=== PATIENT | female | born 1970 | race African-American/Black ===

== ENCOUNTER 2017-10-31 09:58 | Inpatient (IN) ==
--- OUTSIDE RECORDS SUMMARY | 2017-10-31 12:25 | External Medical Summary | Encounter Summary ---
:1970 Author Organization [facility] Address [address] [place] [address] Phone Care Team Providers Name Role Phone Lewis Francis DO Unavailable Brian Fish MD Primary Care Provider Carmen Jean RN Registered Nurse Unavailable Encounter Details Date Type Department Care Team Description 10/12/2017 Documentation [facility] Bartolome Thomas MD Physicians-Neurology [address] [facility] [address] [place] [address] [place] [id number] Social History Tobacco Use Types Packs/Day Years Used Date Current Every Day Smoker Cigarettes 0.5 27 Smokeless Tobacco: Never Used Alcohol Use Drinks/Week oz/Week Comments Yes occasional drinker Sex Assigned at Date Recorded Not on file as of this encounter Functional Status Functional Status Response Date of Assessment Does the patient have a hearing impairment: No 01/23/2017 Does the patient have a visual impairment: Yes 01/03/2017 Does the patient have impaired ambulation: Yes 01/03/2017 Does the patient have an activity of daily living (ADL) No 01/03/2017 impairment: Does the patient have an instrumental activity of daily Yes 01/03/2017 living (IADL) impairment: Cognitive Status Response Date of Assessment Does the patient have a cognitive impairment: No 01/03/2017 as of this encounter Progress Notes Larisa Ross LPN - 10/12/2017 8:09 AM CST10 muscle biopsy slides returned to [facility] from 7..17. Reviewed by Dr. Thomas and returned 3.9.18in this encounter Plan of Treatment Not on fileas of this encounter Visit Diagnoses Not on filein this encounter
--- OUTSIDE RECORDS SUMMARY | 2017-10-31 12:25 | External Medical Summary | Continuity of Care Document ---
:1970 Author Organization [facility] Care Team Providers Name Role Phone [employer] Unavailable Unavailable Encounters Location Location Encounter Encounter Reason Attending ADM DC Status Source Details Type Number For Provider Date Date Visit OP SURGERY [id number] JONNY 01/04 01/04 Active [facility]2016 [facility] Xu MOREIRA Active [facility]
--- OUTSIDE RECORDS SUMMARY | 2017-10-31 12:25 | External Medical Summary | Clinical Summary ---
:1970 Author Organization [facility] Address [address] [place] [address] Phone Care Team Providers Name Role Phone Lewis Francis DO Unavailable Brian Fish MD Primary Care Provider Carmen Jean RN Registered Nurse Unavailable Source Comments Some departments are not documenting in the electronic medical record. If you do not see the information that you expected, contact Release of Information in the Health Information Management department at [phone] for further assistance in locating additional records.[facility] Allergies Active Allergy Reactions Severity Noted Date Comments Codeine VOMITING Low 12/13/2015 Penicillin G HIVES Medium 12/13/2015 Current Medications Prescription Sig. Disp. Refills Start Date End Date Status ERGOCALCIFEROL (VITAMIN Take 2,000 mcg by Active D2) (VITAMIN D PO) mouth daily. THIAMINE HCL (VITAMIN Take 100 mg by Active B-1 PO) mouth daily. melatonin 5 mg tab Take 5 mg by mouth Active at bedtime daily. ASCORBATE CALCIUM Take 500 mg by Active (VITAMIN C PO) mouth daily. levothyroxine Take 200 mcg by Active (SYNTHROID) 175 mcg mouth daily. tablet gabapentin (NEURONTIN) Take 3 Caps by 360 Cap 5 09/15/2016 Active 300 mg capsule mouth four times daily. potassium chloride SR Take 10 mEq by Active (K-DUR) 10 mEq tablet mouth daily. Take with a meal and a full glass of water. MULTIVITAMINS WITH Take by mouth Active FLUORIDE (MULTI-VITAMIN daily. PO) pyridoxine (VITAMIN B-6) Take 100 mg by Active 25 mg tab mouth three times daily. cyanocobalamin(+) Take 100 mcg by Active (VITAMIN B-12) 100 mcg mouth daily. tablet duloxetine DR (CYMBALTA) Take 2 Caps by 60 Cap 6 12/04/2016 Active 30 mg capsule mouth daily. metoprolol XL (TOPROL Take 100 mg by Active XL) 100 mg extended mouth daily. release tablet topiramate (TOPAMAX) 50 Take 1 Tab by 180 Tab 1 01/27/2017 Active mg tablet mouth twice daily. oxyCODONE SR (OXYCONTIN) Take 1 Tab by 30 Tab 0 01/27/2017 Active 10 mg ER tablet mouth every 8 hours Earliest Fill Date: 01/27/17 oxyCODONE/acetaminophen Take 1-2 Tabs by 30 Tab 0 01/27/2017 Active (PERCOCET; ENDOCET) mouth every 4 10/325 mg tablet hours as needed Earliest Fill Date: 01/27/17 Active Problems Problem Noted Date BMI 40.0-44.9, adult (HCC) 01/27/2017 Obesity due to excess calories 01/27/2017 Hyponatremia 01/23/2017 MGUS (monoclonal gammopathy of unknown significance) 10/31/2016 Last Assessment & Plan: A 46-year-old -[place] female patient with a known history of thyroid cancer, hypertension, and chronic polyneuropathy at least since 2014. Who presents to our clinic because of elevated free k appa light chain while performing a workup for her neuropathy. Patient states that her neuropathy has been worsening for the past year and she states that sometimes she is losing balance. She is here for further evaluation. Her recent myeloma markers showed the following free kappa light chain 3.0 mg/dL, free lambda light chain 1.9 mg/dL, ratio 1.5, serum M protein 0. After review of her initial labs and discussion with the patient and her about her symptoms and the possibility that it could be related to her elevated free kappa light chain I recommend to per form a further workup in order to identify if the patient has any underlying plasma cell disorder that could be the cause of her peripheral neuropathy and to see if that could be treatable as well. Recommendation: Request bone marrow biopsy with aspirate/cytogenetic/Congo red stain from her local piercing specialist Check skeletal survey Check fat pad biopsy to rule out AL amyloidosis Check free light chain, SPEP, 24 hour UPEP, serum and urine immunofixation, beta-2 M, LDH, total immunoglobulin level Check VEGF RTC to my clinic after all these results are back to discuss the final diagnosis Polyneuropathy (HCC) 10/31/2016 Last Assessment & Plan: Patient is here for further evaluation regarding her underlying cause of elevated protein. She has been evaluated by the neurology and had a full workup regarding her polyneuropathy, still ongoing workup without any underlying cause to be found for this patient. Essential hypertension 10/31/2016 Last Assessment & Plan: Swelling her primary care physician regarding her hypertension Thyroid cancer (HCC) 10/31/2016 Last Assessment & Plan: History of thyroid cancer and had surgery in addition to iodine treatment. Encounters Date Type Specialty Care Team Description 10/12/2017 Documentation Neurology Bartolome Thomas MD from Last 3 Months Immunizations Name Dates Previously Given Next Due Pneumococcal Vaccine (23-Tara Adult) 01/27/2017 (Deferred: - Message sent at 10:33) Family History Medical History Relation Name Comments None Reported Brother Cancer Father Hypertension Father Asthma Mother Diabetes Sister Kidney Failure Sister Relation Name Status Comments Brother Alive Father Alive Mother Sister Alive Social History Tobacco Use Types Packs/Day Years Used Date Current Every Day Smoker Cigarettes 0.5 27 Smokeless Tobacco: Never Used Alcohol Use Drinks/Week oz/Week Comments Yes occasional drinker Sex Assigned at Date Recorded Not on file Last Filed Vital Signs Vital Sign Reading Time Taken Blood Pressure 129/82 01/27/2017 12:21 PM CDT Pulse 86 01/27/2017 12:21 PM CDT Temperature 36.4 C (97.5 F) 01/27/2017 12:21 PM CDT Respiratory Rate 14 10/30/2016 3:23 PM CDT Oxygen Saturation 100% 01/27/2017 12:21 PM CDT Inhaled Oxygen Concentration - - Weight 115.7 kg (255 lb 1.2 oz) 01/24/2017 8:00 AM CDT Height 165.1 cm (5' 5") 01/24/2017 8:09 AM CDT Body Mass Index 42.45 01/24/2017 8:00 AM CDT Plan of Treatment Health Maintenance Due Date Last Done Comments PHYSICAL (COMPREHENSIVE) EXAM 1977 PERTUSSIS VACCINE 1981 HIV SCREENING 1985 TETANUS VACCINE 10/10/1987 CERVICAL CANCER SCREENING 2000 BREAST CANCER SCREENING 2010 INFLUENZA VACCINE 05/06/2018 Implants Implanted Type Area Office Manager Device Identifier Expiration Date Model / Serial / Lot Lap Band
--- OUTSIDE RECORDS SUMMARY | 2017-10-31 12:25 | External Medical Summary | Continuity Of Care Document ---
:1970 Author Organization [facility] Address [address] [place] [address] Phone Care Team Providers Name Role Phone RODY HARGROVE MD Unavailable UNASSIGNED, ED PHYSICIAN Unavailable Unavailable DALI STILL, CHARBEL Covarrubias Attending Provider TOREY VALERO MD Primary Care Provider [phone] Results Lab Results Visit/Account #[id number] (March 11, 2015 12:10am - March 11, 2015 5:40am) Test Result Date/Time 07115-1: COMPLETE BLOOD COUNT WITH DIFF WHITE BLOOD COUNT(4.0-11.0 10E3/UL) 12.6 10E3/UL March 11, 2015 12:24am RED BLOOD COUNT(4.00-5.20 10E6/UL) 4.88 10E6/UL March 11, 2015 12:24am HEMOGLOBIN(12.0-16.0 G/DL) 14.5 G/DL March 11, 2015 12:24am HEMATOCRIT(36.0-46.0 %) 42.6 % March 11, 2015 12:24am MEAN CORPUSCULAR VOLUME(82.0-100.0 FL) 87.3 FL March 11, 2015 12:24am 22551-0: MEAN CORPUSCULAR HEMOGLOBIN(26.0-34.0 PG) 29.7 PG March 11, 2015 12: 24am MEAN CORPUSCULAR HGB CONC(31.5-36.5 G/DL) 34.0 G/DL March 11, 2015 12:24am RED CELL DISTRIBUTION WIDTH(11.5-14.5 %) 13.8 % March 11, 2015 12:24am 777-3: PLATELET COUNT(150-450 10E3/UL) 366 10E3/UL March 11, 2015 12:24am MEAN PLATELET VOLUME(8.2-12.4 FL) 10.3 FL March 11, 2015 12:24am 770-8: NEUTROPHILS % (AUTO)(40-70 %) 65 % March 11, 2015 12:24am LYMPHOCYTES % (AUTO)(15-45 %) 26 % March 11, 2015 12:24am 5905-5: MONOCYTES % (AUTO)(2-10 %) 9 % March 11, 2015 12:24am 713-8: EOSINOPHILS % (AUTO)(0-6 %) 1 % March 11, 2015 12:24am 706-2: BASOPHILS % (AUTO)(0-1 %) 0 % March 11, 2015 12:24am 40568-0: IMMATURE GRANS % (AUTO)(0-0 %) 0 % March 11, 2015 12:24am NUCLEATED RBCS (AUTO)(0-0 %) 0 % March 11, 2015 12:24am 751-8: NEUTROPHILS # (AUTO)(2.5-7.5 10E3/UL) 8.2 10E3/UL March 11, 2015 12: 24am 64002-4: LYMPHOCYTES # (AUTO)(1.0-4.0 10E3/UL) 3.2 10E3/UL March 11, 2015 12: 24am 742-7: MONOCYTES # (AUTO)(0.2-0.8 10E3/UL) 1.1 10E3/UL March 11, 2015 12:24am 711-2: EOSINOPHILS # (AUTO)(0.0-0.4 10E3/UL) 0.1 10E3/UL March 11, 2015 12: 24am 704-7: BASOPHILS # (AUTO)(0.0-0.2 10E3/UL) 0.0 10E3/UL March 11, 2015 12:24am IMMATURE GRANS # (AUTO)(0.0-0.0 10E3/UL) 0.1 10E3/UL March 11, 2015 12:24am DIFF TYPE AUTOMATED March 11, 2015 12:24am 79653-4: COMPLETE METABOLIC PROFILE 09168-7: GLUCOSE(70-110 MG/DL) 118 MG/DL March 11, 2015 12:24am BLOOD UREA NITROGEN(6-20 MG/DL) 3 MG/DL March 11, 2015 12:24am 93656-5: CREATININE(0.50-1.20 MG/DL) 0.52 MG/DL March 11, 2015 12:24am 63509-9: EST GLOMERULAR FILTRATION RATE(Greater than or equal to 60) Greater than or equal to 60 March 11, 2015 12:24am Result Comments: If the patient is of -[place] descent/extraction multiply the eGFR value by 1.212 to obtain the actual eGFR. >=60 mg/dL Normal 30-59 mg/dL Moderate Kidney Disease 15-29 mg/dL Severe Kidney Disease <15 mg/dL Kidney Failure BUN CREATININE RATIO(10.0-20.0 RATIO) 6.0 RATIO March 11, 2015 12:24am 08457-9: SODIUM(135-145 MMOL/L) 142 MMOL/L March 11, 2015 12:24am 18739-8: POTASSIUM(3.6-5.0 MMOL/L) 1.9 MMOL/L March 11, 2015 12:24am 05474-5: CHLORIDE(101-111 MMOL/L) 95 MMOL/L March 11, 2015 12:24am 8-9: CO2(21-31 MMOL/L) 37.0 MMOL/L March 11, 2015 12:24am 41636-3: ANION GAP(8-18) 12 March 11, 2015 12:24am OSMO CALCULATED(270.0-290.0) 280.7 March 11, 2015 12:24am CALCIUM(8.5-10.5 MG/DL) 8.7 MG/DL March 11, 2015 12:24am BILIRUBIN,TOTAL(0.1-1.2 MG/DL) 0.6 MG/DL March 11, 2015 12:24am ALKALINE PHOSPHATASE(42-121 IU/L) 75 IU/L March 11, 2015 12:24am ASPARTATE AMINO TRANSFERASE(10-42 IU/L) 15 IU/L March 11, 2015 12:24am ALANINE AMINOTRANSFERASE(10-60 IU/L) 6 IU/L March 11, 2015 12:24am 86404-2: TOTAL PROTEIN(6.4-8.2 G/DL) 6.9 G/DL March 11, 2015 12:24am ALBUMIN(3.5-5.5 G/DL) 3.3 G/DL March 11, 2015 12:24am 2336-6: GLOBULIN(2.4-3.6) 3.6 March 11, 2015 12:24am ALBUMIN/GLOBULIN RATIO(0.9-1.8 RATIO) 0.9 RATIO March 11, 2015 12:24am 30408-5: MAGNESIUM 85323-4: MAGNESIUM(1.8-2.5 MG/DL) 2.2 MG/DL March 11, 2015 12:24am 3040-3: LIPASE 3040-3: LIPASE(22-51 U/L) 19 U/L March 11, 2015 12:24am THYROID STIMULATING HORMONE THYROID STIMULATING HORMONE(0.340-5.600 uIU/ML) 30.130 uIU/ML March 11, 2015 12:24am Result Comments: --- 03/11/15 0153 --- CORRECTED REPORT TSH previously reported as: 33.710 H uIU/ML SERUM HCG, QUALITATIVE 0-5: SERUM HCG, QUALITATIVE(NEGATIVE) NEGATIVE March 11, 2015 12:24am Allergies and Adverse Reactions Allergies and Adverse Reactions Patient Unit Number: [id number] Agent Type Reaction Severity Status PENICILLINS Drug Allergy Hives Moderate Active CODEINE Drug Allergy Nausea & TREVINO Mild Active Problem List Problem List Visit/Account #[id number] (March 11, 2015 12:10am - March 11, 2015 5:40am) Acute Problems: Code/Condition Comments Documented Start Documented Resolved Code(s) Date Date Oral thrush ICD10: B37.0 Candidiasis of mouth ICD9: 112.0 Candidiasis of mouth SNOMED: 76183364 Candidiasis of mouth Gingivitis ICD10: K05.10 Gingivitis ICD9: 523.10 Gingivitis SNOMED: 49525889 Gingivitis Hypothyroidism ICD10: E03.9 Hypothyroidism ICD9: 244.9 Hypothyroidism SNOMED: 26413469 Hypothyroidism Hypokalemia ICD10: E87.6 Hypokalemia ICD9: 276.8 Hypokalemia SNOMED: 48422355 Hypokalemia Oral thrush ICD10: B37.0 Candidiasis of mouth ICD9: 112.0 Candidiasis of mouth SNOMED: 70992673 Candidiasis of mouth Plan of Care Plan Of Care Visit/Account #[id number] (March 11, 2015 12:10am - March 11, 2015 5:40am) Patient Instructions Follow with primary care in 2 days to recheck potassium. Take potassium 15 mEq twice a day instead of once a day for 2 days. Increase levothyroxin to 175 mcg daily. Use nystatin swish and swallow for one week. Take antibiotics as prescribed. Return to the emergency room if symptoms worsens or has any concern. Take pepcid 40 mg po daily for 2 weeks. Vital Signs Vital Signs Visit/Account #[id number] (March 11, 2015 12:10am - March 11, 2015 5:40am) Sign First Result Last Result Code(s) Body Mass Index Body Mass Index (BMI): 29.0 kg/m2 On March 11, 2015 12:08am 30143-9 BMI (body mass index) Body Mass Index as a Calculated Value 29.8 kg/m2 On March 11, 2015 12:08am 22265-6 BMI (body mass index) Body Surface Area as a Calculated Value 1.93 m2 On March 11, 2015 12:08am 3140-1 BSA (body surface area) Height (Feet/Inches) 5 [ft_us] 6 [in_us] On March 11, 2015 12:08am Temperature in Fahrenheit Temperature (Fahrenheit): 98.5 [degF] On March 11, 2015 12:08am Temperature (Fahrenheit): 98.1 [degF] On March 11, 2015 5:30am 8310-5 Body Temperature Weight in Kilograms Weight (Kilograms): 83.64 kg On March 11, 2015 12:08am 3141-9 Weight Measured 65791-0 Body weight measured in kilograms Functional Status Functional and Cognitive Status No Functional Status Data Medications Inpatient/Ordered Medications - Medications administered during hospital visit Visit/Account #[id number] (March 11, 2015 12:10am - March 11, 2015 5:40am) Medication Route Sig/Schedule Precondition/Indication Comments/ Instructions Codes ATIVAN INJ(LORazepam) 2 MG/ML INJECTION INTRAVEN NOW Rx Order Comments: Lorazepam 2 MG/ML Injectable Solution [Ativan] (RxNorm): 663689 Dose: 0.5 ML Order placed as verified: Dose Warnings differ from telephone order dispatcher ATIVAN INJ (LORazepam) NDC: 28402950534 Label Comments: *DILUTE WITH EQUAL VOLUME OF NORMAL SALINE PRIOR TO IV ADMINISTRATION MAY INCREASE FALL RISK TORADOL INJ(KETOROLAC TROMETHAMINE) 30 MG/ML INJECTION INTRAVEN NOW Rx Order Comments: Ketorolac Tromethamine 30 MG/ML Injectable Solution (RxNorm): 155602 Dose: 1 ML Order placed as verified: Dose Warnings differ from telephone order dispatcher TORADOL INJ (KETOROLAC TROMETHAMINE) NDC: 87583539031 Label Comments: DO NOT EXCEED 5 DAYS OF THERAPY ZOFRAN INJ(ONDansetron HCL) 4 MG/2 ML INJECTION INTRAVEN NOW Rx Order Comments: Ondansetron 2 MG/ML Injectable Solution (RxNorm): 516739 Dose: 2 ML Order placed as verified: Dose Warnings differ from telephone order dispatcher ZOFRAN INJ (ONDansetron HCL) NDC : 31860070652 Label Comments: SLOW IV PUSH MAY INCREASE FALL RISK K-DUR(POTASSIUM CHLORIDE) 20 MEQ TAB ORAL NOW Rx Order Comments: Potassium Chloride 20 MEQ Extended Release Oral Tablet [Klor-Con] (RxNorm): 228959 Dose: 40 MEQ Order placed as verified: Dose Warnings differ from telephone order dispatcher K-DUR (POTASSIUM CHLORIDE) NDC: 49479612304 Label Comments: TAKE WITH FOOD TO AVOID GI UPSET IV Medication INTRAVEN NOW (Rate: 130 MLS/HR Duration: 4 HR) Rx Order Comments: Additives: Order placed as verified: Additives: Allergies/Duplicates/Interactions differ from telephone order dispatcher Potassium Chloride 2 MEQ/ML Injectable Solution (RxNorm): 798947 KCL INJ(POTASSIUM CHLORIDE) 40 MEQ/20 ML INJECTION KCL INJ (POTASSIUM CHLORIDE) NDC: 07207642629 Dose: 40 MEQ Carriers: Carriers: Sodium Chloride 0.154 MEQ/ML Injectable Solution (RxNorm): 765795 SODIUM CHLORIDE 500 ML INJECTION Dose: 500 ML (SODIUM CHLORIDE) NDC: 54287306574 Discharge Medications - Medications that patient should continue to take. Review with physician Visit/Account #[id number] (March 11, 2015 12:10am - March 11, 2015 5:40am) Medication Route Sig/Schedule Precondition/Indication Comments/ Instructions Codes KEFLEX(CEPHALEXIN MONOHYDRATE) 500 MG CAPSULE ORAL 3 TIMES A DAY Cephalexin 500 MG Oral Capsule [Keflex] (RxNorm): 002786 Dose: 500 MG KEFLEX (CEPHALEXIN MONOHYDRATE) NDC: 06451849507 NILSTAT(NYSTATIN) 60 ML SUSPENSION ORAL EVERY 6 HOURS Rx Instructions: Nystatin 439231 UNT/ML Oral Suspension (RxNorm): 360925 Dose: 5 ML SWISH AND SWALLOW NILSTAT (NYSTATIN) NDC: 31505863249 SYNTHROID(LEVOTHYROXINE SODIUM) 0.175 MG TABLET ORAL DAILY Levothyroxine Sodium 0.175 MG Oral Tablet [Synthroid] (RxNorm): 856927 Dose: 0.175 MG SYNTHROID (LEVOTHYROXINE SODIUM) NDC: 16076336713 History Of Encounters Encounters Visit/Account #[id number] (March 11, 2015 12:10am - March 11, 2015 5:40am) Account Physican Of Reason For Visit Diagnosis Start Date/Time Stop Date/ Time Status Record Visit ER CHARBEL MCNALLY MD ABD PAIN, NUMB FINGERS AND TOES, LIPS TINGLE. Not Available Mar 11, 2015 12:10am Mar 11, 2015 5:40am History of Procedures Procedure List No procedures recorded. Discharge Instructions Discharge Instructions Visit/Account #[id number] (March 11, 2015 12:10am - March 11, 2015 5:40am) DISCHARGE INSTRUCTIONS Physician Documentation Social History Social History No Social History Data. Immunizations Immunizations Patient Unit Number: [id number] Immunizations No immunizations recorded.
--- OUTSIDE RECORDS SUMMARY | 2017-10-31 12:25 | External Medical Summary | Continuity Of Care Document ---
:1970 Author Organization [facility] Address [address] [place] [address] Phone Care Team Providers Name Role Phone MALOU STILL MD Attending Provider TOREY VALERO MD Primary Care Provider [phone] Results Lab Results Visit/Account #[id number] (April 04, 2015 3:25am - April 04, 2015 5:30am) Test Result Date/Time 26146-0: COMPLETE BLOOD COUNT WITH DIFF WHITE BLOOD COUNT(4.0-11.0 10E3/UL) 12.0 10E3/UL April 04, 2015 3:44am RED BLOOD COUNT(4.00-5.20 10E6/UL) 4.48 10E6/UL April 04, 2015 3:44am HEMOGLOBIN(12.0-16.0 G/DL) 13.4 G/DL April 04, 2015 3:44am HEMATOCRIT(36.0-46.0 %) 39.9 % April 04, 2015 3:44am MEAN CORPUSCULAR VOLUME(82.0-100.0 FL) 89.1 FL April 04, 2015 3:44am 66023-5: MEAN CORPUSCULAR HEMOGLOBIN(26.0-34.0 PG) 29.9 PG April 04, 2015 3: 44am MEAN CORPUSCULAR HGB CONC(31.5-36.5 G/DL) 33.6 G/DL April 04, 2015 3:44am RED CELL DISTRIBUTION WIDTH(11.5-14.5 %) 16.7 % April 04, 2015 3:44am 777-3: PLATELET COUNT(150-450 10E3/UL) 238 10E3/UL April 04, 2015 3:44am MEAN PLATELET VOLUME(8.2-12.4 FL) 10.5 FL April 04, 2015 3:44am 770-8: NEUTROPHILS % (AUTO)(40-70 %) 69 % April 04, 2015 3:44am LYMPHOCYTES % (AUTO)(15-45 %) 18 % April 04, 2015 3:44am 5905-5: MONOCYTES % (AUTO)(2-10 %) 9 % April 04, 2015 3:44am 713-8: EOSINOPHILS % (AUTO)(0-6 %) 2 % April 04, 2015 3:44am 706-2: BASOPHILS % (AUTO)(0-1 %) 0 % April 04, 2015 3:44am 18110-6: IMMATURE GRANS % (AUTO)(0-0 %) 1 % April 04, 2015 3:44am NUCLEATED RBCS (AUTO)(0-0 %) 0 % April 04, 2015 3:44am 751-8: NEUTROPHILS # (AUTO)(2.5-7.5 10E3/UL) 8.3 10E3/UL April 04, 2015 3: 44am 45143-8: LYMPHOCYTES # (AUTO)(1.0-4.0 10E3/UL) 2.2 10E3/UL April 04, 2015 3: 44am 742-7: MONOCYTES # (AUTO)(0.2-0.8 10E3/UL) 1.1 10E3/UL April 04, 2015 3:44am 711-2: EOSINOPHILS # (AUTO)(0.0-0.4 10E3/UL) 0.3 10E3/UL April 04, 2015 3: 44am 704-7: BASOPHILS # (AUTO)(0.0-0.2 10E3/UL) 0.0 10E3/UL April 04, 2015 3:44am IMMATURE GRANS # (AUTO)(0.0-0.0 10E3/UL) 0.1 10E3/UL April 04, 2015 3:44am DIFF TYPE AUTOMATED April 04, 2015 3:44am UA WITH SCREEN FOR CULTURE 5778-6: COLOR,URINE YELLOW April 04, 2015 3:36am 01860-9: CLARITY,URINE CLEAR April 04, 2015 3:36am GLUCOSE, URINE(NEGATIVE MG/DL) NEGATIVE MG/DL April 04, 2015 3:36am URINE BILIRUBIN(NEGATIVE) NEGATIVE April 04, 2015 3:36am 83397-2: KETONES,URINE(NEGATIVE MG/DL) NEGATIVE MG/DL April 04, 2015 3:36am 2965-2: URINE SPECIFIC GRAVITY(1.001-1.035) 1.010 April 04, 2015 3:36am 25005-6: URINE BLOOD(NEGATIVE) TRACE-LYSE April 04, 2015 3:36am 2756-5: URINE PH(5.0-9.0) 7.0 April 04, 2015 3:36am URINE PROTEIN(Less than 20 MG/DL) NEGATIVE MG/DL April 04, 2015 3:36am URINE UROBILINOGEN(0.2-1.0 MG/DL) 1.0 MG/DL April 04, 2015 3:36am URINE NITRITE(NEGATIVE) NEGATIVE April 04, 2015 3:36am 5799-2: LEUKOCYTE ESTERASE ,URINE(NEGATIVE) NEGATIVE April 04, 2015 3:36am 630-4: URINE CULTURE NOT INDICATED April 04, 2015 3:36am URINE MICROSCOPIC REQUIRED YES April 04, 2015 3:36am URINE WBCS(/HPF) 0-3 /HPF April 04, 2015 3:36am 12059-8: URINE RBCS(/HPF) 0-3 /HPF April 04, 2015 3:36am 35881-9: URINE EPITHELIAL CELLS(/HPF) 0-3 /HPF April 04, 2015 3:36am BACTERIA,URINE(/HPF) TRACE /HPF April 04, 2015 3:36am URINE CRYSTALS(/HPF) NONE SEEN /HPF April 04, 2015 3:36am URINE CASTS(/LPF) NONE SEEN /LPF April 04, 2015 3:36am URINE COMMENTS 1+ MUCOUS April 04, 2015 3:36am 2828-2: URINE POTASSIUM, RANDOM 2828-2: URINE POTASSIUM, RANDOM(MMOL/L) 16.0 MMOL/L April 04, 2015 3:36am 34353-3: COMPLETE METABOLIC PROFILE 90854-2: GLUCOSE(70-110 MG/DL) 111 MG/DL April 04, 2015 3:44am BLOOD UREA NITROGEN(6-20 MG/DL) 4 MG/DL April 04, 2015 3:44am 98124-9: CREATININE(0.50-1.20 MG/DL) 0.47 MG/DL April 04, 2015 3:44am 12816-8: EST GLOMERULAR FILTRATION RATE(Greater than or equal to 60) Greater than or equal to 60 April 04, 2015 3:44am Result Comments: If the patient is of -[place]uxembour[place] descent/extraction multiply the eGFR value by 1.212 to obtain the actual eGFR. >=60 mg/dL Normal 30-59 mg/dL Moderate Kidney Disease 15-29 mg/dL Severe Kidney Disease <15 mg/dL Kidney Failure BUN CREATININE RATIO(10.0-20.0 RATIO) 9.0 RATIO April 04, 2015 3:44am 12337-5: SODIUM(135-145 MMOL/L) 139 MMOL/L April 04, 2015 3:44am 95375-4: POTASSIUM(3.6-5.0 MMOL/L) 3.5 MMOL/L April 04, 2015 3:44am 62710-7: CHLORIDE(101-111 MMOL/L) 106 MMOL/L April 04, 2015 3:44am 8-9: CO2(21-31 MMOL/L) 26.0 MMOL/L April 04, 2015 3:44am 40035-0: ANION GAP(8-18) 11 April 04, 2015 3:44am OSMO CALCULATED(270.0-290.0) 275.1 April 04, 2015 3:44am CALCIUM(8.5-10.5 MG/DL) 8.6 MG/DL April 04, 2015 3:44am BILIRUBIN,TOTAL(0.1-1.2 MG/DL) 0.4 MG/DL April 04, 2015 3:44am ALKALINE PHOSPHATASE(42-121 IU/L) 72 IU/L April 04, 2015 3:44am ASPARTATE AMINO TRANSFERASE(10-42 IU/L) 20 IU/L April 04, 2015 3:44am ALANINE AMINOTRANSFERASE(10-60 IU/L) 11 IU/L April 04, 2015 3:44am 13607-4: TOTAL PROTEIN(6.4-8.2 G/DL) 6.6 G/DL April 04, 2015 3:44am ALBUMIN(3.5-5.5 G/DL) 3.0 G/DL April 04, 2015 3:44am 2336-6: GLOBULIN(2.4-3.6) 3.6 April 04, 2015 3:44am ALBUMIN/GLOBULIN RATIO(0.9-1.8 RATIO) 0.8 RATIO April 04, 2015 3:44am 22168-5: MAGNESIUM 87104-5: MAGNESIUM(1.8-2.5 MG/DL) 1.6 MG/DL April 04, 2015 3:44am Allergies and Adverse Reactions Allergies and Adverse Reactions Patient Unit Number: [id number] Agent Type Reaction Severity Status PENICILLINS Drug Allergy Hives Moderate Active CODEINE Drug Allergy Nausea & TREVINO Mild Active Problem List Problem List Visit/Account #[id number] (April 04, 2015 3:25am - April 04, 2015 5:30am) Acute Problems: Code/Condition Comments Documented Start Documented Code(s) Date Resolved Date Paresthesia and pain of both upper extremities ICD10: R20.2 Paresthesia and pain of both upper extremities ICD9: 782.0 Paresthesia and pain of both upper extremities SNOMED: 139260781 Paresthesia and pain of both upper extremities Hemorrhoid ICD10: K64.9 Hemorrhoid ICD9: 455.6 Hemorrhoid SNOMED: 17661181 Hemorrhoid Paresthesia of both lower extremities ICD10: R20.2 Paresthesia of both lower extremities ICD9: 782.0 Paresthesia of both lower extremities SNOMED: 495460850 Paresthesia of both lower extremities Hypokalemia ICD10: E87.6 Hypokalemia ICD9: 276.8 Hypokalemia SNOMED: 48876980 Hypokalemia Paresthesia and pain of both upper extremities ICD10: R20.2 Paresthesia and pain of both upper extremities ICD9: 782.0 Paresthesia and pain of both upper extremities SNOMED: 221967930 Paresthesia and pain of both upper extremities Hypomagnesemia ICD10: E83.42 Hypomagnesemia ICD9: 275.2 Hypomagnesemia SNOMED: 389574121 Hypomagnesemia Paresthesia and pain of both upper extremities ICD10: R20.2 Paresthesia and pain of both upper extremities ICD9: 782.0 Paresthesia and pain of both upper extremities SNOMED: 031965460 Paresthesia and pain of both upper extremities Plan of Care Plan Of Care Visit/Account #[id number] (April 04, 2015 3:25am - April 04, 2015 5:30am) Patient Instructions Return if worse or any concerns. Follow-up with your PCP within 48 hrs for further evaluation and care. Exercise caution while taking Gabapentin as it can make you drowsy. Vital Signs Vital Signs Visit/Account #[id number] (April 04, 2015 3:25am - April 04, 2015 5:30am) Sign First Result Last Result Code(s) Body Mass Index Body Mass Index (BMI): 29.0 kg/m2 On April 04, 2015 3:09am 70868-5 BMI (body mass index) Body Mass Index as a Calculated Value 29.1 kg/m2 On April 04, 2015 3:09am 73936-0 BMI (body mass index) Body Surface Area as a Calculated Value 1.91 m2 On April 04, 2015 3:09am 3140-1 BSA (body surface area) Height (Feet/Inches) 5 [ft_us] 6 [in_us] On April 04, 2015 3:09am Temperature in Fahrenheit Temperature (Fahrenheit): 98.2 [degF] On March 3:09am 8310-5 Body Temperature Weight in Kilograms Weight (Kilograms): 81.82 kg On April 04, 2015 3:09am 3141-9 Weight Measured 68661-3 Body weight measured in kilograms Functional Status Functional and Cognitive Status No Functional Status Data Medications Inpatient/Ordered Medications - Medications administered during hospital visit Visit/Account #[id number] (April 04, 2015 3:25am - April 04, 2015 5:30am) Medication Route Sig/Schedule Precondition/Indication Comments/ Instructions Codes NEURONTIN(GABAPENTIN) 100 MG CAP ORAL NOW Rx Order Comments: gabapentin 100 MG Oral Capsule (RxNorm): 908641 Dose: 100 MG Order placed as verified: Dose Warnings differ from pit recorder NEURONTIN (GABAPENTIN) NDC: 87411361484 Label Comments: MAY INCREASE FALL RISK K-LYTE/CL EFF(POTASSIUM BICARB/POT CHLORIDE) 25 MEQ TAB ORAL NOW Rx Order Comments: Potassium Chloride 25 MEQ Effervescent Oral Tablet (RxNorm): 5540651 Dose: 50 MEQ Order filed UNV: Dose Warnings differ from pit recorder K-LYTE/CL EFF (POTASSIUM BICARB/ POT CHLORIDE) NDC: 09234674064 Label Comments: DISSOLVE IN 3 TO 4 OUNCES OF COLD WATER IV Medication INTRAVEN NOW (Rate: 156 MLS/HR Duration: 20 MIN) Rx Order Comments: Additives: Order placed as verified: Additives: Dose Warnings differ from pit recorder Magnesium Sulfate 4 MEQ/ML Injectable Solution (RxNorm): 044457 MAGNESIUM SULFATE 1000 MG/2 ML INJECTION Label Comments: (MAGNESIUM SULFATE) NDC: 82436177412 Dose: 1000 MG 1 GM=2 ML Carriers: Carriers: Glucose 50 MG/ML Injectable Solution (RxNorm): 925424 DEXTROSE 50 ML INJECTION Dose: 50 ML (DEXTROSE) NDC: 63000053869 SUBLIMAZE INJ(FentaNYL CITRATE) 100 MCG/2 ML INJECTION INTRAVEN NOW Rx Order Comments: Fentanyl 0.05 MG/ML Injectable Solution (RxNorm): 806057 Dose: 1 ML Order placed as verified: Dose Warnings differ from pit recorder SUBLIMAZE INJ (FentaNYL CITRATE ) NDC: 42114153526 Label Comments: GIVE BY SLOW PUSH OVER 2-5 MIN MAY INCREASE FALL RISK Discharge Medications - Medications that patient should continue to take. Review with physician Visit/Account #[id number] (April 04, 2015 3:25am - April 04, 2015 5:30am) Medication Route Sig/Schedule Precondition/Indication Comments/ Instructions Codes NEURONTIN(GABAPENTIN) 100 MG CAPSULE ORAL 3 TIMES A DAY gabapentin 100 MG Oral Capsule [Neurontin] (RxNorm): 486943 Dose: 100 MG NEURONTIN (GABAPENTIN) NDC: 43030630726 LIDOCAINE HCL 2% GEL(LIDOCAINE HCL) 30 ML JEL..ML. TOPICALLY Q4H PAIN Rx Instructions: Lidocaine Hydrochloride 0.02 MG/MG Topical Gel (RxNorm): 8856571 Dose: 1 APPL Apply to anal region LIDOCAINE HCL 2% GEL (LIDOCAINE HCL) NDC: 97258425007 History Of Encounters Encounters Visit/Account #[id number] (April 04, 2015 3:25am - April 04, 2015 5:30am) Account Status Physican Of Reason For Visit Diagnosis Start Date/Time Stop Date/Time Record Visit ER MALOU STILL MD FINGERS,LIPS,TOES NUMB AND ON FIRE Not Available Apr 04, 2015 3:25am Apr 04, 2015 5:30am History of Procedures Procedure List No procedures recorded. Discharge Instructions Discharge Instructions Visit/Account #[id number] (April 04, 2015 3:25am - April 04, 2015 5:30am) DISCHARGE INSTRUCTIONS Physician Documentation Social History Social History No Social History Data. Immunizations Immunizations Patient Unit Number: [id number] Immunizations No immunizations recorded.
--- OUTSIDE RECORDS SUMMARY | 2017-10-31 12:26 | External Medical Summary | Continuity Of Care Document ---
:1970 Author Organization [facility] Address [address] [place] [address] Phone Care Team Providers Name Role Phone JARROD LAM MD Consulting Provider TAL STILL, LUCRETIA Yun Attending Provider BRIAN VALERO MD Primary Care Provider [phone] Results Lab Results Visit/Account #[id number] (July 05, 2017 10:50am - July 24, 2017 2: 32pm) Test Result Date/Time POCGL POCGL(70-110 MG/DL) 136 MG/DL July 05, 2017 4:32pm 120 MG/DL July 05, 2017 9:38pm 76 MG/DL July 06, 2017 6:14am COMPLETE BLOOD COUNT WITH DIFF WHITE BLOOD COUNT(4.0-11.0 10E3/UL) 13.5 10E3/UL July 06, 2017 8:02am RED BLOOD COUNT(4.00-5.20 10E6/UL) 4.22 10E6/UL July 06, 2017 8:02am HEMOGLOBIN(12.0-16.0 G/DL) 12.1 G/DL July 06, 2017 8:02am HEMATOCRIT(36.0-46.0 %) 38.5 % July 06, 2017 8:02am MEAN CORPUSCULAR VOLUME(82.0-100.0 FL) 91.2 FL July 06, 2017 8:02am MEAN CORPUSCULAR HEMOGLOBIN(26.0-34.0 PG) 28.7 PG July 06, 2017 8:02am MEAN CORPUSCULAR HGB CONC(31.5-36.5 G/DL) 31.4 G/DL July 06, 2017 8:02am RED CELL DISTRIBUTION WIDTH(11.5-14.5 %) 18.0 % July 06, 2017 8:02am 777-3: PLATELET COUNT(150-450 10E3/UL) 439 10E3/UL July 06, 2017 8:02am MEAN PLATELET VOLUME(8.2-12.4 FL) 9.5 FL July 06, 2017 8:02am NEUTROPHILS % (AUTO)(40-70 %) 67 % July 06, 2017 8:02am LYMPHOCYTES % (AUTO)(15-45 %) 21 % July 06, 2017 8:02am MONOCYTES % (AUTO)(2-10 %) 9 % July 06, 2017 8:02am EOSINOPHILS % (AUTO)(0-6 %) 2 % July 06, 2017 8:02am BASOPHILS % (AUTO)(0-1 %) 0 % July 06, 2017 8:02am IMMATURE GRANS % (AUTO)(0-0 %) 1 % July 06, 2017 8:02am NUCLEATED RBCS (AUTO)(0-0 %) 0 % July 06, 2017 8:02am NEUTROPHILS # (AUTO)(2.5-7.5 10E3/UL) 9.0 10E3/UL July 06, 2017 8:02am LYMPHOCYTES # (AUTO)(1.0-4.0 10E3/UL) 2.8 10E3/UL July 06, 2017 8:02am MONOCYTES # (AUTO)(0.2-0.8 10E3/UL) 1.3 10E3/UL July 06, 2017 8:02am EOSINOPHILS # (AUTO)(0.0-0.4 10E3/UL) 0.2 10E3/UL July 06, 2017 8:02am BASOPHILS # (AUTO)(0.0-0.2 10E3/UL) 0.0 10E3/UL July 06, 2017 8:02am IMMATURE GRANS # (AUTO)(0.0-0.0 10E3/UL) 0.1 10E3/UL July 06, 2017 8:02am DIFF TYPE AUTOMATED July 06, 2017 8:02am COMPLETE BLOOD COUNT WHITE BLOOD COUNT(4.0-11.0 10E3/UL) 12.6 10E3/UL July 10, 2017 6:24am 9.2 10E3/UL July 13, 2017 10:40am 6.4 10E3/UL July 16, 2017 7:37am RED BLOOD COUNT(4.00-5.20 10E6/UL) 4.30 10E6/UL July 10, 2017 6:24am 4.14 10E6/UL July 13, 2017 10:40am 4.27 10E6/UL July 16, 2017 7:37am HEMOGLOBIN(12.0-16.0 G/DL) 12.5 G/DL July 10, 2017 6:24am 12.1 G/DL July 13, 2017 10:40am 12.5 G/DL July 16, 2017 7:37am HEMATOCRIT(36.0-46.0 %) 39.2 % July 10, 2017 6:24am 37.9 % July 13, 2017 10:40am 39.3 % July 16, 2017 7:37am MEAN CORPUSCULAR VOLUME(82.0-100.0 FL) 91.2 FL July 10, 2017 6:24am 91.5 FL July 13, 2017 10:40am 92.0 FL July 16, 2017 7:37am MEAN CORPUSCULAR HEMOGLOBIN(26.0-34.0 PG) 29.1 PG July 10, 2017 6:24am 29.2 PG July 13, 2017 10:40am 29.3 PG July 16, 2017 7:37am MEAN CORPUSCULAR HGB CONC(31.5-36.5 G/DL) 31.9 G/DL July 10, 2017 6:24am 31.9 G/DL July 13, 2017 10:40am 31.8 G/DL July 16, 2017 7:37am RED CELL DISTRIBUTION WIDTH(11.5-14.5 %) 18.0 % July 10, 2017 6:24am 17.9 % July 13, 2017 10:40am 17.2 % July 16, 2017 7:37am 777-3: PLATELET COUNT(150-450 10E3/UL) 329 10E3/UL July 10, 2017 6:24am 229 10E3/UL July 13, 2017 10:40am 250 10E3/UL July 16, 2017 7:37am MEAN PLATELET VOLUME(8.2-12.4 FL) 9.6 FL July 10, 2017 6:24am 9.8 FL July 13, 2017 10:40am 10.2 FL July 16, 2017 7:37am NUCLEATED RBCS (AUTO)(0-0 %) 0 % July 10, 2017 6:24am 0 % July 13, 2017 10:40am 1 % July 16, 2017 7:37am BASIC METABOLIC PANEL GLUCOSE(70-110 MG/DL) 90 MG/DL July 06, 2017 8:02am 97 MG/DL July 10, 2017 6:24am 134 MG/DL July 13, 2017 10:40am 91 MG/DL July 16, 2017 7:36am BLOOD UREA NITROGEN(6-20 MG/DL) 23 MG/DL July 06, 2017 8:02am 25 MG/DL July 10, 2017 6:24am 16 MG/DL July 13, 2017 10:40am 18 MG/DL July 16, 2017 7:36am CREATININE(0.50-1.20 MG/DL) 0.90 MG/DL July 06, 2017 8:02am 0.80 MG/DL July 10, 2017 6:24am 0.87 MG/DL July 13, 2017 10:40am 0.89 MG/DL July 16, 2017 7:36am EST GLOMERULAR FILTRATION RATE(Greater than or equal to 60) Greater than or equal to 60 July 06, 2017 8:02am Result Comments: If the patient is of -[place] descent/extraction multiply the eGFR value by 1.212 to obtain the actual eGFR. >=60 mg/dL Normal 30-59 mg/dL Moderate Kidney Disease 15-29 mg/dL Severe Kidney Disease <15 mg/dL Kidney Failure Greater than or equal to 60 July 10, 2017 6:24am Result Comments: If the patient is of -[place] descent/extraction multiply the eGFR value by 1.212 to obtain the actual eGFR. >=60 mg/dL Normal 30-59 mg/dL Moderate Kidney Disease 15-29 mg/dL Severe Kidney Disease <15 mg/dL Kidney Failure Greater than or equal to 60 July 13, 2017 10:40am Result Comments: If the patient is of -[place] descent/extraction multiply the eGFR value by 1.212 to obtain the actual eGFR. >=60 mg/dL Normal 30-59 mg/dL Moderate Kidney Disease 15-29 mg/dL Severe Kidney Disease <15 mg/dL Kidney Failure Greater than or equal to 60 July 16, 2017 7:36am Result Comments: If the patient is of -[place] descent/extraction multiply the eGFR value by 1.212 to obtain the actual eGFR. >=60 mg/dL Normal 30-59 mg/dL Moderate Kidney Disease 15-29 mg/dL Severe Kidney Disease <15 mg/dL Kidney Failure BUN CREATININE RATIO(10.0-20.0 RATIO) 26.0 RATIO July 06, 2017 8:02am 31.0 RATIO July 10, 2017 6:24am 18.0 RATIO July 13, 2017 10:40am 20.0 RATIO July 16, 2017 7:36am SODIUM(135-145 MMOL/L) 139 MMOL/L July 06, 2017 8:02am 140 MMOL/L July 10, 2017 6:24am 136 MMOL/L July 13, 2017 10:40am 141 MMOL/L July 16, 2017 7:36am POTASSIUM(3.6-5.0 MMOL/L) 3.4 MMOL/L July 06, 2017 8:02am 3.8 MMOL/L July 10, 2017 6:24am 3.3 MMOL/L July 13, 2017 10:40am 3.9 MMOL/L July 16, 2017 7:36am CHLORIDE(101-111 MMOL/L) 102 MMOL/L July 06, 2017 8:02am 101 MMOL/L July 10, 2017 6:24am 102 MMOL/L July 13, 2017 10:40am 100 MMOL/L July 16, 2017 7:36am CO2(21-31 MMOL/L) 26 MMOL/L July 06, 2017 8:02am 28 MMOL/L July 10, 2017 6:24am 25 MMOL/L July 13, 2017 10:40am 31 MMOL/L July 16, 2017 7:36am ANION GAP(8-18) 14 July 06, 2017 8:02am 15 July 10, 2017 6:24am 12 July 13, 2017 10:40am 14 July 16, 2017 7:36am OSMO CALCULATED(270.0-290.0) 280.8 July 06, 2017 8:02am 283.7 July 10, 2017 6:24am 275.1 July 13, 2017 10:40am 282.7 July 16, 2017 7:36am CALCIUM(8.5-10.5 MG/DL) 9.1 MG/DL July 06, 2017 8:02am 9.1 MG/DL July 10, 2017 6:24am 9.1 MG/DL July 13, 2017 10:40am 9.3 MG/DL July 16, 2017 7:36am GLYCOHEMOGLOBIN A1C %A1C(4.8-5.6 %) 5.7 % July 06, 2017 8:02am Result Comments: HIGH A1C VALUES: INCREASED RISK FOR DIABETES 5.7-6.4 % DIABETES >6.5 % Allergies and Adverse Reactions Allergies and Adverse Reactions Patient Unit Number: [id number] Agent Type Reaction Severity Status PENICILLINS Drug Allergy Hives Moderate Active CODEINE Drug Allergy Nausea & TREVINO Mild Active Problem List Problem List Visit/Account #[id number] (July 05, 2017 10:50am - July 24, 2017 2: 32pm) Active Problems: Code/Condition Comments Documented Start Date Documented Resolved Code(s) Date 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 INFLAMMATORY DEMYELINATING POLYNEURITIS July 24, 2017 K58.1 IRRITABLE BOWEL SYNDROME WITH CONSTIPATION July 24, 2017 F41.1 GENERALIZED ANXIETY DISORDER July 24, 2017 M21.371 FOOT DROP, RIGHT FOOT July 24, 2017 M21.372 FOOT DROP, LEFT FOOT July 24, 2017 Z68.39 BODY MASS INDEX (BMI) 39.0-39.9, ADULT July 24, 2017 Z85.850 PERSONAL HISTORY OF MALIGNANT NEOPLASM OF THYROID July 24, 2017 Z86.711 PERSONAL HISTORY OF PULMONARY EMBOLISM July 24, 2017 Z98.84 BARIATRIC SURGERY STATUS July 24, 2017 Z87.891 PERSONAL HISTORY OF NICOTINE DEPENDENCE July 24, 2017 Z86.718 PERSONAL HISTORY OF OTHER VENOUS THROMBOSIS AND EMBOLISM July E66.2 MORBID (SEVERE) OBESITY WITH ALVEOLAR HYPOVENTILATION July 24, 2017 Z79.01 ASSISTED (CURRENT) USE OF ANTICOAGULANTS July 24, 2017 F33.1 MAJOR DEPRESSIVE DISORDER, RECURRENT, MODERATE July 24, 2017 K86.89 OTHER SPECIFIED DISEASES OF PANCREAS July 24, 2017 E08.9 DIABETES DUE TO UNDERLYING CONDITION W/O COMPLICATIONS July 24, 2017 I10 ESSENTIAL (PRIMARY) HYPERTENSION July 24, 2017 E89.0 POSTPROCEDURAL HYPOTHYROIDISM July 24, 2017 E87.6 HYPOKALEMIA July 24, 2017 D72.829 ELEVATED WHITE BLOOD CELL COUNT, UNSPECIFIED July 24, 2017 Vital Signs Vital Signs No Vital Signs Data. Functional Status Functional and Cognitive Status No Functional Status Data Medications Home Medications - Medications that the patient was taking prior to arrival at the hospital Visit/Account #[id number] (July 05, 2017 10:50am - July 24, 2017 2: 32pm) Medication Route Sig/Schedule Precondition/Indication Comments/ Instructions Codes PROBIOTIC(LACTOBACILLUS ACIDOPHILUS) 1 EACH CAPSULE ORAL DAILYB PROBIOTIC (LACTOBACILLUS ACIDOPHILUS) NDC: 70589365238 Dose: 1 CAP LINZESS(LINACLOTIDE) 145 MCG CAPSULE ORAL DAILY LINZESS (LINACLOTIDE) NDC: 01008886318 Dose: 145 MCG PRILOSEC(OMEPRAZOLE) 20 MG CAP ORAL DAILY@0600 PRILOSEC (OMEPRAZOLE) NDC : 58211837246 Dose: 20 MG MIRALAX(POLYETHYLENE GLYCOL 3350) 17 GM POWD.PACK ORAL DAILY CONSTIPATION MIRALAX (POLYETHYLENE GLYCOL 3350) NDC: 22237340736 Dose: 17 GM PERCOCET 10-325(OxyCODONE HCL/ACETAMINOPHEN) 1 EACH TABLET ORAL Q4S PAIN Rx Note Text Comments: PERCOCET 10-325 (OxyCODONE HCL/ACETAMINOPHEN) NDC: 65120749245 Dose: 1-2 TAB LF 06/05/17 #30 NYSTOP(NYSTATIN) 15 GM POWDER TOPICALLY TID Rx Instructions: NYSTOP ( NYSTATIN) NDC: 10004203055 Dose: 1 APPL APPLY TO AFFECTED AREA GAVISCON LIQUID(MAG CARB/AL HYDROX/ALGINIC AC) 355 ML ORAL.SUSP ORAL 4XD INDIGESTION Rx Instructions: GAVISCON LIQUID (MAG CARB/AL HYDROX/ALGINIC AC) NDC: 33454168147 Dose: 15-30 ML DO NOT EXCEED 120 ML IN 24 HOURS ELIQUIS(APIXABAN) 5 MG TABLET ORAL BID ELIQUIS (APIXABAN) NDC: 53243863942 Dose: 5 MG CYMBALTA(DULoxetine HCL) 60 MG CAPSULE.DR ORAL DAILY CYMBALTA ( DULoxetine HCL) NDC: 06903915381 Dose: 60 MG NEURONTIN SOLN(GABAPENTIN) 50 MG/ML SOLUTION ORAL TID NEURONTIN SOLN ( GABAPENTIN) NDC: 82460199090 Dose: 1200 MG ATIVAN(LORazepam) 0.5 MG TABLET ORAL Q6S ANXIETY Rx Note Text Comments: ATIVAN (LORazepam) NDC: 49013009787 Dose: 0.5 MG LF 05/10/17 #30 MAGNESIUM OXIDE(MAGNESIUM OXIDE) 400 MG TABLET ORAL BIDWM MAGNESIUM OXIDE (MAGNESIUM OXIDE) NDC: 78520478972 Dose: 400 MG REMERON(MIRTAZAPINE) 15 MG TAB ORAL HS REMERON (MIRTAZAPINE) NDC: 15560348028 Dose: 22.5 MG ALDACTONE(SPIRONOLACTONE) 50 MG TABLET ORAL DAILY ALDACTONE ( SPIRONOLACTONE) NDC: 85171340180 Dose: 50 MG Amiloride Hcl(AMILoride HCL) 5 MG TABLET ORAL DAILY Amiloride Hcl ( AMILoride HCL) NDC: 58528035206 Dose: 5 MG TOPAMAX(TOPIRAMATE) 50 MG TABLET ORAL BID TOPAMAX (TOPIRAMATE) NDC: 31926471540 Dose: 50 MG POTASSIUM CHLORIDE(POTASSIUM CHLORIDE) 20 MEQ PACKET ORAL DAILY POTASSIUM CHLORIDE (POTASSIUM CHLORIDE) NDC: 89444045470 Dose: 20 MEQ Imuran(AzaTHIOprine) 50 MG TAB ORAL DAILY Imuran (AzaTHIOprine) NDC: 63936149248 Dose: 50 MG Fa-8(FOLIC ACID) 0.8 MG TAB ORAL DAILY Fa-8 (FOLIC ACID) NDC: 57970725245 Dose: 800 MCG LASIX(FUROSEMIDE) 20 MG TABLET ORAL DAILY LASIX (FUROSEMIDE) NDC: 26888558133 Dose: 20 MG UNITHROID(LEVOTHYROXINE SODIUM) 150 MCG TABLET ORAL DAILY@0600 UNITHROID (LEVOTHYROXINE SODIUM) NDC: 63538390428 Dose: 0.15 MG Melatonin(MELATONIN) 3 MG TABLET ORAL HS Melatonin (MELATONIN) NDC: 05306424826 Dose: 3 MG DELTASONE(PredniSONE) 20 MG TAB ORAL DAILYB Rx Instructions: DELTASONE ( PredniSONE) NDC: 93139581515 Dose: 20 MG slow wean DESYREL(TraZODone HCL) 50 MG TABLET ORAL HS DESYREL (TraZODone HCL) NDC : 05845276462 Dose: 50 MG Inpatient/Ordered Medications - Medications administered during hospital visit Visit/Account #[id number] (July 05, 2017 10:50am - July 24, 2017 2: 32pm) Medication Route Sig/Schedule Precondition/Indication Comments/ Instructions Codes MIDAMOR(AMILoride HCL) 5 MG TAB ORAL DAILY Label Comments: MIDAMOR ( AMILoride HCL) NDC: 69723846667 Dose: 5 MG GIVE WITH FOOD MAY INCREASE FALL RISK ELIQUIS(APIXABAN) 5 MG TAB ORAL BID Label Comments: ELIQUIS (APIXABAN) NDC: 62062072126 Dose: 5 MG For administration through an NG tube, crush and suspend in 60 mLs of D5W and give immediately. IMURAN(AzaTHIOprine) 50 MG TAB ORAL DAILY Rx Order Comments: IMURAN ( AzaTHIOprine) NDC: 22146054325 Dose: 50 MG Order filed UNV: Dose Warnings differ from order builder loader Label Comments: *CAUTION CHEMOTHERAPY. DISPOSE BIOHAZARD* MAY TAKE WITH FOOD CYMBALTA(DULoxetine HCL) 60 MG CAP ORAL DAILY Label Comments: CYMBALTA ( DULoxetine HCL) NDC: 25872081286 Dose: 60 MG MAY INCREASE FALL RISK FOLIC ACID 800 MCG TAB ORAL DAILY (FOLIC ACID) NDC: 91274979656 Dose: 800 MCG LASIX(FUROSEMIDE) 20 MG TAB ORAL DAILY Label Comments: LASIX (FUROSEMIDE ) NDC: 44341493395 Dose: 20 MG MAY INCREASE FALL RISK NEURONTIN SOLN(GABAPENTIN) 300 MG/6 ML SOLUTION ORAL TID Label Comments: NEURONTIN SOLN (GABAPENTIN) NDC: 88968441855 Dose: 24 ML MAY INCREASE FALL RISK. SYNTHROID(LEVOTHYROXINE SODIUM) 0.15 MG TAB ORAL DAILY@0600 Label Comments : SYNTHROID (LEVOTHYROXINE SODIUM) NDC: 32932323883 Dose: 0.15 MG 0.15 TB=430 MCG LINZESS(LINACLOTIDE) 145 MCG CAP ORAL DAILY Label Comments: LINZESS ( LINACLOTIDE) NDC: 34655979997 Dose: 145 MCG DO NOT OPEN OR CHEW CAPSULE. Give on an empty stomach. ATIVAN(LORazepam) 0.5 MG TAB ORAL Q6S PRN Reason: ANXIETY Label Comments: ATIVAN (LORazepam) NDC: 28460945287 Dose: 0.5 MG MAY INCREASE FALL RISK MAG-OX 400(MAGNESIUM OXIDE) 400 MG TAB ORAL BIDWM MAG-OX 400 (MAGNESIUM OXIDE) NDC: 24171011957 Dose: 400 MG REMERON(MIRTAZAPINE) 15 MG TAB ORAL HS Label Comments: REMERON ( MIRTAZAPINE) NDC: 35800012691 Dose: 22.5 MG MAY INCREASE FALL RISK MYCOSTATIN [id number] UNIT/GM PWD(NYSTATIN) 15 GM POWDER TOPICALLY TID Rx Order Comments: MYCOSTATIN [id number] UNIT/GM PWD (NYSTATIN) NDC: 50257929271 Dose: 15 GM Order filed UNV: Dose Warnings differ from order builder loader PERCOCET 10/325 MG(OxyCODONE/ACETAMINOPHEN) 1 TAB TAB ORAL Q4S PRN Reason: PAIN Label Comments: PERCOCET 10/325 MG (OxyCODONE/ACETAMINOPHEN) NDC: 78047263655 Dose: 0 TAB MAX REC DOSE ACETAMINOPHEN: 4000MG/24HRS MAY INCREASE FALL RISK Special Dose Instructions: 1-2 K-JOCELINE PWD PKT(POTASSIUM CHLORIDE) 20 MEQ PACKET ORAL DAILYB Label Comments : K-JOCELINE PWD PKT (POTASSIUM CHLORIDE) NDC: 14514442740 Dose: 20 MEQ DISSOLVE IN 4 OZ WATER OR JUICE. DRINK SLOWLY OVER 5-10 MIN DELTASONE(PredniSONE) 20 MG TAB ORAL DAILYB Label Comments: DELTASONE ( PredniSONE) NDC: 49614142086 Dose: 20 MG TAKE WITH FOOD OR MILK ALDACTONE(SPIRONOLACTONE) 50 MG TAB ORAL DAILY Label Comments: ALDACTONE (SPIRONOLACTONE) NDC: 57009476968 Dose: 50 MG MAY INCREASE FALL RISK. TERATOGENIC. WOMEN SHOULD NOT HANDLE OR CRUSH. TOPAMAX(TOPIRAMATE) 25 MG TAB ORAL BID Label Comments: TOPAMAX ( TOPIRAMATE) NDC: 84261081118 Dose: 50 MG MAY INCREASE FALL RISK. TERATOGENIC. WOMEN SHOULD NOT HANDLE OR CRUSH. DESYREL(TraZODone HCL) 50 MG TAB ORAL HS Label Comments: DESYREL ( TraZODone HCL) NDC: 03252552716 Dose: 50 MG MAY INCREASE FALL RISK CULTURELLE(LACTOBACILLUS RHAMNOSUS) 1 CAP CAP ORAL DAILYB CULTURELLE ( LACTOBACILLUS RHAMNOSUS) NDC: 44910195975 Dose: 1 CAP PROTONIX(PANTOPRAZOLE SOD) 40 MG TAB ORAL DAILY@06 Label Comments: PROTONIX (PANTOPRAZOLE SOD) NDC: 97137847538 Dose: 40 MG FORMULARY SUBSTITUTION OF OMEPRAZOLE MELATONIN 3 MG TAB ORAL HS (MELATONIN) NDC: 68530752240 Dose: 3 MG VITAMIN B1 INJ(THIAMINE HCL) 100 MG/ML INJECTION INTRAMUSC NOW VITAMIN B1 INJ (THIAMINE HCL) NDC: 27370465718 Dose: 1 ML VITAMIN B1 INJ(THIAMINE HCL) 100 MG/ML INJECTION INTRAMUSC DAILY VITAMIN B1 INJ (THIAMINE HCL) NDC: 67287078179 Dose: 1 ML NEURONTIN SOLN(GABAPENTIN) 50 MG/ML SOLUTION ORAL TID Label Comments: NEURONTIN SOLN (GABAPENTIN) NDC: 55044637849 Dose: 24 ML MAY INCREASE FALL RISK REFRIGERATE DULCOLAX(BISACODYL) 10 MG SUPPOSITORY RECTALLY PRN PRN Reason: CONSTIPATION DULCOLAX (BISACODYL) NDC: 97530400390 Dose: 10 MG NEURONTIN SOLN(GABAPENTIN) 300 MG/6 ML SOLUTION ORAL TID Label Comments: NEURONTIN SOLN (GABAPENTIN) NDC: 85223573985 Dose: 24 ML MAY INCREASE FALL RISK. DELTASONE(PredniSONE) 10 MG TAB ORAL DAILYB Label Comments: DELTASONE ( PredniSONE) NDC: 15709352895 Dose: 10 MG TAKE WITH FOOD OR MILK REGLAN(METOCLOPRAMIDE HCL) 10 MG TAB ORAL AC Label Comments: REGLAN ( METOCLOPRAMIDE HCL) NDC: 75296517554 Dose: 5 MG MAY INCREASE FALL RISK VOLTAREN 1% GEL(DICLOFENAC SODIUM) 100 GM GEL TOPICALLY TID PRN Reason: PAIN Special Dose Instructions: VOLTAREN 1% GEL (DICLOFENAC SODIUM) NDC: 99877308394 Dose: 0 GM 1 APPLICATION - rt hip area ATIVAN(LORazepam) 0.5 MG TAB ORAL Q6S PRN Reason: ANXIETY Label Comments: ATIVAN (LORazepam) NDC: 75962136311 Dose: 0.5 MG MAY INCREASE FALL RISK PERCOCET 10/325 MG(OxyCODONE/ACETAMINOPHEN) 1 TAB TAB ORAL Q4H PRN Reason: MODERATE TO SEVERE PAIN Label Comments: PERCOCET 10/325 MG (OxyCODONE/ ACETAMINOPHEN) NDC: 30676192702 Dose: 0 TAB MAX REC DOSE ACETAMINOPHEN: 4000MG/24HRS MAY INCREASE FALL RISK Special Dose Instructions: 1-2 TABS DESYREL(TraZODone HCL) 50 MG TAB ORAL HS Label Comments: DESYREL ( TraZODone HCL) NDC: 28775446013 Dose: 100 MG MAY INCREASE FALL RISK LINZESS(LINACLOTIDE) 145 MCG CAP ORAL 30ACB Label Comments: LINZESS ( LINACLOTIDE) NDC: 79961420110 Dose: 145 MCG DO NOT OPEN OR CHEW CAPSULE. Give on an empty stomach. LINZESS(LINACLOTIDE) 145 MCG CAP ORAL DAILY@0600 Label Comments: LINZESS (LINACLOTIDE) NDC: 78178352171 Dose: 145 MCG DO NOT OPEN OR CHEW CAPSULE. Give on an empty stomach. PERCOCET 10/325 MG(OxyCODONE/ACETAMINOPHEN) 1 TAB TAB ORAL Q4H PRN Reason: MODERATE TO SEVERE PAIN Label Comments: PERCOCET 10/325 MG (OxyCODONE/ ACETAMINOPHEN) NDC: 29443377993 Dose: 0 TAB MAX REC DOSE ACETAMINOPHEN: 4000MG/24HRS MAY INCREASE FALL RISK Special Dose Instructions: 1-2 TABS ATIVAN(LORazepam) 0.5 MG TAB ORAL Q6S PRN Reason: ANXIETY Label Comments: ATIVAN (LORazepam) NDC: 67523991688 Dose: 0.5 MG MAY INCREASE FALL RISK Discharge Medications - Medications that patient should continue to take. Review with physician Visit/Account #[id number] (July 05, 2017 10:50am - July 24, 2017 2: 32pm) Medication Route Sig/Schedule Precondition/Indication Comments/ Instructions Codes PROBIOTIC(LACTOBACILLUS ACIDOPHILUS) 1 EACH CAPSULE ORAL DAILYB PROBIOTIC (LACTOBACILLUS ACIDOPHILUS) NDC: 06217886829 Dose: 1 CAP LINZESS(LINACLOTIDE) 145 MCG CAPSULE ORAL DAILY LINZESS (LINACLOTIDE) NDC: 72288488748 Dose: 145 MCG PRILOSEC(OMEPRAZOLE) 20 MG CAP ORAL DAILY@0600 PRILOSEC (OMEPRAZOLE) NDC : 54239375575 Dose: 20 MG MIRALAX(POLYETHYLENE GLYCOL 3350) 17 GM POWD.PACK ORAL DAILY CONSTIPATION MIRALAX (POLYETHYLENE GLYCOL 3350) NDC: 77333136101 Dose: 17 GM PERCOCET 10-325(OxyCODONE HCL/ACETAMINOPHEN) 1 EACH TABLET ORAL Q4S PAIN Rx Note Text Comments: PERCOCET 10-325 (OxyCODONE HCL/ACETAMINOPHEN) NDC: 71742028111 Dose: 1-2 TAB LF 06/05/17 #30 NYSTOP(NYSTATIN) 15 GM POWDER TOPICALLY TID Rx Instructions: NYSTOP ( NYSTATIN) NDC: 35622542092 Dose: 1 APPL APPLY TO AFFECTED AREA GAVISCON LIQUID(MAG CARB/AL HYDROX/ALGINIC AC) 355 ML ORAL.SUSP ORAL 4XD INDIGESTION Rx Instructions: GAVISCON LIQUID (MAG CARB/AL HYDROX/ALGINIC AC) NDC: 23613931283 Dose: 15-30 ML DO NOT EXCEED 120 ML IN 24 HOURS ELIQUIS(APIXABAN) 5 MG TABLET ORAL BID ELIQUIS (APIXABAN) NDC: 99732463400 Dose: 5 MG CYMBALTA(DULoxetine HCL) 60 MG CAPSULE.DR ORAL DAILY CYMBALTA ( DULoxetine HCL) NDC: 33066816443 Dose: 60 MG NEURONTIN SOLN(GABAPENTIN) 50 MG/ML SOLUTION ORAL TID NEURONTIN SOLN ( GABAPENTIN) NDC: 74027238250 Dose: 1200 MG ATIVAN(LORazepam) 0.5 MG TABLET ORAL Q6S ANXIETY Rx Note Text Comments: ATIVAN (LORazepam) NDC: 37419736471 Dose: 0.5 MG LF 05/10/17 #30 MAGNESIUM OXIDE(MAGNESIUM OXIDE) 400 MG TABLET ORAL BIDWM MAGNESIUM OXIDE (MAGNESIUM OXIDE) NDC: 49908277813 Dose: 400 MG REMERON(MIRTAZAPINE) 15 MG TAB ORAL HS REMERON (MIRTAZAPINE) NDC: 71086894257 Dose: 22.5 MG ALDACTONE(SPIRONOLACTONE) 50 MG TABLET ORAL DAILY ALDACTONE ( SPIRONOLACTONE) NDC: 01784614078 Dose: 50 MG Amiloride Hcl(AMILoride HCL) 5 MG TABLET ORAL DAILY Amiloride Hcl ( AMILoride HCL) NDC: 13649491615 Dose: 5 MG TOPAMAX(TOPIRAMATE) 50 MG TABLET ORAL BID TOPAMAX (TOPIRAMATE) NDC: 91004305070 Dose: 50 MG POTASSIUM CHLORIDE(POTASSIUM CHLORIDE) 20 MEQ PACKET ORAL DAILY POTASSIUM CHLORIDE (POTASSIUM CHLORIDE) NDC: 10933120189 Dose: 20 MEQ Imuran(AzaTHIOprine) 50 MG TAB ORAL DAILY Imuran (AzaTHIOprine) NDC: 48724747487 Dose: 50 MG Fa-8(FOLIC ACID) 0.8 MG TAB ORAL DAILY Fa-8 (FOLIC ACID) NDC: 11245260986 Dose: 800 MCG LASIX(FUROSEMIDE) 20 MG TABLET ORAL DAILY LASIX (FUROSEMIDE) NDC: 53645384922 Dose: 20 MG UNITHROID(LEVOTHYROXINE SODIUM) 150 MCG TABLET ORAL DAILY@0600 UNITHROID (LEVOTHYROXINE SODIUM) NDC: 13495455016 Dose: 0.15 MG Melatonin(MELATONIN) 3 MG TABLET ORAL HS Melatonin (MELATONIN) NDC: 37628576133 Dose: 3 MG DESYREL(TraZODone HCL) 50 MG TABLET ORAL HS DESYREL (TraZODone HCL) NDC : 58369160657 Dose: 50 MG Metoclopramide(METOCLOPRAMIDE HCL) 10 MG TAB ORAL AC Metoclopramide ( METOCLOPRAMIDE HCL) NDC: 02142610893 Dose: 5 MG History Of Encounters Encounters Visit/Account #[id number] (July 05, 2017 10:50am - July 24, 2017 2: 32pm) Account Physican Of Reason For Visit Visit Diagnosis Start Stop Status Record Date/Time Date/Time IN LUCRETIA PARADA MD 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 Discharge Instructions Discharge Instructions Visit/Account #[id number] (July 05, 2017 10:50am - July 24, 2017 2: 32pm) DISCHARGE INSTRUCTIONS Physician Documentation PROVIDER INSTRUCTIONS Discharge Diet Regular Discharge Activity/Weight Bearing Status Weight-bearing as tolerated Equipment/Supplies Wheelchair REASON TO CALL PROVIDER Notify Physician if: Notify physician if worsening symptoms or new concerns. Including but not limited to fever, shortness of air, increased pain, overall not feeling well. FOLLOW UP APPOINTMENTS Follow Up Appointment Date/Time: PCP: Dr Brian Valero in one week following discharge ([phone]) Social History Social History No Social History Data. Immunizations Immunizations Visit/Account #[id number] (July 05, 2017 10:50am - July 24, 2017 2: 32pm) Immunization Date Comments/Instructions Codes AFLURIA (5+ YRS)(INFLUENZA VACC PF (5+ YRS) 0.5 ML INJECTION July 05, 2017 3:20pm AFLURIA (5+ YRS) (INFLUENZA VACC PF (5+ YRS) NDC: [id number]
--- OUTSIDE RECORDS SUMMARY | 2017-10-31 12:27 | External Medical Summary | Continuity Of Care Document ---
:1970 Author Organization [facility] Address [address] [place] [address] Phone Care Team Providers Name Role Phone UNASSIGNED, ED PHYSICIAN Unavailable Unavailable SHARRON STILL, FAMILIA Bond Admitting Provider CHEKO STILL, MALOU Consulting Provider ALICE STILL, SHANT Sanchez Attending Provider TRICIA STILL, DIANN Bond Consulting Provider ANJUM STILL, TOREY Johnson Primary Care Provider [phone] Results Lab Results Visit/Account #[id number] (December 04, 2016 1:25pm - December 07, 2016 4:50pm) Test Result Date/Time COMPLETE BLOOD COUNT WITH DIFF WHITE BLOOD COUNT(4.0-11.0 10E3/UL) 12.1 10E3/UL December 04, 2016 2:00pm 11.9 10E3/UL December 06, 2016 5:30am RED BLOOD COUNT(4.00-5.20 10E6/UL) 4.96 10E6/UL December 04, 2016 2:00pm 4.28 10E6/UL December 06, 2016 5:30am HEMOGLOBIN(12.0-16.0 G/DL) 14.5 G/DL December 04, 2016 2:00pm 12.6 G/DL December 06, 2016 5:30am HEMATOCRIT(36.0-46.0 %) 44.6 % December 04, 2016 2:00pm 38.2 % December 06, 2016 5:30am MEAN CORPUSCULAR VOLUME(82.0-100.0 FL) 89.9 FL December 04, 2016 2:00pm 89.3 FL December 06, 2016 5:30am MEAN CORPUSCULAR HEMOGLOBIN(26.0-34.0 PG) 29.2 PG December 04, 2016 2:00pm 29.4 PG December 06, 2016 5:30am MEAN CORPUSCULAR HGB CONC(31.5-36.5 G/DL) 32.5 G/DL December 04, 2016 2:00pm 33.0 G/DL December 06, 2016 5:30am RED CELL DISTRIBUTION WIDTH(11.5-14.5 %) 14.6 % December 04, 2016 2:00pm 15.2 % December 06, 2016 5:30am 777-3: PLATELET COUNT(150-450 10E3/UL) 358 10E3/UL December 04, 2016 2:00pm 309 10E3/UL December 06, 2016 5:30am MEAN PLATELET VOLUME(8.2-12.4 FL) 9.7 FL December 04, 2016 2:00pm 10.3 FL December 06, 2016 5:30am NEUTROPHILS % (AUTO)(40-70 %) 73 % December 04, 2016 2:00pm 73 % December 06, 2016 5:30am LYMPHOCYTES % (AUTO)(15-45 %) 18 % December 04, 2016 2:00pm 15 % December 06, 2016 5:30am MONOCYTES % (AUTO)(2-10 %) 9 % December 04, 2016 2:00pm 9 % December 06, 2016 5:30am EOSINOPHILS % (AUTO)(0-6 %) 0 % December 04, 2016 2:00pm 1 % December 06, 2016 5:30am BASOPHILS % (AUTO)(0-1 %) 0 % December 04, 2016 2:00pm 0 % December 06, 2016 5:30am IMMATURE GRANS % (AUTO)(0-0 %) 1 % December 04, 2016 2:00pm 1 % December 06, 2016 5:30am NUCLEATED RBCS (AUTO)(0-0 %) 0 % December 04, 2016 2:00pm 0 % December 06, 2016 5:30am NEUTROPHILS # (AUTO)(2.5-7.5 10E3/UL) 8.8 10E3/UL December 04, 2016 2:00pm 8.8 10E3/UL December 06, 2016 5:30am LYMPHOCYTES # (AUTO)(1.0-4.0 10E3/UL) 2.2 10E3/UL December 04, 2016 2:00pm 1.8 10E3/UL December 06, 2016 5:30am MONOCYTES # (AUTO)(0.2-0.8 10E3/UL) 1.1 10E3/UL December 04, 2016 2:00pm 1.1 10E3/UL December 06, 2016 5:30am EOSINOPHILS # (AUTO)(0.0-0.4 10E3/UL) 0.0 10E3/UL December 04, 2016 2:00pm 0.1 10E3/UL December 06, 2016 5:30am BASOPHILS # (AUTO)(0.0-0.2 10E3/UL) 0.0 10E3/UL December 04, 2016 2:00pm 0.0 10E3/UL December 06, 2016 5:30am IMMATURE GRANS # (AUTO)(0.0-0.0 10E3/UL) 0.1 10E3/UL December 04, 2016 2:00pm 0.1 10E3/UL December 06, 2016 5:30am DIFF TYPE AUTOMATED December 04, 2016 2:00pm AUTOMATED December 06, 2016 5:30am COMPLETE BLOOD COUNT WHITE BLOOD COUNT(4.0-11.0 10E3/UL) 13.8 10E3/UL December 05, 2016 6:13am RED BLOOD COUNT(4.00-5.20 10E6/UL) 4.42 10E6/UL December 05, 2016 6:13am HEMOGLOBIN(12.0-16.0 G/DL) 13.1 G/DL December 05, 2016 6:13am HEMATOCRIT(36.0-46.0 %) 39.3 % December 05, 2016 6:13am MEAN CORPUSCULAR VOLUME(82.0-100.0 FL) 88.9 FL December 05, 2016 6:13am MEAN CORPUSCULAR HEMOGLOBIN(26.0-34.0 PG) 29.6 PG December 05, 2016 6:13am MEAN CORPUSCULAR HGB CONC(31.5-36.5 G/DL) 33.3 G/DL December 05, 2016 6:13am RED CELL DISTRIBUTION WIDTH(11.5-14.5 %) 15.0 % December 05, 2016 6:13am 777-3: PLATELET COUNT(150-450 10E3/UL) 324 10E3/UL December 05, 2016 6:13am MEAN PLATELET VOLUME(8.2-12.4 FL) 10.1 FL December 05, 2016 6:13am NUCLEATED RBCS (AUTO)(0-0 %) 0 % December 05, 2016 6:13am COMPLETE METABOLIC PROFILE GLUCOSE(70-110 MG/DL) 128 MG/DL December 04, 2016 2:00pm 85 MG/DL December 05, 2016 6:13am BLOOD UREA NITROGEN(6-20 MG/DL) 4 MG/DL December 04, 2016 2:00pm 4 MG/DL December 05, 2016 6:13am CREATININE(0.50-1.20 MG/DL) 0.80 MG/DL December 04, 2016 2:00pm 0.68 MG/DL December 05, 2016 6:13am EST GLOMERULAR FILTRATION RATE(Greater than or equal to 60) Greater than or equal to 60 December 04, 2016 2:00pm Result Comments: If the patient is of -Nepalese descent/extraction multiply the eGFR value by 1.212 to obtain the actual eGFR. >=60 mg/dL Normal 30-59 mg/dL Moderate Kidney Disease 15-29 mg/dL Severe Kidney Disease <15 mg/dL Kidney Failure Greater than or equal to 60 December 05, 2016 6:13am Result Comments: If the patient is of -Nepalese descent/extraction multiply the eGFR value by 1.212 to obtain the actual eGFR. >=60 mg/dL Normal 30-59 mg/dL Moderate Kidney Disease 15-29 mg/dL Severe Kidney Disease <15 mg/dL Kidney Failure BUN CREATININE RATIO(10.0-20.0 RATIO) 5.0 RATIO December 04, 2016 2:00pm 6.0 RATIO December 05, 2016 6:13am SODIUM(135-145 MMOL/L) 140 MMOL/L December 04, 2016 2:00pm 137 MMOL/L December 05, 2016 6:13am POTASSIUM(3.6-5.0 MMOL/L) 2.7 MMOL/L December 04, 2016 2:00pm 3.2 MMOL/L December 05, 2016 6:13am CHLORIDE(101-111 MMOL/L) 91 MMOL/L December 04, 2016 2:00pm 97 MMOL/L December 05, 2016 6:13am CO2(21-31 MMOL/L) 37 MMOL/L December 04, 2016 2:00pm 33 MMOL/L December 05, 2016 6:13am ANION GAP(8-18) 15 December 04, 2016 2:00pm 10 December 05, 2016 6:13am OSMO CALCULATED(270.0-290.0) 277.9 December 04, 2016 2:00pm 270.0 December 05, 2016 6:13am CALCIUM(8.5-10.5 MG/DL) 8.5 MG/DL December 04, 2016 2:00pm 7.6 MG/DL December 05, 2016 6:13am BILIRUBIN,TOTAL(0.1-1.2 MG/DL) 0.5 MG/DL December 04, 2016 2:00pm 0.7 MG/DL December 05, 2016 6:13am ALKALINE PHOSPHATASE(42-121 IU/L) 93 IU/L December 04, 2016 2:00pm 72 IU/L December 05, 2016 6:13am ASPARTATE AMINO TRANSFERASE(10-42 IU/L) 17 IU/L December 04, 2016 2:00pm 14 IU/L December 05, 2016 6:13am ALANINE AMINOTRANSFERASE(10-60 IU/L) 7 IU/L December 04, 2016 2:00pm 6 IU/L December 05, 2016 6:13am TOTAL PROTEIN(6.4-8.2 G/DL) 6.7 G/DL December 04, 2016 2:00pm 5.6 G/DL December 05, 2016 6:13am ALBUMIN(3.5-5.5 G/DL) 2.9 G/DL December 04, 2016 2:00pm 2.4 G/DL December 05, 2016 6:13am GLOBULIN(2.4-3.6) 3.8 December 04, 2016 2:00pm 3.2 December 05, 2016 6:13am ALBUMIN/GLOBULIN RATIO(0.9-1.8 RATIO) 0.8 RATIO December 04, 2016 2:00pm 0.8 RATIO December 05, 2016 6:13am BASIC METABOLIC PANEL GLUCOSE(70-110 MG/DL) 79 MG/DL December 06, 2016 5:30am BLOOD UREA NITROGEN(6-20 MG/DL) 5 MG/DL December 06, 2016 5:30am CREATININE(0.50-1.20 MG/DL) 0.73 MG/DL December 06, 2016 5:30am EST GLOMERULAR FILTRATION RATE(Greater than or equal to 60) Greater than or equal to 60 December 06, 2016 5:30am Result Comments: If the patient is of -Nepalese descent/extraction multiply the eGFR value by 1.212 to obtain the actual eGFR. >=60 mg/dL Normal 30-59 mg/dL Moderate Kidney Disease 15-29 mg/dL Severe Kidney Disease <15 mg/dL Kidney Failure BUN CREATININE RATIO(10.0-20.0 RATIO) 7.0 RATIO December 06, 2016 5:30am SODIUM(135-145 MMOL/L) 137 MMOL/L December 06, 2016 5:30am POTASSIUM(3.6-5.0 MMOL/L) 4.0 MMOL/L December 06, 2016 5:30am CHLORIDE(101-111 MMOL/L) 101 MMOL/L December 06, 2016 5:30am CO2(21-31 MMOL/L) 28 MMOL/L December 06, 2016 5:30am ANION GAP(8-18) 12 December 06, 2016 5:30am OSMO CALCULATED(270.0-290.0) 270.0 December 06, 2016 5:30am CALCIUM(8.5-10.5 MG/DL) 7.6 MG/DL December 06, 2016 5:30am POTASSIUM POTASSIUM(3.6-5.0 MMOL/L) 3.1 MMOL/L December 04, 2016 6:57pm MAGNESIUM MAGNESIUM(1.8-2.5 MG/DL) 1.7 MG/DL December 04, 2016 2:00pm 1.6 MG/DL December 05, 2016 6:13am 1.9 MG/DL December 06, 2016 5:30am TRIGLYCERIDES TRIGLYCERIDES(35-160 MG/DL) 74 MG/DL December 05, 2016 6:08am LIPASE LIPASE(22-51 U/L) 141 U/L December 04, 2016 2:00pm 117 U/L December 05, 2016 6:13am FREE T4 FREE T4(0.58-1.64 NG/DL) 0.68 NG/DL December 05, 2016 6:13am THYROID STIMULATING HORMONE THYROID STIMULATING HORMONE(0.340-5.600 uIU/ML) 19.780 uIU/ML December 05, 2016 6: 13am SERUM HCG, QUALITATIVE SERUM HCG, QUALITATIVE(NEGATIVE) NEGATIVE December 04, 2016 2:00pm Allergies and Adverse Reactions Allergies and Adverse Reactions Patient Unit Number: [id number] Agent Type Reaction Severity Status PENICILLINS Drug Allergy Hives Moderate Active CODEINE Drug Allergy Nausea & TREVINO Mild Active Problem List Problem List Visit/Account #[id number] (December 04, 2016 1:25pm - December 07, 2016 4:50pm) Acute Problems: Code/Condition Comments Documented Start Documented Code(s) Date Resolved Date Hypomagnesemia ICD10: E83.42 Hypomagnesemia SNOMED: 756550588 Hypomagnesemia Peripheral neuropathy ICD10: G62.9 Peripheral neuropathy SNOMED: 868677251 Peripheral neuropathy Plan of Care Plan Of Care Visit/Account #[id number] (December 04, 2016 1:25pm - December 07, 2016 4:50pm) Patient Instructions Instructions DI for Pancreatitis Ondansetron Full Liquid Diet Vital Signs Vital Signs Visit/Account #[id number] (December 04, 2016 1:25pm - December 07, 2016 4:50pm) Sign First Result Last Result Code(s) Blood Pressure 134/ 95 mm[Hg] On December 04, 2016 9:03pm 104/ 77 mm[Hg] On December 07, 2016 10:38am 8462-4 BP Diastolic 134/ 95 mm[Hg] On December 04, 2016 9:03pm 8480-6 BP Systolic Heart Rate/Pulse Pulse Rate (adult): 87 /min On December 04, 2016 9:03pm Pulse Rate (adult): 63 /min On December 07, 2016 10:38am 8867-4 Heart Rate Pulse Rate (adult): 87 /min On December 04, 2016 9:03pm Respiratory Rate Respiratory Rate: 14 /min On December 04, 2016 9:03pm Respiratory Rate: 17 /min On December 07, 2016 10:38am 9279-1 Respiratory Rate Respiratory Rate: 14 /min On December 04, 2016 9:03pm Temperature in Fahrenheit Temperature (Fahrenheit): 98.2 [degF] On December 04, 2016 1:25pm Temperature (Fahrenheit): 97.1 [degF] On December 07, 2016 10:38am 8310 -5 Body Temperature Weight in Kilograms Weight (Kilograms): 118.1800 kg On December 04, 2016 1:25pm 3141-9 Weight Measured Functional Status Functional and Cognitive Status No Functional Status Data Medications Home Medications - Medications that the patient was taking prior to arrival at the hospital Visit/Account #[id number] (December 04, 2016 1:25pm - December 07, 2016 4:50pm) Medication Route Sig/Schedule Precondition/Indication Comments/ Instructions Codes TOPROL XL(METOPROLOL SUCCINATE) 100 MG TAB ORAL AT BEDTIME Rx Note Text Comments: 24 HR metoprolol succinate 100 MG Extended Release Oral Tablet [ Toprol] (RxNorm): 239450 Dose: 100 MG HTN TOPROL XL (METOPROLOL SUCCINATE) NDC: 54199022020 Depo-Provera(MEDROXYPROGESTERONE ACET) 400 MG/ML INJECTION INTRAMUSC [id number] Rx Note Text Comments: medroxyprogesterone acetate 400 MG/ML Injectable Suspension [Depo-Provera] (RxNorm): 6396591 CONTRACEPTION Depo-Provera (MEDROXYPROGESTERONE ACET) NDC: 98136757764 ALBUTEROL SULF HFA(ALBUTEROL SULFATE) 8.5 GM PUFF INHALED EVERY 4 HOURS SHORTNESS OF BREATH/WHEEZING 200 ACTUAT Albuterol 0.09 MG/ACTUAT Metered Dose Inhaler [Proventil] (RxNorm): 240480 Dose: 2 PUFF ALBUTEROL SULF HFA (ALBUTEROL SULFATE) NDC: 58297935712 SYNTHROID(LEVOTHYROXINE SODIUM) 0.15 MG TABLET ORAL 60 MIN BEFORE BKFST Levothyroxine Sodium 0.15 MG Oral Tablet [Synthroid] (RxNorm): 159054 Dose: 0.15 MG SYNTHROID (LEVOTHYROXINE SODIUM) NDC: 42177735430 Midamor(AMILoride HCL) 5 MG TAB ORAL WITH BREAKFAST & SUPPER Amiloride Hydrochloride 5 MG Oral Tablet (RxNorm): 972064 Dose: 5 MG Midamor (AMILoride HCL) NDC: 71381522342 GABAPENTIN(GABAPENTIN) 300 MG CAPSULE ORAL 3 TIMES A DAY gabapentin 300 MG Oral Capsule (RxNorm): 353950 Dose: 4 CAP GABAPENTIN (GABAPENTIN) NDC: 98049520577 OXYCONTIN(OxyCODONE) 20 MG TAB.ER.12H ORAL 3 TIMES A DAY Rx Note Text Comments: 12 HR Oxycodone Hydrochloride 20 MG Extended Release Oral Tablet [ Oxycontin] (RxNorm): 0460593 Dose: 20 MG KTRACS 11/17/16 #90 OXYCONTIN (OxyCODONE) NDC: 78710840818 Melatonin 1 Mg Tablet(MELATONIN/PYRIDOXINE HCL) 1 EACH TABLET ORAL DIRECTED Rx Instructions: Melatonin 1 Mg Tablet (MELATONIN/PYRIDOXINE HCL) NDC: 68074182133 Dose: 1 EACH take 1 mg at supper and 1 mg at bedtime Vitamin D(CHOLECALCIFEROL (VITAMIN D3)) 2000 UNIT CAPSULE ORAL DAILY Cholecalciferol 2000 UNT Oral Capsule (RxNorm): 019765 Dose: 2000 UNIT Vitamin D (CHOLECALCIFEROL (VITAMIN D3)) NDC: 67286074898 VITAMIN B COMPLEX(VITAMIN B COMPLEX) 1 EACH TABLET ORAL DAILY VITAMIN B COMPLEX (VITAMIN B COMPLEX) NDC: 10924502118 Dose: 1 TAB PERCOCET 10-325(OxyCODONE HCL/ACETAMINOPHEN) 1 EACH TABLET ORAL EVERY 4 HOURS PAIN Rx Note Text Comments: Acetaminophen 325 MG / Oxycodone Hydrochloride 10 MG Oral Tablet [Percocet] (RxNorm): 6140154 Dose: 1-2 TAB KTRACS 11/13/16 #90 PERCOCET 10-325 (OxyCODONE HCL/ACETAMINOPHEN) NDC: 91155974580 Vitamin C(ASCORBIC ACID) 1000 MG TABLET.ER ORAL DAILY Vitamin C ( ASCORBIC ACID) NDC: 83206146924 Dose: 1000 MG LIDODERM 5% PATCH(LIDOCAINE) 30 EA ADH..PATCH TOPICALLY AT BEDTIME Rx Instructions: Lidocaine Hydrochloride 0.05 MG/MG Transdermal Patch [Lidoderm] ( RxNorm): 8377145 Dose: [address] on neck and back at night; remove after 12 hours LIDODERM 5% PATCH (LIDOCAINE) NDC: 96774220145 Mirtazapine(MIRTAZAPINE) 15 MG TAB.RAPDIS ORAL AT BEDTIME Mirtazapine 15 MG Disintegrating Oral Tablet (RxNorm): 772656 Dose: 15 MG Mirtazapine (MIRTAZAPINE) NDC: 38366032667 Amiloride Hcl(AMILoride HCL) 5 MG TABLET ORAL WITH BREAKFAST & SUPPER Amiloride Hydrochloride 5 MG Oral Tablet (RxNorm): 044970 Dose: 5 MG Amiloride Hcl (AMILoride HCL) NDC: 51069290530 Vitamin D-3(CHOLECALCIFEROL (VITAMIN D3)) 2000 UNIT CAPSULE ORAL DAILY Vitamin D-3 (CHOLECALCIFEROL (VITAMIN D3)) NDC: 98992989859 Dose: 2000 UNIT Mirtazapine(MIRTAZAPINE) 15 MG TAB.RAPDIS ORAL AT BEDTIME Mirtazapine 15 MG Disintegrating Oral Tablet (RxNorm): 087136 Dose: 15 MG Mirtazapine (MIRTAZAPINE) NDC: 25665473958 CYMBALTA(DULoxetine HCL) 30 MG CAPSULE.DR ORAL DAILY duloxetine 30 MG Delayed Release Oral Capsule [Cymbalta] (RxNorm): 711289 Dose: 60 MG CYMBALTA (DULoxetine HCL) NDC: 04553014713 VITAMIN B1(THIAMINE) 100 MG TABLET ORAL DAILY VITAMIN B1 (THIAMINE) NDC : 80130975356 Dose: 100 MG VITAMIN B12(CYANOCOBALAMIN) 1000 MCG TABLET.ER ORAL DAILY VITAMIN B12 ( CYANOCOBALAMIN) NDC: 62761461528 Dose: 1000 MCG VITAMIN B6(PYRIDOXINE HCL) 100 MG TAB ORAL DAILY Vitamin B6 100 MG Oral Tablet (RxNorm): 064722 Dose: 100 MG VITAMIN B6 (PYRIDOXINE HCL) NDC: 19802271572 MULTIVITAMIN(MULTIVITAMINS) 1 TAB TABLET ORAL DAILY MULTIVITAMIN ( MULTIVITAMINS) NDC: 41726913151 Dose: 1 TAB TOPAMAX(TOPIRAMATE) 25 MG TABLET ORAL TWICE A DAY topiramate 25 MG Oral Tablet [Topamax] (RxNorm): 800299 Dose: 25 MG TOPAMAX (TOPIRAMATE) NDC: 40350520487 ALDACTONE(SPIRONOLACTONE) 50 MG TABLET ORAL DAILY Spironolactone 50 MG Oral Tablet [Aldactone] (RxNorm): 923455 Dose: 50 MG ALDACTONE (SPIRONOLACTONE) NDC: 67338306206 Aspercreme(LIDOCAINE HCL) 76.5 GM CREAM..G. TOPICALLY NEEDED PAIN Aspercreme (LIDOCAINE HCL) NDC: 01857233858 Dose: 1 APPL Melatonin(MELATONIN) 3 MG TABLET ORAL AT BEDTIME Melatonin 3 MG Oral Tablet (RxNorm): 088219 Dose: 3 MG Melatonin (MELATONIN) NDC: 95893512756 SYNTHROID(LEVOTHYROXINE SODIUM) 0.2 MG TABLET ORAL 60 MIN BEFORE BKFST Levothyroxine Sodium 0.2 MG Oral Tablet [Synthroid] (RxNorm): 288052 Dose: 0.2 MG SYNTHROID (LEVOTHYROXINE SODIUM) NDC: 89080573989 VITAMIN C(ASCORBIC ACID) 500 MG TAB.CHEW ORAL DAILY Ascorbic Acid 500 MG Chewable Tablet (RxNorm): 733499 Dose: 500 MG VITAMIN C (ASCORBIC ACID) NDC: 46410666606 ZOFRAN ODT(ONDANSETRON) 4 MG TAB.RAPDIS ORAL Q4H NAUSEA/VOMITING Ondansetron 4 MG Disintegrating Oral Tablet [Zofran] (RxNorm): 921932 Dose: 4 MG ZOFRAN ODT (ONDANSETRON) NDC: 69887535088 Inpatient/Ordered Medications - Medications administered during hospital visit Visit/Account #[id number] (December 04, 2016 1:25pm - December 07, 2016 4:50pm) Medication Route Sig/Schedule Precondition/Indication Comments/ Instructions Codes SUBLIMAZE INJ(FentaNYL CITRATE) 100 MCG/2 ML INJECTION INTRAVEN NOW Label Comments: SUBLIMAZE INJ (FentaNYL CITRATE) NDC: 89850270689 Dose: 1 ML GIVE BY SLOW PUSH OVER 2-5 MIN MAY INCREASE FALL RISK IV Medication INTRAVEN .Q1H (Rate: 1000 MLS/HR Duration: 1 HR) Carriers: Carriers: 1000 ML Sodium Chloride 9 MG/ML Injection (RxNorm): 2007850 NORMAL SALINE(SODIUM CHLORIDE) 1000 ML INJECTION NORMAL SALINE ( SODIUM CHLORIDE) NDC: 30828806566 Dose: 1000 ML ZOFRAN INJ(ONDANSETRON HCL) 4 MG/2 ML INJECTION INTRAVEN NOW Rx Order Comments: 2 ML Ondansetron 2 MG/ML Injection (RxNorm): 9315220 Dose: 2 ML Order placed as verified: Dose Warnings differ from operating room orderly ZOFRAN INJ (ONDANSETRON HCL) NDC : 17349361271 Label Comments: SLOW IV PUSH MAY INCREASE FALL RISK IV Medication INTRAVEN NOW (Rate: 130 MLS/HR Duration: 4 HR) Additives: Additives: Potassium Chloride 2 MEQ/ML Injectable Solution (RxNorm): 036510 KCL INJ(POTASSIUM CHLORIDE) 40 MEQ/20 ML INJECTION KCL INJ (POTASSIUM CHLORIDE) NDC: 99659138484 Dose: 40 MEQ Carriers: Carriers: 500 ML Sodium Chloride 9 MG/ML Injection (RxNorm): 6111432 NORMAL SALINE(SODIUM CHLORIDE) 500 ML INJECTION Dose: 500 ML NORMAL SALINE (SODIUM CHLORIDE) NDC: 89703086104 K-LYTE/CL EFF(POTASSIUM BICARB/POT CHLORIDE) 25 MEQ TAB ORAL NOW Label Comments: Potassium Chloride 25 MEQ Effervescent Oral Tablet (RxNorm): 7958567 Dose: 50 MEQ DISSOLVE IN 3 TO 4 OUNCES OF COLD WATER K-LYTE/CL EFF (POTASSIUM BICARB/POT CHLORIDE) NDC: 06786010435 ZOFRAN INJ(ONDANSETRON HCL) 4 MG/2 ML INJECTION INTRAVEN NOW Rx Order Comments: 2 ML Ondansetron 2 MG/ML Injection (RxNorm): 4591678 Dose: 2 ML Order placed as verified: Dose Warnings differ from operating room orderly ZOFRAN INJ (ONDANSETRON HCL) NDC : 76482450319 Label Comments: SLOW IV PUSH MAY INCREASE FALL RISK MORPHINE SULFATE 10 MG/ML INJECTION INTRAVEN NOW Label Comments: 1 ML Morphine Sulfate 10 MG/ML Cartridge (RxNorm): 0378060 Dose: 0.5 ML MAY INCREASE FALL RISK (MORPHINE SULFATE) NDC: 41340150939 ZOFRAN INJ(ONDANSETRON HCL) 4 MG/2 ML INJECTION INTRAVEN Q4H PRN Reason: NAUSEA/VOMITING Rx Order Comments: 2 ML Ondansetron 2 MG/ML Injection (RxNorm) : 9275419 Dose: 2 ML Order filed UNV: Allergies/Duplicates/Interactions differ from operating room orderly ZOFRAN INJ ( ONDANSETRON HCL) NDC: 28973199889 PROTONIX INJ(PANTOPRAZOLE) 40 MG INJECTION INTRAVEN DAILY@06 Rx Order Comments: pantoprazole 40 MG Injection [Protonix] (RxNorm): 960866 Dose: 40 MG Order filed UNV: Dose Warnings differ from operating room orderly PROTONIX INJ (PANTOPRAZOLE) NDC : 08989214284 Label Comments: Dilute with 10 mL of NS and push over 2 minutes IV Medication INTRAVEN .Q8H (Rate: 125 MLS/HR Duration: 8 HR) Carriers: Carriers: Potassium Chloride 0.02 MEQ/ML / Sodium Chloride 0.154 MEQ/ ML Injectable Solution (RxNorm): 902159 SODIUM CHLORIDE 0.9%- POTASSIUM CHLOR 20 MEQ(KCL/SODIUM CHLORIDE) 20 MEQ/1000 ML INJECTION SODIUM CHLORIDE 0.9%- POTASSIUM CHLOR 20 MEQ (KCL/SODIUM CHLORIDE) NDC: 49233475149 Dose: 1000 ML MIDAMOR(AMILoride HCL) 5 MG TAB ORAL WITH BREAKFAST & SUPPER Label Comments: Amiloride Hydrochloride 5 MG Oral Tablet (RxNorm): 302998 Dose: 5 MG GIVE WITH FOOD MAY INCREASE FALL RISK MIDAMOR (AMILoride HCL) NDC: 32913047198 CYMBALTA(DULoxetine HCL) 60 MG CAP ORAL DAILY Label Comments: duloxetine 60 MG Delayed Release Oral Capsule (RxNorm): 661958 Dose: 60 MG MAY INCREASE FALL RISK CYMBALTA (DULoxetine HCL) NDC: 83721495927 NEURONTIN(GABAPENTIN) 400 MG CAP ORAL 3 TIMES A DAY Label Comments: gabapentin 400 MG Oral Capsule [Neurontin] (RxNorm): 877895 Dose: 1200 MG MAY INCREASE FALL RISK NEURONTIN (GABAPENTIN) NDC: 35501951149 SYNTHROID(LEVOTHYROXINE SODIUM) 0.2 MG TAB ORAL DAILY@0600 Label Comments : Levothyroxine Sodium 0.2 MG Oral Tablet [Synthroid] (RxNorm): 778416 Dose: 0.2 MG 0.2 WB=334 MCG SYNTHROID (LEVOTHYROXINE SODIUM) NDC: 25030773653 REMERON SOLTAB(MIRTAZAPINE) 15 MG TAB ORAL AT BEDTIME Label Comments: Mirtazapine 15 MG Disintegrating Oral Tablet (RxNorm): 039139 Dose: 15 MG MAY INCREASE FALL RISK REMERON SOLTAB (MIRTAZAPINE) NDC: 98371286914 OxyCONTIN(OxyCODONE HCL) 20 MG TAB ORAL 3 TIMES A DAY Label Comments: 12 HR Oxycodone Hydrochloride 20 MG Extended Release Oral Tablet [Oxycontin] ( RxNorm): 2380265 Dose: 20 MG MAY INCREASE FALL RISK OxyCONTIN (OxyCODONE HCL) NDC: 28226338986 ALDACTONE(SPIRONOLACTONE) 50 MG TAB ORAL DAILY Label Comments: Spironolactone 50 MG Oral Tablet (RxNorm): 993184 Dose: 50 MG MAY INCREASE FALL RISK. TERATOGENIC. WOMEN SHOULD NOT HANDLE OR ALDACTONE ( SPIRONOLACTONE) NDC: 13101407025 CRUSH. TOPAMAX(TOPIRAMATE) 25 MG TAB ORAL TWICE A DAY Label Comments: topiramate 25 MG Oral Tablet (RxNorm): 672152 Dose: 25 MG MAY INCREASE FALL RISK. TERATOGENIC. WOMEN SHOULD NOT HANDLE OR TOPAMAX (TOPIRAMATE) NDC: 76008872249 CRUSH. SUBLIMAZE INJ(FentaNYL CITRATE) 100 MCG/2 ML INJECTION INTRAVEN Q4H PRN Reason: SEVERE PAIN Label Comments: SUBLIMAZE INJ (FentaNYL CITRATE) NDC: 41409610958 Dose: 1 ML GIVE BY SLOW PUSH OVER 2-5 MIN MAY INCREASE FALL RISK IV Medication INTRAVEN NOW (Rate: 8 MLS/HR Duration: 6 HR 15 MIN) Label Comments: Carriers: Please give over 6 hours Carriers: 50 ML Magnesium Sulfate 40 MG/ML Injection (RxNorm): 7623702 MAGNESIUM SULFATE 2 GM/50 ML INJECTION (MAGNESIUM SULFATE) NDC: [id number] Dose: 50 ML Discharge Medications - Medications that patient should continue to take. Review with physician Visit/Account #[id number] (December 04, 2016 1:25pm - December 07, 2016 4:50pm) Medication Route Sig/Schedule Precondition/Indication Comments/ Instructions Codes TOPROL XL(METOPROLOL SUCCINATE) 100 MG TAB ORAL AT BEDTIME Rx Note Text Comments: 24 HR metoprolol succinate 100 MG Extended Release Oral Tablet [ Toprol] (RxNorm): 689867 Dose: 100 MG HTN TOPROL XL (METOPROLOL SUCCINATE) NDC: 96962599192 Depo-Provera(MEDROXYPROGESTERONE ACET) 400 MG/ML INJECTION INTRAMUSC [id number] Rx Note Text Comments: medroxyprogesterone acetate 400 MG/ML Injectable Suspension [Depo-Provera] (RxNorm): 1673164 CONTRACEPTION Depo-Provera (MEDROXYPROGESTERONE ACET) NDC: 81013125435 ALBUTEROL SULF HFA(ALBUTEROL SULFATE) 8.5 GM PUFF INHALED EVERY 4 HOURS SHORTNESS OF BREATH/WHEEZING 200 ACTUAT Albuterol 0.09 MG/ACTUAT Metered Dose Inhaler [Proventil] (RxNorm): 352888 Dose: 2 PUFF ALBUTEROL SULF HFA (ALBUTEROL SULFATE) NDC: 02611343509 GABAPENTIN(GABAPENTIN) 300 MG CAPSULE ORAL 3 TIMES A DAY gabapentin 300 MG Oral Capsule (RxNorm): 944683 Dose: 4 CAP GABAPENTIN (GABAPENTIN) NDC: 19039395501 OXYCONTIN(OxyCODONE) 20 MG TAB.ER.12H ORAL 3 TIMES A DAY Rx Note Text Comments: 12 HR Oxycodone Hydrochloride 20 MG Extended Release Oral Tablet [ Oxycontin] (RxNorm): 1592537 Dose: 20 MG KTRACS LF 11/17/16 #90 OXYCONTIN (OxyCODONE) NDC: 55781186924 PERCOCET 10-325(OxyCODONE HCL/ACETAMINOPHEN) 1 EACH TABLET ORAL EVERY 4 HOURS PAIN Rx Note Text Comments: Acetaminophen 325 MG / Oxycodone Hydrochloride 10 MG Oral Tablet [Percocet] (RxNorm): 5942784 Dose: 1-2 TAB KTRACS LF 11/13/16 #90 PERCOCET 10-325 (OxyCODONE HCL/ACETAMINOPHEN) NDC: 31646145906 Amiloride Hcl(AMILoride HCL) 5 MG TABLET ORAL WITH BREAKFAST & SUPPER Amiloride Hydrochloride 5 MG Oral Tablet (RxNorm): 382763 Dose: 5 MG Amiloride Hcl (AMILoride HCL) NDC: 41254449393 Vitamin D-3(CHOLECALCIFEROL (VITAMIN D3)) 2000 UNIT CAPSULE ORAL DAILY Vitamin D-3 (CHOLECALCIFEROL (VITAMIN D3)) NDC: 27027700919 Dose: 2000 UNIT Mirtazapine(MIRTAZAPINE) 15 MG TAB.RAPDIS ORAL AT BEDTIME Mirtazapine 15 MG Disintegrating Oral Tablet (RxNorm): 993355 Dose: 15 MG Mirtazapine (MIRTAZAPINE) NDC: 80897870772 CYMBALTA(DULoxetine HCL) 30 MG CAPSULE.DR ORAL DAILY duloxetine 30 MG Delayed Release Oral Capsule [Cymbalta] (RxNorm): 427007 Dose: 60 MG CYMBALTA (DULoxetine HCL) NDC: 96197851993 VITAMIN B1(THIAMINE) 100 MG TABLET ORAL DAILY VITAMIN B1 (THIAMINE) NDC : 95955027063 Dose: 100 MG VITAMIN B12(CYANOCOBALAMIN) 1000 MCG TABLET.ER ORAL DAILY VITAMIN B12 ( CYANOCOBALAMIN) NDC: 20233180332 Dose: 1000 MCG VITAMIN B6(PYRIDOXINE HCL) 100 MG TAB ORAL DAILY Vitamin B6 100 MG Oral Tablet (RxNorm): 250587 Dose: 100 MG VITAMIN B6 (PYRIDOXINE HCL) NDC: 38171254617 MULTIVITAMIN(MULTIVITAMINS) 1 TAB TABLET ORAL DAILY MULTIVITAMIN ( MULTIVITAMINS) NDC: 70136857323 Dose: 1 TAB TOPAMAX(TOPIRAMATE) 25 MG TABLET ORAL TWICE A DAY topiramate 25 MG Oral Tablet [Topamax] (RxNorm): 592266 Dose: 25 MG TOPAMAX (TOPIRAMATE) NDC: 84568699435 ALDACTONE(SPIRONOLACTONE) 50 MG TABLET ORAL DAILY Spironolactone 50 MG Oral Tablet [Aldactone] (RxNorm): 095830 Dose: 50 MG ALDACTONE (SPIRONOLACTONE) NDC: 08132320103 Aspercreme(LIDOCAINE HCL) 76.5 GM CREAM..G. TOPICALLY NEEDED PAIN Aspercreme (LIDOCAINE HCL) NDC: 59465530915 Dose: 1 APPL Melatonin(MELATONIN) 3 MG TABLET ORAL AT BEDTIME Melatonin 3 MG Oral Tablet (RxNorm): 288830 Dose: 3 MG Melatonin (MELATONIN) NDC: 37362669858 SYNTHROID(LEVOTHYROXINE SODIUM) 0.2 MG TABLET ORAL 60 MIN BEFORE BKFST Levothyroxine Sodium 0.2 MG Oral Tablet [Synthroid] (RxNorm): 026599 Dose: 0.2 MG SYNTHROID (LEVOTHYROXINE SODIUM) NDC: 38897029930 VITAMIN C(ASCORBIC ACID) 500 MG TAB.CHEW ORAL DAILY Ascorbic Acid 500 MG Chewable Tablet (RxNorm): 209941 Dose: 500 MG VITAMIN C (ASCORBIC ACID) NDC: 48996623227 ZOFRAN ODT(ONDANSETRON) 4 MG TAB.RAPDIS ORAL Q4H NAUSEA/VOMITING Ondansetron 4 MG Disintegrating Oral Tablet [Zofran] (RxNorm): 339566 Dose: 4 MG ZOFRAN ODT (ONDANSETRON) [facility]: [id number] History Of Encounters Encounters Visit/Account #[id number] (December 04, 2016 1:25pm - December 07, 2016 4:50pm) Account Status 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 Discharge Instructions Discharge Instructions Visit/Account #[id number] (December 04, 2016 1:25pm - December 07, 2016 4:50pm) DISCHARGE INSTRUCTIONS Physician Documentation PROVIDER INSTRUCTIONS Other Discharge Diet full liquid diet for 2 weeks Other Discharge Diet full liquid diet for 2 weeks FOLLOW UP APPOINTMENTS Follow Up Appointment Date/Time: Dr. Fish SundayDecember 20 2:45pm ) Social History Social History No Social History Data. Immunizations Immunizations Patient Unit Number: [id number] Immunizations No immunizations recorded.
--- OUTSIDE RECORDS SUMMARY | 2017-10-31 12:28 | External Medical Summary | Continuity Of Care Document ---
:1970 Author Organization [facility] Address [address] [place] [address] Phone Care Team Providers Name Role Phone RODY HARGROVE MD Consulting Provider MALOU STLIL MD Unavailable NICOLE CONTRERAS MD Consulting Provider DARIA GONZALEZ DO Attending Provider TOREY VALERO MD Primary Care Provider [phone] Results Lab Results Visit/Account #[id number] (March 26, 2015 10:56am - March 29, 2015 5:30pm) Test Result Date/Time CREATININE,POINT OF CARE POC CREATININE(0.6-1.3 MG/DL) 0.5 MG/DL March 26, 2015 11:26am 93011-5: EST GLOMERULAR FILTRATION RATE(Greater than or equal to 60) Greater than 60 March 26, 2015 11:26am 26952-6: COMPLETE BLOOD COUNT WITH DIFF WHITE BLOOD COUNT(4.0-11.0 10E3/UL) 9.4 10E3/UL March 26, 2015 11:20am 6.9 10E3/UL March 27, 2015 5:31am 7.5 10E3/UL March 29, 2015 6:45am RED BLOOD COUNT(4.00-5.20 10E6/UL) 4.75 10E6/UL March 26, 2015 11:20am 3.63 10E6/UL March 27, 2015 5:31am 3.66 10E6/UL March 29, 2015 6:45am HEMOGLOBIN(12.0-16.0 G/DL) 14.5 G/DL March 26, 2015 11:20am 11.0 G/DL March 27, 2015 5:31am 11.0 G/DL March 29, 2015 6:45am HEMATOCRIT(36.0-46.0 %) 42.0 % March 26, 2015 11:20am 32.6 % March 27, 2015 5:31am 32.3 % March 29, 2015 6:45am MEAN CORPUSCULAR VOLUME(82.0-100.0 FL) 88.4 FL March 26, 2015 11:20am 89.8 FL March 27, 2015 5:31am 88.3 FL March 29, 2015 6:45am 26461-4: MEAN CORPUSCULAR HEMOGLOBIN(26.0-34.0 PG) 30.5 PG March 26, 2015 11 :20am 30.3 PG March 27, 2015 5:31am 30.1 PG March 29, 2015 6:45am MEAN CORPUSCULAR HGB CONC(31.5-36.5 G/DL) 34.5 G/DL March 26, 2015 11:20am 33.7 G/DL March 27, 2015 5:31am 34.1 G/DL March 29, 2015 6:45am RED CELL DISTRIBUTION WIDTH(11.5-14.5 %) 14.8 % March 26, 2015 11:20am 15.2 % March 27, 2015 5:31am 15.5 % March 29, 2015 6:45am 777-3: PLATELET COUNT(150-450 10E3/UL) 235 10E3/UL March 26, 2015 11:20am 241 10E3/UL March 27, 2015 5:31am 236 10E3/UL March 29, 2015 6:45am MEAN PLATELET VOLUME(8.2-12.4 FL) 11.3 FL March 26, 2015 11:20am 10.7 FL March 27, 2015 5:31am 11.3 FL March 29, 2015 6:45am 770-8: NEUTROPHILS % (AUTO)(40-70 %) 70 % March 26, 2015 11:20am 58 % March 27, 2015 5:31am 70 % March 29, 2015 6:45am LYMPHOCYTES % (AUTO)(15-45 %) 21 % March 26, 2015 11:20am 32 % March 27, 2015 5:31am 23 % March 29, 2015 6:45am 5905-5: MONOCYTES % (AUTO)(2-10 %) 8 % March 26, 2015 11:20am 9 % March 27, 2015 5:31am 6 % March 29, 2015 6:45am 713-8: EOSINOPHILS % (AUTO)(0-6 %) 1 % March 26, 2015 11:20am 1 % March 27, 2015 5:31am 1 % March 29, 2015 6:45am 706-2: BASOPHILS % (AUTO)(0-1 %) 0 % March 26, 2015 11:20am 0 % March 27, 2015 5:31am 0 % March 29, 2015 6:45am 22944-5: IMMATURE GRANS % (AUTO)(0-0 %) 0 % March 26, 2015 11:20am 0 % March 27, 2015 5:31am 1 % March 29, 2015 6:45am NUCLEATED RBCS (AUTO)(0-0 %) 0 % March 26, 2015 11:20am 0 % March 27, 2015 5:31am 0 % March 29, 2015 6:45am 751-8: NEUTROPHILS # (AUTO)(2.5-7.5 10E3/UL) 6.6 10E3/UL March 26, 2015 11: 20am 4.0 10E3/UL March 27, 2015 5:31am 5.2 10E3/UL March 29, 2015 6:45am 25431-5: LYMPHOCYTES # (AUTO)(1.0-4.0 10E3/UL) 2.0 10E3/UL March 26, 2015 11 :20am 2.2 10E3/UL March 27, 2015 5:31am 1.7 10E3/UL March 29, 2015 6:45am 742-7: MONOCYTES # (AUTO)(0.2-0.8 10E3/UL) 0.7 10E3/UL March 26, 2015 11: 20am 0.6 10E3/UL March 27, 2015 5:31am 0.5 10E3/UL March 29, 2015 6:45am 711-2: EOSINOPHILS # (AUTO)(0.0-0.4 10E3/UL) 0.1 10E3/UL March 26, 2015 11: 20am 0.1 10E3/UL March 27, 2015 5:31am 0.1 10E3/UL March 29, 2015 6:45am 704-7: BASOPHILS # (AUTO)(0.0-0.2 10E3/UL) 0.0 10E3/UL March 26, 2015 11: 20am 0.0 10E3/UL March 27, 2015 5:31am 0.0 10E3/UL March 29, 2015 6:45am IMMATURE GRANS # (AUTO)(0.0-0.0 10E3/UL) 0.0 10E3/UL March 26, 2015 11:20am 0.0 10E3/UL March 27, 2015 5:31am 0.0 10E3/UL March 29, 2015 6:45am DIFF TYPE AUTOMATED March 26, 2015 11:20am AUTOMATED March 27, 2015 5:31am AUTOMATED March 29, 2015 6:45am 4538-5: ERYTHROCYTE SEDIMENTATION RATE 4538-5: ERYTHROCYTE SEDIMENTATION RATE(0-20 MM/HR) 8 MM/HR March 27, 2015 5: 31am UA WITH SCREEN FOR CULTURE 5778-6: COLOR,URINE YELLOW March 26, 2015 11:00am 92591-3: CLARITY,URINE CLOUDY March 26, 2015 11:00am GLUCOSE, URINE(NEGATIVE MG/DL) NEGATIVE MG/DL March 26, 2015 11:00am URINE BILIRUBIN(NEGATIVE) SMALL March 26, 2015 11:00am 92921-1: KETONES,URINE(NEGATIVE MG/DL) TRACE MG/DL March 26, 2015 11:00am 2965-2: URINE SPECIFIC GRAVITY(1.001-1.035) 1.025 March 26, 2015 11:00am 91459-4: URINE BLOOD(NEGATIVE) SMALL March 26, 2015 11:00am 2756-5: URINE PH(5.0-9.0) 6.0 March 26, 2015 11:00am URINE PROTEIN(Less than 20 MG/DL) 30 MG/DL March 26, 2015 11:00am URINE UROBILINOGEN(0.2-1.0 MG/DL) 2.0 MG/DL March 26, 2015 11:00am URINE NITRITE(NEGATIVE) POSITIVE March 26, 2015 11:00am 5799-2: LEUKOCYTE ESTERASE ,URINE(NEGATIVE) NEGATIVE March 26, 2015 11:00am 630-4: URINE CULTURE TO FOLLOW March 26, 2015 11:00am URINE MICROSCOPIC REQUIRED YES March 26, 2015 11:00am URINE WBCS(/HPF) NONE SEEN /HPF March 26, 2015 11:00am 80111-6: URINE RBCS(/HPF) 0-3 /HPF March 26, 2015 11:00am 26592-4: URINE EPITHELIAL CELLS(/HPF) 4-7 /HPF March 26, 2015 11:00am BACTERIA,URINE(/HPF) 1+ /HPF March 26, 2015 11:00am URINE CRYSTALS(/HPF) NONE SEEN /HPF March 26, 2015 11:00am URINE CASTS(/LPF) NONE SEEN /LPF March 26, 2015 11:00am URINE COMMENTS 4+ MUCOUS March 26, 2015 11:00am URINE CREATININE, RANDOM URINE CREATININE, RANDOM(MG/DL) 199.54 MG/DL March 26, 2015 11:30pm URINE CALCIUM, RANDOM URINE CALCIUM, RANDOM(MG/DL) Less than 2.0 MG/DL March 26, 2015 11:30pm 71844-5: COMPLETE METABOLIC PROFILE 30072-2: GLUCOSE(70-110 MG/DL) 94 MG/DL March 26, 2015 11:56am BLOOD UREA NITROGEN(6-20 MG/DL) 3 MG/DL March 26, 2015 11:56am 38885-5: CREATININE(0.50-1.20 MG/DL) 0.53 MG/DL March 26, 2015 11:56am 52586-5: EST GLOMERULAR FILTRATION RATE(Greater than or equal to 60) Greater than or equal to 60 March 26, 2015 11:56am Result Comments: If the patient is of -Luxembourger descent/extraction multiply the eGFR value by 1.212 to obtain the actual eGFR. >=60 mg/dL Normal 30-59 mg/dL Moderate Kidney Disease 15-29 mg/dL Severe Kidney Disease <15 mg/dL Kidney Failure BUN CREATININE RATIO(10.0-20.0 RATIO) 6.0 RATIO March 26, 2015 11:56am 96520-1: SODIUM(135-145 MMOL/L) 141 MMOL/L March 26, 2015 11:56am 39043-8: POTASSIUM(3.6-5.0 MMOL/L) 2.1 MMOL/L March 26, 2015 11:56am 99814-6: CHLORIDE(101-111 MMOL/L) 103 MMOL/L March 26, 2015 11:56am 8-9: CO2(21-31 MMOL/L) 33.0 MMOL/L March 26, 2015 11:56am 28712-7: ANION GAP(8-18) 7 March 26, 2015 11:56am OSMO CALCULATED(270.0-290.0) 277.6 March 26, 2015 11:56am CALCIUM(8.5-10.5 MG/DL) 7.8 MG/DL March 26, 2015 11:56am BILIRUBIN,TOTAL(0.1-1.2 MG/DL) 0.7 MG/DL March 26, 2015 11:56am ALKALINE PHOSPHATASE(42-121 IU/L) 56 IU/L March 26, 2015 11:56am ASPARTATE AMINO TRANSFERASE(10-42 IU/L) 14 IU/L March 26, 2015 11:56am ALANINE AMINOTRANSFERASE(10-60 IU/L) 5 IU/L March 26, 2015 11:56am 94258-8: TOTAL PROTEIN(6.4-8.2 G/DL) 5.8 G/DL March 26, 2015 11:56am ALBUMIN(3.5-5.5 G/DL) 2.8 G/DL March 26, 2015 11:56am 2336-6: GLOBULIN(2.4-3.6) 3.0 March 26, 2015 11:56am ALBUMIN/GLOBULIN RATIO(0.9-1.8 RATIO) 0.9 RATIO March 26, 2015 11:56am BASIC METABOLIC PANEL 57109-7: GLUCOSE(70-110 MG/DL) 76 MG/DL March 27, 2015 5:31am BLOOD UREA NITROGEN(6-20 MG/DL) 2 MG/DL March 27, 2015 5:31am 17369-2: CREATININE(0.50-1.20 MG/DL) 0.46 MG/DL March 27, 2015 5:31am 86553-2: EST GLOMERULAR FILTRATION RATE(Greater than or equal to 60) Greater than or equal to 60 March 27, 2015 5:31am Result Comments: If the patient is of -Luxembourger descent/extraction multiply the eGFR value by 1.212 to obtain the actual eGFR. >=60 mg/dL Normal 30-59 mg/dL Moderate Kidney Disease 15-29 mg/dL Severe Kidney Disease <15 mg/dL Kidney Failure BUN CREATININE RATIO(10.0-20.0 RATIO) 4.0 RATIO March 27, 2015 5:31am 21202-6: SODIUM(135-145 MMOL/L) 142 MMOL/L March 27, 2015 5:31am 89466-8: POTASSIUM(3.6-5.0 MMOL/L) 2.5 MMOL/L March 27, 2015 5:31am 17102-1: CHLORIDE(101-111 MMOL/L) 109 MMOL/L March 27, 2015 5:31am 8-9: CO2(21-31 MMOL/L) 28.0 MMOL/L March 27, 2015 5:31am 35829-1: ANION GAP(8-18) 8 March 27, 2015 5:31am OSMO CALCULATED(270.0-290.0) 278.1 March 27, 2015 5:31am 45458-5: RENAL PANEL 51849-5: GLUCOSE(70-110 MG/DL) 75 MG/DL March 28, 2015 6:04am 80 MG/DL March 29, 2015 6:45am BLOOD UREA NITROGEN(6-20 MG/DL) 2 MG/DL March 28, 2015 6:04am 2 MG/DL March 29, 2015 6:45am 43756-1: CREATININE(0.50-1.20 MG/DL) 0.43 MG/DL March 28, 2015 6:04am 0.35 MG/DL March 29, 2015 6:45am 48392-5: EST GLOMERULAR FILTRATION RATE(Greater than or equal to 60) Greater than or equal to 60 March 28, 2015 6:04am Result Comments: If the patient is of -Luxembourger descent/extraction multiply the eGFR value by 1.212 to obtain the actual eGFR. >=60 mg/dL Normal 30-59 mg/dL Moderate Kidney Disease 15-29 mg/dL Severe Kidney Disease <15 mg/dL Kidney Failure Greater than or equal to 60 March 29, 2015 6:45am Result Comments: If the patient is of -Luxembourger descent/extraction multiply the eGFR value by 1.212 to obtain the actual eGFR. >=60 mg/dL Normal 30-59 mg/dL Moderate Kidney Disease 15-29 mg/dL Severe Kidney Disease <15 mg/dL Kidney Failure 49332-4: SODIUM(135-145 MMOL/L) 141 MMOL/L March 28, 2015 6:04am 140 MMOL/L March 29, 2015 6:45am 19862-2: POTASSIUM(3.6-5.0 MMOL/L) 3.1 MMOL/L March 28, 2015 6:04am 2.7 MMOL/L March 29, 2015 6:45am 86909-1: CHLORIDE(101-111 MMOL/L) 112 MMOL/L March 28, 2015 6:04am 110 MMOL/L March 29, 2015 6:45am 2028-9: CO2(21-31 MMOL/L) 25.0 MMOL/L March 28, 2015 6:04am 26.0 MMOL/L March 29, 2015 6:45am CALCIUM(8.5-10.5 MG/DL) 7.4 MG/DL March 28, 2015 6:04am 8.1 MG/DL March 29, 2015 6:45am 18779-7: PHOSPHORUS(2.5-4.6 MG/DL) 2.2 MG/DL March 28, 2015 6:04am 2.6 MG/DL March 29, 2015 6:45am ALBUMIN(3.5-5.5 G/DL) 2.4 G/DL March 28, 2015 6:04am 2.3 G/DL March 29, 2015 6:45am 67454-8: MAGNESIUM 60517-6: MAGNESIUM(1.8-2.5 MG/DL) 1.6 MG/DL March 27, 2015 5:31am CALCIUM CALCIUM(8.5-10.5 MG/DL) 8.4 MG/DL March 27, 2015 5:31am Result Comments: CALCIUM RESULT CORRECTED FOR LOW ALBUMIN 19372-1: PHOSPHORUS 52379-3: PHOSPHORUS(2.5-4.6 MG/DL) 3.2 MG/DL March 27, 2015 5:31am ALBUMIN ALBUMIN(3.5-5.5 G/DL) 2.4 G/DL March 27, 2015 5:31am TOTAL CPK TOTAL CPK(22-269 IU/L) 72 IU/L March 27, 2015 5:31am 3040-3: LIPASE 3040-3: LIPASE(22-51 U/L) 23 U/L March 26, 2015 11:56am THYROID STIMULATING HORMONE THYROID STIMULATING HORMONE(0.340-5.600 uIU/ML) 1.760 uIU/ML March 26, 2015 11:56am HIV 1/2 4TH GEN (AG/AB) HIV 1 AND/OR HIV 2 ABS(NEGATIVE) NEGATIVE March 26, 2015 11:55am 9821-0: HIV 1 P24 ANTIGEN(NEGATIVE) NEGATIVE March 26, 2015 11:55am SERUM HCG, QUALITATIVE 2110-5: SERUM HCG, QUALITATIVE(NEGATIVE) NEGATIVE March 26, 2015 11:55am HEPATITIS B SURFACE ANTIGEN 5196-1: HEPATITIS B SURFACE AG SCREEN(Negative) Negative March 26, 2015 11: 55am Result Comments: Performed at: [address] [id number] Newspaper Inserter: MORALES Cyr MD, Phone: [phone] 49948-0: HEPATITIS C ANTIBODY 88892-7: HEPATITIS C ANTIBODY(0.0-0.9 s/co ratio) Less than 0.1 s/co ratio March 26, 2015 11:55am Result Comments: Negative: < 0.8 Indeterminate: 0.8 - 0.9 Positive: > 0.9 In order to reduce the incidence of a false positive result, the CDC recommends that all s/co ratios between 1.0 and 10.9 be confirmed by a more specific supplemental or PCR testing. [facility] offers HCV Ab w/Reflex to Verification test #[id number]. Microbiology Results Visit/Account #[id number] (March 26, 2015 10:56am - March 29, 2015 5:30pm) Procedure Result 630-4: URINE CULTURE 630-4: URINE CULTURE Result Instance On March 26, 2015 11:00am Source: URINE Organism: MIXED UROGENITAL ORGANISMS COLONY COUNT 30,000 - 40,000 40897-5: MRSA SCREEN FOR INFEC CONTROL 34789-6: MRSA SCREEN FOR INFEC CONTROL Result Instance On March 26, 2015 2: 35pm Source: NARE Special Result Comments: No growth Allergies and Adverse Reactions Allergies and Adverse Reactions Patient Unit Number: [id number] Agent Type Reaction Severity Status PENICILLINS Drug Allergy Hives Moderate Active CODEINE Drug Allergy Nausea & TREVINO Mild Active Problem List Problem List Visit/Account #[id number] (March 26, 2015 10:56am - March 29, 2015 5:30pm) Acute Problems: Code/Condition Comments Documented Start Documented Code(s) Date Resolved Date Hypokalemia ICD10: E87.6 Hypokalemia ICD9: 276.8 Hypokalemia SNOMED: 77770619 Hypokalemia Metabolic alkalosis ICD10: E87.3 Metabolic alkalosis ICD9: 276.3 Metabolic alkalosis SNOMED: 4382295 Metabolic alkalosis Hypokalemia ICD10: E87.6 Hypokalemia ICD9: 276.8 Hypokalemia SNOMED: 85452272 Hypokalemia UTI (lower urinary tract infection) ICD10: N39.0 Lower urinary tract infectious disease ICD9: 599.0 Lower urinary tract infectious disease SNOMED: 2479707 Lower urinary tract infectious disease Nausea & vomiting March 26, 2015 ICD10: R11.2 Nausea and vomiting ICD9: 787.01 Nausea and vomiting SNOMED: 51257831 Nausea and vomiting Dehydration March 26, 2015 ICD10: E86.0 Dehydration ICD9: 276.51 Dehydration SNOMED: 19440914 Dehydration UTI (lower urinary tract infection) ICD10: N39.0 Lower urinary tract infectious disease ICD9: 599.0 Lower urinary tract infectious disease SNOMED: 4117420 Lower urinary tract infectious disease Nausea & vomiting ICD10: R11.2 Nausea and vomiting ICD9: 787.01 Nausea and vomiting SNOMED: 77170639 Nausea and vomiting Hypothyroidism ICD10: E03.9 Hypothyroidism ICD9: 244.9 Hypothyroidism SNOMED: 49514023 Hypothyroidism Dehydration ICD10: E86.0 Dehydration ICD9: 276.51 Dehydration SNOMED: 41606049 Dehydration Plan of Care Plan Of Care Visit/Account #[id number] (March 26, 2015 10:56am - March 29, 2015 5:30pm) Patient Instructions Instructions DI for Dehydration -- Adult DI for Urinary Tract Infection (UTI) DI for Nausea -- Adult Nausea and Vomiting-Adult Vital Signs Vital Signs Visit/Account #[id number] (March 26, 2015 10:56am - March 29, 2015 5:30pm) Sign First Result Last Result Code(s) Body Mass Index Body Mass Index (BMI): 29.0 kg/m2 On March 26, 2015 10:53am 55427-1 BMI (body mass index) Body Mass Index as a Calculated Value 29.1 kg/m2 On March 26, 2015 10:53am 04805-1 BMI (body mass index) Blood Pressure 116/ 85 mm[Hg] On March 26, 2015 2:44pm 137/ 92 mm[Hg] On March 29, 2015 1:50pm 8480-6 BP Systolic Body Surface Area as a Calculated Value 1.91 m2 On March 26, 2015 10:53am 3140-1 BSA (body surface area) Height (Feet/Inches) 5 [ft_us] 6 [in_us] On March 26, 2015 10:53am Heart Rate/Pulse Pulse Rate (adult): 78 /min On March 26, 2015 2:44pm Pulse Rate (adult): 81 /min On March 29, 2015 1:50pm 8867-4 Heart Rate 8893-0 Pulse rate Respiratory Rate Respiratory Rate: 18 /min On March 26, 2015 2:44pm Respiratory Rate: 20 /min On March 29, 2015 1:50pm 9279-1 Respiratory rate Temperature in Fahrenheit Temperature (Fahrenheit): 98.0 [degF] On March 10:53am Temperature (Fahrenheit): 98.0 [degF] On March 29, 2015 1: 50pm 8310-5 Body Temperature Weight in Kilograms Weight (Kilograms): 81.82 kg On March 26, 2015 10:53am 3141-9 Weight Measured 12568-1 Body weight measured in kilograms Functional Status Functional and Cognitive Status No Functional Status Data Medications Home Medications - Medications that the patient was taking prior to arrival at the hospital Visit/Account #[id number] (March 26, 2015 10:56am - March 29, 2015 5:30pm) Medication Route Sig/Schedule Precondition/Indication Comments/ Instructions Codes TOPROL XL(METOPROLOL SUCCINATE) 100 MG TAB ORAL AT BEDTIME Rx Note Text Comments: 24 HR metoprolol succinate 100 MG Extended Release Oral Tablet [ Toprol] (RxNorm): 186613 Dose: 100 MG HTN TOPROL XL (METOPROLOL SUCCINATE) NDC: 92902441684 Spironolactone(SPIRONOLACTONE) 25 MG TAB ORAL AT BEDTIME Rx Note Text Comments: Spironolactone 25 MG Oral Tablet (RxNorm): 609516 Dose: 25 MG FLUID Spironolactone (SPIRONOLACTONE) NDC: 26171540725 LISINOPRIL(LISINOPRIL) 20 MG TABLET ORAL AT BEDTIME Rx Note Text Comments : Lisinopril 20 MG Oral Tablet (RxNorm): 678813 Dose: 20 MG HTN LISINOPRIL (LISINOPRIL) NDC: 32500797162 Depo-Provera(MEDROXYPROGESTERONE ACET) 400 MG/ML INJECTION INTRAMUSC G0YJINAT Rx Note Text Comments: medroxyprogesterone acetate 400 MG/ML Injectable Suspension [Depo-Provera] (RxNorm): 6819042 CONTRACEPTION Depo-Provera (MEDROXYPROGESTERONE ACET) NDC: 94000766039 CELEXA(CITALOPRAM HYDROBROMIDE) 40 MG TABLET ORAL AT BEDTIME Citalopram 40 MG Oral Tablet [Celexa] (RxNorm): 288656 Dose: 40 MG CELEXA (CITALOPRAM HYDROBROMIDE) NDC: 82974462368 SYNTHROID(LEVOTHYROXINE SODIUM) 0.175 MG TABLET ORAL [facility] Levothyroxine Sodium 0.175 MG Oral Tablet [Synthroid] (RxNorm): 526327 Dose: 0.175 MG SYNTHROID (LEVOTHYROXINE SODIUM) NDC: 78883199275 Potassium Chloride(POTASSIUM CHLORIDE) 20 MEQ/15 ML LIQUID ORAL DAILY AT [facility] Rx Instructions: Potassium Chloride 1.33 MEQ/ML Oral Solution (RxNorm) : 226644 Dose: 20 MEQ LAST FILLED 12/25/14 Potassium Chloride (POTASSIUM CHLORIDE) NDC: 26275857586 ALBUTEROL SULF HFA(ALBUTEROL SULFATE) 8.5 GM PUFF INHALED Q4H SHORTNESS OF BREATH/WHEEZING ALBUTEROL SULF HFA (ALBUTEROL SULFATE) NDC: 11712370814 Dose: 2 PUFF ONDansetron(ONDansetron) 4 MG TABLET ORAL EVERY 8 HOURS Ondansetron 4 MG Oral Tablet (RxNorm): 962231 Dose: 4 MG ONDansetron (ONDansetron) NDC: 23616654475 MACROBID(NITROFURANTOIN MONOHYD MACROCR) 100 MG CAP ORAL TWICE A DAY NITROFURANTOIN, MACROCRYSTALS 25 MG / Nitrofurantoin, Monohydrate 75 MG Oral Capsule [Macrob (RxNorm): 156827 Dose: 100 MG MACROBID (NITROFURANTOIN MONOHYD MACROCR) NDC: 39577140084 VITAMIN C(ASCORBIC ACID) 500 MG TAB.CHEW ORAL AT BEDTIME Ascorbic Acid 500 MG Chewable Tablet (RxNorm): 948016 Dose: 500 MG VITAMIN C (ASCORBIC ACID) NDC: 71668539717 SYNTHROID(LEVOTHYROXINE SODIUM) 0.15 MG TABLET ORAL 60 MIN BEFORE [facility]FST Levothyroxine Sodium 0.15 MG Oral Tablet [Synthroid] (RxNorm): 618586 Dose: 0.15 MG SYNTHROID (LEVOTHYROXINE SODIUM) NDC: 40236612411 Midamor(AMILoride HCL) 5 MG TAB ORAL WITH BREAKFAST & SUPPER Amiloride Hydrochloride 5 MG Oral Tablet (RxNorm): 953604 Dose: 5 MG Midamor (AMILoride HCL) NDC: 41896459721 Inpatient/Ordered Medications - Medications administered during hospital visit Visit/Account #[id number] (March 26, 2015 10:56am - March 29, 2015 5:30pm) Medication Route Sig/Schedule Precondition/Indication Comments/ Instructions Codes IV Medication INTRAVEN .Q1H (Rate: 1000 MLS/HR Duration: 1 HR) Rx Order Comments: Carriers: Order placed as verified: Carriers: Dose Warnings differ from order puller Sodium Chloride 0.154 MEQ/ML Injectable Solution (RxNorm): 908662 Dose Warnings differ from order puller NORMAL SALINE(SODIUM CHLORIDE) 1000 ML INJECTION NORMAL SALINE ( SODIUM CHLORIDE) NDC: 09272103081 Dose: 1000 ML ZOFRAN INJ(ONDansetron HCL) 4 MG/2 ML INJECTION INTRAVEN NOW Rx Order Comments: Ondansetron 2 MG/ML Injectable Solution (RxNorm): 054842 Dose: 2 ML Order placed as verified: Dose Warnings differ from order puller ZOFRAN INJ (ONDansetron HCL) NDC : 30661990054 Dose Warnings differ from order puller Label Comments: SLOW IV PUSH MAY INCREASE FALL RISK SUBLIMAZE INJ(FentaNYL CITRATE) 100 MCG/2 ML INJECTION INTRAVEN NOW Rx Order Comments: Fentanyl 0.05 MG/ML Injectable Solution (RxNorm): 154081 Dose: 1 ML Order placed as verified: Dose Warnings differ from order puller SUBLIMAZE INJ (FentaNYL CITRATE ) NDC: 53807930937 Dose Warnings differ from order puller Label Comments: GIVE BY SLOW PUSH OVER 2-5 MIN MAY INCREASE FALL RISK IV Medication INTRAVEN DEE (Rate: 100 MLS/HR Duration: 30 MIN) Label Comments: Additives: REFRIGERATE Additives: Ceftriaxone 350 MG/ML Injectable Solution (RxNorm): 756440 ROCEPHIN INJ(CefTRIAXone SOD) 1000 MG INJECTION ROCEPHIN INJ ( CefTRIAXone SOD) NDC: 06559781924 Dose: 1000 MG Carriers: Carriers: Sodium Chloride 0.154 MEQ/ML Injectable Solution (RxNorm): 500623 SODIUM CHLORIDE 50 ML INJECTION Dose: 50 ML (SODIUM CHLORIDE) NDC: 37591531888 IV Medication INTRAVEN NOW (Rate: 130 MLS/HR Duration: 4 HR) Rx Order Comments: Additives: Order placed as verified: Additives: Dose Warnings differ from order puller Potassium Chloride 2 MEQ/ML Injectable Solution (RxNorm): 704011 Dose Warnings differ from order puller KCL INJ(POTASSIUM CHLORIDE) 40 MEQ/20 ML INJECTION KCL INJ (POTASSIUM CHLORIDE) NDC: 90316411784 Dose: 40 MEQ Carriers: Carriers: Sodium Chloride 0.154 MEQ/ML Injectable Solution (RxNorm): 884788 SODIUM CHLORIDE 500 ML INJECTION Dose: 500 ML (SODIUM CHLORIDE) NDC: 38258823040 SUBLIMAZE INJ(FentaNYL CITRATE) 100 MCG/2 ML INJECTION INTRAVEN NOW Rx Order Comments: Fentanyl 0.05 MG/ML Injectable Solution (RxNorm): 842569 Dose: 1 ML Order placed as verified: Dose Warnings differ from order puller SUBLIMAZE INJ (FentaNYL CITRATE ) NDC: 97959198811 Dose Warnings differ from order puller Label Comments: GIVE BY SLOW PUSH OVER 2-5 MIN MAY INCREASE FALL RISK ZOFRAN INJ(ONDansetron HCL) 4 MG/2 ML INJECTION INTRAVEN Q4H PRN Reason: NAUSEA/VOMITING Ondansetron 2 MG/ML Injectable Solution (RxNorm): 856879 Dose: 2 ML ZOFRAN INJ (ONDansetron HCL) NDC: 67470297240 PROTONIX INJ(PANTOPRAZOLE) 40 MG INJECTION INTRAVEN 60 MIN BEFORE BKFST Rx Order Comments: pantoprazole 4 MG/ML Injectable Solution [Protonix] (RxNorm) : 940744 Dose: 40 MG Order filed UNV: Dose Warnings differ from order puller PROTONIX INJ (PANTOPRAZOLE) NDC : 55139982702 Label Comments: Dilute with 10 mL of NS and push over 2 minutes IV Medication INTRAVEN .Q8H (Rate: 125 MLS/HR Duration: 8 HR) Carriers: Carriers: Potassium Chloride 0.02 MEQ/ML / Sodium Chloride 0.154 MEQ/ ML Injectable Solution (RxNorm): 651113 SODIUM CHLORIDE 0.9%- POTASSIUM CHLOR 20 MEQ(KCL/SODIUM CHLORIDE) 20 MEQ/1000 ML INJECTION SODIUM CHLORIDE 0.9%- POTASSIUM CHLOR 20 MEQ (KCL/SODIUM CHLORIDE) NDC: 23849910700 Dose: 1000 ML LOVENOX(ENOXAPARIN) 40 MG/0.4 ML INJECTION SUBCUTANEOUSLY DAILY@07 Label Comments: 0.4 ML Enoxaparin sodium 100 MG/ML Prefilled Syringe [Lovenox] ( RxNorm): 099880 Dose: 0.4 ML INJECT SC INTO ABDOMINAL WALL ONLY. LOVENOX (ENOXAPARIN) NDC: 16400219771 IV Medication INTRAVEN Q24H (Rate: 100 MLS/HR Duration: 30 MIN) Clinical Indication: ABX non-surgical pt Label Comments: Additives: REFRIGERATE IVPBs Additives: Expires 24 HRS after preparation Ceftriaxone 350 MG/ML Injectable Solution (RxNorm): 574242 ROCEPHIN INJ(CefTRIAXone SOD) 2000 MG INJECTION ROCEPHIN INJ ( CefTRIAXone SOD) NDC: 09294502899 Dose: 1000 MG Carriers: Carriers: Sodium Chloride 0.154 MEQ/ML Injectable Solution (RxNorm): 719862 SODIUM CHLORIDE 50 ML INJECTION Dose: 50 ML (SODIUM CHLORIDE) NDC: 93130378589 MORPHINE SULFATE 4 MG/ML INJECTION INTRAVEN Q4H PRN Reason: SEVERE PAIN Label Comments: 1 ML Morphine Sulfate 4 MG/ML Prefilled Syringe (RxNorm): 248471 Dose: 0 ML MAY INCREASE FALL RISK (MORPHINE SULFATE) NDC: [id number] Special Dose Instructions: 1-4 MG MIDAMOR(AMILoride HCL) 5 MG TAB ORAL DAILY Label Comments: Amiloride Hydrochloride 5 MG Oral Tablet (RxNorm): 431909 Dose: 5 MG GIVE WITH FOOD MAY INCREASE FALL RISK MIDAMOR (AMILoride HCL) NDC: 24076061285 NICODERM 21 MG PATCH(NICOTINE) 1 PATCH PATCH TOPICALLY DAILY Label Comments: 24 HR Nicotine 0.875 MG/HR Transdermal Patch (RxNorm): 635840 Dose: 1 PATCH WEAR GLOVES FOR HANDLING OR WASH HANDS AFTER HANDLING. NICODERM 21 MG PATCH (NICOTINE) NDC: 90273903643 SYNTHROID(LEVOTHYROXINE SODIUM) 0.15 MG TAB ORAL DAILY@07 Label Comments: Levothyroxine Sodium 0.15 MG Oral Tablet [Synthroid] (RxNorm): 897872 Dose: 0.15 MG 0.15 OC=878 MCG SYNTHROID (LEVOTHYROXINE SODIUM) NDC: 88073738365 IV Medication INTRAVEN NOW (Rate: 25 MLS/HR Duration: 2 HR) Carriers: Carriers: Magnesium Sulfate 0.325 MEQ/ML Injectable Solution (RxNorm) : 995914 MAGNESIUM SULFATE 2 GM/50 ML INJECTION (MAGNESIUM SULFATE) NDC: 98503607434 Dose: 50 ML IV Medication INTRAVEN NOW (Rate: 130 MLS/HR Duration: 4 HR) Additives: Additives: Potassium Chloride 2 MEQ/ML Injectable Solution (RxNorm): 529867 KCL INJ(POTASSIUM CHLORIDE) 40 MEQ/20 ML INJECTION KCL INJ (POTASSIUM CHLORIDE) NDC: 71340511549 Dose: 40 MEQ Carriers: Carriers: Sodium Chloride 0.154 MEQ/ML Injectable Solution (RxNorm): 072861 SODIUM CHLORIDE 500 ML INJECTION Dose: 500 ML (SODIUM CHLORIDE) NDC: 54966434624 SUBLIMAZE INJ(FentaNYL CITRATE) 250 MCG/5 ML INJECTION Route .STK-MED Fentanyl 0.05 MG/ML Injectable Solution (RxNorm): 598123 Dose: 250 MCG SUBLIMAZE INJ (FentaNYL CITRATE) NDC: 04224713835 VERSED INJ(MIDAZOLAM HCL) 10 MG/10 ML INJECTION Route .STK-MED Midazolam 1 MG/ML Injectable Solution (RxNorm): 247270 Dose: 10 MG VERSED INJ (MIDAZOLAM HCL) NDC: 77619343146 MIDAMOR(AMILoride HCL) 5 MG TAB ORAL WITH BREAKFAST & SUPPER Label Comments: Amiloride Hydrochloride 5 MG Oral Tablet (RxNorm): 103990 Dose: 5 MG GIVE WITH FOOD MAY INCREASE FALL RISK MIDAMOR (AMILoride HCL) NDC: 96552511669 Discharge Medications - Medications that patient should continue to take. Review with physician Visit/Account #[id number] (March 26, 2015 10:56am - March 29, 2015 5:30pm) Medication Route Sig/Schedule Precondition/Indication Comments/ Instructions Codes TOPROL XL(METOPROLOL SUCCINATE) 100 MG TAB ORAL AT BEDTIME Rx Note Text Comments: 24 HR metoprolol succinate 100 MG Extended Release Oral Tablet [ Toprol] (RxNorm): 649702 Dose: 100 MG HTN TOPROL XL (METOPROLOL SUCCINATE) NDC: 04441705874 Depo-Provera(MEDROXYPROGESTERONE ACET) 400 MG/ML INJECTION INTRAMUSC [id number] Rx Note Text Comments: medroxyprogesterone acetate 400 MG/ML Injectable Suspension [Depo-Provera] (RxNorm): 2162784 CONTRACEPTION Depo-Provera (MEDROXYPROGESTERONE ACET) NDC: 35218501013 CELEXA(CITALOPRAM HYDROBROMIDE) 40 MG TABLET ORAL AT BEDTIME Citalopram 40 MG Oral Tablet [Celexa] (RxNorm): 102940 Dose: 40 MG CELEXA (CITALOPRAM HYDROBROMIDE) NDC: 33485881210 ALBUTEROL SULF HFA(ALBUTEROL SULFATE) 8.5 GM PUFF INHALED Q4H SHORTNESS OF BREATH/WHEEZING ALBUTEROL SULF HFA (ALBUTEROL SULFATE) NDC: 37376413140 Dose: 2 PUFF VITAMIN C(ASCORBIC ACID) 500 MG TAB.CHEW ORAL AT BEDTIME Ascorbic Acid 500 MG Chewable Tablet (RxNorm): 878257 Dose: 500 MG VITAMIN C (ASCORBIC ACID) NDC: 51561935925 SYNTHROID(LEVOTHYROXINE SODIUM) 0.15 MG TABLET ORAL 60 MIN BEFORE BKFST Levothyroxine Sodium 0.15 MG Oral Tablet [Synthroid] (RxNorm): 711257 Dose: 0.15 MG SYNTHROID (LEVOTHYROXINE SODIUM) NDC: 68992684305 HYDROCODONE COMPOUND SYRUP(HYDROcodone BIT/HOMATROP ME-BR) 120 ML SYRUP ORAL EVERY 4 HOURS homatropine methylbromide 0.3 MG/ML / Hydrocodone Bitartrate 1 MG/ML Oral Solution (RxNorm): 508851 Dose: 7.5 MG HYDROCODONE COMPOUND SYRUP (HYDROcodone BIT/HOMATROP ME-BR) NDC: 98804879378 Midamor(AMILoride HCL) 5 MG TAB ORAL WITH BREAKFAST & SUPPER Amiloride Hydrochloride 5 MG Oral Tablet (RxNorm): 055270 Dose: 5 MG Midamor (AMILoride HCL) NDC: 93616923694 Potassium Chloride(POTASSIUM CHLORIDE) 20 MEQ/15 ML LIQUID ORAL 3 TIMES A DAY Potassium Chloride 1.33 MEQ/ML Oral Solution (RxNorm): 617278 Dose: 20 MEQ Potassium Chloride (POTASSIUM CHLORIDE) NDC: 42623865644 History Of Encounters Encounters Visit/Account #[id number] (March 26, 2015 10:56am - March 29, 2015 5:30pm) Account Physican Of Reason For Visit Diagnosis Start Stop Date/Time Status Record Visit Date/Time MATEO HARGROVE MD ABDOMINAL PAIN 789.07: ABDOMINAL PAIN, GENERALIZED ICD9 Mar 26, 2015 10:56am Mar 26, 2015 2:18pm Julio César GONZALEZ DO ABDOMINAL PAIN 789.07: ABDOMINAL PAIN, GENERALIZED ICD9 Mar 26, 2015 12:34pm Mar 29, 2015 5:30pm History of Procedures Procedure List Visit/Account #[id number] (March 26, 2015 10:56am - March 29, 2015 5:30pm) Code/Procedure Date 45.13: OTHER ENDOSCOPY OF SM INTEST March 28, 2015 87.62: UPPER GI SERIES March 29, 2015 Discharge Instructions Discharge Instructions Visit/Account #[id number] (March 26, 2015 10:56am - March 29, 2015 5:30pm) DISCHARGE INSTRUCTIONS Physician Documentation PROVIDER INSTRUCTIONS Discharge Diet Regular Discharge Activity/Weight Bearing Status As able Other Discharge Instructions Call bariatric surgeon to have lap band loosened. Discharge Diet Regular Discharge Activity/Weight Bearing Status As able Other Discharge Instructions Call bariatric surgeon to have lap band loosened. REASON TO CALL PROVIDER Notify Physician if: Nausea/vomiting does not improve after lap band adjustment. FOLLOW UP APPOINTMENTS Follow Up With Dr. Contreras 04/06/15 @ 12:45 Follow-up tests/procedures/outpatient needs: [facility] Sunday - fax results to Dr. Contreras Social History Social History No Social History Data. Immunizations Immunizations Patient Unit Number: [id number] Immunizations No immunizations recorded.
--- OUTSIDE RECORDS SUMMARY | 2017-10-31 12:30 | External Medical Summary | Continuity Of Care Document ---
:1970 Author Organization [facility] Address [address] [place] [address] Phone Care Team Providers Name Role Phone MALOU STILL MD Attending Provider TOREY VALERO MD Primary Care Provider [phone] Results Lab Results Visit/Account #[id number] (March 19, 2015 5:15pm - March 19, 2015 10:14pm) Test Result Date/Time UA WITH SCREEN FOR CULTURE 5778-6: COLOR,URINE YELLOW March 19, 2015 5:45pm 42813-5: CLARITY,URINE CLEAR March 19, 2015 5:45pm GLUCOSE, URINE(NEGATIVE MG/DL) NEGATIVE MG/DL March 19, 2015 5:45pm URINE BILIRUBIN(NEGATIVE) SMALL March 19, 2015 5:45pm 94188-1: KETONES,URINE(NEGATIVE MG/DL) TRACE MG/DL March 19, 2015 5:45pm 2965-2: URINE SPECIFIC GRAVITY(1.001-1.035) Greater than or equal to 1.030 March 19, 2015 5:45pm 24687-4: URINE BLOOD(NEGATIVE) TRACE-LYSE March 19, 2015 5:45pm 2756-5: URINE PH(5.0-9.0) 5.5 March 19, 2015 5:45pm URINE PROTEIN(Less than 20 MG/DL) TRACE MG/DL March 19, 2015 5:45pm URINE UROBILINOGEN(0.2-1.0 MG/DL) 2.0 MG/DL March 19, 2015 5:45pm URINE NITRITE(NEGATIVE) POSITIVE March 19, 2015 5:45pm 5799-2: LEUKOCYTE ESTERASE ,URINE(NEGATIVE) NEGATIVE March 19, 2015 5:45pm 630-4: URINE CULTURE TO FOLLOW March 19, 2015 5:45pm URINE MICROSCOPIC REQUIRED YES March 19, 2015 5:45pm URINE WBCS(/HPF) NONE SEEN /HPF March 19, 2015 5:45pm 73784-0: URINE RBCS(/HPF) 0-3 /HPF March 19, 2015 5:45pm 02817-5: URINE EPITHELIAL CELLS(/HPF) 0-3 /HPF March 19, 2015 5:45pm BACTERIA,URINE(/HPF) 1+ /HPF March 19, 2015 5:45pm URINE CRYSTALS(/HPF) NONE SEEN /HPF March 19, 2015 5:45pm URINE CASTS(/LPF) NONE SEEN /LPF March 19, 2015 5:45pm URINE COMMENTS 3+ MUCOUS March 19, 2015 5:45pm 06488-8: COMPLETE METABOLIC PROFILE 95625-9: GLUCOSE(70-110 MG/DL) 84 MG/DL March 19, 2015 5:50pm BLOOD UREA NITROGEN(6-20 MG/DL) 4 MG/DL March 19, 2015 5:50pm 09833-3: CREATININE(0.50-1.20 MG/DL) 0.50 MG/DL March 19, 2015 5:50pm 79537-3: EST GLOMERULAR FILTRATION RATE(Greater than or equal to 60) Greater than or equal to 60 March 19, 2015 5:50pm Result Comments: If the patient is of -[place] descent/extraction multiply the eGFR value by 1.212 to obtain the actual eGFR. >=60 mg/dL Normal 30-59 mg/dL Moderate Kidney Disease 15-29 mg/dL Severe Kidney Disease <15 mg/dL Kidney Failure BUN CREATININE RATIO(10.0-20.0 RATIO) 8.0 RATIO March 19, 2015 5:50pm 02583-3: SODIUM(135-145 MMOL/L) 137 MMOL/L March 19, 2015 5:50pm 49289-7: POTASSIUM(3.6-5.0 MMOL/L) 2.1 MMOL/L March 19, 2015 5:50pm 14393-5: CHLORIDE(101-111 MMOL/L) 96 MMOL/L March 19, 2015 5:50pm 8-9: CO2(21-31 MMOL/L) 34.0 MMOL/L March 19, 2015 5:50pm 26326-7: ANION GAP(8-18) 9 March 19, 2015 5:50pm OSMO CALCULATED(270.0-290.0) 269.9 March 19, 2015 5:50pm CALCIUM(8.5-10.5 MG/DL) 8.7 MG/DL March 19, 2015 5:50pm BILIRUBIN,TOTAL(0.1-1.2 MG/DL) 0.9 MG/DL March 19, 2015 5:50pm ALKALINE PHOSPHATASE(42-121 IU/L) 70 IU/L March 19, 2015 5:50pm ASPARTATE AMINO TRANSFERASE(10-42 IU/L) 17 IU/L March 19, 2015 5:50pm ALANINE AMINOTRANSFERASE(10-60 IU/L) 6 IU/L March 19, 2015 5:50pm 46316-0: TOTAL PROTEIN(6.4-8.2 G/DL) 7.1 G/DL March 19, 2015 5:50pm ALBUMIN(3.5-5.5 G/DL) 3.4 G/DL March 19, 2015 5:50pm 2336-6: GLOBULIN(2.4-3.6) 3.7 March 19, 2015 5:50pm ALBUMIN/GLOBULIN RATIO(0.9-1.8 RATIO) 0.9 RATIO March 19, 2015 5:50pm 15187-9: MAGNESIUM 88537-6: MAGNESIUM(1.8-2.5 MG/DL) 2.0 MG/DL March 19, 2015 5:50pm Microbiology Results Visit/Account #[id number] (March 19, 2015 5:15pm - March 19, 2015 10:14pm) Procedure Result 630-4: URINE CULTURE 630-4: URINE CULTURE Result Instance On March 19, 2015 5:45pm Source: URINE Special Result Comments: No growth Allergies and Adverse Reactions Allergies and Adverse Reactions Patient Unit Number: [id number] Agent Type Reaction Severity Status PENICILLINS Drug Allergy Hives Moderate Active CODEINE Drug Allergy Nausea & TREVINO Mild Active Problem List Problem List Visit/Account #[id number] (March 19, 2015 5:15pm - March 19, 2015 10:14pm) Acute Problems: Code/Condition Comments Documented Start Documented Code(s) Date Resolved Date UTI (lower urinary tract infection) ICD10: N39.0 Lower urinary tract infectious disease ICD9: 599.0 Lower urinary tract infectious disease SNOMED: 0928407 Lower urinary tract infectious disease Hypokalemia ICD10: E87.6 Hypokalemia ICD9: 276.8 Hypokalemia SNOMED: 15087307 Hypokalemia UTI (lower urinary tract infection) ICD10: N39.0 Lower urinary tract infectious disease ICD9: 599.0 Lower urinary tract infectious disease SNOMED: 5138068 Lower urinary tract infectious disease Plan of Care Plan Of Care Visit/Account #[id number] (March 19, 2015 5:15pm - March 19, 2015 10:14pm) Patient Instructions Return if worse or any concern. Follow-up with your PCP w/in 48 hrs for further evaluation and care. Vital Signs Vital Signs Visit/Account #[id number] (March 19, 2015 5:15pm - March 19, 2015 10:14pm) Sign First Result Last Result Code(s) Body Mass Index Body Mass Index (BMI): 29.0 kg/m2 On March 19, 2015 5:13pm 27333-4 BMI (body mass index) Body Mass Index as a Calculated Value 29.1 kg/m2 On March 19, 2015 5:13pm 14000-5 BMI (body mass index) Body Surface Area as a Calculated Value 1.92 m2 On March 19, 2015 5:13pm 3140-1 BSA (body surface area) Height (Feet/Inches) 5 [ft_us] 6 [in_us] On March 19, 2015 5:13pm Temperature in Fahrenheit Temperature (Fahrenheit): 97.6 [degF] On March 5:13pm Temperature (Fahrenheit): 98.1 [degF] On March 19, 2015 10: 14pm 8310-5 Body Temperature Weight in Kilograms Weight (Kilograms): 81.9 kg On March 19, 2015 5:13pm 3141-9 Weight Measured 02506-6 Body weight measured in kilograms Functional Status Functional and Cognitive Status No Functional Status Data Medications Home Medications - Medications that the patient was taking prior to arrival at the hospital Visit/Account #[id number] (March 19, 2015 5:15pm - March 19, 2015 10:14pm) Medication Route Sig/Schedule Precondition/Indication Comments/ Instructions Codes DEPO SHOT INTRAMUSC EVERY MONTH TOPROL XL(METOPROLOL SUCCINATE) 100 MG TAB ORAL AT BEDTIME Rx Note Text Comments: 24 HR metoprolol succinate 100 MG Extended Release Oral Tablet [ Toprol] (RxNorm): 779361 Dose: 100 MG HTN TOPROL XL (METOPROLOL SUCCINATE) NDC: 84842137344 Spironolactone(SPIRONOLACTONE) 25 MG TAB ORAL AT BEDTIME Rx Note Text Comments: Spironolactone 25 MG Oral Tablet (RxNorm): 271626 Dose: 25 MG FLUID Spironolactone (SPIRONOLACTONE) NDC: 35378996735 LISINOPRIL(LISINOPRIL) 20 MG TABLET ORAL AT BEDTIME Rx Note Text Comments : Lisinopril 20 MG Oral Tablet (RxNorm): 837535 Dose: 20 MG HTN LISINOPRIL (LISINOPRIL) NDC: 85592202773 Citalopram Hbr(CITALOPRAM HYDROBROMIDE) 20 MG TABLET ORAL AT BEDTIME Rx Note Text Comments: Citalopram 20 MG Oral Tablet (RxNorm): 585142 Dose: 20 MG PMS Citalopram Hbr (CITALOPRAM HYDROBROMIDE) NDC: 76574024959 Depo-Provera(MEDROXYPROGESTERONE ACET) 400 MG/ML INJECTION INTRAMUSC [id number] Rx Note Text Comments: medroxyprogesterone acetate 400 MG/ML Injectable Suspension [Depo-Provera] (RxNorm): 1007233 CONTRACEPTION Depo-Provera (MEDROXYPROGESTERONE ACET) NDC: 20192742499 Acetaminophen(ACETAMINOPHEN) 325 MG TABLET ORAL EVERY 4 HOURS Acetaminophen (ACETAMINOPHEN) NDC: 18004788370 Dose: 650 MG Synthroid, Levothroid(LEVOTHYROXINE SODIUM) 0.1 MG TAB ORAL DAILY Synthroid, Levothroid (LEVOTHYROXINE SODIUM) NDC: 86261647185 Dose: 1 TAB KEFLEX(CEPHALEXIN MONOHYDRATE) 500 MG CAPSULE ORAL 3 TIMES A DAY Cephalexin 500 MG Oral Capsule [Keflex] (RxNorm): 453942 Dose: 500 MG KEFLEX (CEPHALEXIN MONOHYDRATE) NDC: 53693558072 NILSTAT(NYSTATIN) 60 ML SUSPENSION ORAL EVERY 6 HOURS Rx Instructions: Nystatin 777976 UNT/ML Oral Suspension (RxNorm): 025765 Dose: 5 ML SWISH AND SWALLOW NILSTAT (NYSTATIN) NDC: 75927185429 SYNTHROID(LEVOTHYROXINE SODIUM) 0.175 MG TABLET ORAL DAILY Levothyroxine Sodium 0.175 MG Oral Tablet [Synthroid] (RxNorm): 979092 Dose: 0.175 MG SYNTHROID (LEVOTHYROXINE SODIUM) NDC: 79182168095 CELEXA(CITALOPRAM HYDROBROMIDE) 40 MG TABLET ORAL AT BEDTIME Citalopram 40 MG Oral Tablet [Celexa] (RxNorm): 317441 Dose: 40 MG CELEXA (CITALOPRAM HYDROBROMIDE) NDC: 08327766390 SYNTHROID(LEVOTHYROXINE SODIUM) 0.175 MG TABLET ORAL 60 MIN BEFORE BKT Levothyroxine Sodium 0.175 MG Oral Tablet [Synthroid] (RxNorm): 638612 Dose: 0.175 MG SYNTHROID (LEVOTHYROXINE SODIUM) NDC: 28651444138 Potassium Chloride(POTASSIUM CHLORIDE) 20 MEQ/15 ML LIQUID ORAL [facility]ILY [facility] Rx Instructions: Potassium Chloride 1.33 MEQ/ML Oral Solution (RxNorm) : 365251 Dose: 20 MEQ LAST FILLED 12/25/14 Potassium Chloride (POTASSIUM CHLORIDE) NDC: 06344008046 ALBUTEROL SULF HFA(ALBUTEROL SULFATE) 8.5 GM PUFF INHALED Q4H SHORTNESS OF BREATH/WHEEZING ALBUTEROL SULF HFA (ALBUTEROL SULFATE) NDC: 16523944287 Dose: 2 PUFF Inpatient/Ordered Medications - Medications administered during hospital visit Visit/Account #[id number] (March 19, 2015 5:15pm - March 19, 2015 10:14pm) Medication Route Sig/Schedule Precondition/Indication Comments/ Instructions Codes IV Medication INTRAVEN .Q1H (Rate: 1000 MLS/HR Duration: 1 HR) Rx Order Comments: Carriers: Order placed as verified: Carriers: Dose Warnings differ from service order dispatcher chief Sodium Chloride 0.154 MEQ/ML Injectable Solution (RxNorm): 843043 NORMAL SALINE(SODIUM CHLORIDE) 1000 ML INJECTION NORMAL SALINE ( SODIUM CHLORIDE) NDC: 94618831570 Dose: 1000 ML K-LYTE/CL EFF(POTASSIUM BICARB/POT CHLORIDE) 25 MEQ TAB ORAL NOW Rx Order Comments: Potassium Chloride 25 MEQ Effervescent Oral Tablet (RxNorm): 8949380 Dose: 50 MEQ Order filed UNV: Dose Warnings differ from service order dispatcher chief K-LYTE/CL EFF (POTASSIUM BICARB/ POT CHLORIDE) NDC: 88494895376 Label Comments: DISSOLVE IN 3 TO 4 OUNCES OF COLD WATER IV Medication INTRAVEN NOW (Rate: 130 MLS/HR Duration: 4 HR) Rx Order Comments: Additives: Order placed as verified: Additives: Dose Warnings differ from service order dispatcher chief Potassium Chloride 2 MEQ/ML Injectable Solution (RxNorm): 471577 KCL INJ(POTASSIUM CHLORIDE) 40 MEQ/20 ML INJECTION KCL INJ (POTASSIUM CHLORIDE) NDC: 90953461220 Dose: 40 MEQ Carriers: Carriers: Sodium Chloride 0.154 MEQ/ML Injectable Solution (RxNorm): 006971 SODIUM CHLORIDE 500 ML INJECTION Dose: 500 ML (SODIUM CHLORIDE) NDC: 74627497340 SUBLIMAZE INJ(FentaNYL CITRATE) 100 MCG/2 ML INJECTION INTRAVEN NOW Rx Order Comments: Fentanyl 0.05 MG/ML Injectable Solution (RxNorm): 751360 Dose: 1 ML Order placed as verified: Dose Warnings differ from service order dispatcher chief SUBLIMAZE INJ (FentaNYL CITRATE ) NDC: 61548994524 Label Comments: GIVE BY SLOW PUSH OVER 2-5 MIN MAY INCREASE FALL RISK ZOFRAN INJ(ONDansetron HCL) 4 MG/2 ML INJECTION INTRAVEN NOW Rx Order Comments: Ondansetron 2 MG/ML Injectable Solution (RxNorm): 796623 Dose: 2 ML Order placed as verified: Dose Warnings differ from service order dispatcher chief ZOFRAN INJ (ONDansetron HCL) NDC : 44674612537 Label Comments: SLOW IV PUSH MAY INCREASE FALL RISK IV Medication INTRAVEN .Q1H (Rate: 1000 MLS/HR Duration: 1 HR) Rx Order Comments: Carriers: Order placed as verified: Carriers: Dose Warnings differ from service order dispatcher chief Sodium Chloride 0.154 MEQ/ML Injectable Solution (RxNorm): 727150 NORMAL SALINE(SODIUM CHLORIDE) 1000 ML INJECTION NORMAL SALINE ( SODIUM CHLORIDE) NDC: 36516339417 Dose: 1000 ML K-LYTE/CL EFF(POTASSIUM BICARB/POT CHLORIDE) 25 MEQ TAB ORAL NOW Rx Order Comments: Potassium Chloride 25 MEQ Effervescent Oral Tablet (RxNorm): 4687650 Dose: 50 MEQ Order filed UNV: Dose Warnings differ from service order dispatcher chief K-LYTE/CL EFF (POTASSIUM BICARB/ POT CHLORIDE) [facility]: [id number] Label Comments: DISSOLVE IN 3 TO 4 OUNCES OF COLD WATER History Of Encounters Encounters Visit/Account #[id number] (March 19, 2015 5:15pm - March 19, 2015 10:14pm) Account Physican Of Reason For Visit Diagnosis Start Stop Date/Time Status Record Visit Date/Time ER MALOU STILL MD NEEDS INFUSION 276.8: HYPOPOTASSEMIA ICD9 Mar 19, 2015 5:15pm Mar 19, 2015 10:14pm Julio César MALOU STILL MD NEEDS INFUSION 276.8: HYPOPOTASSEMIA ICD9 Mar 19, 2015 5:50pm Mar 19, 2015 10:14pm History of Procedures Procedure List No procedures recorded. Discharge Instructions Discharge Instructions Visit/Account #[id number] (March 19, 2015 5:15pm - March 19, 2015 10:14pm) DISCHARGE INSTRUCTIONS Physician Documentation Social History Social History No Social History Data. Immunizations Immunizations Patient Unit Number: [id number] Immunizations No immunizations recorded.
--- OUTSIDE RECORDS SUMMARY | 2017-10-31 12:30 | External Medical Summary | Continuity Of Care Document ---
:1970 Author Organization [facility] Address [address] [place] [address] Phone Care Team Providers Name Role Phone JARROD EDWARDS MD Consulting Provider TAL STILL, SEAN Yun Attending Provider TOREY VALERO MD Primary Care Provider [phone] Results Lab Results Visit/Account #[id number] (September 03, 2017 4:05pm - September 15, 2017 10: 10am) Test Result Date/Time COMPLETE BLOOD COUNT WHITE BLOOD COUNT(4.0-11.0 10E3/UL) 2.6 10E3/UL September 07, 2017 3:13pm 3.0 10E3/UL September 11, 2017 5:51am RED BLOOD COUNT(4.00-5.20 10E6/UL) 3.78 10E6/UL September 07, 2017 3:13pm 3.80 10E6/UL September 11, 2017 5:51am HEMOGLOBIN(12.0-16.0 G/DL) 12.2 G/DL September 07, 2017 3:13pm 12.2 G/DL September 11, 2017 5:51am HEMATOCRIT(36.0-46.0 %) 36.6 % September 07, 2017 3:13pm 36.6 % September 11, 2017 5:51am MEAN CORPUSCULAR VOLUME(82.0-100.0 FL) 96.8 FL September 07, 2017 3:13pm 96.3 FL September 11, 2017 5:51am MEAN CORPUSCULAR HEMOGLOBIN(26.0-34.0 PG) 32.3 PG September 07, 2017 3:13pm 32.1 PG September 11, 2017 5:51am MEAN CORPUSCULAR HGB CONC(31.5-36.5 G/DL) 33.3 G/DL September 07, 2017 3:13pm 33.3 G/DL September 11, 2017 5:51am RED CELL DISTRIBUTION WIDTH(11.5-14.5 %) 19.5 % September 07, 2017 3:13pm 19.8 % September 11, 2017 5:51am 777-3: PLATELET COUNT(150-450 10E3/UL) 332 10E3/UL September 07, 2017 3:13pm 264 10E3/UL September 11, 2017 5:51am MEAN PLATELET VOLUME(8.2-12.4 FL) 10.0 FL September 07, 2017 3:13pm 10.4 FL September 11, 2017 5:51am NUCLEATED RBCS (AUTO)(0-0 %) 0 % September 07, 2017 3:13pm 0 % September 11, 2017 5:51am CBC WITH REFLEXED MANUAL DIFF WHITE BLOOD COUNT(4.0-11.0 10E3/UL) 2.1 10E3/UL September 04, 2017 6:54am RED BLOOD COUNT(4.00-5.20 10E6/UL) 3.78 10E6/UL September 04, 2017 6:54am HEMOGLOBIN(12.0-16.0 G/DL) 12.0 G/DL September 04, 2017 6:54am HEMATOCRIT(36.0-46.0 %) 36.5 % September 04, 2017 6:54am MEAN CORPUSCULAR VOLUME(82.0-100.0 FL) 96.6 FL September 04, 2017 6:54am MEAN CORPUSCULAR HEMOGLOBIN(26.0-34.0 PG) 31.7 PG September 04, 2017 6:54am MEAN CORPUSCULAR HGB CONC(31.5-36.5 G/DL) 32.9 G/DL September 04, 2017 6:54am RED CELL DISTRIBUTION WIDTH(11.5-14.5 %) 20.3 % September 04, 2017 6:54am 777-3: PLATELET COUNT(150-450 10E3/UL) 322 10E3/UL September 04, 2017 6:54am MEAN PLATELET VOLUME(8.2-12.4 FL) 9.8 FL September 04, 2017 6:54am DIFF TYPE MANUAL September 04, 2017 6:54am NEUTROPHIL % (MANUAL)(40-70 %) 37 % September 04, 2017 6:54am BANDS%(0-3 %) 1 % September 04, 2017 6:54am LYMPHOCYTES % (MANUAL)(15-45 %) 35 % September 04, 2017 6:54am MONOCYTES % (MANUAL)(2-10 %) 23 % September 04, 2017 6:54am EOSINOPHILS % (MANUAL)(0-6 %) 4 % September 04, 2017 6:54am BASOPHILS % (MANUAL)(0-1 %) 0 % September 04, 2017 6:54am NUCLEATED RBCS (MANUAL)(0-0 %) 0 % September 04, 2017 6:54am NEUTROPHILS # (MANUAL)(2.5-7.5 10E3/UL) 0.8 10E3/UL September 04, 2017 6:54am LYMPHOCYTES # (MANUAL)(1.0-4.0 10E3/UL) 0.7 10E3/UL September 04, 2017 6:54am MONOCYTES # (MANUAL)(0.2-0.8 10E3/UL) 0.5 10E3/UL September 04, 2017 6:54am EOSINOPHILS # (MANUAL)(0.0-0.4 10E3/UL) 0.1 10E3/UL September 04, 2017 6:54am BASOPHILS # (MANUAL)(0.0-0.2 10E3/UL) 0.0 10E3/UL September 04, 2017 6:54am PLATELET ESTIMATE ADEQUATE September 04, 2017 6:54am WBC MORPHOLOGY COMMENT 1+ ATYPICAL LYMPHS September 04, 2017 6:54am RBC MORPHOLOGY COMMENT 1+ ANISOCYTOSIS September 04, 2017 6:54am PLATELET MORPHOLOGY COMMENT NORMAL September 04, 2017 6:54am BASIC METABOLIC PANEL GLUCOSE(70-110 MG/DL) 94 MG/DL September 04, 2017 6:54am 103 MG/DL September 07, 2017 3:13pm 85 MG/DL September 11, 2017 6:55am BLOOD UREA NITROGEN(6-20 MG/DL) 12 MG/DL September 04, 2017 6:54am 12 MG/DL September 07, 2017 3:13pm 9 MG/DL September 11, 2017 6:55am CREATININE(0.50-1.20 MG/DL) 0.62 MG/DL September 04, 2017 6:54am 0.78 MG/DL September 07, 2017 3:13pm 0.79 MG/DL September 11, 2017 6:55am EST GLOMERULAR FILTRATION RATE(Greater than or equal to 60) Greater than or equal to 60 September 04, 2017 6:54am Result Comments: If the patient is of -[place] descent/extraction multiply the eGFR value by 1.212 to obtain the actual eGFR. >=60 mg/dL Normal 30-59 mg/dL Moderate Kidney Disease 15-29 mg/dL Severe Kidney Disease <15 mg/dL Kidney Failure Greater than or equal to 60 September 07, 2017 3:13pm Result Comments: If the patient is of -[place] descent/extraction multiply the eGFR value by 1.212 to obtain the actual eGFR. >=60 mg/dL Normal 30-59 mg/dL Moderate Kidney Disease 15-29 mg/dL Severe Kidney Disease <15 mg/dL Kidney Failure Greater than or equal to 60 September 11, 2017 6:55am Result Comments: If the patient is of -[place] descent/extraction multiply the eGFR value by 1.212 to obtain the actual eGFR. >=60 mg/dL Normal 30-59 mg/dL Moderate Kidney Disease 15-29 mg/dL Severe Kidney Disease <15 mg/dL Kidney Failure BUN CREATININE RATIO(10.0-20.0 RATIO) 19.0 RATIO September 04, 2017 6:54am 15.0 RATIO September 07, 2017 3:13pm 11.0 RATIO September 11, 2017 6:55am SODIUM(135-145 MMOL/L) 136 MMOL/L September 04, 2017 6:54am 132 MMOL/L September 07, 2017 3:13pm 137 MMOL/L September 11, 2017 6:55am POTASSIUM(3.6-5.0 MMOL/L) 4.1 MMOL/L September 04, 2017 6:54am 3.9 MMOL/L September 07, 2017 3:13pm 4.5 MMOL/L September 11, 2017 6:55am CHLORIDE(101-111 MMOL/L) 100 MMOL/L September 04, 2017 6:54am 99 MMOL/L September 07, 2017 3:13pm 101 MMOL/L September 11, 2017 6:55am CO2(21-31 MMOL/L) 29 MMOL/L September 04, 2017 6:54am 23 MMOL/L September 07, 2017 3:13pm 29 MMOL/L September 11, 2017 6:55am ANION GAP(8-18) 11 September 04, 2017 6:54am 14 September 07, 2017 3:13pm 12 September 11, 2017 6:55am OSMO CALCULATED(270.0-290.0) 271.5 September 04, 2017 6:54am 264.5 September 07, 2017 3:13pm 271.8 September 11, 2017 6:55am CALCIUM(8.5-10.5 MG/DL) 9.5 MG/DL September 04, 2017 6:54am 8.7 MG/DL September 07, 2017 3:13pm 9.2 MG/DL September 11, 2017 6:55am MAGNESIUM MAGNESIUM(1.8-2.5 MG/DL) 2.0 MG/DL September 07, 2017 3:13pm Allergies and Adverse Reactions Allergies and Adverse Reactions Patient Unit Number: [id number] Agent Type Reaction Severity Status PENICILLINS Drug Allergy Hives Moderate Active CODEINE Drug Allergy Nausea & TREVINO Mild Active Problem List Problem List Patient Unit Number: [id number] Chronic Problems: Code/Condition Comments Documented Documented Code(s) Start Date Resolved Date Hypothyroidism ICD9: 244.9 Hypothyroidism SNOMED: 49268030 Hypothyroidism Polyradiculoneuropathy ICD10: G61.0 Polyradiculoneuropathy SNOMED: 572169745 Polyradiculoneuropathy Lower extremity weakness ICD10: R29.898 Lower extremity weakness SNOMED: 347767034 Weakness of lower extremity Wrist drop, bilateral ICD10: M21.331 Wrist drop, bilateral SNOMED: 05095562 Bilateral wristdrop Major depressive disorder, recurrent, moderate ICD10: F33.1 Major depressive disorder, recurrent, moderate SNOMED: 638346027 Moderate episode of recurrent major depressive disorder Generalized anxiety disorder ICD10: F41.1 Generalized anxiety disorder SNOMED: 24809110 Generalized anxiety disorder Insomnia ICD10: G47.00 Insomnia SNOMED: 269748955 Insomnia Hx pulmonary embolism ICD10: Z86.711 Hx pulmonary embolism SNOMED: 673203612 History of pulmonary embolism Chronic anticoagulation ICD10: Z79.01 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 Therapeutic opioid induced constipation June 06, 2017 ICD10: K59.03 Therapeutic opioid induced constipation SNOMED: 143535719352974 Constipation due to opioid therapy Complications of gastric bypass surgery ICD10: K91.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 SNOMED: 38383472 Complications of gastric bypass surgery Hypothyroidism ICD10: E03.9 Hypothyroidism SNOMED: 61393284 Hypothyroidism Polyneuropathy associated with underlying disease ICD10: G63 Polyneuropathy associated with underlying disease SNOMED: 679311907 Polyneuropathy associated with underlying disease Uncontrolled diabetes mellitus ICD10: E11.65 Uncontrolled diabetes mellitus SNOMED: 898784789 Uncontrolled diabetes mellitus Obesity hypoventilation syndrome ICD10: E66.2 Obesity hypoventilation syndrome SNOMED: 342107626 Extreme obesity with alveolar hypoventilation Polyradiculoneuropathy ICD10: G61.0 Polyradiculoneuropathy SNOMED: 699295415 Polyradiculoneuropathy Abnormal CSF cytology ICD10: R83.6 Abnormal CSF cytology SNOMED: 959532243 Abnormal cytological findings in cerebrospinal fluid Constipation ICD10: K59.00 Constipation SNOMED: 07463278 Constipation 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 SNOMED: 299403106 Polyneuropathy associated with monoclonal IgM antibodies tomyelin-associate Polyneuritis, chronic inflammatory demyelinating ICD10: G61.81 Polyneuritis, chronic inflammatory demyelinating SNOMED: 099371712 Chronic inflammatory demyelinating polyneuritis Obesity (BMI 30-39.9) ICD10: E66.9 Obesity (BMI 30-39.9) SNOMED: 519869273 Obesity with body mass index (BMI) of 30.0 to 39.9 Opioid dependence ICD10: F11.20 Opioid dependence SNOMED: 88247145 Opioid dependence Paresthesia and pain of both upper extremities ICD9: 782.0 Paresthesia and pain of both upper extremities SNOMED: 823198211 Paresthesia and pain of both upper extremities HTN (hypertension) ICD10: I10 HTN (hypertension) SNOMED: 28195354 Hypertension Paresthesia of both lower extremities ICD10: R20.2 Paresthesia of both lower extremities SNOMED: 605277108 Paresthesia of both lower extremities Paresthesia and pain of both upper extremities ICD9: 782.0 Paresthesia and pain of both upper extremities SNOMED: 592908325 Paresthesia and pain of both upper extremities Peripheral neuropathy ICD10: G62.9 Peripheral neuropathy SNOMED: 035701917 Peripheral neuropathy Folic acid deficiency ICD10: E53.8 Folic acid deficiency SNOMED: 334526160 Folic acid deficiency H/O gastric bypass ICD10: Z98.890 H/O gastric bypass SNOMED: 360058486 History of gastric bypass Polyneuropathy ICD10: G62.9 Polyneuropathy SNOMED: 36304899 Polyneuropathy Plan of Care Plan Of Care Visit/Account #[id number] (September 03, 2017 4:05pm - September 15, 2017 10: 10am) Patient Instructions Instructions Apixaban Vital Signs Vital Signs Visit/Account #[id number] (September 03, 2017 4:05pm - September 15, 2017 10: 10am) Sign First Result Last Result Code(s) Blood Pressure 124/ 92 mm[Hg] On September 03, 2017 8:14pm 126/ 99 mm[Hg] On September 15, 2017 5:28am 8462-4 BP Diastolic 8480-6 BP Systolic Heart Rate/Pulse Pulse Rate (adult): 94 /min On September 03, 2017 8:14pm Pulse Rate (adult): 99 /min On September 15, 2017 5:28am 8867-4 Heart Rate Respiratory Rate Respiratory Rate: 18 /min On September 03, 2017 8:14pm Respiratory Rate: 18 /min On September 15, 2017 5:28am 9279-1 Respiratory Rate Temperature in Fahrenheit Temperature (Fahrenheit): 97.4 [degF] On August 8:14pm Temperature (Fahrenheit): 97.3 [degF] On September 15, 2017 5: 28am 8310-5 Body Temperature Functional Status Functional and Cognitive Status No Functional Status Data Medications Home Medications - Medications that the patient was taking prior to arrival at the hospital Visit/Account #[id number] (September 03, 2017 4:05pm - September 15, 2017 10: 10am) Medication Route Sig/Schedule Precondition/Indication Comments/ Instructions Codes PRILOSEC(OMEPRAZOLE) 20 MG CAP ORAL DAILY@0600 Omeprazole 20 MG Delayed Release Oral Capsule (RxNorm): 884751 Dose: 20 MG PRILOSEC (OMEPRAZOLE) NDC: 51803542834 MIRALAX(POLYETHYLENE GLYCOL 3350) 17 GM POWD.PACK ORAL DAILY CONSTIPATION POLYETHYLENE GLYCOL 3350 34883 MG Powder for Oral Solution [Miralax] (RxNorm) : 128664 Dose: 17 GM MIRALAX (POLYETHYLENE GLYCOL 3350) NDC: 93436755042 NYSTOP(NYSTATIN) 15 GM POWDER TOPICALLY 3 TIMES A DAY Rx Instructions: Nystatin 100 UNT/MG Topical Powder [Nystop] (RxNorm): 676444 Dose: 1 APPL APPLY TO AFFECTED AREA NYSTOP (NYSTATIN) NDC: 02449068399 GAVISCON LIQUID(MAG CARB/AL HYDROX/ALGINIC AC) 355 ML ORAL.SUSP ORAL 4 TIMES DAILY INDIGESTION Rx Instructions: Aluminum Hydroxide 6.33 MG/ML / magnesium carbonate 23.9 MG/ML Oral Suspension [Gaviscon] (RxNorm): 1831151 Dose: 15-30 ML DO NOT EXCEED 120 ML IN 24 HOURS GAVISCON LIQUID (MAG CARB/AL HYDROX/ALGINIC AC) NDC: 51503430734 ELIQUIS(APIXABAN) 5 MG TABLET ORAL TWICE A DAY apixaban 5 MG Oral Tablet [Eliquis] (RxNorm): 0341095 Dose: 5 MG ELIQUIS (APIXABAN) NDC: 65347674334 MAGNESIUM OXIDE(MAGNESIUM OXIDE) 400 MG TABLET ORAL WITH BREAKFAST & SUPPER Magnesium Oxide 400 MG Oral Tablet (RxNorm): 302974 Dose: 400 MG MAGNESIUM OXIDE (MAGNESIUM OXIDE) NDC: 63505359368 ALDACTONE(SPIRONOLACTONE) 50 MG TABLET ORAL DAILY Spironolactone 50 MG Oral Tablet [Aldactone] (RxNorm): 420349 Dose: 50 MG ALDACTONE (SPIRONOLACTONE) NDC: 97005089856 Amiloride Hcl(AMILoride HCL) 5 MG TABLET ORAL DAILY Amiloride Hydrochloride 5 MG Oral Tablet (RxNorm): 914463 Dose: 5 MG Amiloride Hcl (AMILoride HCL) NDC: 09476139483 Inpatient/Ordered Medications - Medications administered during hospital visit Visit/Account #[id number] (September 03, 2017 4:05pm - September 15, 2017 10: 10am) Medication Route Sig/Schedule Precondition/Indication Comments/ Instructions Codes TYLENOL(ACETAMINOPHEN) 325 MG TAB ORAL Q4H PRN Reason: PAIN OR FEVER Label Comments: Acetaminophen 325 MG Oral Tablet (RxNorm): 835680 Dose: 0 MG DO NOT EXCEED 4000 MG PER 24 HR TYLENOL (ACETAMINOPHEN) NDC: 33308430433 Special Dose Instructions: 325-650 MG MIDAMOR(AMILoride HCL) 5 MG TAB ORAL DAILY Label Comments: Amiloride Hydrochloride 5 MG Oral Tablet (RxNorm): 694210 Dose: 5 MG GIVE WITH FOOD MAY INCREASE FALL RISK MIDAMOR (AMILoride HCL) NDC: 20184110857 ELIQUIS(APIXABAN) 5 MG TAB ORAL TWICE A DAY Label Comments: apixaban 5 MG Oral Tablet [Eliquis] (RxNorm): 2351878 Dose: 5 MG For administration through an NG tube, crush and ELIQUIS (APIXABAN) NDC: 48640286991 suspend in 60 mLs of D5W and give immediately. IMURAN(AzaTHIOprine) 50 MG TAB ORAL DAILY Label Comments: Azathioprine 50 MG Oral Tablet (RxNorm): 812865 Dose: 50 MG *CAUTION CHEMOTHERAPY. DISPOSE BIOHAZARD* MAY TAKE WITH FOOD IMURAN (AzaTHIOprine) NDC: 30999158013 LIORESAL(BACLOFEN) 10 MG TAB ORAL 3 TIMES A DAY Label Comments: Baclofen 10 MG Oral Tablet (RxNorm): 591379 Dose: 10 MG MAY INCREASE FALL RISK LIORESAL (BACLOFEN) NDC: 01364972097 LIORESAL(BACLOFEN) 10 MG TAB ORAL AT BEDTIME Rx Order Comments: Baclofen 10 MG Oral Tablet (RxNorm): 658607 Dose: 20 MG Order filed UNV: Allergies/Duplicates/Interactions differ from clerical order filler LIORESAL ( BACLOFEN) NDC: 01594093736 Label Comments: MAY INCREASE FALL RISK FOLIC ACID 800 MCG TAB ORAL DAILY Folic Acid 0.8 MG Oral Tablet (RxNorm) : 294367 Dose: 800 MCG (FOLIC ACID) NDC: 60808103614 NEURONTIN(GABAPENTIN) 300 MG CAP ORAL 4 TIMES DAILY Label Comments: gabapentin 300 MG Oral Capsule [Neurontin] (RxNorm): 077663 Dose: 900 MG MAY INCREASE FALL RISK NEURONTIN (GABAPENTIN) NDC: 07506047208 SYNTHROID(LEVOTHYROXINE SODIUM) 0.2 MG TAB ORAL DAILY@0600 Label Comments : Levothyroxine Sodium 0.2 MG Oral Tablet [Synthroid] (RxNorm): 968766 Dose: 0.2 MG 0.2 ZJ=613 MCG SYNTHROID (LEVOTHYROXINE SODIUM) NDC: 70459043380 MAG-OX 400(MAGNESIUM OXIDE) 400 MG TAB ORAL WITH BREAKFAST & SUPPER Magnesium Oxide 400 MG Oral Tablet (RxNorm): 718707 Dose: 400 MG MAG-OX 400 (MAGNESIUM OXIDE) NDC: 99923323121 REGLAN(METOCLOPRAMIDE HCL) 10 MG TAB ORAL BEFORE MEALS Label Comments: Metoclopramide 10 MG Oral Tablet (RxNorm): 332842 Dose: 5 MG MAY INCREASE FALL RISK REGLAN (METOCLOPRAMIDE HCL) NDC: 33229815244 MYCOSTATIN 850489 UNIT/GM PWD(NYSTATIN) 15 GM POWDER TOPICALLY 3 TIMES A DAY Rx Order Comments: Nystatin 100 UNT/MG Topical Powder [Nystop] (RxNorm): 010514 Dose: 15 GM Order filed UNV: Dose Warnings differ from clerical order filler MYCOSTATIN 603154 UNIT/GM PWD ( NYSTATIN) NDC: 78474569297 PROTONIX(PANTOPRAZOLE SOD) 40 MG TAB ORAL DAILY@06 Label Comments: pantoprazole 40 MG Delayed Release Oral Tablet [Protonix] (RxNorm): 797310 Dose: 40 MG AUTOSUB FOR OMEPRAZOLE PROTONIX (PANTOPRAZOLE SOD) NDC: 96084416577 MIRALAX(POLYETHYLENE GLYCOL) 17 GM POWDER ORAL DAILY PRN Reason: CONSTIPATION Label Comments: POLYETHYLENE GLYCOL 3350 65896 MG Powder for Oral Solution [Miralax] (RxNorm): 745746 Dose: 17 GM DISSOLVE IN 8 OZ OF WATER MIRALAX (POLYETHYLENE GLYCOL) NDC: 52816662957 ALDACTONE(SPIRONOLACTONE) 50 MG TAB ORAL DAILY Label Comments: Spironolactone 50 MG Oral Tablet (RxNorm): 095741 Dose: 50 MG MAY INCREASE FALL RISK. TERATOGENIC. WOMEN SHOULD NOT HANDLE OR ALDACTONE ( SPIRONOLACTONE) NDC: 85509620213 CRUSH. EFFEXOR XR(VENLAFAXINE HCL) 75 MG CAP ORAL BID@0800,1200 Label Comments: 24 HR venlafaxine 75 MG Extended Release Oral Capsule [Effexor] (RxNorm): 188336 Dose: 75 MG MAY INCREASE FALL RISK EFFEXOR XR (VENLAFAXINE HCL) NDC: 75717390528 VOLTAREN 1% GEL(DICLOFENAC SODIUM) 100 GM GEL TOPICALLY 3 TIMES A DAY PRN Reason: PAIN Special Dose Instructions: Diclofenac Sodium 0.01 MG/MG Topical Gel [Voltaren] (RxNorm): 022646 Dose: 0 GM 1 APPLICATION - left shoulder VOLTAREN 1% GEL (DICLOFENAC SODIUM) NDC: 62209541609 VOLTAREN 1% GEL(DICLOFENAC SODIUM) 100 GM GEL TOPICALLY 4 TIMES DAILY PRN Reason: PAIN Special Dose Instructions: Diclofenac Sodium 0.01 MG/MG Topical Gel [Voltaren] (RxNorm): 077821 Dose: 0 GM 1 APPLICATION - left shoulder VOLTAREN 1% GEL (DICLOFENAC SODIUM) NDC: 67544435964 MELATONIN 5 MG TAB ORAL AT BEDTIME Melatonin 5 MG Oral Tablet (RxNorm): 216778 Dose: 5 MG (MELATONIN) NDC: 29538545206 VITAMIN B1(THIAMINE HCL) 100 MG TAB ORAL DAILY Thiamine 100 MG Oral Tablet (RxNorm): 990362 Dose: 100 MG VITAMIN B1 (THIAMINE HCL) NDC: 45904474714 Discharge Medications - Medications that patient should continue to take. Review with physician Visit/Account #[id number] (September 03, 2017 4:05pm - September 15, 2017 10: 10am) Medication Route Sig/Schedule Precondition/Indication Comments/ Instructions Codes PRILOSEC(OMEPRAZOLE) 20 MG CAP ORAL DAILY@0600 Omeprazole 20 MG Delayed Release Oral Capsule (RxNorm): 727525 Dose: 20 MG PRILOSEC (OMEPRAZOLE) NDC: 00759362807 MIRALAX(POLYETHYLENE GLYCOL 3350) 17 GM POWD.PACK ORAL DAILY CONSTIPATION POLYETHYLENE GLYCOL 3350 85028 MG Powder for Oral Solution [Miralax] (RxNorm) : 730690 Dose: 17 GM MIRALAX (POLYETHYLENE GLYCOL 3350) NDC: 25541667981 NYSTOP(NYSTATIN) 15 GM POWDER TOPICALLY 3 TIMES A DAY Rx Instructions: Nystatin 100 UNT/MG Topical Powder [Nystop] (RxNorm): 175055 Dose: 1 APPL APPLY TO AFFECTED AREA NYSTOP (NYSTATIN) NDC: 95803122752 GAVISCON LIQUID(MAG CARB/AL HYDROX/ALGINIC AC) 355 ML ORAL.SUSP ORAL 4 TIMES DAILY INDIGESTION Rx Instructions: Aluminum Hydroxide 6.33 MG/ML / magnesium carbonate 23.9 MG/ML Oral Suspension [Gaviscon] (RxNorm): 2023673 Dose: 15-30 ML DO NOT EXCEED 120 ML IN 24 HOURS GAVISCON LIQUID (MAG CARB/AL HYDROX/ALGINIC AC) NDC: 49222594833 ELIQUIS(APIXABAN) 5 MG TABLET ORAL TWICE A DAY apixaban 5 MG Oral Tablet [Eliquis] (RxNorm): 7143392 Dose: 5 MG ELIQUIS (APIXABAN) NDC: 09898498979 MAGNESIUM OXIDE(MAGNESIUM OXIDE) 400 MG TABLET ORAL WITH BREAKFAST & SUPPER Magnesium Oxide 400 MG Oral Tablet (RxNorm): 219611 Dose: 400 MG MAGNESIUM OXIDE (MAGNESIUM OXIDE) NDC: 83065160836 ALDACTONE(SPIRONOLACTONE) 50 MG TABLET ORAL DAILY Spironolactone 50 MG Oral Tablet [Aldactone] (RxNorm): 20070812 Dose: 50 MG ALDACTONE (SPIRONOLACTONE) NDC: 23904027147 Amiloride Hcl(AMILoride HCL) 5 MG TABLET ORAL DAILY Amiloride Hydrochloride 5 MG Oral Tablet (RxNorm): 301415 Dose: 5 MG Amiloride Hcl (AMILoride HCL) NDC: 41584584577 Imuran(AzaTHIOprine) 50 MG TAB ORAL DAILY Azathioprine 50 MG Oral Tablet (RxNorm): 208308 Dose: 50 MG Imuran (AzaTHIOprine) NDC: 01733625057 Fa-8(FOLIC ACID) 0.8 MG TAB ORAL DAILY Folic Acid 0.8 MG Oral Tablet ( RxNorm): 849764 Dose: 800 MCG Fa-8 (FOLIC ACID) NDC: 85563189494 Metoclopramide(METOCLOPRAMIDE HCL) 10 MG TAB ORAL BEFORE MEALS Metoclopramide (METOCLOPRAMIDE HCL) NDC: 12630957220 Dose: 5 MG Neurontin(GABAPENTIN) 300 MG CAP ORAL 4 TIMES DAILY gabapentin 300 MG Oral Capsule [Neurontin] (RxNorm): 906731 Dose: 900 MG Neurontin (GABAPENTIN) NDC: 91891136514 UNITHROID(LEVOTHYROXINE SODIUM) 200 MCG TABLET ORAL DAILY@0600 Levothyroxine Sodium 0.2 MG Oral Tablet [Synthroid] (RxNorm): 644641 Dose: 0.2 MG UNITHROID (LEVOTHYROXINE SODIUM) NDC: 56667461053 Baclofen(BACLOFEN) 10 MG TAB ORAL 3 TIMES A DAY Baclofen (BACLOFEN) NDC : 53467449190 Dose: 10 MG Baclofen(BACLOFEN) 10 MG TAB ORAL AT BEDTIME Baclofen (BACLOFEN) NDC: 87192951956 Dose: 20 MG EFFEXOR XR(VENLAFAXINE HCL) 75 MG CAP ORAL BID@0800,1200 24 HR venlafaxine 75 MG Extended Release Oral Capsule [Effexor] (RxNorm): 307693 Dose: 75 MG EFFEXOR XR (VENLAFAXINE HCL) NDC: 41563452820 Melatonin(MELATONIN) 5 MG TABLET ORAL AT BEDTIME Melatonin 5 MG Oral Tablet (RxNorm): 311367 Dose: 5 MG Melatonin (MELATONIN) NDC: 67522043796 History Of Encounters Encounters Visit/Account #[id number] (September 03, 2017 4:05pm - September 15, 2017 10: 10am) Account Physican Of Reason For Visit Diagnosis Start Stop Date/Time Status Record Visit Date/Time IN SEAN PARADA MD REHAB G61.81: CHRONIC INFLAMMATORY DEMYELINATING POLYNEURITIS ICD10 Sep 03, 2017 4:05pm Sep 15, 2017 10:10am History of Procedures Procedure List No procedures recorded. Discharge Instructions Discharge Instructions Visit/Account #[id number] (September 03, 2017 4:05pm - September 15, 2017 10: 10am) DISCHARGE INSTRUCTIONS [facility] Patient Name: Maday Burdick Unit Number: [id number] Date of : 1970 Patient Status: Admitted Inpatient Attending Doctor: Sean Parada MD Summary Sent To Summary Sent To: Referrals: TOREY VALERO MD (PCP) REPORT FOLLOWS: . Discharge Instructions Discharge Information Discharge Date: Sep 15, 2017 Condition at Discharge: Stable Medications Reconciled/Prescribed By: Dr. Cruz Parada D/C Med Instruction Do not take or discontinue any medications (prescription or [id number]) except on the advice of the physician or pharmacist. Activity/Weight Bearing Status Discharge Activity: Weightbearing as tolerated Equipment & Supplies Equipment/Supplies: Walker Diet Discharge Diet: Regular Therapy/Nursing Instructions Therapy/Nursing Occupational Therapy: Physical Therapy: Speech Therapy: Nursing: Comfort Management: Bowel Care: Other Instructions Discharge Instructions Notify Physician if: Notify physician if worsening symptoms or new concerns. Including but not limited to fever, shortness of air, increased pain, overall not feeling well. Other Discharge Instructions: Smoking Cessation If you are a smoker: Please consult your physician about smoking cessation programs. Pending Lab If you have any questions or concerns regarding the tests that you had done at the hospital or if you have any results that are pending, please contact your provider. Follow-Up Appointments Follow Up With: Dr. Valero on discharge from Rehab. Dr. Contreras on discharge from Rehab Dr. Edwards on discharge from Rehab. Dr. Genao on discharge from Rehab Follow Up If no follow-up appointment has been scheduled, please call your primary care physician for an appointment on the next business day. Follow-Up Tests/Procedures Follow up Tests/Procedures Follow Up Tests/Procedures: Therapy Appointment(s): SEAN PARADA MD Sep 14, 2017 11:20 PROVIDER INSTRUCTIONS Discharge Diet Regular Discharge Activity/Weight Bearing Status Weightbearing as tolerated Equipment/Supplies Walker REASON TO CALL PROVIDER Notify Physician if: Notify physician if worsening symptoms or new concerns. Including but not limited to fever, shortness of air, increased pain, overall not feeling well. FOLLOW UP APPOINTMENTS Follow Up Appointment Date/Time: Dr. Valero Thursday September 28, [address] Edwards Sunday September 24, 2017 3:45PM Dr. Contreras December 1:30PM Dr. Genao please call and make appiontment [phone] Therapy Appointment [facility] to provide senior care and home therapy. A nurse will call to set up a time to see you at home. If you have questions for Home Health please call [phone]. NURSING & THERAPY INSTRUCTIONS Occupational Therapy Complete your self care routines as much as you can on your own. Request to utilize the home health bath aid to assist with bathing at home. Recommend purchasing a long handled sponge to increase your indpendence with bathing. Use your wheelchair if needed when you are feeling tired or weak, and rest until you feel safe to stand with your walker again. Great job on rehab and enjoy being home! - Joann Stuart OTR/[facility] Continue to do as much as you can on your own. Remember, if you are feeling fatigued, you can always complete tasks from your wheelchair until you are ready to be up on your feet again. Have your with you when going up and down your ramp. Social History Social History No Social History Data. Immunizations Immunizations Patient Unit Number: [id number] Immunizations No immunizations recorded.
[2017-10-31] MEDS ORDERED: POLYETHYL GLYCOL 3350 17gm PACKET PO PRN (14:31)
[2017-10-31 14:40] VITALS: BMI 48.3
[2017-10-31] MEDS ORDERED: LORazepam 0.5 MG TABLET PO PRN (15:26)
[2017-10-31] MEDS ORDERED: Bisacodyl EC TAB 5 MG TABLET PO PRN (15:26)
[2017-10-31] MEDS ORDERED: NITROGLYCERIN 0.4 MG SUBLINGUAL TABLET SL PRN (15:26)
[2017-10-31] MEDS ORDERED: MAG-AL + SIM ORAL LIQUID 30ml PO PRN (15:26)
[2017-10-31] MEDS ORDERED: ONDANSETRON 4 MG/2 ML INJECTION IVP PRN (15:26)
[2017-10-31] MEDS ORDERED: METOCLOPRAMIDE 10mg/2ml INJECTION IVP PRN (15:26)
[2017-10-31] MEDS ORDERED: BISACODYL 10 MG SUPPOSITORY RECTALLY PRN (15:26)
[2017-10-31] MEDS ORDERED: PROMETHAZINE 25 MG INJECTION IVP PRN (15:26)
[2017-10-31] MEDS ORDERED: MORPHINE SULFATE 4mg INJECTION IVP PRN ×2 (15:26)
[2017-10-31] MEDS ORDERED: ACETAMINOPHEN 325 MG TABLET PO PRN (15:26)
[2017-10-31] MEDS ORDERED: HYDROCODONE/APAP 7.5 MG/325 MG TABLET PO PRN (15:26)
[2017-10-31] MEDS ORDERED: ATROPINE 1 MG/ML INJECTION IVP PRN (15:26)
[2017-10-31] MEDS: METOCLOPRAMIDE 5mg TABLET PO SCH ×2 (15:32→20:42)
--- NOTE | 2017-10-31 16:29 | Consult Note ---
Consult Information - Data of Consult Consult date: 10/31/17 Requesting Physician: Sigifredo Lee MD - Consult Narrative Reason for consult: medical management History of present illness: Maday Burdick is a 47 year old woman with a history of chronic inflammatory demyelinating neuropathy requiring admission to [facility] in June 2017 and again in August 2017 for plasmapheresis and IVIG. She was in and out of rehabilitation and [place] around that time as well for acute on chronic lower extremity weakness. She was readmitted to [facility] on October 07 2017 for abdominal pain, nausea and vomiting, weakness and altered mental status. Imuran was stopped about a week before hospitalization. Her sodium level was 124, lactic acid was 2.4. Baclofen was discontinued and gabapentin dose was reduced because of decreased level of consciousness, which gradually improved. During hospitalization, a urine antigen antigen ordered by Dr. Genao for leukopenia and thrombocytopenia (ordered in outpatient setting) came back positive and she was started on itraconazole which was recommended for 6-12 months. Lumbar puncture was negative. An abdomen and pelvis CT revealed ascites, bilateral pleural effusions. Peripancreatic stranding cholelithiasis and a gastric lap band. A gallbladder ultrasound revealed sludge , gallbladder wall thickening and mild hepatomegaly. She had cholecystectomy and laparoscopy done by Dr. Mar on 10/18/17. Drainage bags were placed as well as a Pleurx catheter to drain ascites. Peritoneal fluid revealed acute and chronic inflammation without atypical cells, though there was question possible sarcoid. Her hospital stay was also complicated by hypokalemia, acute renal failure, and acute on chronic anemia and thrombocytopenia requiring temporary hold on anticoagulation. Hyponatremia was treated with fluid restriction. She was started on Lasix and Aldactone for ascites. She also had bilateral debridement of ingrown toenails. Though she worked with PT/OT, she remained debilitated. She was medically stable for discharge on 10/31/17 and was accepted to [facility] for strengthening. The hospitalist service was consulted for medical management, and Dr. Rasheed was consulted for histoplasmosis infection. On 10/29/17 , her WBC was 9.3, hemoglobin 9.4, hematocrit 28.4, platelets 34, sodium 129, potassium 3.2, BUN 10, creatinine 0.6. Blood pressure was 93/56 to 104/60 with heart rate in the 70s. She was maintaining saturations on room air. Maday was seen after arrival on 10/31/17. Currently, she is doing fairly well. She still complains of some abdominal pain and tightness, but it is improving. She denies any nausea, vomiting, diarrhea or constipation. She states her appetite is okay. She denies dysuria but has had some urinary frequency, which she attributes to recently 6 years. She states that her legs were more swollen in the hospital in [place], but are starting to improve. She reports that her right leg has been more swollen than her left, and she states that she had a venous Doppler to rule out DVT of her right leg, though report was not identified within the accompanying packet. She has chronic paresthesias to both her arms and legs. She is weak, predominantly in her legs. She denies any cough or congestion, but does have problems with seasonal allergies. No recent fevers or chills, though she did have night sweats prior to her acute hospitalization. She tends to bruise easily, and showed me multiple areas of ecchymosis on her arms. She has had braces to wear on both of her feet, and tends to have problems with ingrown toenails. She denies any dizziness or lightheadedness. No current headache or visual changes. She denies any rashes. She has not had any chest pain or shortness of breath. She denies palpitations or syncope. 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 Also with history of DVT. Anticoagulated on Eliquis. Chronic anemia and thrombocytopenia Hypertension. 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 Ascites, unknown cause, with Pleurx drain inserted on 10/18/17. Hepatic steatosis. Possible early cirrhosis Mild protein calorie malnutrition Morbid obesity and hypoventilation syndrome Asthma Papillary cancer of thyroid, Post-surgical hypothyroidism. Right ovarian dermoid cyst Depression Onychocryptosis Echocardiogram February 2017: EF greater than 55%, right ventricular systolic function is moderately reduced, mild tricuspid regurgitation. Surgical History: Diagnostic laparoscopy, laparoscopic cholecystectomy with intraoperative cholangiogram, paracentesis with evacuation of 1.6 L of intra- abdominal fluid, Pleurx catheter insertion and liver biopsy which revealed granulomatous inflammation on 10/18/[address] Sean Mar. Gastric band 2009. Thyroidectomy for cancer in 2010. D&C 1999. Teeth extraction x3 Family History Updates: Positive for DM, HTN. Few cancers: throat cancer. Father: still living, HTN and prostate cancer. Mother at age 62 of asthma attack. Sister with kidney failure, on dialysis, caused by DM and HTN. Brother is healthy. 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 Current residence: Apartment/Private Home Social history: 2 dogs Review of Systems All systems PM: 10-point ROS was reviewed, no additional remarkable complaints except - Constitutional Constitutional: Absent: anorexia, fever(s) - EENMT Eyes: Absent: change in vision Nose: Present: allergies Mouth/Throat: Absent: changes in swallowing - Cardiovascular Cardiovascular: Absent: chest pain Vascular: Present: pedal edema, unilateral swelling (left leg) - Gastrointestinal Gastrointestinal: Present: as per HPI - Genitourinary Genitourinary: Absent: dysuria - Musculoskeletal Musculoskeletal: Present: muscle weakness - Integumentary/Breasts Integumentary: Absent: rash - Neurological Neurological: Present: as per HPI - Psychiatric Psychiatric: Present: depression - Endocrine Endocrine: Present: excessive sweating (resolved) - Hematologic/Lymphatic Hematologic/Lymphatic: Present: easy bruising - Allergic/Immunologic Allergic/Immunologic: Present: seasonal rhinorrhea Medications Home Medications Medication Instructions Recorded Confirmed Type Apixaban [Eliquis] 2.5 mg PO BID 10/31/17 10/31/17 History DiphenhydrAMINE [Benadryl] 1 cap PO Q4H PRN 10/31/17 10/31/17 History Ergocalciferol (Vitamin D2) 1 cap PO WEEKLY 10/31/17 10/31/17 History [Vitamin D2] FentaNYL PATCH [Duragesic Patch] 12 mcg TD Q3D 10/31/17 10/31/17 History Folic Acid 0.8 mg PO DAILY 10/31/17 10/31/17 History Furosemide [Lasix 40 mg Tab] 1 tab PO DAILY 10/31/17 10/31/17 History Itraconazole [Onmel] 200 mg PO BID 10/31/17 10/31/17 History Lactulose 20 gm PO DAILY 10/31/17 10/31/17 History Levothyroxine Tab [Synthroid] 175 mcg PO ACB 10/31/17 10/31/17 History Magnesium Oxide [Magnesium] 400 mg PO BIDWM 10/31/17 10/31/17 History Metoclopramide HCl [Reglan] 5 mg PO TID 10/31/17 10/31/17 History Nystatin Powder [Mycostatin] 15 applicatio TP TID 10/31/17 10/31/17 History Omeprazole [Prilosec] 1 cap PO ACB 10/31/17 10/31/17 History Ondansetron HCl [Zofran] 4 mg PO Q6HR PRN 10/31/17 10/31/17 History PEG 3350 17gm PACKET [Miralax] 17 gm PO DAILY PRN 10/31/17 10/31/17 History Spironolactone [Aldactone] 50 mg PO DAILY 10/31/17 10/31/17 History Venlafaxine [Effexor] 75 mg PO BID 10/31/17 10/31/17 History Allergies Allergy/AdvReac Type Severity Reaction Status Date / Time acetaminophen [From Percocet] Allergy Verified 10/31/17 14:00 codeine Allergy Verified 10/31/17 14:00 hydrochlorothiazide Allergy Verified 10/31/17 14:00 oxycodone [From Percocet] Allergy Verified 10/31/17 14:00 Penicillins Allergy Verified 10/31/17 14:00 triamterene Allergy Verified 10/31/17 14:00 Exam Vital Signs: Temperature 98.0 F 10/31/17 16:07 Pulse Rate 75 10/31/17 16:07 Respiratory Rate 18 10/31/17 16:07 Blood Pressure 102/56 10/31/17 16:07 Pulse Oximetry 95 10/31/17 16:07 Height/Weight/BMI: Height 1.68 m Weight 135.9 kg Body Mass Index 48.3 - Constitutional Present: no acute distress, well nourished, well developed, morbidly obese - Routine HEENT Exam Head: Present: normocephalic Eye: Present: PERRL. Absent: conjunctival icterus, scleral injection ENT: Present: mucous membranes dry, oropharynx clear - Routine Neck Exam Present: supple - Routine Respiratory Exam Present: decreased breath sounds, CTA bilaterally (anteriorly) - Routine Cardiovascular Exam Present: RRR, S1, S2 - Routine Abdominal Exam Present: soft, normoactive bowel sounds, non distended, non tender, wound ( surgical incisions are healing well), drain (Pleurx catheter to left mid abdomen ), ostomy (x2) - Routine Extremities Exam Present: edema (right leg greater than left), pulses intact Comments: muscular atrophy of BLE & deformity of left foot - Routine Skin Exam Present: dry, warm, ecchymosis Comments: Hirsutism. - Routine Neurological Exam Present: alert, oriented X3, moving all extremities, normal speech. 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 Distal spinal muscular atrophy and muscle atrophy of lower extremities with gait instability Saddle embolus of the pulmonary artery with acute cor pulmonale, treated with EKOS catheter in February,. Also with history of DVT. Anticoagulated on Eliquis. Chronic anemia and thrombocytopenia Hypertension. 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 Ascites, unknown cause, with Pleurx drain inserted on 10/18/17. Hepatic steatosis. Possible early cirrhosis Mild protein calorie malnutrition Morbid obesity and hypoventilation syndrome Asthma Papillary cancer of thyroid, Post-surgical hypothyroidism. Right ovarian dermoid cyst Depression Onychocryptosis Echocardiogram February 2017: EF greater than 55%, right ventricular systolic function is moderately reduced, mild tricuspid regurgitation. On 10/29/17: WBC was 9.3, hemoglobin 9.4, hematocrit 28.4, platelets 34, sodium 129, potassium 3.2, BUN 10, creatinine 0.6. Blood pressure was 93/56 to 104/60 with heart rate in the 70s. She was maintaining saturations on room air. PLAN Extremely complicated case. Agree with ID consultation. Discharge instructions recommended to check an itraconazole drug level - this has been ordered for tomorrow am along with CBC, CMP, magnesium level. Continue fluid restriction; carb consistent diet. Check BGM, though in [place] she was not requiring SSI. Check daily weights. Will obtain Rt leg venous Doppler. Even though she's on Eliquis, this was temporarily held during her hospitalization because of anemia and thrombocytopenia, and she is certainly at high risk for DVT. Report to Dr. Lee indicated they are to drain Pleurx daily, approx. 1L of fluid. Discussed with Dr. Lee and nursing staff. Extensive chart review. At time of Discharge from [facility], she was started on Eliquis 2.5 mg twice a day, Benadryl 25 mg if needed for itching, fentanyl 12 g patch, Lasix 40 mg daily, itraconazole 200 mg twice a day, and lactulose 20 g daily. She is also to be taking: Ergocalciferol 50,000 units once a week, folic acid 0.8 mg daily, levothyroxine 175 g daily, Mag-Ox 400 mg with supper, medical Paremyd 5 mg 30 minutes before meals, nystatin powder 3 times a day as needed, omeprazole 20 mg daily, Zofran 4 mg ODT as needed, MiraLAX 17 g daily when necessary, spironolactone 50 mg daily, Effexor 75 mg twice a day. She has an appointment scheduled with Dr. Angel Coleman with infectious disease on November 27 at 2:30 PM. DVT Prophylaxis: Eliquis GI Prophylaxis: other (Prilosec) Resuscitation Status: Full Code - Physician Narrative Physician: Stefano Rodarte MD Narrative: Date: 10/31/17 Time: 1839 Have independently interviewed and examined pt. Chart reviewed. Case discussed with my FRUIT STUFFER. Above care plan developed with my supervision; agree with above. Admitted to IRU for restorative care following extended hospitalization. She does have underlying chronic inflammatory demyelinating polyneuropathy. Functional status very debilitated. Notes bowel slow since her gallbladder removed - passing flatus. Appetite varies-sometimes very difficult to find something that sounds appealing. No nausea or ab pain. Breathing stable-not feeling SOA or congestion, some cough. No chest pressure or pain. Lungs: decreased, no distress CV: regular Ab; soft nt/nd MSE: awake alert appropriate Plan: Agree with admission to IRU to maximize functional status. Continue with medications as outline with recent hospitalization. Monitor lab. Encourage pulmonary toilet. Encourage participation with therapy to maximize functional status. Medically stable for IRU floor activities. Hospital Course Summary Disclaimer: The visit summary below is not to be considered part of the above Progress Note. Hospital Course: 10/31/17 Extremely complicated case. Agree with ID consultation. Discharge instructions recommended to check an itraconazole drug level - this has been ordered for tomorrow am along with CBC, CMP, magnesium level. Continue fluid restriction; carb consistent diet. Check BGM, though in [place] she was not requiring SSI. Check daily weights. Will obtain Rt leg venous doppler. Even though she's on Eliquis, this was temporarily held during her hospitalization because of anemia and thrombocytopenia, and she is certainly at high risk for DVT. Report to Dr. Lee indicated they are to drain Pleurx daily, approx. 1L of fluid. Discussed with Dr. Lee and nursing staff. Extensive chart review. At time of Discharge from [facility], she was started on Eliquis 2.5 mg twice a day, Benadryl 25 mg if needed for itching, fentanyl 12 g patch, Lasix 40 mg daily, itraconazole 200 mg twice a day, and lactulose 20 g daily. She is also to be taking: Ergocalciferol 50,000 units once a week, folic acid 0.8 mg daily, levothyroxine 175 g daily, Mag-Ox 400 mg with supper, medical Paremyd 5 mg 30 minutes before meals, nystatin powder 3 times a day as needed, omeprazole 20 mg daily, Zofran 4 mg ODT as needed, MiraLAX 17 g daily when necessary, spironolactone 50 mg daily, Effexor 75 mg twice a day. She has an appointment scheduled with Dr. Angel Coleman with infectious disease on November 27 at 2:30 PM. Addendum entered and electronically signed by Aide Burgess APRN 10/31/17 18: 09: The 2 ostomy bags were placed during her surgery, per Maday's report. We believe that they are temporary, only until the drainage subsides. Will need to clarify specifics with Dr. Lee.
[2017-10-31] MEDS ORDERED: ALBUTEROL/IPRATROPIUM 2.5mg-0.5mg/3ml NEB AEROSOL PRN (18:01)
[2017-10-31] MEDS: ONDANSETRON 4 MG TABLET PO PRN (18:04)
[2017-10-31] MEDS: MAGNESIUM OXIDE 400 MG TABLET PO SCH (18:04)
[2017-10-31] MEDS: SALINE FLUSH 10ml SYRINGE IV PRN (20:09)
[2017-10-31] MEDS: APIXABAN 2.5 MG TABLET PO SCH (20:42)
[2017-10-31] MEDS: VENLAFAXINE 75 MG TABLET PO SCH (20:42)
[2017-10-31] MEDS: ITRACONAZOLE 100 MG PO SCH (20:43)
[2017-10-31] MEDS ORDERED: ITRACONAZOLE 200 MG PO SCH (21:00)
[2017-11-01] MEDS: DiphenhydrAMINE 25 MG CAPSULE PO PRN (02:28)
[2017-11-01] MEDS: LEVOTHYROXINE 175 MCG TABLET PO SCH ×2 (04:37→08:52)
[2017-11-01] MEDS: OMEPRAZOLE 20 MG CAPSULE PO SCH ×2 (04:37→08:52)
--- NOTE | 2017-11-01 08:37 | Ultrasound Report ---
Indication: rt leg swelling PROCEDURE: US venous doppler LE RT: Encounter: Initial Comparison: None Technique: Color Doppler duplex and grayscale sonographic imaging of the right lower extremity was performed. Findings: There is no evidence for acute deep venous thrombosis in the right thigh. Specifically, serial graded compression was performed from the inguinal ligament to the popliteal bifurcation, on the right thigh, demonstrating appropriate compressibility of the deep venous system. In addition, color and pulsed Doppler demonstrate appropriate spontaneous flow, variation with respiration, and augmentation with calf compression. At the ankle, normal flow is identified in the posterior tibial veins; these vessels are also normal in caliber. Impression: No evidence of acute DVT in the right lower limb. .
[2017-11-01] MEDS: MAGNESIUM OXIDE 400 MG TABLET PO SCH ×2 (08:56→18:08)
[2017-11-01] MEDS: SALINE FLUSH 10ml SYRINGE IV PRN ×2 (08:56→22:15)
[2017-11-01] MEDS: FUROSEMIDE 40 MG TABLET PO SCH (08:57)
[2017-11-01] MEDS: APIXABAN 2.5 MG TABLET PO SCH ×2 (08:57→22:01)
[2017-11-01] MEDS: METOCLOPRAMIDE 5mg TABLET PO SCH ×3 (08:57→22:01)
[2017-11-01] MEDS: FOLIC ACID 1 MG TABLET PO SCH (08:57)
[2017-11-01] MEDS: ITRACONAZOLE 100 MG PO SCH ×2 (08:58→22:30)
[2017-11-01] MEDS: SPIRONOLACTONE 50 MG TABLET PO SCH (08:59)
[2017-11-01] MEDS: VENLAFAXINE 75 MG TABLET PO SCH ×2 (08:59→18:08)
[2017-11-01] MEDS: LACTULOSE 20 GM/30 ML ORAL LIQUID PO SCH (09:11)
--- NOTE | 2017-11-01 09:23 | IRU 24Hr Post Admit Eval ---
24 Hr Post Admission Physical - Relevant Changes Relevant Changes: No Reviewed: I have reviewed the patient's information and concur with the finding and results of the pre-admission screen. Certification: I certify the patient for rehabilitation. - Patient Condition (1) CIDP (chronic inflammatory demyelinating polyneuropathy) Status: Chronic Code(s): G61.81 - Chronic inflammatory demyelinating polyneuritis Classification: Present on IRF Admission, IRF Tx That Should Address Diagnosis, Diagnosis Requiring Medical Follow Up (2) Disseminated histoplasmosis Status: Acute Code(s): B39.9 - Histoplasmosis, unspecified Classification: Present on IRF Admission, IRF Tx That Should Address Diagnosis, Diagnosis Requiring Medical Follow Up (3) Thrombocytopenia Status: Acute Code(s): D69.6 - Thrombocytopenia, unspecified Classification: Present on IRF Admission, IRF Tx That Should Address Diagnosis, Diagnosis Requiring Medical Follow Up (4) Granulomatous hepatitis Status: Acute Code(s): K75.3 - Granulomatous hepatitis, not elsewhere classified Classification: Present on IRF Admission, IRF Tx That Should Address Diagnosis, Diagnosis Requiring Medical Follow Up (5) Ascites Status: Acute Qualifiers: Ascites type: other type Qualified Code(s): R18.8 - Other ascites Code(s): R18.8 - Other ascites Classification: Present on IRF Admission, IRF Tx That Should Address Diagnosis, Diagnosis Requiring Medical Follow Up - Prior Functional Status Lives With: Spouse Residence Type: Apartment/Private Home Assitive Devices: Front Wheeled Walker Prior Functional Status: Depend. at home or school, Depend. w/ IADL - Current Functional Status Current Level of Function: Current level of function: The patient has not ambulated for a couple of weeks. She is extremely weak in all 4 extremities. She requires maximum assistance for bathing and lower body dressing. She requires minimum assistance for upper body dressing but total assistance for toileting, transfers and toilet transfers. Prior to the current episode she was able to ambulate with a walker at home. Failed Alternative Therapy: Arrived from Acute Care Patient Requirements: The patient requires oversight by rehabilitation physician to manage their rehabilitation treatment plan and multidisciplinary approach to care that can only be provided in an IRF and requires a multidisciplinary approach to care, provided by professional PTs, OTs, STs, dieticians, RTs, rehabilitation nurses and is not available in lesser levels of care. Limitations Req: Mobility Impairment, ADL Impairment, Desire/Ability to [facility]ici Physical Therapy Minutes: 90 Occupational Therapy Minutes: 90 Therapy: The patient is to receive therapy at least 5 days a week. - Complications/Comorbidities Impact on Functional Outcomes: Her diffuse weakness secondary to her CIDP will negatively impact her functional outcome. Barriers to Discharge: Weakness, Endurance, Medical Limitation - Plan to Avoid Complications Plan to Avoid Complications: The patient cannot receive this care in a lesser intensive setting such as Senior Care or Outpatient Therapy due to the patient requiring the following : She requires careful monitoring of her platelet count, as well as nursing management of ascites and Pleur-evac drainage. She requires a multidisciplinary approach in view of her complex medical status including her polyneuropathy, ascites, generalized weakness and disseminated histoplasmosis. She requires physical therapy and occupational therapy to allow her to return home in a safe manner. She requires medical supervision due to these complex medical issues.
[2017-11-01] MEDS ORDERED: FALL RISK - PHARMACY CONSULT XX ONE (09:34)
[2017-11-01] MEDS ORDERED: NS FLUSH BAG 500ml IV PRN (10:22)
[2017-11-01] MEDS: ACETAMINOPHEN 325 MG TABLET PO PRN (12:44)
--- NOTE | 2017-11-01 13:58 | IRU History & Physical Report ---
HPI IRU Date: Date: 11/01/17 Time: 1334 Chief complaint: I'm very weak HPI: Ms. Burdick is a pleasant 47-year-old female from [place], [place]. Referring physician is Dr. Declan Jiménez. Her primary care physician is Dr. Brian Fish. She has a very extensive medical history over the last year or so. 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 Her neurologist is Dr. Edwards. Exact date of diagnosis is unclear but it was apparently was in the past several months. On 06/13/2017 she presented with generalized weakness and unable to bear weight. Previously she had been able to walk. She underwent plasma exchange therapy 5 and was reportedly significantly improved. She was transferred to acute inpatient rehabilitation in [place] on 07/05/2017. She was on acute inpatient rehabilitation in [place] from 07/05/17 until 2016. At that time she was transferred back to acute care where she remained until 09/03/2017. During her acute stay at that time she did undergo one or more plasmapheresis treatments. She then was transferred to acute inpatient rehabilitation on September 03 until 09/15/2017. She was reportedly given IVIG on 09/03/2017 and transferred to acute inpatient rehabilitation. Ultimately she was able to ambulate some 175 feet with a walker. Imuran was begun somewhere during that time and she was on that for 2-3 months. She was dismissed from acute inpatient rehabilitation on 09/15/2017 and was seen in follow-up as an outpatient by Dr. Edwards. The patient was seen back by Dr. Edwards on September 28, 2017 and noted to have a platelet count of 39,000. Imuran was discontinued at that time. She sees Dr. Genao on a routine basis (hematology oncology) because of prior papillary thyroid carcinoma apparently. She was seen by him on 10/04/2017 and was noted to have the thrombocytopenia. A urine histo antigen was obtained and was positive. This was a qualitative test although Dr. Angel Coleman recommended that a quantitative histo Ag be obtained. I am not clear if that was done or not. The patient most recently was admitted through the emergency department in [place] on 10/07/2017 with severe weakness. She had not been walking for the preceding 2-3 days. She was confused, weak, complaining of abdominal pain and diarrhea and had some nausea and retching. She was noted to have a sodium of 124 and evidence of a urinary tract infection. She was admitted acutely to the hospital in [place]. During her hospitalization she was managed by the hospitalist service. She was also seen by Dr. Hansel Contreras for plasmapheresis she was also followed by Dr. Edwards. She was also seen by Dr. Angel Coleman, infectious disease. He felt that she likely had evidence of disseminated histoplasmosis. It is noted that she underwent cholecystectomy and liver biopsy by Dr. Mar on 10/18/2017. Liver biopsy demonstrated granulomatous hepatitis but was negative for fungal elements and negative for AFB. Cytology on the ascites was negative for fungal elements and negative for malignant cells. It was positive for acute and chronic inflammation. Dr. Coleman did recommend 6-12 months of itraconazole 200 mg twice daily. Of note, during that procedure patient did undergo paracentesis of 1.6 L of ascitic fluid. Gastroenterology felt as though the analysis of the ascitic fluid was consistent with tuberculosis or malignancy although neither have been identified. Procedure performed at that time was laparoscopic cholecystectomy, laparoscopic assisted liver biopsy, paracentesis, and placement of a PleurX catheter for drainage of ascitic fluid. Echocardiogram performed on 10/11/2017 revealed an ejection fraction of 78%. No significant abnormalities were identified on valvular study and there was no effusion noted. Analysis of peritoneal fluid on 10/10/2017 demonstrated 20,000 red blood cells, 385 white cells, with 6% neutrophils 72% lymphocytes. Total protein on ascitic fluid was 3.5 and fluid albumin 2.2. Lumbar puncture was performed on 10/15/2017 demonstrating CSF glucose 74, CSF protein 23, 1 white cell identified with 100% of cells on spin down being lymphocytes. With regard to her platelet count, her admission platelet count in [place] on 11/2017 was 137,000. It then mike to normal levels as of 10/08/2017 at 204,000. It remained above 200,000 for the most part until 10/25/2017. At that time it did drop to 120,000. On October 26 it was 97,000, October 27 it was 73,000, October 28 it was 52,000, October 29 it was 34,000 and October 30 it was 25,000. It is my understanding that Dr. Genao had been consulted but was not able to see her at this time. She did not have evidence of active bleeding. In addition she did display anemia with hemoglobin initially 10.6 on October 07 dropping to a low of 6.8 on October 19 and was 8.8 as of October 30. While in [place] she did receive 3 units of leukocyte-reduced red blood cells. It is also noted that she received Solu-Medrol 1 g IV daily from 10/16/2017 through 10/21/2017 for her CIDP. It is unclear if there was significant benefit. Her blood sugars did spike thereafter and they are now improved. She does not carry a diagnosis of diabetes chronically apparently. Of note, she has a history of pulmonary embolus which was a saddle embolus treated with EKOS catheter (catheter assisted thrombolysis) in February 2017. She remains on Eliquis 2.5 mg twice daily. The etiology of her ascites is unclear. Presumably it is related either to fluid excess plus hypoalbuminemia plus or minus the granulomatous hepatitis. No evidence of malignancy has been identified. No evidence of splenomegaly was seen on abd US or CT and no evidence of cirrhosis was noted on liver biopsy. Prior level of functioning indicates that she was independent for eating, grooming, toileting. She was modified independent for upper body dressing and required minimum assistance for bathing and supervision level for lower body dressing. Transfers were supervision level. Toilet transfers were supervision. She was modified independent for walking with a rolling walker 500 feet. Patient states that she has not walked for about 2 weeks now. Current level of functioning is as follows: She is independent for eating, requires supervision for grooming, maximum assistance for bathing and lower body dressing, minimum assistance for upper body dressing. She requires total assistance for toileting, transfers. She is unable to ambulate at the present time. She lives at home with her . 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 She has no steps to get into her home. The following medical conditions are noted and require active monitoring and/or management: 1. Muscle weakness secondary to chronic inflammatory demyelinating polyneuropathy 2. Severe thrombocytopenia of uncertain etiology, possibly immune related 3. History of saddle embolus and currently on chronic Eliquis therapy, at risk for bleeding. 4. Disseminated histoplasmosis possibly related to recent immunosuppression with Imuran as well as possibly related to plasmapheresis. The following therapies will be needed: 1. Physical therapy: for transfers and ambulation and stairs. 2. Occupational therapy: for ADL's and transfers. 3. Medical management: for the above conditions. 4. 24 hour Rehabilitation Nursing to monitor and address the following: Patient requires close monitoring to rule out evidence of bleeding. She requires 24- hour nursing care regarding the Pleurx catheter drainage. She requires monitoring of her blood sugars to ensure no evidence of excessive hyperglycemia in view of the recent corticosteroid therapy. She requires close monitoring of her oxygen saturations as she does have history of hypoxemic hypercapnic respiratory failure. [facility] Patient Stated Medical History Peripheral Neuropathy Yes Angina Yes: Hx: blood clots Cardiac Arrhythmia Yes Hypertension Yes Asthma Yes Bronchitis Yes Pulmonary Embolism Yes: 02/21/2017 Constipation Yes Other GI Hx: Pancreatitis (12-04-16), IBS Hx Incontinence No Hx Urinary Tract Infection Yes Clotting Problems Yes: Hx: blood clots Other Hx: oral surgery (x3 for dentures) Depression Yes Other Behavioral Health Hx: psychiatric tx/psychosocial problems Other Reproductive Hx: D&C ('00) Medical History Updates: 1. CIDP. 2. Opioid-induced constipation. 3. History of hypoxemic hypercapnic respiratory failure. 4. Peripheral neuropathy of uncertain etiology and affecting both motor and sensory components. 5. History of DVT with saddle embolus February 2017. 6. Papillary thyroid carcinoma. 7. Anemia. 8. Gastroesophageal reflux disease. 9. History of gallstone pancreatitis Surgical History: Diagnostic laparoscopy, laparoscopic cholecystectomy with intraoperative cholangiogram, paracentesis with evacuation of 1.6 L of intra- abdominal fluid, Pleurx catheter insertion and liver biopsy which revealed granulomatous inflammation on 10/18/[address] Sean Mar. Gastric band 2009. Thyroidectomy for cancer in 2010. D&C 1999. Teeth extraction x3 Family History Updates: Positive for DM, HTN. Few cancers: throat cancer. Father: still living, HTN and prostate cancer. Mother at age 62 of asthma attack. Sister with kidney failure, on dialysis, caused by DM and HTN. Brother is healthy. 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 She lives in her own home with her . She is currently disabled and not working. Review of Systems - Constitutional Constitutional: Present: fatigue, lethargy, malaise, weakness. Absent: anorexia , chills, fever(s), headache(s), night sweats, weight gain, weight loss - EENMT Eyes: Absent: blurry vision, change in vision, diplopia Nose: Present: allergies Mouth/Throat: Absent: changes in swallowing - Cardiovascular Cardiovascular: Present: dyspnea on exertion. Absent: chest pain, palpitations , syncope, orthopnea, edema, cyanosis, heart murmur Rhythm: Present: regular rhythm Vascular: Present: pedal edema, unilateral swelling (left leg) - Respiratory Respiratory: Present: dyspnea on exertion. Absent: cough, dyspnea, hemoptysis, wheezing, pain on inspiration, chest congestion, excessive phlegm production - Gastrointestinal Gastrointestinal: Present: constipation. Absent: abdominal pain, change in bowel habits, diarrhea, dyspepsia, dysphagia, early satiety, hematochezia, melena, nausea, vomiting - Musculoskeletal Musculoskeletal: Present: myalgias. Absent: abnormal gait, arthralgias, back pain, joint swelling, limited range of motion, muscle weakness - Integumentary/Breasts Integumentary: Absent: alopecia, erythema, lesions, pruritus, rash, jaundice - Neurological Neurological: Present: weakness. Absent: abnormal gait, abnormal movements, abnormal speech, confusion, convulsions, dizziness, focal weakness, frequent falls, headache(s), loss of vision, memory loss, numbness, paresthesias, tremor( s) - Psychiatric Psychiatric: Present: depression. Absent: abnormal sleep pattern, anxiety - Endocrine Endocrine: Absent: cold intolerance, flushing, heat intolerance, palpitations - Hematologic/Lymphatic Hematologic/Lymphatic: Absent: easy bleeding, easy bruising, lymphadenopathy - Allergic/Immunologic Allergic/Immunologic: Absent: urticaria Medications Home Medications Medication Instructions Recorded Confirmed Type Apixaban [Eliquis] 2.5 mg PO BID 10/31/17 10/31/17 History DiphenhydrAMINE [Benadryl] 1 cap PO Q4H PRN 10/31/17 10/31/17 History Ergocalciferol (Vitamin D2) 1 cap PO WEEKLY 10/31/17 10/31/17 History [Vitamin D2] FentaNYL PATCH [Duragesic Patch] 12 mcg TD Q3D 10/31/17 10/31/17 History Folic Acid 0.8 mg PO DAILY 10/31/17 10/31/17 History Furosemide [Lasix 40 mg Tab] 1 tab PO DAILY 10/31/17 10/31/17 History Itraconazole [Onmel] 200 mg PO BID 10/31/17 10/31/17 History Lactulose 20 gm PO DAILY 10/31/17 10/31/17 History Levothyroxine Tab [Synthroid] 175 mcg PO ACB 10/31/17 10/31/17 History Magnesium Oxide [Magnesium] 400 mg PO BIDWM 10/31/17 10/31/17 History Metoclopramide HCl [Reglan] 5 mg PO TID 10/31/17 10/31/17 History Nystatin Powder [Mycostatin] 15 applicatio TP TID 10/31/17 10/31/17 History Omeprazole [Prilosec] 1 cap PO ACB 10/31/17 10/31/17 History Ondansetron HCl [Zofran] 4 mg PO Q6HR PRN 10/31/17 10/31/17 History PEG 3350 17gm PACKET [Miralax] 17 gm PO DAILY PRN 10/31/17 10/31/17 History Spironolactone [Aldactone] 50 mg PO DAILY 10/31/17 10/31/17 History Venlafaxine [Effexor] 75 mg PO BID 10/31/17 10/31/17 History Allergies Allergy/AdvReac Type Severity Reaction Status Date / Time acetaminophen [From Percocet] Allergy Verified 10/31/17 14:00 codeine Allergy Verified 10/31/17 14:00 hydrochlorothiazide Allergy Verified 10/31/17 14:00 oxycodone [From Percocet] Allergy Verified 10/31/17 14:00 Penicillins Allergy Verified 10/31/17 14:00 triamterene Allergy Verified 10/31/17 14:00 Results IRU - Labs Labs: Extensive records from [facility] were reviewed in detail and are as noted in the history. Exam Vital Signs: Temperature 97.6 F 11/01/17 08:00 Pulse Rate 103 H 11/01/17 08:00 Respiratory Rate 20 11/01/17 08:00 Blood Pressure 98/58 11/01/17 08:00 Pulse Oximetry 96 11/01/17 08:00 Height/Weight/BMI: Height 1.68 m Weight 135.9 kg Body Mass Index 48.3 - Constitutional Present: no acute distress, well nourished, well developed, morbidly obese, cooperative - Routine HEENT Exam Head: Present: normocephalic, atraumatic. Absent: cushingoid faces, abrasion, laceration, hematoma Eye: Present: EOMI, PERRL. Absent: conjunctival icterus, scleral injection, periorbital swelling, nystagmus ENT: Present: mucous membranes moist, oropharynx clear - Routine Neck Exam Present: supple, full ROM, trachea midline. Absent: lymphadenopathy, thyromegaly, tenderness, swelling - Routine Chest/Breast/Axilla Exam Chest wall: Absent: tenderness, mass Axillae: Absent: lymphadenopathy, mass - Routine Respiratory Exam Present: CTA bilaterally. Absent: accessory muscle use, decreased breath sounds , prolonged expiratory phase, rales, respiratory distress, rhonchi, stridor, wheezes, crackles, distant breath sounds - Routine Cardiovascular Exam Present: RRR, S1, S2, no murmur. Absent: gallop, S3, S4, click, irregular rhythm - Routine Abdominal Exam Present: soft, normoactive bowel sounds, non distended, non tender. Absent: rebound, guarding, firm, rigid, organomegaly, mass, hernia, wound Comments: The abdomen reveals a Pleurx catheter with collecting bag in the left midabdominal area. A second bag is lower on the left-hand side for collection of ascitic fluid. - Routine Extremities Exam Present: edema, non tender, pulses intact, normal capillary refill. Absent: cyanosis, clubbing - Routine Back/Spine/Pelvis Exam Back/Spine: Present: full ROM. Absent: scoliosis, kyphosis - Routine Skin Exam Present: intact, dry, warm. Absent: cyanosis, erythema, pallor, mottling, petechiae, urticaria, lesions, jaundice - Routine Neurological Exam Present: alert, oriented X3, CN II-XII intact, motor deficit (handgrip is reasonably good bilaterally. Flexion is good at both biceps but extension with triceps is reduced bilaterally equally. She can left each leg off the bed but with difficulty area did unable to lift off against resistance. Plantar flexion is stronger than dorsiflexion.), moving all extremities, normal speech - Routine Psychiatric Exam Present: normal affect, normal thought process, cooperative, good insight, good judgment. Absent: depressed, anxious Sepsis Assessment - Evaluation Severe Sepsis: none seen IRU A/P (1) CIDP (chronic inflammatory demyelinating polyneuropathy) Current visit: Yes Status: Chronic Patient continues to struggle with polyneuropathy with significant motor and sensory abnormalities. She is extremely weak at the present time. She states that she was able to ambulate 2 weeks ago but has not walked since that time. She'll require extensive physical therapy and occupational therapy with medical supervision and 24 hour nursing management to return her to her previous level of functioning. (2) Disseminated histoplasmosis Current visit: Yes Status: Acute Patient has recently been started on itraconazole for disseminated histoplasmosis. She has evidence of granulomatous hepatitis on liver biopsy which is at least consistent with Histoplasma involvement. Dr. Coleman recommends itraconazole blood level be obtained next week. We will also monitor liver enzymes. Patient was immune suppressed with Imuran for a time. (3) Thrombocytopenia Current visit: Yes Status: Acute Platelet count has been variable. Initially it was felt to be low secondary to Imuran. It was done to 34,000 in September in this regard. Imuran was then discontinued and the platelet count did improve. At that point there was question as to whether it could be related to the histoplasmosis. It has continued to decline at the present time. This will be monitored carefully and hematology consultation may be required. (4) Granulomatous hepatitis Current visit: Yes Status: Acute (5) Ascites Qualifiers: Ascites type: other type Qualified Code(s): R18.8 - Other ascites Current visit: Yes Status: Acute Abdominal fluid excess is of obscure etiology. It may be related to simply fluid excess in the presence of hypoalbuminemia. A Pleurx catheter is in place for removal of ascitic fluid. DVT Prophylaxis: SCD's, Eliquis Resuscitation Status: Full Code - Course Hospital Course: Sigifredo Lee MD: - Interventions to Obtain Goals PT Treatment Plan: Balance/Proprioception, Functional Activities, Manual Therapy , Patient/Family Education, Therapeutic Exercise OT Treatment Plan: ADL (Basic Care), Balance Training, IADL, Pt./Family Education, Ther. Exercise for ADL Goals Progress/Modifications: This patient is extremely medically complex. She requires a multidisciplinary coordinated effort with physical therapy, occupational therapy along with 24 hour rehabilitation nursing management of her multiple medical problems. She requires medical supervision in view of the ascites, disseminated histoplasmosis , thrombocytopenia and generalized weakness.
--- NOTE | 2017-11-01 15:57 | Wound Care Progress Note ---
Wound Center Progress Note: Asked to see pt for drainage management. When pt assessed pt had 3 ostomy pouches covering laprascopic incisional sites x 2 and 1 site that contains a pleurex catheter. Dr orders for catheter to be placed to slow drainage for up to 1000cc of fluid removed per 24 hrs. At this time tubing placed to a J P drain and instructed nursing to empty frequently. pt denies any pain while having some suction from the GONZÁLEZ drain. Will see pt again on 11/02/17 to assess wound and drainage areas.
[2017-11-01] MEDS: ONDANSETRON 4 MG TABLET PO PRN (18:10)
[2017-11-02] MEDS: DiphenhydrAMINE 25 MG CAPSULE PO PRN ×2 (00:11→21:02)
[2017-11-02] MEDS: OMEPRAZOLE 20 MG CAPSULE PO SCH ×2 (04:38→08:28)
[2017-11-02] MEDS: LEVOTHYROXINE 175 MCG TABLET PO SCH ×2 (04:38→08:28)
[2017-11-02] MEDS: METOCLOPRAMIDE 5mg TABLET PO SCH ×3 (08:34→21:02)
[2017-11-02] MEDS: FOLIC ACID 1 MG TABLET PO SCH (08:34)
[2017-11-02] MEDS: SPIRONOLACTONE 50 MG TABLET PO SCH (08:34)
[2017-11-02] MEDS: FUROSEMIDE 40 MG TABLET PO SCH (08:34)
[2017-11-02] MEDS: MAGNESIUM OXIDE 400 MG TABLET PO SCH ×2 (08:34→17:44)
[2017-11-02] MEDS: APIXABAN 2.5 MG TABLET PO SCH ×2 (08:35→21:01)
[2017-11-02] MEDS: VENLAFAXINE 75 MG TABLET PO SCH ×2 (08:35→17:44)
[2017-11-02] MEDS: ITRACONAZOLE 100 MG PO SCH (08:37)
[2017-11-02] MEDS: LACTULOSE 20 GM/30 ML ORAL LIQUID PO SCH (08:58)
[2017-11-02] MEDS: ACETAMINOPHEN 325 MG TABLET PO PRN (09:33)
--- NOTE | 2017-11-02 10:57 | IRU Progress Note ---
- Subjective/Serverity of Illness Date: 11/02/17 Maday was interviewed and examined in her room with a therapist present. Continues to have significant muscle weakness in all 4 extremities. She states that she is tolerating therapy well however. She appears to be cooperative and eager to participate according to the therapists comments. The patient is concerned about edema in her lower extremities particularly the right lower extremity. She remains on Eliquis and it is unlikely this represents a DVT. Review of her weight indicates loss from 135 kg down to 131 kg. She remains on Lasix 40 mg daily plus spironolactone 50 mg daily. Secondly, her low platelet count is of concern. She has dropped to 14,000. Hospitalists are involved in management of this as well. She does not have evidence of bleeding. I'm reluctant to stop the Eliquis in view of her previous DVT with subtle embolus requiring catheter directed thrombolysis back in February 2017. We have not been able to attach a typical vacuum jar to the Pleurx catheter device. Wound care is using a grenade/Hemovac type of device. I think that her edema is likely due to fluid excess and hypoalbuminemia. Hopefully with continued fluid restriction and diuresis, this will improve. She does report nausea and some emesis yesterday. I do have a call in at the present time to hematology who has seen her previously and we will make further comments when I have spoken with them today. Exam Vital Signs: Temperature 96.5 F L 11/02/17 07:42 Pulse Rate 77 11/02/17 07:42 Respiratory Rate 16 11/02/17 07:42 Blood Pressure 102/58 11/02/17 07:42 Pulse Oximetry 90 11/02/17 07:42 Height/Weight/BMI: Height 1.68 m Weight 131.8 kg Body Mass Index 48.3 - Constitutional Present: mild distress, well nourished, well developed, cooperative - Routine HEENT Exam Head: Present: normocephalic Eye: Present: EOMI ENT: Present: mucous membranes moist, oropharynx clear - Routine Neck Exam Present: supple - Routine Respiratory Exam Present: CTA bilaterally. Absent: wheezes - Routine Cardiovascular Exam Present: RRR, S1, S2. Absent: murmur - Routine Abdominal Exam Present: soft, normoactive bowel sounds, non distended. Absent: tenderness Comments: She has 3 devices attached to her abdomen, 2 are at laparoscopy sites for ascitic drainage in the third one is a bag covering a Pleurx catheter. A GONZÁLEZ drain grenade type device is attached to the Pleurx catheter. Abdomen remains soft. - Routine Extremities Exam Present: edema. Absent: cyanosis, clubbing - Routine Skin Exam Present: dry, warm Comments: No evidence of bleeding present. - Routine Neurological Exam Present: alert, oriented X3, CN II-XII intact - Routine Psychiatric Exam Present: normal affect, normal thought process, cooperative Results IRU - Labs Labs: I reviewed labs etc. IRU A/P (1) CIDP (chronic inflammatory demyelinating polyneuropathy) Current visit: Yes Status: Chronic I observed the patient trying to pull up in bed. She is extremely weak. She is cooperative with therapy and making slow progress. However continues to demonstrate substantial muscle weakness. (2) Disseminated histoplasmosis Current visit: Yes Status: Acute Itraconazole is currently being tolerated adequately. Levels are pending. (3) Thrombocytopenia Current visit: Yes Status: Acute Low platelets are a significant issue. I have a call placed to hematology at this time and will make further comments after I have spoken with them. (4) Granulomatous hepatitis Current visit: Yes Status: Acute (5) Ascites Qualifiers: Ascites type: other type Qualified Code(s): R18.8 - Other ascites Current visit: Yes Status: Acute DVT Prophylaxis: SCD's, Eliquis Resuscitation Status: Full Code - Course Hospital Course: Sigifredo Lee MD: 11/02/17 10:59 Cooperative but slow progress with therapy. Continued significant muscle weakness. Tolerating itraconazole adequately. Thrombocytopenia is a concern. - Interventions to Obtain Goals PT Treatment Plan: Balance/Proprioception, Functional Activities, Manual Therapy , Patient/Family Education, Therapeutic Exercise OT Treatment Plan: ADL (Basic Care), Balance Training, IADL, Pt./Family Education, Ther. Exercise for ADL Goals Progress/Modifications: Time spent with patient and on floor reviewing data and documentin min Medical decision-making: Pleurx catheter drainage device not ideal. I will continue working with when therapy to see if we can figure out another option. Secondly, her low platelet count is of significant concern. Etiology is not clear. I have a call placed to hematology and will make further comments. Likely she is not bleeding at the present time. Remains on Eliquis because of previous DVT and saddle embolus. Appetite is reasonable although she does report some nausea yesterday. Weight is down and I think with continued diuresis and fluid restriction her ascites and peripheral edema will improve. We will continue to monitor labs carefully.
--- NOTE | 2017-11-02 12:12 | IRU Plan of Care ---
[facility] Overall Plan of Care - Date Date: 11/02/17 - Patient Impairments (1) CIDP (chronic inflammatory demyelinating polyneuropathy) Code(s): G61.81 - Chronic inflammatory demyelinating polyneuritis Status: Chronic Classification: Present on IRF Admission, IRF Tx That Should Address Diagnosis, Diagnosis Requiring Medical Follow Up (2) Disseminated histoplasmosis Code(s): B39.9 - Histoplasmosis, unspecified Status: Acute Classification: Present on IRF Admission, IRF Tx That Should Address Diagnosis, Diagnosis Requiring Medical Follow Up (3) Thrombocytopenia Code(s): D69.6 - Thrombocytopenia, unspecified Status: Acute Classification: Present on IRF Admission, IRF Tx That Should Address Diagnosis, Diagnosis Requiring Medical Follow Up (4) Granulomatous hepatitis Code(s): K75.3 - Granulomatous hepatitis, not elsewhere classified Status: Acute Classification: Present on IRF Admission, IRF Tx That Should Address Diagnosis, Diagnosis Requiring Medical Follow Up (5) Ascites Qualifiers: Ascites type: other type Qualified Code(s): R18.8 - Other ascites Code(s): R18.8 - Other ascites Status: Acute Classification: Present on IRF Admission, IRF Tx That Should Address Diagnosis, Diagnosis Requiring Medical Follow Up - Relevant Changes Relevant Changes: No Reviewed: I have reviewed the patient's information and concur with the finding and results of the pre-admission screen. Certification: I certify the patient for rehabilitation. - Medical Prognosis Medical Prognosis: Good Vital Signs: Last Vital Signs Temp 96.5 F L 11/02/17 07:42 Pulse 77 11/02/17 07:42 Resp 16 11/02/17 07:42 BP 102/58 11/02/17 07:42 Pulse Ox 90 11/02/17 07:42 - Anticipated Interventions Anticipated Interventions: The patient requires inpatient IRF care for PT, OT, and/or ST for residuals remaining from CIDP with new weakness resulting in muscular weakness and strength deficits. Strength Deficits: Right Upper Extremity, Right Lower Extremity, Left Upper Extremity, Left Lower Extremity - Current Functional Status Failed Alternative Therapy: Arrived from Acute Care Patient Requires: The patient requires oversight by rehabilitation physician to manage their rehabilitation treatment plan and multidisciplinary approach to care that can only be provided in an IRF and requires a multidisciplinary approach to care, provided by professional PTs, OTs, STs, rehabilitation nurses, and may require STs, dieticians, and RTS. This is not available in lesser levels of care. Physical Therapy Minutes: 90 Occupational Therapy Minutes: 90 Therapy: The patient is to receive therapy at least 5 days a week. - Anticipated LOS/Outcomes Anticipated Functional Outcome: Is anticipated the patient will be able to return to her home with modified independent level of functioning although will require assistance for some ADLs and IADLs. It is anticipated the patient will be able to regain the ability to ambulate and that her ascites and peripheral edema will be controlled. Anticipated Length of Stay (days): 14 Anticipated DC Destination: Home, Self Care, Home Health Service Home Safety Plan: The patient will be provided with the development of a Home Safety Plan for return to a home or home-like environment and and to ensure safety post discharge. - Plan to Avoid Complications Barriers to Attaining Goals: Weakness, Balance, Endurance, Medical Limitation Plan to Avoid Complications: The patient cannot receive this care in a lesser intensive setting such as Long Term or Outpatient Therapy due to the patient requiring the following : She requires close monitoring of her thrombocytopenia, ascites and peripheral edema along with a multitude is approach using PT and OT in view of her multiple medical problems. She has need for monitoring of toleration of itraconazole in view of her disseminated histoplasmosis and requires medical supervision. .
[2017-11-02] MEDS ORDERED: IVIG PRIVIGEN IV SCH (13:00)
[2017-11-02] MEDS ORDERED: RTU SALINE IV SCH (13:00)
[2017-11-02] MEDS ORDERED: IMMUNE GLOBULIN IV SCH (14:15)
[2017-11-02] MEDS: DEXAMETHASONE 20 MG/5 ML INJECTION IVP SCH (14:32)
[2017-11-02] MEDS: DiphenhydrAMINE 50 MG/ML INJECTION IVP SCH (14:32)
[2017-11-02] MEDS: ACETAMINOPHEN 325 MG TABLET PO SCH (14:32)
--- NOTE | 2017-11-02 14:43 | Progress Note ---
Progress Note: Ms. Burdick has been working with Katerin and physical therapy. She has hypertonicity particularly of the left lower extremity but somewhat of the right. She requires an adjustment in her AFO. A prescription was provided for AFO modification with diagnosis of CIDP and hypertonicity of muscle. Length of need is indefinite.
--- NOTE | 2017-11-02 19:28 | Consultation ---
DATE OF CONSULTATION 11/02/2017 REASON FOR CONSULTATION Low platelets. HISTORY OF PRESENT ILLNESS This is a 47-year-old female patient with a very complex medical history significant for CIDP (chronic inflammatory demyelinating polyneuropathy) with gait instability followed by Neurology in [place]. The patient was treated with Imuran and plasmapheresis as well as IVIG in the past. Her medical history includes disseminated infection by histoplasma/histoplasmosis diagnosed in October 2017, on itraconazole followed by ID. Also, she has history of hepatic steatosis, possible cirrhosis, with ascites requiring PleurX catheter. History of saddle pulmonary embolism with cor pulmonale, status post catheter- assisted thrombolysis, EKOS, in February 2017. Currently is on Eliquis 2.5 mg twice daily. Recent venous Doppler of the lower extremities negative. The patient was hospitalized early this month to [facility] and was noted to have anemia with a hemoglobin of 6.8. She was given a blood transfusion. She was found to have no bleeding. Also, she was noted to have thrombocytopenia with a platelet count drop from more than 200,000 to 97,000 on 10/26/2017 and down to 25,000 on 10/30/2017. Of note, the patient received Solu- Medrol 1 g for three days on October 08 through October 11 for demyelinating polyneuropathy. She was seen by Dr. Genao for the thrombocytopenia. It seems the patient also received steroids. Her platelet count on admission at [facility] IRU was 19,000. It dropped to 14,000. The patient was admitted to rehab to maximize her strength. She denies bleeding. The patient is morbidly obese, in a wheelchair. She is not ambulatory. REVIEW OF SYSTEMS GENERAL: No fever. The patient is bedridden. She denies bleeding. RESPIRATORY: Chronic shortness of breath. No hemoptysis. History of pulmonary embolism, on Eliquis. CARDIOVASCULAR: No history of chest pain. No palpitations. History of hypertension. GASTROINTESTINAL: No nausea or vomiting. No blood in the stool. GENITOURINARY: She denies blood in the urine. MUSCULOSKELETAL: Weakness of the muscles. QUALITY SUPERVISOR: No history of stroke. PAST MEDICAL HISTORY 1. Chronic inflammatory demyelinating polyneuropathy (CIDP), status post Imuran , plasmapheresis and IVIG in the past. 2. 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 3. History of pulmonary embolism with acute cor pulmonale, status post EKOS ( catheter-assisted thrombolysis) in February 2017. History of DVT, on anticoagulation with Eliquis 2.5 mg daily. 4. Hypertension. 5. Steroid-induced diabetes. 6. Hepatic steatosis with possible cirrhosis complicated by ascites, with PleurX catheter. 7. Papillary cancer of the thyroid, status post surgical hypothyroidism. 8. Right ovarian dermoid cyst. 9. Onychocryptosis. 10. Anemia status post blood transfusion. PHYSICAL EXAM GENERAL: The patient is stable. She is bedridden, morbidly obese. LUNGS: Clear to auscultation. No wheezing. CARDIOVASCULAR: Normal sinus rhythm. No murmur. ABDOMEN: Obese. She has a PleurX catheter. QUALITY SUPERVISOR: Chronic polyneuropathy. MUSCULOSKELETAL: Not able to move her lower extremities, only minimal movement of her feet. SKIN: No rash. LABORATORY CBC remarkable for a platelet count of 14,000. RADIOLOGY Venous Doppler of the lower extremities showed no DVT. ASSESSMENT 1. Acute immune thrombocytopenic purpura, ITP, in a patient with chronic inflammatory demyelinating polyneuropathy (CIDP), status post plasmapheresis IVIG and Imuran in the past. 2. Chronic anemia with hemoglobin down to 6.8, status post blood transfusion a couple of weeks ago. Hemoglobin is stable. No evidence of active bleeding. 3. History of saddle pulmonary embolism with acute cor pulmonale, status post EKOS (catheter-assisted thrombolysis) in February 2017. History of DVT, on Eliquis 2.5 mg b.i.d. 4. 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 5. History of papillary thyroid cancer, status post thyroidectomy. RECOMMENDATIONS/PLAN 1. IVIG 60 g IV daily x 2 with close monitoring of platelet counts. 2. Will monitor CBC closely while the patient is on Eliquis. 3. Ultrasound of the spleen. 4. In case of bleeding, will hold Eliquis. 5. May repeat CT angiogram and if no pulmonary embolism, may discontinue Eliquis if the thrombocytopenia persists. MTDD
[2017-11-02] MEDS: ITRACONAZOLE 100 MG CAPSULE PO SCH (21:02)
[2017-11-03] MEDS: OMEPRAZOLE 20 MG CAPSULE PO SCH (06:40)
[2017-11-03] MEDS: LEVOTHYROXINE 175 MCG TABLET PO SCH (06:40)
[2017-11-03] MEDS: ITRACONAZOLE 100 MG CAPSULE PO SCH ×2 (08:34→23:00)
[2017-11-03] MEDS: METOCLOPRAMIDE 5mg TABLET PO SCH ×3 (08:34→23:00)
[2017-11-03] MEDS: APIXABAN 2.5 MG TABLET PO SCH (08:34)
[2017-11-03] MEDS: MAGNESIUM OXIDE 400 MG TABLET PO SCH ×2 (08:34→17:48)
[2017-11-03] MEDS: VENLAFAXINE 75 MG TABLET PO SCH ×2 (08:34→17:48)
[2017-11-03] MEDS: FUROSEMIDE 40 MG TABLET PO SCH (08:35)
[2017-11-03] MEDS: FOLIC ACID 1 MG TABLET PO SCH (08:35)
[2017-11-03] MEDS: SPIRONOLACTONE 50 MG TABLET PO SCH (08:35)
[2017-11-03] MEDS: LACTULOSE 20 GM/30 ML ORAL LIQUID PO SCH (08:35)
[2017-11-03] MEDS: ACETAMINOPHEN 325 MG TABLET PO PRN (08:36)
--- NOTE | 2017-11-03 12:49 | Progress Note ---
Oncology Subjective Remains, stable, denies bleeding. Plat today 9k. She received IVIG yesterday without problems. Exam Vital signs: Temperature 98.2 F 11/03/17 08:00 Pulse Rate 90 11/03/17 08:00 Respiratory Rate 20 11/03/17 08:00 Blood Pressure 120/69 11/03/17 08:00 Pulse Oximetry 92 11/03/17 08:00 - Constitutional no acute distress - Routine Respiratory Exam Present: accessory muscle use. Absent: rhonchi, stridor, wheezes - Routine Cardiovascular Exam Present: RRR - Routine Abdominal Exam Present: soft, drain. Absent: non tender Comments: Obese, ascites+ - Routine Extremities Exam Comments: Not able to moves legs against gravity, only very mild movement Oncology Results - Labs CBC & Chem 7: 11/03/17 04:57 11/02/17 04:21 Labs: Short CBC 11/03/17 Range/Units 04:57 WBC 3.2 L D (4.5-11.0) T/MM3 Hgb 9.2 L (12-16) GM/DL Hct 28.4 L (36-46) % Plt Count 9 L* D (130-400) T/MM3 Assessment and Plan Assessment and Plan: ASSESSMENT 1. Acute immune thrombocytopenic purpura, ITP, in a patient with chronic inflammatory demyelinating polyneuropathy (CIDP), status post plasmapheresis IVIG and Imuran in the past. Currently non IVIG, day 2 today. 2. Chronic anemia with hemoglobin down to 6.8, status post blood transfusion a couple of weeks ago. Hemoglobin is stable. No evidence of active bleeding. 3. History of saddle pulmonary embolism with acute cor pulmonale, status post EKOS (catheter-assisted thrombolysis) in February 2017. History of DVT, stable on Eliquis 2.5 mg b.i.d. 4. 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 5. History of papillary thyroid cancer, status post thyroidectomy. RECOMMENDATIONS/PLAN 1. Will continue with the 2nd day of IVIG 60 g IV. If no adequate response will consider Promacrta. 2. Will monitor CBC closely while the patient is on Eliquis. 3. In case of bleeding, will hold Eliquis. 4. Repeat CT angiogram and if no pulmonary embolism, may discontinue Eliquis if the thrombocytopenia persists. - Time Spent With Patient Total time spent is greater than 50% in coordination of care (as documented) at patient's floor/unit and/or counseling patient: 25 - 35 minutes
[2017-11-03] MEDS ORDERED: IOHEXOL 350mg/ml 75ml INJECTION ONE (13:13)
[2017-11-03] MEDS ORDERED: SALINE FLUSH 10ml SYRINGE ONE (13:13)
[2017-11-03] MEDS ORDERED: IVIG PRIVIGEN IV SCH (14:00)
[2017-11-03] MEDS ORDERED: RTU SALINE IV SCH (14:00)
--- NOTE | 2017-11-03 14:46 | Progress Note ---
- Date 11/03/17 Subjective: Maday is a very pleasant 47 yo female who is very medically complex. She is seen today in follow up. She reports that she is feeling very fatigued, which has been since her GB surgery about 3 weeks ago. She does have some generalized pain due to neuropathy, but also has some expected post operative pain due to recent GB surgery. She reports being taken off of narcotics due to oversedation, and she understands the concern with that. She is to have IVIG today due to ITP, and reports understanding plan of care. She is eating fairly well, and is not having any N/V. No acute concerns reports. Objective Vital signs: Temperature 98.2 F 11/03/17 08:00 Pulse Rate 90 11/03/17 08:00 Respiratory Rate 20 11/03/17 08:00 Blood Pressure 120/69 11/03/17 08:00 Pulse Oximetry 92 11/03/17 08:00 Height/Weight/BMI: Height 1.68 m Weight 132.2 kg Body Mass Index 48.3 - Constitutional Present: no acute distress, morbidly obese, cooperative Comments: Some occasional tremors of hands noted. She denies fever or feeling ill. - Routine HEENT Exam Head: Present: normocephalic, atraumatic Eye: Present: EOMI, PERRL ENT: Present: mucous membranes moist - Routine Respiratory Exam Present: decreased breath sounds. Absent: rales, stridor, crackles Comments: Diminished due to position and body habitus. She does not appear SOA at rest. - Routine Cardiovascular Exam Present: RRR, S1, S2 - Routine Abdominal Exam Present: soft, normoactive bowel sounds (A bit hypoactive. ), non distended, non tender - Routine Extremities Exam Present: non tender Comments: She has braces on both legs. - Routine Musculoskeletal Exam Musculoskeletal: Present: limited range of motion - Routine Skin Exam Present: intact, dry, ecchymosis (Scattered diffuse ecchymosis) - Routine Neurological Exam Present: alert, oriented X3, moving all extremities - Routine Psychiatric Exam Present: normal affect, normal thought process, cooperative, good insight Results - Labs CBC & Chem 7: 11/03/17 04:57 11/02/17 04:21 - Imaging and Cardiology CT scan - chest Status: image reviewed by me Additional comments: CTA-night hawk. Possible bilateral LL infiltrates. No acute PE. Evidence of prior PE notes. 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 Distal spinal muscular atrophy and muscle atrophy of lower extremities with gait instability Saddle embolus of the pulmonary artery with acute cor pulmonale, treated with EKOS catheter in February,. Also with history of DVT. Anticoagulated on Eliquis. Chronic anemia and thrombocytopenia Hypertension. 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 Ascites, unknown cause, with Pleurx drain inserted on 10/18/17. Hepatic steatosis. Possible early cirrhosis Mild protein calorie malnutrition Morbid obesity and hypoventilation syndrome Asthma Papillary cancer of thyroid, Post-surgical hypothyroidism. Right ovarian dermoid cyst Depression Onychocryptosis Echocardiogram February 2017: EF greater than 55%, right ventricular systolic function is moderately reduced, mild tricuspid regurgitation. On 10/29/17: WBC was 9.3, hemoglobin 9.4, hematocrit 28.4, platelets 34, sodium 129, potassium 3.2, BUN 10, creatinine 0.6. Blood pressure was 93/56 to 104/60 with heart rate in the 70s. She was maintaining saturations on room air. She has an appointment scheduled with Dr. Angel Coleman with infectious disease on November 27 at 2:30 PM. PLAN .11/03/17 Extremely complicated case. ID consultation. Discharge instructions recommended to check an itraconazole drug level-currently pending. Continue fluid restriction; carb consistent diet. BG has been low normal. Reports tolerating PO w/o difficulty. Bilateral LE doppler was negative for DVT. CTA was a bit limited, but did not show any acute PE. She is on Eliquis, but Dr. Franz to determine possible stopping due to low platelets. Intra-abdominal draining of Pleurx daily, approx. 1L of fluid, recommended on discharge. Multiple abdominal drains noted. Recent complete GB removal. ITP with further decline of platelets- per Dr. Franz. IVIG given yesterday and is to be repeated today. Decadron, Benadryl given daily as well. Continue low dose fentanyl patch for pain and PRN APAP. Concern for atelectasis vs. pneumonia- encourage pulmonary toilet. Continue to monitor closely. Labs and chart reviewed. D/W Dr. Aponte. 11/03/2017-5 PM-I reviewed this chart, the patient history, and the LOG GRADER's/PA's documented findings as above. We discussed and formulated the assessment and plan as above with the additions below.-Dr. Aponte The patient was seen this afternoon in her room accompanied by her and her nurse. The patient states she's been fatigued ever since her gallbladder surgery. Since that time she has not been able to walk. She thinks her hands and feet are becoming even weaker. This hospitalization she was diagnosed with autoimmune ITP and is currently on IVIG with Dr. Franz. She has history of saddle pulmonary embolus. She has been on anticoagulation with eliquis. Venous Dopplers were done of the legs today and showed no DVT. CTA chest showed no PE in the main arteries. There were small signs of sequelae thought to be from her previous PE per radiology. I did discuss these results with Dr. Franz and he recommends discontinuation of eliquis. I then did notify the nurse that this medication needs to be discontinued. I had previously discussed with the patient and her that we would likely discontinue the anticoagulation because of increased risk of bleeding with her low platelet count. They are in agreement. The patient also complains of feeling cold, but this is chronic. On exam, the patient appears chronically ill. HEENT reveals sclerae to be anicteric, pupils are equal. Chest is clear to auscultation. Cardiovascular reveals a regular rate and rhythm. Abdomen is soft, obese, positive bowel sounds. She has some mild tenderness in the right abdomen which she states has been present since surgery. She has 3 ostomies which are to drainage due to ascites. Extremities reveal trace ankle edema, more so on the right than the left. Lab today reveals a white count of 3.2, hemoglobin 9.2, platelets of 9 Impression and plan Pancytopenia ITP-on IVIG per Dr. Franz Due to thrombocytopenia, will discontinue anticoagulation. Fortunately, she has no DVT in her legs, and CTA showed no acute pulmonary emboli. We'll place SCDs for DVT prophylaxis History of CIDP-consider neurology consult Sunday Renal panel today DVT Prophylaxis: Eliquis GI Prophylaxis: other (ppi) Resuscitation Status: Full Code - Physician Narrative Physician: Lilibeth Aponte MD Narrative: Date: 11/03/17 Time: 1443 Hospital Course Summary Disclaimer: The visit summary below is not to be considered part of the above Progress Note. Hospital Course: 10/31/17 Extremely complicated case. Agree with ID consultation. Discharge instructions recommended to check an itraconazole drug level - this has been ordered for tomorrow am along with CBC, CMP, magnesium level. Continue fluid restriction; carb consistent diet. Check BGM, though in [place] she was not requiring SSI. Check daily weights. Will obtain Rt leg venous doppler. Even though she's on Eliquis, this was temporarily held during her hospitalization because of anemia and thrombocytopenia, and she is certainly at high risk for DVT. Report to Dr. Lee indicated they are to drain Pleurx daily, approx. 1L of fluid. Discussed with Dr. Lee and nursing staff. Extensive chart review. At time of Discharge from [facility], she was started on Eliquis 2.5 mg twice a day, Benadryl 25 mg if needed for itching, fentanyl 12 g patch, Lasix 40 mg daily, itraconazole 200 mg twice a day, and lactulose 20 g daily. She is also to be taking: Ergocalciferol 50,000 units once a week, folic acid 0.8 mg daily, levothyroxine 175 g daily, Mag-Ox 400 mg with supper, medical Paremyd 5 mg 30 minutes before meals, nystatin powder 3 times a day as needed, omeprazole 20 mg daily, Zofran 4 mg ODT as needed, MiraLAX 17 g daily when necessary, spironolactone 50 mg daily, Effexor 75 mg twice a day. She has an appointment scheduled with Dr. Angel Coleman with infectious disease on November 27 at 2:30 PM. PLAN .11/03/17 Extremely complicated case. ID consultation. Discharge instructions recommended to check an itraconazole drug level-currently pending. Continue fluid restriction; carb consistent diet. BG has been low normal. Reports tolerating PO w/o difficulty. Bilateral LE doppler was negative for DVT. CTA was a bit limited, but did not show any acute PE. She is on Eliquis, but Dr. Franz to determine possible stopping due to low platelets. Intra-abdominal draining of Pleurx daily, approx. 1L of fluid, recommended on discharge. Multiple abdominal drains noted. Recent complete GB removal. ITP with further decline of platelets- per Dr. Franz. IVIG given yesterday and is to be repeated today. Decadron, Benadryl given daily as well. Continue low dose fentanyl patch for pain and PRN APAP. Concern for atelectasis vs. pneumonia- encourage pulmonary toilet. Continue to monitor closely. Labs and chart reviewed. D/W Dr. Aponte.
[2017-11-03] MEDS: ACETAMINOPHEN 325 MG TABLET PO SCH (15:20)
[2017-11-03] MEDS: DiphenhydrAMINE 50 MG/ML INJECTION IVP SCH (15:21)
[2017-11-03] MEDS: DEXAMETHASONE 20 MG/5 ML INJECTION IVP SCH (15:21)
[2017-11-03] MEDS: DiphenhydrAMINE 25 MG CAPSULE PO PRN (23:00)
[2017-11-04] MEDS: DiphenhydrAMINE 25 MG CAPSULE PO PRN ×2 (03:00→21:13)
[2017-11-04] MEDS: ONDANSETRON 4 MG TABLET PO PRN (09:43)
[2017-11-04] MEDS: OMEPRAZOLE 20 MG CAPSULE PO SCH (09:43)
[2017-11-04] MEDS: LEVOTHYROXINE 175 MCG TABLET PO SCH (09:43)
[2017-11-04] MEDS: METOCLOPRAMIDE 5mg TABLET PO SCH ×3 (09:43→21:13)
--- NOTE | 2017-11-04 11:25 | Progress Note ---
- Date 11/04/17 Subjective: Patient is seen resting in bed this morning. She reports overall she feels fatigued and weak. She continues to have concern regarding the swelling in her ankles which is persistent since before her hospitalization for gallbladder removal. She's had no chest pain or shortness of breath. No nausea or vomiting. She feels the nurses are emptying more drainage from her drain the past few days. She had some pain in her ankles overnight and is using heating pads PRN. Objective Vital signs: Temperature 98.1 F 11/04/17 08:00 Pulse Rate 65 11/04/17 08:00 Respiratory Rate 18 11/04/17 08:00 Blood Pressure 108/65 11/04/17 08:00 Pulse Oximetry 93 11/04/17 08:00 Height/Weight/BMI: Height 1.68 m Weight 132.2 kg Body Mass Index 48.3 - Constitutional Present: no acute distress, well nourished, well developed, obese - Routine HEENT Exam Head: Present: normocephalic, atraumatic - Routine Respiratory Exam Present: CTA bilaterally. Absent: wheezes - Routine Cardiovascular Exam Present: RRR, no murmur - Routine Abdominal Exam Present: normoactive bowel sounds Comments: Multiple incisions from previous lap jung. Still has some resolving ecchymosis to R upper quadrant. 1 drain and 2 ostomy bags draining serous/pink drainage. Majority of drainage coming from the drain. 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 Distal spinal muscular atrophy and muscle atrophy of lower extremities with gait instability Saddle embolus of the pulmonary artery with acute cor pulmonale, treated with EKOS catheter in February,. Also with history of DVT. Anticoagulated on Eliquis. Chronic anemia and thrombocytopenia Hypertension. 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 Ascites, unknown cause, with Pleurx drain inserted on 10/18/17. Hepatic steatosis. Possible early cirrhosis Mild protein calorie malnutrition Morbid obesity and hypoventilation syndrome Asthma Papillary cancer of thyroid, Post-surgical hypothyroidism. Right ovarian dermoid cyst Depression Onychocryptosis Echocardiogram February 2017: EF greater than 55%, right ventricular systolic function is moderately reduced, mild tricuspid regurgitation. On 10/29/17: WBC was 9.3, hemoglobin 9.4, hematocrit 28.4, platelets 34, sodium 129, potassium 3.2, BUN 10, creatinine 0.6. Blood pressure was 93/56 to 104/60 with heart rate in the 70s. She was maintaining saturations on room air. She has an appointment scheduled with Dr. Angel Coleman with infectious disease on November 27 at 2:30 PM. PLAN ID consultation for histoplasma infection. Itraconazole drug level currently pending. Dr. Rasheed to see Sunday. Neuro consultation for CIDP. Dr. Kate to see Sunday. Dr. Franz has seen patient for ITP. Initiated IVIG, Decadron and Benadryl. Anticoagulation has been discontinued. No DVT in her legs and no acute pulmonary emboli. SCDs for DVT prophylaxis. Platelets up from yesterday. 9000-- >11,000. Continue fluid restriction. Intra-abdominal draining of Pleurx daily, approx. 1L of fluid, recommended on discharge. Continue low dose fentanyl patch for pain and PRN APAP. TSH very slightly elevated. Free T4 pending. No adjustment made to thyroid med. Increase Lasix to 60mg and elevate legs AMAP for pedal edema. Follow electrolytes. 11/04/2017-4 PM-I reviewed this chart, the patient history, and the PROJ MGR's/PA's documented findings as above. We discussed and formulated the assessment and plan as above with the additions below.-Dr. Aponte The patient was seen this afternoon in her room by her nurse. She states that she couldn't sleep very well last night because her abdomen was itchy. She states she feels better this afternoon. She is eating okay. She denies shortness of breath. Her abdomen only hurts when she is turning with the assistance of her nurses. She has neuropathy pain in her hands and feet and legs which has been intermittent over the past 3 years. She has not had any bleeding. Eliquis was continued yesterday due to thrombocytopenia from ITP. Platelets have increased slightly today. On exam she is alert and oriented and in no acute distress. HEENT reveals oropharynx to be moist. Neck is supple. Chest is clear to auscultation anteriorly. Cardiovascular reveals a regular rate and rhythm. Abdomen is obese, soft, mildly tender with positive bowel sounds. She has 3 open wounds in her abdomen 2 of which are connected to an ostomy drain the other of which has an ostomy drain enacted to a GONZÁLEZ drain. Drainage from the GONZÁLEZ drain is serosanguineous. Drainage in the 2 ostomy bags is minimal and serous appearing. Extremities reveal mild edema. Neurologic exam reveals some tremulousness with movement. She has generalized weakness in all 4 extremities. She is alert and oriented 3. She is a good historian. Lab was reviewed. Impression and plan ITP-continue to monitor platelets. Discussed with Dr. Franz and he will consider Promacta if platelet count not improving appropriately over the next couple of days. Regarding generalized weakness and history of chronic inflammatory demyelinating polyneuropathy, will consult Dr. Kate tomorrow. Regarding history of saddle embolus and DVT, currently no acute PE seen on CTA yesterday and no DVT seen on venous Dopplers. eliquis was discontinued because of risk of bleeding with associated thrombocytopenia. - Physician Narrative Narrative: Date: 11/04/17 Time: 1122 Hospital Course Summary Disclaimer: The visit summary below is not to be considered part of the above Progress Note. Hospital Course: 10/31/17 Extremely complicated case. Agree with ID consultation. Discharge instructions recommended to check an itraconazole drug level - this has been ordered for tomorrow am along with CBC, CMP, magnesium level. Continue fluid restriction; carb consistent diet. Check BGM, though in [place] she was not requiring SSI. Check daily weights. Will obtain Rt leg venous doppler. Even though she's on Eliquis, this was temporarily held during her hospitalization because of anemia and thrombocytopenia, and she is certainly at high risk for DVT. Report to Dr. Lee indicated they are to drain Pleurx daily, approx. 1L of fluid. Discussed with Dr. Lee and nursing staff. Extensive chart review. At time of Discharge from [facility], she was started on Eliquis 2.5 mg twice a day, Benadryl 25 mg if needed for itching, fentanyl 12 g patch, Lasix 40 mg daily, itraconazole 200 mg twice a day, and lactulose 20 g daily. She is also to be taking: Ergocalciferol 50,000 units once a week, folic acid 0.8 mg daily, levothyroxine 175 g daily, Mag-Ox 400 mg with supper, medical Paremyd 5 mg 30 minutes before meals, nystatin powder 3 times a day as needed, omeprazole 20 mg daily, Zofran 4 mg ODT as needed, MiraLAX 17 g daily when necessary, spironolactone 50 mg daily, Effexor 75 mg twice a day. She has an appointment scheduled with Dr. Angel Coleman with infectious disease on November 27 at 2:30 PM. 11/03/17 Extremely complicated case. ID consultation. Discharge instructions recommended to check an itraconazole drug level-currently pending. Continue fluid restriction; carb consistent diet. BG has been low normal. Reports tolerating PO w/o difficulty. Bilateral LE doppler was negative for DVT. CTA was a bit limited, but did not show any acute PE. She is on Eliquis, but Dr. Franz to determine possible stopping due to low platelets. Intra-abdominal draining of Pleurx daily, approx. 1L of fluid, recommended on discharge. Multiple abdominal drains noted. Recent complete GB removal. ITP with further decline of platelets- per Dr. Franz. IVIG given yesterday and is to be repeated today. Decadron, Benadryl given daily as well. Continue low dose fentanyl patch for pain and PRN APAP. Concern for atelectasis vs. pneumonia- encourage pulmonary toilet. Continue to monitor closely. Labs and chart reviewed. D/W Dr. Aponte. 11/04/17 ID consultation for histoplasma infection. Itraconazole drug level currently pending. Dr. Rasheed to see Sunday. Neuro consultation for CIDP. Dr. Kate to see Sunday. Dr. Franz has seen patient for ITP. Initiated IVIG, Decadron and Benadryl. Anticoagulation has been discontinued. No DVT in her legs and no acute pulmonary emboli. SCDs for DVT prophylaxis. Platelets up from yesterday. 9000-- >11,000. Continue fluid restriction. Intra-abdominal draining of Pleurx daily, approx. 1L of fluid, recommended on discharge. Continue low dose fentanyl patch for pain and PRN APAP. TSH very slightly elevated. Free T4 pending. No adjustment made to thyroid med. Increase Lasix to 60mg and elevate legs AMAP for pedal edema. Follow electrolytes.
[2017-11-04] MEDS ORDERED: FUROSEMIDE 20 MG TABLET PO ONE (11:57)
[2017-11-04] MEDS: LACTULOSE 20 GM/30 ML ORAL LIQUID PO SCH (12:28)
[2017-11-04] MEDS: FOLIC ACID 1 MG TABLET PO SCH (12:47)
[2017-11-04] MEDS: FUROSEMIDE 40 MG TABLET PO SCH (12:47)
[2017-11-04] MEDS: VENLAFAXINE 75 MG TABLET PO SCH ×2 (12:48→17:31)
[2017-11-04] MEDS: ERGOCALCIFEROL 50,000 UNIT CAPSULE PO SCH (12:48)
[2017-11-04] MEDS: MAGNESIUM OXIDE 400 MG TABLET PO SCH ×2 (12:48→17:31)
[2017-11-04] MEDS: SPIRONOLACTONE 50 MG TABLET PO SCH (12:48)
[2017-11-04] MEDS: ITRACONAZOLE 100 MG CAPSULE PO SCH ×2 (12:49→21:13)
--- NOTE | 2017-11-04 14:08 | Progress Note ---
Oncology Subjective The patient remains a staple. She is receiving physical therapy. She completed 2 doses of IVIG. Platelets still low at 11,000. No bleeding. CT angiogram did not show large PE. There is some changes probably from previous PE. Venous Doppler of the lower extremities negative. Exam Vital signs: Temperature 98.1 F 11/04/17 08:00 Pulse Rate 65 11/04/17 08:00 Respiratory Rate 18 11/04/17 08:00 Blood Pressure 108/65 11/04/17 08:00 Pulse Oximetry 93 11/04/17 08:00 - Constitutional no acute distress, cooperative - Routine Respiratory Exam Present: accessory muscle use. Absent: rhonchi, wheezes, crackles - Routine Cardiovascular Exam Present: RRR - Routine Abdominal Exam Present: soft, distended Comments: Abdomen is distended. There are 3 ascitic fluid drains. No signs of bleeding. Oncology Results - Labs CBC & Chem 7: 11/04/17 06:42 11/04/17 06:42 Labs: Short CBC 11/04/17 Range/Units 06:42 WBC 5.7 D (4.5-11.0) T/MM3 Hgb 9.0 L (12-16) GM/DL Hct 27.7 L (36-46) % Plt Count 11 L* (130-400) T/MM3 BMP 11/03/17 11/04/17 17:44 06:42 Sodium 133 L 135 Potassium 3.6 3.7 Chloride 97 L 99 Carbon Dioxide 28 29 BUN 12.0 14.0 Creatinine 0.9 D 0.8 Glucose 116 H 124 H Calcium 8.0 L 8.4 Liver Function 11/03/17 11/04/17 Range/Units 17:44 06:42 Total Bilirubin 1.00 (0.20-1.30) MG/DL AST 22 (14-36) U/L ALT 15 (1-35) U/L Alkaline Phosphatase 181 H (38-126) U/L Albumin 2.7 L 2.9 L (3.5-5.0) g/dL Assessment and Plan Assessment and Plan: ASSESSMENT/PLAN 1. Acute immune thrombocytopenic purpura, ITP, in a patient with chronic inflammatory demyelinating polyneuropathy (CIDP), status post plasmapheresis IVIG and Imuran in the past. -She received IVIG, day 2 today. Platelets is still low at 11,000. -May consider Promacta if platelets count is not going up. -Daily CBC. 2. Chronic anemia with hemoglobin down to 6.8, status post blood transfusion a couple of weeks ago. Hemoglobin is stable. No evidence of active bleeding. 3. History of saddle pulmonary embolism with acute cor pulmonale, status post EKOS (catheter-assisted thrombolysis) in February 2017. History of DVT. -Eliques discontinued after see he scan showed no significant PE and venous Doppler is negative. -Due to the resistant thrombocytopenia and absence of PE and DVT I felt the risk of bleeding due to Eliques overweighed the benefit. 4. 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 5. History of papillary thyroid cancer, status post thyroidectomy. - Time Spent With Patient Total time spent is greater than 50% in coordination of care (as documented) at patient's floor/unit and/or counseling patient: less than 15 minutes
--- NOTE | 2017-11-04 16:25 | CT Scan Report ---
Indication: Hx of saddle PE on Eliques. ITP, If no PE will DC Eliques. PROCEDURE: CT angio pulm emboli: Encounter: Initial Comparison: None Technique: Axial CT pulmonary angiographic phase images were performed through the chest after the administration of intravenous contrast. Coronal and Sagittal MIP reconstructed images were created and reviewed. Automated Exposure Control and Iterative Reconstruction dose reducing techniques were utilized. Contrast: Omnipaque 350 73 mL Findings: Pulmonary arteries: Exam is diagnostic to the segmental pulmonary arterial level. There are small areas of decreased attenuation seen within the left and right lower lobe segmental pulmonary arteries. There is streak and motion artifact as well. Other findings: Small pleural effusions with left lower lobe airspace consolidation. Scattered areas of scarring. No pneumothorax. The central airways are patent. No axillary or mediastinal adenopathy. Heart size is normal. No pericardial effusion. The upper abdomen shows gastric banding device and cholecystectomy clips but no acute findings. Impression: 1. Filling defects in the lower lobe pulmonary arteries may represent acute or chronic pulmonary embolus. 2. Small effusions and lower lobe atelectasis or pneumonia. There is a preliminary report by virtual radiologic. .
--- NOTE | 2017-11-04 16:38 | Ultrasound Report ---
Indication: Hx of saddle PE on Eliques. ITP, If no DVT will DC Eliques. PROCEDURE: US venous doppler LE BI: Encounter: Initial Comparison: November 01, 2017 Technique: Color Doppler duplex and grayscale sonographic imaging of both lower extremities was performed. Findings: There is no evidence for acute deep venous thrombosis in either thigh. Specifically, serial graded compression was performed from the inguinal ligament to the popliteal bifurcation, bilaterally, demonstrating appropriate compressibility of the deep venous system. In addition, color and pulsed Doppler demonstrate appropriate spontaneous flow, variation with respiration, and augmentation with calf compression. At the ankle, normal flow is identified in the posterior tibial veins; these vessels are also normal in caliber. Impression: No evidence of acute DVT in either lower limb. There is a preliminary report by virtual radiologic. .
[2017-11-05] MEDS: LEVOTHYROXINE 175 MCG TABLET PO SCH (06:31)
[2017-11-05] MEDS: OMEPRAZOLE 20 MG CAPSULE PO SCH (06:31)
[2017-11-05] MEDS: ACETAMINOPHEN 325 MG TABLET PO PRN (07:30)
--- NOTE | 2017-11-05 09:26 | Infectious Disease Consult ---
Infectious Disease Consult Date of Consultation: 11/05/17 Requesting Physician: Sigifredo Lee Reason for Consultation: Histoplasmosis History of Present Illness: Mrs. Burdick is a 47 y/o woman with a complicated past medical history including chronic inflammatory demyelinating polyneuritis with a history of steroid use as well as Imuran use. She also has a history of obesity, status post gastric band surgery, thyroid cancer, as well as drug-induced thrombocytopenia and drug-induced anemia per records. She was admitted to [facility] on 10/07/2017 because of generalized weakness and being unable to walk. She had abdominal pain on admission. She denied any other symptoms concerning for an infectious process. She also has a history of admission in June 2017 due to generalized weakness and she was treated with plasma exchange for 5 days and had some improvement noted. It was after that that she was placed on Imuran 50 mg twice a day. Patient tells me that her Imuran had been stopped recently and per records it was stopped on 09/28/2017. Her evaluation on admission 10/07/17 showed bacteria in her urinalysis. She also had hyponatremia. CT of the abdomen and pelvis showed cholelithiasis and some ascites. Ultrasound showed cholelithiasis some thickening of the gallbladder wall and a positive Meyer sign. She was taken to the operating room on October [address] Mar and underwent diagnostic laparoscopy , laparoscopic cholecystectomy with interoperative cholangiogram, paracentesis with evacuation 1.6 L of intra-abdominal fluid, Pleurx catheter insertion, and liver biopsy. She also had a left temporary IJ dual-lumen dialysis catheter placed and she underwent plasmapheresis. She had peritoneal fluid obtained on October 10 which was reported as red and cloudy. There were 385 white cells and 20, 000 red cells. Total protein was 3.5, albumin was 2.2. She had previously had a urine histoplasma antigen obtained in October 04 which returned positive. I don't have that result currently available. She was seen by Dr. Angel Coleman, ID, and started on itraconazole treatment. She also underwent lumbar puncture during her recent hospitalization which showed only 1 white cell in the spinal fluid and was relatively unremarkable. Her spinal fluid fungal culture is no growth after 13 days per records. The ascites fluid culture was negative with fungal cultures pending but no growth to date. She had fungal blood cultures obtained that are NGTD. I don't see her liver biopsy report in her records however per progress notes this showed granulomatous inflammation and stains for fungus and AFB were negative. She reports that her abdominal pain is improving. Denies much in the way of other symptoms other than continued weakness and inability to ambulate. A serum itraconazole level was drawn and is still pending. She has continued to have thrombocytopenia. She was seen by Dr. Franz and given IVIG. Medications Home Medications Medication Instructions Recorded Confirmed Type Apixaban [Eliquis] 2.5 mg PO BID 10/31/17 10/31/17 History DiphenhydrAMINE [Benadryl] 1 cap PO Q4H PRN 10/31/17 10/31/17 History Ergocalciferol (Vitamin D2) 1 cap PO WEEKLY 10/31/17 10/31/17 History [Vitamin D2] FentaNYL PATCH [Duragesic Patch] 12 mcg TD Q3D 10/31/17 10/31/17 History Folic Acid 0.8 mg PO DAILY 10/31/17 10/31/17 History Furosemide [Lasix 40 mg Tab] 1 tab PO DAILY 10/31/17 10/31/17 History Itraconazole [Onmel] 200 mg PO BID 10/31/17 10/31/17 History Lactulose 20 gm PO DAILY 10/31/17 10/31/17 History Levothyroxine Tab [Synthroid] 175 mcg PO ACB 10/31/17 10/31/17 History Magnesium Oxide [Magnesium] 400 mg PO BIDWM 10/31/17 10/31/17 History Metoclopramide HCl [Reglan] 5 mg PO TID 10/31/17 10/31/17 History Nystatin Powder [Mycostatin] 15 applicatio TP TID 10/31/17 10/31/17 History Omeprazole [Prilosec] 1 cap PO ACB 10/31/17 10/31/17 History Ondansetron HCl [Zofran] 4 mg PO Q6HR PRN 10/31/17 10/31/17 History PEG 3350 17gm PACKET [Miralax] 17 gm PO DAILY PRN 10/31/17 10/31/17 History Spironolactone [Aldactone] 50 mg PO DAILY 10/31/17 10/31/17 History Venlafaxine [Effexor] 75 mg PO BID 10/31/17 10/31/17 History Allergies Allergy/AdvReac Type Severity Reaction Status Date / Time acetaminophen [From Percocet] Allergy Verified 10/31/17 14:00 codeine Allergy Verified 10/31/17 14:00 hydrochlorothiazide Allergy Verified 10/31/17 14:00 oxycodone [From Percocet] Allergy Verified 10/31/17 14:00 Penicillins Allergy Verified 10/31/17 14:00 triamterene Allergy Verified 10/31/17 14:00 [facility] Patient Stated Medical History Peripheral Neuropathy Yes Angina Yes: Hx: blood clots Cardiac Arrhythmia Yes Hypertension Yes Asthma Yes Bronchitis Yes Pulmonary Embolism Yes: 02/21/2017 Constipation Yes Other GI Hx: Pancreatitis (5--17), IBS Hx Incontinence No Hx Urinary Tract Infection Yes Clotting Problems Yes: Hx: blood clots Other Hx: oral surgery (x3 for dentures) Depression Yes Other Behavioral Health Hx: psychiatric tx/psychosocial problems Other Reproductive Hx: D&C ('00) Medical History Updates: 1. CIDP. 2. Opioid-induced constipation. 3. History of hypoxemic hypercapnic respiratory failure. 4. Peripheral neuropathy of uncertain etiology and affecting both motor and sensory components. 5. History of DVT with saddle embolus February 2017. 6. Papillary thyroid carcinoma. 7. Anemia. 8. Gastroesophageal reflux disease. 9. History of gallstone pancreatitis. 10. Positive urine Histoplasma antigen Surgical History: Diagnostic laparoscopy, laparoscopic cholecystectomy with intraoperative cholangiogram, paracentesis with evacuation of 1.6 L of intra- abdominal fluid, Pleurx catheter insertion and liver biopsy which revealed granulomatous inflammation on 10/18/[address] Sean Mar. Gastric band 2009. Thyroidectomy for cancer in 2010. D&C 1999. Teeth extraction x3 Family History Updates: Positive for DM, HTN. Few cancers: throat cancer. Father: still living, HTN and prostate cancer. Mother at age 62 of asthma attack. Sister with kidney failure, on dialysis, caused by DM and HTN. Brother is healthy. 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 Absent: diarrhea, nausea, vomiting - Genitourinary Genitourinary: Absent: dysuria - Musculoskeletal Musculoskeletal: Absent: arthralgias - Integumentary/Breasts Integumentary: Absent: pruritus, rash - Neurological Neurological: Present: abnormal gait (unable to walk), paresthesias (neuropathy) - Hematologic/Lymphatic Hematologic/Lymphatic: Absent: easy bleeding Exam Vital Signs: Temperature 98.2 F 11/04/17 19:34 Pulse Rate 71 11/04/17 19:34 Respiratory Rate 18 11/04/17 19:34 Blood Pressure 116/67 11/04/17 19:34 Pulse Oximetry 96 11/04/17 19:34 Height/Weight/BMI: Height 1.68 m Weight 132.2 kg Body Mass Index 48.3 - Constitutional Present: no acute distress, well developed, obese Comments: Chronically ill-appearing - Routine HEENT Exam Head: Present: normocephalic, atraumatic Eye: Present: EOMI, PERRL ENT: Present: mucous membranes moist Comments: Edentulous on maxilla - Routine Neck Exam Present: supple - Routine Respiratory Exam Present: CTA bilaterally - Routine Cardiovascular Exam Present: RRR, no murmur - Routine Abdominal Exam Present: soft Comments: Hypoactive bowel sounds, nontender to palpation. She has a Pleurx catheter with reddish-appearing fluid in the bulb. She has 2 sites on her abdomen with ostomy bags covering drainage. I presume these are trocar sites from her surgery. She has anasarca. - Routine Exam Comments: no bustamante or bladder distention - Routine Extremities Exam Present: edema (2+ on abdominal wall, trace on LE). Absent: cyanosis, clubbing - Routine Skin Exam Present: intact. Absent: rash - Routine Neurological Exam Present: alert, oriented X3, CN II-XII intact, normal speech - Routine Psychiatric Exam Present: normal affect Results - Labs CBC & Chem 7: 11/04/17 06:42 11/05/17 03:59 Impression: Presumed disseminated Histoplasmosis. Positive Urine Histo antigen 10/04/17. Severe polyneuropathy/CIDP, treated with plasmapharesis, steroids and also Imuran. 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 Histoplasma Ascites, unclear etiology, with 1L fluid drained daily H/o PE treated with EKOS catheter in February 2017 Hypothyroidism, s/p thyroid cancer Obesity s/p lap banding PCN allergy H/o gallstone pancreatitis Anemia, normocytic Weakness/debility Recommendation: Continue Itraconazole 200mg po bid. Planning for 6-12 months of treatment. Itra serum level drawn 11/01, pending Will order serum and urine Histoplasma antigens. I discussed this patient's case with Dr. Lee and also Dr. Coleman last week. According to records, she has F/U scheduled with Dr. Coleman on 11/27/17.
[2017-11-05] MEDS: LACTULOSE 20 GM/30 ML ORAL LIQUID PO SCH (09:39)
[2017-11-05] MEDS: FUROSEMIDE 20 MG TABLET PO SCH (09:41)
[2017-11-05] MEDS: SPIRONOLACTONE 50 MG TABLET PO SCH (09:42)
[2017-11-05] MEDS: FOLIC ACID 1 MG TABLET PO SCH (09:43)
[2017-11-05] MEDS: MAGNESIUM OXIDE 400 MG TABLET PO SCH ×2 (09:43→18:17)
[2017-11-05] MEDS: SALINE FLUSH 10ml SYRINGE IV PRN (09:45)
[2017-11-05] MEDS: VENLAFAXINE 75 MG TABLET PO SCH ×2 (09:45→18:17)
[2017-11-05] MEDS: ITRACONAZOLE 100 MG CAPSULE PO SCH ×2 (10:03→21:26)
[2017-11-05] MEDS: METOCLOPRAMIDE 5mg TABLET PO SCH ×3 (10:03→21:26)
--- NOTE | 2017-11-05 10:25 | IRU Progress Note ---
- Subjective/Serverity of Illness Date: 11/05/17 Maday was interviewed and examined in her room on acute inpatient rehabilitation. She is comfortable although does have some discomfort with various exercises. She is continuing to demonstrate substantial motor weakness. She believes that her strength is improving in her upper extremities. I did confirm with her that she has had evaluation of cervical spine with MRI previously and there was no evidence of stenosis. She denies dyspnea at rest although with activity does become short of breath. She does have some discomfort with various movements. She has no nausea nor vomiting. Brief therapy update: She requires maximum assistance of 2 for transfers. She is being transferred with a Ashanti lift. She has significant increased tone noted of the ankles which makes it difficult to get the AFO braces on at this time. Update on medical issues we are actively monitoring and managing in conjunction with other providers: 1. CIDP with weakness: Has significant weakness in all 4 extremities. Extensor strength is reduced compared to flexor strength in the upper extremities. No fasciculations are identified at present. 2. Hx saddle embolus: Repeat assessment with venous Doppler over the weekend was negative for DVT. Repeat CT angiogram of the chest revealed evidence of old emboli but nothing new and nothing in the major vessels. The hospitalist service in conjunction with Dr. Franz has discontinued the Eliquis at the present time in view of her increased risk of bleeding with the thrombocytopenia. 3. Thrombocytopenia: Has received 2 doses of IVIG. Unfortunately her platelet count is lower today at 7000. No evidence of active bleeding. 4. Ascites: Examination abdomen remained soft. We are getting between 250 and 450 mL daily out of the left-sided Pleurx catheter with the grenade type of Hemovac. 5. Disseminated histoplasmosis: Has been seen by Dr. Rasheed. Continues on itraconazole without known side effects. Appreciate assistance of all additional providers. Exam Vital Signs: Temperature 98.4 F 11/05/17 08:00 Pulse Rate 78 11/05/17 08:00 Respiratory Rate 14 11/05/17 08:00 Blood Pressure 130/77 11/05/17 08:00 Pulse Oximetry 96 11/05/17 08:00 Height/Weight/BMI: Height 1.68 m Weight 124.5 kg Body Mass Index 48.3 - Constitutional Present: well nourished, well developed, morbidly obese Comments: She is pleasant and cooperative and appears to be oriented. - Routine HEENT Exam Eye: Present: EOMI, PERRL ENT: Present: mucous membranes moist, oropharynx clear - Routine Neck Exam Present: supple, full ROM - Routine Respiratory Exam Present: CTA bilaterally. Absent: wheezes - Routine Cardiovascular Exam Present: RRR, S1, S2. Absent: murmur - Routine Abdominal Exam Present: soft, normoactive bowel sounds, non distended. Absent: tenderness - Routine Extremities Exam Present: edema (trace edema right worse than left.), normal capillary refill - Routine Skin Exam Present: dry, warm - Routine Neurological Exam Present: alert, oriented X3, CN II-XII intact. Absent: motor deficit (no facial droop. Upper extremity strength is reduced on extension at the elbows compared to flexion. Reasonably good handgrip.) - Routine Psychiatric Exam Present: normal affect, cooperative, good insight, good judgment Results IRU - Labs Labs: Have reviewed other providers notes as well as all laboratory and chart data. IRU A/P (1) CIDP (chronic inflammatory demyelinating polyneuropathy) Current visit: Yes Status: Chronic Continues to demonstrate significant motor weakness. Presumptively this is related to the CIDP. Dr. Kate has been consulted as well. Would wonder about motor neuron disease as well. (2) Disseminated histoplasmosis Current visit: Yes Status: Acute Appreciate Dr. Rasheed input. Patient is on itraconazole. Level is pending. (3) Thrombocytopenia Current visit: Yes Status: Acute Platelet count is a bit worse at this time. Has received [address] Franz following. No evidence of active bleeding thankfully. (4) Granulomatous hepatitis Current visit: Yes Status: Acute (5) Ascites Qualifiers: Ascites type: other type Qualified Code(s): R18.8 - Other ascites Current visit: Yes Status: Acute Continues to get around 450 mL out per 24 hours. DVT Prophylaxis: SCD's Resuscitation Status: Full Code - Course Hospital Course: Sigifredo Lee MD: 11/02/17 10:59 Cooperative but slow progress with therapy. Continued significant muscle weakness. Tolerating itraconazole adequately. Thrombocytopenia is a concern. 11/05/17 10:28 Continued worsening platelet count despite IVIG. Cooperative but continues to demonstrate substantial weakness. Therapies are code treating for energy conservation. Remains on itraconazole. Eliquis has been discontinued. - Interventions to Obtain Goals PT Treatment Plan: Balance/Proprioception, Functional Activities, Manual Therapy , Patient/Family Education, Therapeutic Exercise OT Treatment Plan: ADL (Basic Care), Balance Training, IADL, Pt./Family Education, Ther. Exercise for ADL Goals Progress/Modifications: I once again reviewed her overall medical status. We have concerns about thrombocytopenia. Nevertheless she is tolerating therapy reasonably well. Has increased muscle tone in both ankles resulting in difficulty in placing the AFO braces. She does have some dyspnea with activity. CT angiogram of the chest is reviewed along with venous Doppler of the lower extremities. Appreciate assistance of Dr. Rasheed, hospitalist service and Dr. Franz. I believe it is safe to continue therapy at this time. Await Dr. Siddiqui's impression of the neurologic issues.
--- NOTE | 2017-11-05 11:39 | Progress Note ---
- Date 11/05/17 Subjective: Maday is seen today in follow up. She reports that overall she if feeling good just fatigued. Denies having pain or shortness of breath on examination. Abdominal drains remain intact with small amount of output in GONZÁLEZ drain. Unfortunately Plts remains critically low at 7. Objective Vital signs: Temperature 98.4 F 11/05/17 08:00 Pulse Rate 78 11/05/17 08:00 Respiratory Rate 14 11/05/17 08:00 Blood Pressure 130/77 11/05/17 08:00 Pulse Oximetry 96 11/05/17 08:00 Height/Weight/BMI: Height 1.68 m Weight 124.5 kg Body Mass Index 48.3 - Constitutional Present: no acute distress, well nourished, well developed - Routine HEENT Exam Eye: Present: EOMI ENT: Present: mucous membranes moist, dentition normal - Routine Respiratory Exam Present: CTA bilaterally. Absent: wheezes - Routine Cardiovascular Exam Present: RRR, S1, S2. Absent: murmur - Routine Abdominal Exam Present: soft, normoactive bowel sounds, non distended, wound, drain. 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 Distal spinal muscular atrophy and muscle atrophy of lower extremities with gait instability Saddle embolus of the pulmonary artery with acute cor pulmonale, treated with EKOS catheter in February,. Also with history of DVT. Anticoagulated on Eliquis. Chronic anemia and thrombocytopenia Hypertension. 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 Ascites, unknown cause, with Pleurx drain inserted on 10/18/17. Hepatic steatosis. Possible early cirrhosis Mild protein calorie malnutrition Morbid obesity and hypoventilation syndrome Asthma Papillary cancer of thyroid, Post-surgical hypothyroidism. Right ovarian dermoid cyst Depression Onychocryptosis Echocardiogram February 2017: EF greater than 55%, right ventricular systolic function is moderately reduced, mild tricuspid regurgitation. On 10/29/17: WBC was 9.3, hemoglobin 9.4, hematocrit 28.4, platelets 34, sodium 129, potassium 3.2, BUN 10, creatinine 0.6. Blood pressure was 93/56 to 104/60 with heart rate in the 70s. She was maintaining saturations on room air. She has an appointment scheduled with Dr. Angel Coleman with infectious disease on November 27 at 2:30 PM. PLAN Appreciate consultations- Dr Franz, Dr Rashede and Dr Kate Remains on Itraconazole BID; likely need for 6-[address] Franz and Dr Rand following regarding probable IPT and thrombocytopenia. PLT today 7. Eliquis stopped given negative findings of thrombus of scans over the weekend Continue on fluid restriction and monitor abdominal drainage often. Lasix was increased 11/04/17. Follow weights and edema Monitor CBC and BMP daily Encourage ongoing work with PT/OT Case discussed with attending 11/05/2017-5:12 PM-I reviewed this chart, the patient history, and the COLOR SPRAYER's/PA 's documented findings as above. We discussed and formulated the assessment and plan as above with the additions below.-Dr. Aponte he patient was seen this afternoon in her room. She states she feels about the same. She doesn't have any difficulties with significant pain. She is eating and drinking well. She denies any nausea or vomiting. She denies any shortness of breath or chest discomfort. On exam she is alert and oriented and in no acute distress. Chest is clear to auscultation. Cardiovascular reveals a regular rate and rhythm. Abdomen is soft , obese, minimally tender. She has 2 abdominal wounds that are covered with an ostomy bag and have had minimal drainage. She has another wound with a GONZÁLEZ drain. This is draining well per her nurse. Extremities are free of edema. Skin is warm and dry and without rashes. Dr. Rand saw the patient this morning regarding her thrombocytopenia. He did recommend a bone marrow biopsy which she underwent this afternoon without difficulties. Results are pending. He did order a platelet transfusion for today. I spoke with Dr. Kate saw the patient today regarding CIDP. He stated that the IVIG that she has received for possible ITP should also help with her CIDP. He did not recommend any other changes in her treatment at this time but recommended that she follow-up with her neurologist as an outpatient. She may need plasmapheresis next month which she has been receiving every other month. Dr. Rasheed did see the patient today and recommended continuing on her current treatment for histoplasmosis. Continue supportive care. Continue with therapy as tolerated. Monitor for signs of bleeding. The patient is currently off of anticoagulation due to thrombocytopenia and high risk of bleeding while platelet count is low. Discussed today with Dr. Kate and Dr. Rand. Discussed with the patient's nurse. - Physician Narrative Narrative: Date: 11/05/17 Time: 1130 Hospital Course Summary Disclaimer: The visit summary below is not to be considered part of the above Progress Note. Hospital Course: 10/31/17 Extremely complicated case. Agree with ID consultation. Discharge instructions recommended to check an itraconazole drug level - this has been ordered for tomorrow am along with CBC, CMP, magnesium level. Continue fluid restriction; carb consistent diet. Check BGM, though in [place] she was not requiring SSI. Check daily weights. Will obtain Rt leg venous doppler. Even though she's on Eliquis, this was temporarily held during her hospitalization because of anemia and thrombocytopenia, and she is certainly at high risk for DVT. Report to Dr. Lee indicated they are to drain Pleurx daily, approx. 1L of fluid. Discussed with Dr. Lee and nursing staff. Extensive chart review. At time of Discharge from [facility], she was started on Eliquis 2.5 mg twice a day, Benadryl 25 mg if needed for itching, fentanyl 12 g patch, Lasix 40 mg daily, itraconazole 200 mg twice a day, and lactulose 20 g daily. She is also to be taking: Ergocalciferol 50,000 units once a week, folic acid 0.8 mg daily, levothyroxine 175 g daily, Mag-Ox 400 mg with supper, medical Paremyd 5 mg 30 minutes before meals, nystatin powder 3 times a day as needed, omeprazole 20 mg daily, Zofran 4 mg ODT as needed, MiraLAX 17 g daily when necessary, spironolactone 50 mg daily, Effexor 75 mg twice a day. She has an appointment scheduled with Dr. Angel Coleman with infectious disease on November 27 at 2:30 PM. 11/03/17 Extremely complicated case. ID consultation. Discharge instructions recommended to check an itraconazole drug level-currently pending. Continue fluid restriction; carb consistent diet. BG has been low normal. Reports tolerating PO w/o difficulty. Bilateral LE doppler was negative for DVT. CTA was a bit limited, but did not show any acute PE. She is on Eliquis, but Dr. Franz to determine possible stopping due to low platelets. Intra-abdominal draining of Pleurx daily, approx. 1L of fluid, recommended on discharge. Multiple abdominal drains noted. Recent complete GB removal. ITP with further decline of platelets- per Dr. Franz. IVIG given yesterday and is to be repeated today. Decadron, Benadryl given daily as well. Continue low dose fentanyl patch for pain and PRN APAP. Concern for atelectasis vs. pneumonia- encourage pulmonary toilet. Continue to monitor closely. Labs and chart reviewed. D/W Dr. Aponte. 11/04/17 ID consultation for histoplasma infection. Itraconazole drug level currently pending. Dr. Rasheed to see Sunday. Neuro consultation for CIDP. Dr. Kate to see Sunday. Dr. Franz has seen patient for ITP. Initiated IVIG, Decadron and Benadryl. Anticoagulation has been discontinued. No DVT in her legs and no acute pulmonary emboli. SCDs for DVT prophylaxis. Platelets up from yesterday. 9000-- >11,000. Continue fluid restriction. Intra-abdominal draining of Pleurx daily, approx. 1L of fluid, recommended on discharge. Continue low dose fentanyl patch for pain and PRN APAP. TSH very slightly elevated. Free T4 pending. No adjustment made to thyroid med. Increase Lasix to 60mg and elevate legs AMAP for pedal edema. Follow electrolytes. 11/05 Appreciate consultations- Dr Franz, Dr Rasheed and Dr Kate Remains on Itraconazole BID; likely need for 6-[address] Franz and Dr Rand following regarding probable IPT and thrombocytopenia. PLT today 7. Eliquis stopped given negative findings of thrombus of scans over the weekend Continue on fluid restriction and monitor abdominal drainage often. Lasix was increased 11/04/17. Follow weights and edema Monitor CBC and BMP daily Encourage ongoing work with PT/OT Case discussed with attending
[2017-11-05] MEDS ORDERED: NS FLUSH BAG 500ml IV PRN (12:42)
--- NOTE | 2017-11-05 12:49 | Progress Note ---
Oncology Subjective Mrs. Burdick is a 47 y/o woman with a complicated past medical history including chronic inflammatory demyelinating polyneuritis with a history of steroid use as well as Imuran use. Last Imuran was about a month ago where she thought she was taking 100 mg per day. She also has a history of obesity, status post gastric band surgery, thyroid cancer, as well as drug-induced thrombocytopenia and drug-induced anemia per records. Admitted to [facility] on 10/07/2017 because of generalized weakness and being unable to walk. Presented with abdominal pain. S She also has a history of admission in June 2017 due to generalized weakness and she was treated with plasma exchange for 5 days and had some improvement noted. It was after that that she was placed on Imuran 50 mg twice a day. Her evaluation on admission 10/07/17 showed bacteria in her urinalysis. She also had hyponatremia. CT of the abdomen and pelvis showed cholelithiasis and some ascites. Ultrasound showed cholelithiasis some thickening of the gallbladder wall and a positive Meyer sign. She was taken to the operating room on October [address] Mar and underwent diagnostic laparoscopy, laparoscopic cholecystectomy with interoperative cholangiogram, paracentesis with evacuation 1.6 L of intra-abdominal fluid, Pleurx catheter insertion, and liver biopsy. She also had a left temporary IJ dual-lumen dialysis catheter placed and she underwent plasmapheresis. She had peritoneal fluid obtained on October 10 which was reported as red and cloudy. There were 385 white cells and 20,000 red cells. Total protein was 3.5, albumin was 2.2. She had previously had a urine histoplasma antigen obtained in October 04 which returned positive per verbal report. Seen by Dr. Angel Coleman, SHANNON, and started on itraconazole treatment. Work up with lumbar puncture during her recent hospitalization which showed only 1 white cell in the spinal fluid and was relatively unremarkable. Her spinal fluid fungal culture is no growth after 13 days per records. The ascites fluid culture was negative with fungal cultures pending but no growth to date. She had fungal blood cultures obtained that are NGTD.Liver biopsy per progress notes showed granulomatous inflammation and stains for fungus and AFB were negative. She has been treated with IVIG and high-dose steroids. Platelets are 7000 today. I have reviewed her peripheral smear and there are a few large platelets but not as many large platelets as I would expect with ITP. Because of the lack of response to standard to P therapy, I feel bone marrow biopsy would be indicated. In addition we'll look for other etiologies for thrombocytopenia including B 12 deficiency and hypersplenism. Exam Vital signs: Temperature 98.4 F 11/05/17 08:00 Pulse Rate 78 11/05/17 08:00 Respiratory Rate 14 11/05/17 08:00 Blood Pressure 130/77 11/05/17 08:00 Pulse Oximetry 96 11/05/17 08:00 - Constitutional no acute distress, obese - Routine HEENT Exam Head: Present: normocephalic Eye: Present: EOMI, PERRL Throat: normal inspection - Routine Neck Exam Present: supple. Absent: lymphadenopathy - Routine Respiratory Exam Present: CTA bilaterally. Absent: accessory muscle use - Routine Cardiovascular Exam Present: RRR, no murmur - Routine Abdominal Exam Present: soft, tenderness, ostomy Comments: Drain present left abdomen. Serosanguineous drainage - Routine Extremities Exam Present: edema (2+) - Routine Skin Exam Present: dry, warm, ecchymosis - Routine Neurological Exam Present: alert, CN II-XII intact Muscle wasting of in her digits within the hands, leg weakness - Routine Psychiatric Exam Present: normal affect Oncology Results - Labs CBC & Chem 7: 11/26/17 13:02 11/26/17 13:02 Labs: Short CBC 11/05/17 Range/Units 03:55 WBC 4.4 L (4.5-11.0) T/MM3 Hgb 8.6 L (12-16) GM/DL Hct 26.6 L (36-46) % Plt Count 7 L* D (130-400) T/MM3 BMP 11/05/17 03:59 Sodium 136 Potassium 4.0 Chloride 99 Carbon Dioxide 30 BUN 16.0 Creatinine 0.7 Glucose 108 Calcium 8.4 Liver Function 11/05/17 Range/Units 03:59 Total Bilirubin 1.00 (0.20-1.30) MG/DL AST 33 D (14-36) U/L ALT 17 (1-35) U/L Alkaline Phosphatase 159 H (38-126) U/L Albumin 2.8 L (3.5-5.0) g/dL Laboratory Tests 11/01/17 11/01/17 11/01/17 04:50 04:50 17:56 WBC Hgb MCV Plt Count 16 L* 19 L* Neutrophils % (Manual) Lymphocytes % (Manual) Monocytes % (Manual) Neutrophils # (Manual) Percent Retic Creatinine Total Bilirubin 1.70 H Alkaline Phosphatase 203 H Globulin 2.5 11/02/17 11/03/17 11/04/17 04:21 04:57 06:42 WBC 3.2 L D 5.7 D Hgb 9.2 L 9.0 L MCV Plt Count 14 L* 9 L* D 11 L* Neutrophils % (Manual) Lymphocytes % (Manual) Monocytes % (Manual) Neutrophils # (Manual) Percent Retic Creatinine Total Bilirubin Alkaline Phosphatase Globulin 11/04/17 11/05/17 11/05/17 06:42 03:55 03:59 WBC 4.4 L Hgb 8.6 L MCV 95.0 Plt Count 7 L* D Neutrophils % (Manual) 84.0 H Lymphocytes % (Manual) 14.0 L Monocytes % (Manual) 2.0 Neutrophils # (Manual) 3.7 Percent Retic 4.6 H Creatinine 0.7 Total Bilirubin 1.00 1.00 Alkaline Phosphatase 181 H 159 H Globulin 4.7 H 4.3 H Assessment and Plan Assessment and Plan: ASSESSMENT/PLAN 1. Acute immune thrombocytopenic purpura, ITP, in a patient with chronic inflammatory demyelinating polyneuropathy (CIDP), status post plasmapheresis IVIG and Imuran in the past. -She received IVIG, day 2 on 11/04/17.. Platelets is still low at 11,000 on and her lower today at 7000 on 11/05/17. Based on the drop of platelets and lack of response. Will obtain bone marrow biopsy. Will start process looking for Promacta and coverage. In doing bone marrow biopsy will obtain routine AFB and fungal cultures. -May consider Promacta if platelets count is not going up. -Daily CBC. 2. Chronic anemia with hemoglobin down to 6.8, status post blood transfusion a couple of weeks ago. Hemoglobin is stable. No evidence of active bleeding. Reticulocyte count was 4.6%. Hemoglobin is gradually declining. Laboratory Tests 11/03/17 11/04/17 11/05/17 04:57 06:42 03:55 Hgb 9.2 L 9.0 L 8.6 L We'll continue to follow. Will also do anemia workup with iron studies, B-12 folate 3. History of saddle pulmonary embolism with acute cor pulmonale, status post EKOS (catheter-assisted thrombolysis) in February 2017. History of DVT. -Eliquis discontinued CT scan showed no significant PE and venous Doppler is negative. -Due to the resistant thrombocytopenia and absence of PE and DVT I felt the risk of bleeding due to Eliquis overweighed the benefit. 4. 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 5. History of papillary thyroid cancer, status post thyroidectomy. - Time Spent With Patient Total time spent is greater than 50% in coordination of care (as documented) at patient's floor/unit and/or counseling patient: 25 - 35 minutes
--- NOTE | 2017-11-05 13:01 | Consultation ---
DATE OF CONSULTATION 11/25/[address] Aponte CHIEF COMPLAINT The patient's chief complaint is weakness. HISTORY OF PRESENT ILLNESS The patient is a 47-year-old female with history of CIDP for the past four years. This has caused her to have diffuse body weakness, numbness and a balance problem. The patient was recently admitted to the Rehab Unit at [facility] after having a complicated cholecystectomy. She was found to have a fungal infection caused by histoplasmosis. The patient's weakness and sensory deficits have been worse during this admission. The patient normally gets IVIG and plasmapheresis alternating every month at [facility]. This has helped maintain her strength and enabled her to be able to walk with a walker. Her last plasmapheresis was at the end of September. She also received some short course of steroid over five days at that time. This has helped her symptoms significantly. The patient denies getting any steroid besides that time. The patient was also found to have a thrombocytopenia problem of unknown etiology. There has been some concern for ITP. The patient received her last IVIG treatment on the and November 03. She has done a little bit better since then. Her labs and vitals have shown evidence of anemia and severe thrombocytopenia. Her thyroid function was abnormal with elevated TSH level. She has been by the deaf/hard of hearing specialist at [facility] for her thrombocytopenia problem. PHYSICAL EXAMINATION The patient was awake, alert, oriented x 3. Pupils were round, reactive and equal. Extraocular muscles were intact. Visual field was full. The patient was morbidly obese. She weighs around 134 kg. Her facial motor and sensory were normal. Speech was fluent. Motor examination in the upper extremities was 4 to 4+/5 and in the lower extremities was 4 to 4+/5. She has had worse weakness distally than proximally with some contractures in her finger joints. Her deep tendon reflexes were trace in all joints. Plantar reflexes were equivocal bilaterally. Coordination for [id number] was affected by the mild weakness in the upper extremities. Sensory examination was diminished for light touch, pinprick and temperature sensation in the legs up to the calves and in the hands up to the wrists. The patient was not able to stand and walk on her own. She needed assistance for that. ASSESSMENT 1. The patient presented with history of chronic inflammatory polyneuropathy. This has been stable on treatments including IVIG and plasmapheresis. The patient has been suffering from a very low platelet count which can be associated with ITP or other conditions. She has been also treated for histoplasmosis fungal infection. PLAN 1. No need for any further treatment for the CIDP at the present time. The patient may benefit from getting plasmapheresis in a month like she has been doing before, alternating between plasmapheresis and IVIG. 2. Avoid usage of steroids at present time due to the fungal infection unless it is necessary to be on it for her thrombocytopenia. 3. Follow up with oncology recommendations. 4. Continue physical and occupational therapy to improve balance and weakness. MTDD
[2017-11-05] MEDS ORDERED: LIDOCAINE 1% (10mg/ml) 5ml PF SDV ONE (14:50)
[2017-11-05] MEDS ORDERED: BUPIVACAINE 0.5% (5mg/ml) PF 30ml INJ SDV ONE (14:51)
--- NOTE | 2017-11-05 16:26 | CT Scan Report ---
Indication:Thrombocytopenia Procedure:CT biopsy bone marrow CT GUIDED BONE MARROW BIOPSY/ASPIRATION: The procedure including the benefits, risks, and alternatives were explained in detail to the patient. All of her questions were answered. They stated that they understood and wished to proceed. Informed consent was obtained. A pre-procedural timeout was done to verify the correct patient and procedure. Using sterile technique, local Xylocaine and Marcaine anesthesia, and CT guidance, an 11-gauge bone biopsy needle is advanced from a posterior approach into the right iliac bone. Approximately 15 cc of marrow is aspirated and a core biopsy was then taken. The needle was removed. There was no complication. Hemostasis was obtained and a compression bandage was applied. Following this, the patient was taken back to her room in the inpatient rehabilitation unit. She was in stable condition. Impression: Successful bone marrow biopsy performed from the posterior aspect of the right iliac bone. Ben Ponce RPA/JOSE MIGUEL performed this under my personal supervision. .
[2017-11-06] MEDS: LEVOTHYROXINE 175 MCG TABLET PO SCH (05:36)
[2017-11-06] MEDS: OMEPRAZOLE 20 MG CAPSULE PO SCH (05:37)
[2017-11-06] MEDS: MAGNESIUM OXIDE 400 MG TABLET PO SCH ×2 (08:55→17:40)
[2017-11-06] MEDS: VENLAFAXINE 75 MG TABLET PO SCH ×2 (08:55→17:39)
[2017-11-06] MEDS: ITRACONAZOLE 100 MG CAPSULE PO SCH ×2 (08:56→21:41)
[2017-11-06] MEDS: FUROSEMIDE 20 MG TABLET PO SCH (08:56)
[2017-11-06] MEDS: FOLIC ACID 1 MG TABLET PO SCH (08:56)
[2017-11-06] MEDS: METOCLOPRAMIDE 5mg TABLET PO SCH ×3 (08:57→21:41)
[2017-11-06] MEDS: ACETAMINOPHEN 325 MG TABLET PO PRN ×2 (08:57→17:40)
[2017-11-06] MEDS: LACTULOSE 20 GM/30 ML ORAL LIQUID PO SCH (08:57)
[2017-11-06] MEDS: SPIRONOLACTONE 50 MG TABLET PO SCH (08:57)
--- NOTE | 2017-11-06 10:37 | IRU Progress Note ---
- Subjective/Serverity of Illness Date: 11/06/17 Yony was assessed in her room with therapy present. She reports that her appetite remains good. Her stool output is minimal however. She denies abdominal pain at present. She denies nausea or vomiting. She denies shortness of breath at rest but seems to have some dyspnea with activity. She underwent bone marrow aspiration and biopsy yesterday under CT guidance in the right posterior superior iliac crest. She says it hurt but otherwise she tolerated well. Results are pending. She continues to have frequent voiding which is a barrier to her progress. She is on Lasix in this regard. She is felt to continue to have some fluid excess. However she is down some 11 kg since admission. The grenade type Hemovac via the Pleurx catheter is draining about 250 mL daily. It is serosanguineous. Blood count is reviewed. Hemoglobin stable at around 8.6. White count is normal. Platelet count improved up to 35,000 yesterday after transfusion and now back down to 25,000. There is no evidence of active bleeding. She remains off Eliquis due to the thrombocytopenia. Exam Vital Signs: Temperature 98.3 F 11/06/17 08:50 Pulse Rate 97 11/06/17 08:50 Respiratory Rate 14 11/06/17 08:50 Blood Pressure 113/66 11/06/17 08:50 Pulse Oximetry 94 11/06/17 08:50 Height/Weight/BMI: Height 1.68 m Weight 124.5 kg Body Mass Index 48.3 - Constitutional Present: no acute distress, well nourished, well developed, morbidly obese, cooperative - Routine HEENT Exam Head: Present: normocephalic Eye: Present: EOMI ENT: Present: mucous membranes moist, oropharynx clear - Routine Neck Exam Present: supple - Routine Respiratory Exam Present: CTA bilaterally. Absent: wheezes - Routine Cardiovascular Exam Present: RRR, S1, S2. Absent: murmur - Routine Abdominal Exam Present: soft, normoactive bowel sounds, non distended. Absent: tenderness Comments: No inflammation is noted in the several laparoscopy wounds. Collection bags are present. - Routine Extremities Exam Present: edema (trace), normal capillary refill - Routine Skin Exam Present: dry, warm - Routine Neurological Exam Present: alert, oriented X3, CN II-XII intact Has some increased tone and plantar flexion of both ankles/feet. - Routine Psychiatric Exam Present: normal affect, cooperative Results IRU - Labs Labs: I reviewed other providers notes as well as laboratory data and chart data. IRU A/P (1) CIDP (chronic inflammatory demyelinating polyneuropathy) Current visit: Yes Status: Chronic She was seen by Dr. Kate who believes that she does have CIDP. Recommends monthly treatment with either plasmapheresis or IVIG but no particular treatment at present. She continues to have quite a bit of weakness. She is cooperative with therapy but progress is slow. (2) Disseminated histoplasmosis Current visit: Yes Status: Acute Appreciate Dr. Rasheed assistance. She remains on itraconazole and tolerating it well. (3) Thrombocytopenia Current visit: Yes Status: Acute Platelets up to 35,000 after transfusion and now 25,000. No active bleeding. Bone marrow results pending. (4) Granulomatous hepatitis Current visit: Yes Status: Acute (5) Ascites Qualifiers: Ascites type: other type Qualified Code(s): R18.8 - Other ascites Current visit: Yes Status: Acute Etiology of ascites is unclear but likely related to fluid excess plus hypoalbuminemia. DVT Prophylaxis: SCD's Resuscitation Status: Full Code - Course Hospital Course: Sigifredo Lee MD: 11/02/17 10:59 Cooperative but slow progress with therapy. Continued significant muscle weakness. Tolerating itraconazole adequately. Thrombocytopenia is a concern. 11/05/17 10:28 Continued worsening platelet count despite IVIG. Cooperative but continues to demonstrate substantial weakness. Therapies are code treating for energy conservation. Remains on itraconazole. Eliquis has been discontinued. 11/06/17 10:39 Fluid weight is down. Remains on Lasix and frequent voiding. Platelets better after transfusion. Bone marrow exam yesterday with results pending. - Interventions to Obtain Goals PT Treatment Plan: Balance/Proprioception, Functional Activities, Manual Therapy , Patient/Family Education, Therapeutic Exercise OT Treatment Plan: ADL (Basic Care), Balance Training, IADL, Pt./Family Education, Ther. Exercise for ADL Goals Progress/Modifications: Have reviewed her overall medical status. I believe it is safe to continue therapy. Multidisciplinary conference today to assess overall progress and make plans for the future. Appreciate assistance of multiple specialists. Platelet count is improved after transfusion but then fell today. No active bleeding. Remains off Eliquis because of her low platelet count.
--- NOTE | 2017-11-06 13:42 | IRU Team Meeting ---
IRU Team Meeting - Nursing Bladder Assistive Devices Utilized:: Bedpan Bladder Management Level of Assist: Total Assistance Bladder Frequency of Accidents: 4 accidents this shift Bowel Assistive Devices Utilized:: Bedpan Bowel Management Level of Assist: Modified Independent Vital Signs: Vital Signs - 24 hr 11/05/17 23:10 11/06/17 08:50 Temperature 98.4 F 98.3 F Pulse Rate 94 97 Respiratory Rate 18 14 Blood Pressure 127/73 113/66 Pulse Oximetry 96 94 Current Medications: Acetaminophen (Tylenol) 650 mg PO Q4H PRN PRN Reason: Pain Last Admin: 11/06/17 08:57 Dose: 650 mg Albuterol/Ipratropium (Duoneb) 3 ml AEROSOL RTQID PRN Diphenhydramine HCl (Benadryl) 25 mg PO Q4H PRN PRN Reason: Itching Last Admin: 11/04/17 21:13 Dose: 25 mg Ergocalciferol (Vitamin D-2) 50,000 unit PO Cano@0900 [facility] Last Admin: 11/04/17 12:48 Dose: 50,000 unit Fentanyl (Duragesic Patch) 12 mcg TD Q3D [facility] Last Admin: 11/03/17 15:20 Dose: 12 mcg Fentanyl Citrate (Duragesic Patch Removal) 1 removal TD Q3D [facility] Last Admin: 11/03/17 15:21 Dose: 1 removal Folic Acid (Folate) 0.8 mg PO DAILY [facility] Last Admin: 11/06/17 08:56 Dose: 0.8 mg Furosemide (Lasix 20 Mg Tab) 60 mg PO DAILY [facility] Last Admin: 11/06/17 08:56 Dose: 60 mg Itraconazole (Itraconazole) 200 mg PO BID [facility] Last Admin: 11/06/17 08:56 Dose: 200 mg Lactulose (Lactulose) 20 gm PO DAILY [facility] Last Admin: 11/06/17 08:57 Dose: Not Given Levothyroxine Sodium (Synthroid) 175 mcg PO ACB [facility] Last Admin: 11/06/17 05:36 Dose: 175 mcg Magnesium Oxide (Magox) 400 mg PO BIDWM [facility] Last Admin: 11/06/17 08:55 Dose: 400 mg Metoclopramide HCl (Reglan) 5 mg PO TID [facility] Last Admin: 11/06/17 08:57 Dose: 5 mg Nystatin (Mycostatin) 15 applic TP TID [facility] Last Admin: 11/06/17 08:57 Dose: 15 applic Omeprazole (Prilosec) 20 mg PO ACB [facility] Last Admin: 11/06/17 05:37 Dose: 20 mg Ondansetron HCl (Zofran Po) 4 mg PO Q6HR PRN PRN Reason: nausea Last Admin: 11/04/17 09:43 Dose: 4 mg Polyethylene Glycol (Miralax) 17 gm PO DAILY PRN PRN Reason: Constipation Sodium Chloride (Iv Flush) 10 ml IV PRN PRN PRN Reason: Flushing Last Admin: 11/05/17 09:45 Dose: 10 ml Sodium Chloride (Normal Saline) 500 ml IV PRN PRN Sodium Chloride (Normal Saline) 500 ml IV PRN PRN Spironolactone (Aldactone) 50 mg PO DAILY [facility] Last Admin: 11/06/17 08:57 Dose: 50 mg Venlafaxine HCl (Effexor) 75 mg PO BIDWM [facility] Last Admin: 11/06/17 08:55 Dose: 75 mg Current Medical Issues: CIDP/weakness, edema, ascites, thrombocytopenia, disseminated histoplasmosis Comments: I certify that I personally led the interdisciplinary team meeting and agree with comments, barriers and goals indicated. Team meeting was held in the patient's room with the patient and the following family members present: patient alone. Maday is eating adequately. She received platelets yesterday. Her platelet count went up to 35,000 after the infusion and is now 25,000. She has no evidence of bleeding. Continues to have ascites fluid drained from the Pleurx catheter. Edema is improving. Weight is down. - Physical Therapy Bed, Chair, Wheelchair Transfer Assist: Total Assistance, 2 or More Person Assist Ambulation Ability: Patient Unsafe/Unable Stair Climbing Ability: Patient Unsafe/Unable Car Transfer Ability: Patient Unsafe/Unable Comments: Patient has made progress although is unable to demonstrate sit to stand due to ankle instability and weakness and pain. Edema is a barrier to progress in getting the AFO braces on along with shoes. She is progressing however with bed mobility and demonstrating good motivation. - Occupational Therapy Eating Ability: Modified Independent Grooming Ability: Stand By Assist/Supervision Bathing Ability: Moderate Assistance, 1 Person Assist Upper Body Dressing Ability: Moderate Assistance Lower Body Dressing Ability: Total Assistance Tub Transfer Assist: Patient Unsafe/Unable Toileting Assist: Total Assistance Toilet Transfer Assist: Total Assistance Comments: Patient is using assistive devices. She is making slow progress with occupational therapy goals. She continues to be limited by pain in both hands, legs and feet as well as abdominal discomfort. She is cooperative. - Goals Physical Therapy Goals: 11/06/17: 1. Sit to stand transfer (without the pravin lift) with 2 persons assist for safety. 2. Bed mobility (both supine to sit and sit to supine) with stand by assist. Occupational Therapy Goals: OT goals 11/06/17: 1.) Upper body dressing with set- up assist. 2.) Transfer to bed side commode with maximal assistance. - Barriers to Discharge Barriers to Attaining Goals: Pain Control, Medical Limitation, Other ( peripheral edema, weightbearing) - Care Plan Anticipated Length of Stay (days): 14 Anticipated Length of Stay: Reassess in one week Anticipated DC Destination: Home, Self Care, Home Health Service I have led this team conference and agree with the plan. Interventions/Goals: Patient has made progress although it is slow. She is able to diurese. Hopefully with additional fluid loss she'll be able to use the AFO braces consistently along with shoes. We will also institute [place] wraps bilaterally to reduce edema.
--- NOTE | 2017-11-06 14:01 | Progress Note ---
Exam Vital signs: Temperature 98.3 F 11/06/17 08:50 Pulse Rate 97 11/06/17 08:50 Respiratory Rate 14 11/06/17 08:50 Blood Pressure 113/66 11/06/17 08:50 Pulse Oximetry 94 11/06/17 08:50 - Constitutional no acute distress, obese, cooperative - Routine HEENT Exam Head: Present: normocephalic Eye: Present: PERRL, normal accommodation ENT: Present: mucous membranes moist - Routine Neck Exam Present: supple. Absent: lymphadenopathy - Routine Respiratory Exam Present: decreased breath sounds. Absent: wheezes - Routine Cardiovascular Exam Present: RRR. Absent: no murmur, gallop - Routine Abdominal Exam Present: soft, normoactive bowel sounds, drain (drains intact 3, no sign symptoms inflammation.). Absent: mass (no organomegaly or mass appreciated, but difficult to assess secondary to body habitus/obesity) - Routine Skin Exam Present: intact, dry, ecchymosis (bilateral upper arms.) - Routine Neurological Exam Present: alert, oriented X3, normal speech - Routine Psychiatric Exam Present: normal affect Oncology Results - Labs CBC & Chem 7: 11/06/17 04:17 11/06/17 04:17 Labs: Short CBC 11/05/17 11/06/17 Range/Units 20:12 04:17 WBC 5.4 (4.5-11.0) T/MM3 Hgb 8.6 L (12-16) GM/DL Hct 26.4 L (36-46) % Plt Count 35 L D 25 L* (130-400) T/MM3 BMP 11/06/17 04:17 Sodium 136 Potassium 4.1 Chloride 98 Carbon Dioxide 31 H BUN 17.0 Creatinine 0.8 Glucose 84 Calcium 8.3 L Liver Function 11/06/17 Range/Units 04:17 Albumin 2.7 L (3.5-5.0) g/dL Assessment and Plan Assessment and Plan: ASSESSMENT 1. Acute immune thrombocytopenic purpura, ITP, in a patient with chronic inflammatory demyelinating polyneuropathy (CIDP), status post plasmapheresis IVIG and Imuran in the past. -She received IVIG, day 2 on 11/04/17.. Platelets is still low at 11,000 on 11/04/17 , platelets are 7000 on 11/05/17, given one unit platelets. Repeat platelets today , 11/06/17 25,000 Based on the drop of platelets and lack of response, willl obtain bone marrow biopsy-this was done yesterday, 11/05/17. Will start process looking for Promacta and coverage. In doing bone marrow biopsy will obtain routine AFB and fungal cultures. -May consider Promacta if platelets count is not going up. -Daily CBC. 2. Chronic anemia with hemoglobin down to 6.8, status post blood transfusion a couple of weeks ago. Hemoglobin stable today, 11/06/17 at 8.6. No evidence of active bleeding. Reticulocyte count was 4.6%. Hemoglobin is gradually declining. Laboratory Tests 11/03/17 11/04/17 11/05/17 11/06/17 04:17 04:57 06:42 03:55 Hgb 9.2 L 9.0 L 8.6 L We'll continue to follow. Will also do anemia workup with iron studies, B-12 folate 3. History of saddle pulmonary embolism with acute cor pulmonale, status post EKOS (catheter-assisted thrombolysis) in February 2017. History of DVT. -Eliquis discontinued after scan showed no significant PE and venous Doppler negative. -Due to the resistant thrombocytopenia and absence of PE and DVT, felt the risk of bleeding due to Eliquis overweighed the benefit. 4. 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 5. History of papillary thyroid cancer, status post thyroidectomy. Continue supportive care/ follow counts. Await results of bone marrow biopsy. Dr. Franz reviewed plan with patient; she has no questions at this time. - Time Spent With Patient Total time spent is greater than 50% in coordination of care (as documented) at patient's floor/unit and/or counseling patient: less than 15 minutes
[2017-11-06] MEDS ORDERED: BISACODYL 10 MG SUPPOSITORY RECTALLY PRN (18:39)
[2017-11-07] MEDS: OMEPRAZOLE 20 MG CAPSULE PO SCH (05:58)
[2017-11-07] MEDS: LEVOTHYROXINE 175 MCG TABLET PO SCH (05:58)
[2017-11-07] MEDS: ACETAMINOPHEN 325 MG TABLET PO PRN ×2 (06:01→21:20)
--- NOTE | 2017-11-07 08:31 | ID Progress Note ---
Subjective Date: 11/07/17 Subjective: Mrs. Burdick was seen during breakfast this morning. Reports that her abdominal pain is improving. Denies any nausea vomiting diarrhea or fevers. She had a bone marrow biopsy yesterday and states that it was painful. Exam Vital Signs: Temperature 97.8 F 11/07/17 07:41 Pulse Rate 90 11/07/17 07:41 Respiratory Rate 18 11/07/17 07:41 Blood Pressure 118/73 11/07/17 07:41 Pulse Oximetry 98 11/07/17 07:41 Height/Weight/BMI: Height 1.68 m Weight 120.5 kg Body Mass Index 48.3 - Constitutional Present: no acute distress, well nourished, well developed - Routine HEENT Exam Head: Present: normocephalic, atraumatic Eye: Present: EOMI, PERRL ENT: Present: mucous membranes moist, oropharynx clear - Routine Neck Exam Present: supple - Routine Respiratory Exam Present: CTA bilaterally - Routine Cardiovascular Exam Present: RRR - Routine Abdominal Exam Present: soft, normoactive bowel sounds, non tender, drain (LLQ) - Routine Extremities Exam Present: edema (trace LEs). Absent: cyanosis, clubbing - Routine Skin Exam Present: intact. Absent: rash - Routine Neurological Exam Present: alert, oriented X3, CN II-XII intact, normal speech - Routine Psychiatric Exam Comments: flat affect Results - Labs CBC & Chem 7: 11/06/17 04:17 11/06/17 04:17 Labs: Laboratory Tests 11/01/17 04:50 Itraconazole 0.4 Hydroxyitraconazole 0.5 Impression: Presumed disseminated Histoplasmosis. Positive Urine Histo antigen 10/04/17. Severe polyneuropathy/CIDP, treated with plasmapharesis, steroids and also Imuran. Severe thrombocytopenia/ITP, s/p IVIG x 2. S/p bone marrow biopsy 11/05/17 Abdominal pain Cholelithiasis s/p lap jung, Pleurx catheter placement and liver biopsy 10/18/17 Granulomatous hepatitis on liver biopsy, ? Histoplasma Ascites, unclear etiology, with 1L fluid drained daily H/o PE treated with EKOS catheter in February 2017 Hypothyroidism, s/p thyroid cancer Obesity s/p lap banding PCN allergy H/o gallstone pancreatitis Anemia, normocytic Weakness/debility Recommendation: Continue Itraconazole 200mg po bid. Planning for 6-12 months of treatment. Itra serum level is 0.9 (itra + hydroxy), which is very close to the target of 1 -2mcg/mL. I would continue the same dose for now, and repeat the serum level next week. F/U on repeat serum and urine Histoplasma antigens. Continue PT/OT for weakness. Will follow up on bone marrow biopsy results. She has F/U scheduled with Dr. Coleman on 11/27/17.
[2017-11-07] MEDS: FUROSEMIDE 20 MG TABLET PO SCH (08:54)
[2017-11-07] MEDS: VENLAFAXINE 75 MG TABLET PO SCH ×2 (08:54→16:30)
[2017-11-07] MEDS: ITRACONAZOLE 100 MG CAPSULE PO SCH ×2 (08:54→21:21)
[2017-11-07] MEDS: FOLIC ACID 1 MG TABLET PO SCH (08:54)
[2017-11-07] MEDS: METOCLOPRAMIDE 5mg TABLET PO SCH ×3 (08:54→21:19)
[2017-11-07] MEDS: MAGNESIUM OXIDE 400 MG TABLET PO SCH ×2 (08:55→16:30)
[2017-11-07] MEDS: SPIRONOLACTONE 50 MG TABLET PO SCH (08:55)
[2017-11-07] MEDS: LACTULOSE 20 GM/30 ML ORAL LIQUID PO SCH (09:18)
--- NOTE | 2017-11-07 10:01 | Progress Note ---
- Date 11/07/17 Subjective: Maday is seen this morning during breakfast. She is alert, oriented and pleasant. She denies feeling short of breath or having chest pain. Denies any abdominal pain. She does complain of having some discomfort in bilateral feet. Appetite is good. She had 100% of breakfast. She remains afebrile, vital signs normal. PLT count this morning 25. Objective Vital signs: Temperature 97.8 F 11/07/17 07:41 Pulse Rate 90 11/07/17 07:41 Respiratory Rate 18 11/07/17 07:41 Blood Pressure 118/73 11/07/17 07:41 Pulse Oximetry 98 11/07/17 07:41 Height/Weight/BMI: Height 1.68 m Weight 120.5 kg Body Mass Index 48.3 - Constitutional Present: no acute distress, well nourished, well developed - Routine HEENT Exam Eye: Present: EOMI ENT: Present: mucous membranes moist, dentition normal - Routine Respiratory Exam Present: CTA bilaterally. Absent: wheezes - Routine Cardiovascular Exam Present: RRR, S1, S2. Absent: murmur - Routine Abdominal Exam Present: soft, normoactive bowel sounds, non distended, drain. 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 Distal spinal muscular atrophy and muscle atrophy of lower extremities with gait instability Saddle embolus of the pulmonary artery with acute cor pulmonale, treated with EKOS catheter in February,. Also with history of DVT. Anticoagulated on Eliquis. Chronic anemia and thrombocytopenia Hypertension. 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 Ascites, unknown cause, with Pleurx drain inserted on 10/18/17. Hepatic steatosis. Possible early cirrhosis Mild protein calorie malnutrition Morbid obesity and hypoventilation syndrome Asthma Papillary cancer of thyroid, Post-surgical hypothyroidism. Right ovarian dermoid cyst Depression Onychocryptosis Echocardiogram February 2017: EF greater than 55%, right ventricular systolic function is moderately reduced, mild tricuspid regurgitation. On 10/29/17: WBC was 9.3, hemoglobin 9.4, hematocrit 28.4, platelets 34, sodium 129, potassium 3.2, BUN 10, creatinine 0.6. Blood pressure was 93/56 to 104/60 with heart rate in the 70s. She was maintaining saturations on room air. She has an appointment scheduled with Dr. Angel Coleman with infectious disease on November 27 at 2:30 PM. PLAN Appreciate consultations- Dr Franz, Dr Rasheed and Dr Kate Remains on Itraconazole BID; likely need for 6-12 months as recommended by Dr Wili Franz and Dr Rand following regarding thrombocytopenia. PLT today 25. Bone marrow biopsy results pending Continue on fluid restriction and monitor abdominal drainage often. Lasix 60 mg daily. Monitor CBC and BMP daily Encourage ongoing work with PT/OT - Physician Narrative Narrative: Date: 11/07/17 Time: 0956 Hospital Course Summary Disclaimer: The visit summary below is not to be considered part of the above Progress Note. Hospital Course: 10/31/17 Extremely complicated case. Agree with ID consultation. Discharge instructions recommended to check an itraconazole drug level - this has been ordered for tomorrow am along with CBC, CMP, magnesium level. Continue fluid restriction; carb consistent diet. Check BGM, though in [place] she was not requiring SSI. Check daily weights. Will obtain Rt leg venous doppler. Even though she's on Eliquis, this was temporarily held during her hospitalization because of anemia and thrombocytopenia, and she is certainly at high risk for DVT. Report to Dr. Lee indicated they are to drain Pleurx daily, approx. 1L of fluid. Discussed with Dr. Lee and nursing staff. Extensive chart review. At time of Discharge from [facility], she was started on Eliquis 2.5 mg twice a day, Benadryl 25 mg if needed for itching, fentanyl 12 g patch, Lasix 40 mg daily, itraconazole 200 mg twice a day, and lactulose 20 g daily. She is also to be taking: Ergocalciferol 50,000 units once a week, folic acid 0.8 mg daily, levothyroxine 175 g daily, Mag-Ox 400 mg with supper, medical Paremyd 5 mg 30 minutes before meals, nystatin powder 3 times a day as needed, omeprazole 20 mg daily, Zofran 4 mg ODT as needed, MiraLAX 17 g daily when necessary, spironolactone 50 mg daily, Effexor 75 mg twice a day. She has an appointment scheduled with Dr. Angel Coleman with infectious disease on November 27 at 2:30 PM. 11/03/17 Extremely complicated case. ID consultation. Discharge instructions recommended to check an itraconazole drug level-currently pending. Continue fluid restriction; carb consistent diet. BG has been low normal. Reports tolerating PO w/o difficulty. Bilateral LE doppler was negative for DVT. CTA was a bit limited, but did not show any acute PE. She is on Eliquis, but Dr. Franz to determine possible stopping due to low platelets. Intra-abdominal draining of Pleurx daily, approx. 1L of fluid, recommended on discharge. Multiple abdominal drains noted. Recent complete GB removal. ITP with further decline of platelets- per Dr. Franz. IVIG given yesterday and is to be repeated today. Decadron, Benadryl given daily as well. Continue low dose fentanyl patch for pain and PRN APAP. Concern for atelectasis vs. pneumonia- encourage pulmonary toilet. Continue to monitor closely. Labs and chart reviewed. D/W Dr. Aponte. 11/04/17 ID consultation for histoplasma infection. Itraconazole drug level currently pending. Dr. Rasheed to see Sunday. Neuro consultation for CIDP. Dr. Kate to see Sunday. Dr. Franz has seen patient for ITP. Initiated IVIG, Decadron and Benadryl. Anticoagulation has been discontinued. No DVT in her legs and no acute pulmonary emboli. SCDs for DVT prophylaxis. Platelets up from yesterday. 9000-- >11,000. Continue fluid restriction. Intra-abdominal draining of Pleurx daily, approx. 1L of fluid, recommended on discharge. Continue low dose fentanyl patch for pain and PRN APAP. TSH very slightly elevated. Free T4 pending. No adjustment made to thyroid med. Increase Lasix to 60mg and elevate legs AMAP for pedal edema. Follow electrolytes. 11/05 Appreciate consultations- Dr Franz, Dr Rasheed and Dr Kate Remains on Itraconazole BID; likely need for 6-[address] Franz and Dr Rand following regarding probable IPT and thrombocytopenia. PLT today 7. Eliquis stopped given negative findings of thrombus of scans over the weekend Continue on fluid restriction and monitor abdominal drainage often. Lasix was increased 11/04/17. Follow weights and edema Monitor CBC and BMP daily Encourage ongoing work with PT/OT Case discussed with attending
--- NOTE | 2017-11-07 10:14 | IRU Progress Note ---
- Subjective/Serverity of Illness Date: 11/07/17 Maday was interviewed and examined today in her room with therapy present. She complains of more joint discomforts particularly in the ankles and wrists. She remains on fentanyl patch. Acetaminophen is available on an as-needed basis. Her appetite is good. She denies any nausea or vomiting. There is some dyspnea with activity. However she has been fairly sedentary. We started wrapping her lower extremities yesterday. Edema is much improved. Weight was down considerably yesterday. Today it is up a bit. On October 31 she was 135 kg. Yesterday she was 120 kg and today 123 kg. Hopefully AFO braces and shoes will be able to be worn at the present time in an effort to help her to stand and begin ambulation. She states that the last time she walked was October 08. Drainage from the Hemovac is serosanguineous. Quantity ranges between 25 mL and 160 mL. Exam Vital Signs: Temperature 97.8 F 11/07/17 07:41 Pulse Rate 90 11/07/17 07:41 Respiratory Rate 18 11/07/17 07:41 Blood Pressure 118/73 11/07/17 07:41 Pulse Oximetry 98 11/07/17 07:41 Height/Weight/BMI: Height 1.68 m Weight 120.5 kg Body Mass Index 48.3 - Constitutional Present: mild distress (Joint aches reported), well nourished, well developed, morbidly obese - Routine HEENT Exam Head: Present: normocephalic Eye: Present: EOMI ENT: Present: mucous membranes moist, oropharynx clear. Absent: dentition normal - Routine Neck Exam Present: supple - Routine Respiratory Exam Present: CTA bilaterally. Absent: wheezes - Routine Cardiovascular Exam Present: RRR, S1, S2. Absent: murmur - Routine Abdominal Exam Present: soft, normoactive bowel sounds, non distended. Absent: tenderness Comments: Drainage bags and Pleurx catheter remain in place. No inflammation noted. Abdomen remains soft. Normoactive bowel sounds are present. - Routine Extremities Exam Present: no edema, normal capillary refill Comments: I do not detect any edema at the present time. - Routine Skin Exam Present: dry, warm - Routine Neurological Exam Present: alert, oriented X3, CN II-XII intact, motor deficit (generalized muscle weakness continues to be present. It is not asymmetric.) - Routine Psychiatric Exam Present: normal affect, normal thought process, cooperative, good insight, good judgment Results IRU - Labs Labs: No lab available today. IRU A/P (1) CIDP (chronic inflammatory demyelinating polyneuropathy) Current visit: Yes Status: Chronic Patient continues to demonstrate substantial bilateral upper and lower extremity muscle weakness. Has discomfort in the joints which may or may not be related to her polyneuropathy. (2) Disseminated histoplasmosis Current visit: Yes Status: Acute Itraconazole level 0.9 with goal 1-2. Dr. Rasheed monitoring and plans to keep dose the same at present. Reassess in a week. (3) Thrombocytopenia Current visit: Yes Status: Acute We will repeat the CBC today. Bone marrow evaluation is pending. (4) Granulomatous hepatitis Current visit: Yes Status: Acute (5) Ascites Qualifiers: Ascites type: other type Qualified Code(s): R18.8 - Other ascites Current visit: Yes Status: Acute Quantity of ascitic fluid output is decreasing. Hopefully this represents true improvement in her ascites. DVT Prophylaxis: SCD's Resuscitation Status: Full Code - Course Hospital Course: Sigifredo Lee MD: 11/02/17 10:59 Cooperative but slow progress with therapy. Continued significant muscle weakness. Tolerating itraconazole adequately. Thrombocytopenia is a concern. 11/05/17 10:28 Continued worsening platelet count despite IVIG. Cooperative but continues to demonstrate substantial weakness. Therapies are code treating for energy conservation. Remains on itraconazole. Eliquis has been discontinued. 11/06/17 10:39 Fluid weight is down. Remains on Lasix and frequent voiding. Platelets better after transfusion. Bone marrow exam yesterday with results pending. 11/07/17 10:18 Edema improved. Started wrapping legs yesterday. Bone marrow results pending. Reassess lab today. - Interventions to Obtain Goals PT Treatment Plan: Balance/Proprioception, Functional Activities, Manual Therapy , Patient/Family Education, Therapeutic Exercise OT Treatment Plan: ADL (Basic Care), Balance Training, IADL, Pt./Family Education, Ther. Exercise for ADL Goals Progress/Modifications: Have reassessed medical issues in this complex patient. Appreciate assistance of consultants. Weight was down yesterday but back up a bit today. However edema appears to be substantially improved. Hopefully with this improvement in the edema, her AFO braces and shoes can be worn in order to facilitate standing and eventual ambulation. She does complain of increased pain in the joints which may or may not be related to her polyneuropathy. She is on a fentanyl patch. I'm reluctant to increase that at present. Hopefully with increased range of motion her joint pains will improve. Appetite remains good. Bone marrow examination is pending which should tell us if she is making platelets or not. In addition, we will allow assessment for fungal involvement of bone marrow.
--- NOTE | 2017-11-07 14:32 | Progress Note ---
Oncology Subjective The patient remains staple, working on physical therapy team daily. She has no bleeding. Platelets still low at 15,000. Bone marrow aspiration and biopsy showed hypocellular marrow for heart age, 35% cellularity. There is increased megakaryocytes suggestive of peripheral destruction. The bone marrow showed no evidence of leukemia or dysplasia, no infiltrative process, no granuloma, no metastatic disease. Exam Vital signs: Temperature 97.8 F 11/07/17 07:41 Pulse Rate 90 11/07/17 07:41 Respiratory Rate 18 11/07/17 07:41 Blood Pressure 118/73 11/07/17 07:41 Pulse Oximetry 98 11/07/17 07:41 - Constitutional no acute distress, cooperative Comments: The patient is bed ridden. - Routine Respiratory Exam Absent: rhonchi, wheezes, crackles - Routine Cardiovascular Exam Present: RRR - Routine Abdominal Exam Present: soft Comments: There are 3 drains in the abdomen. Oncology Results - Labs CBC & Chem 7: 11/07/17 11:09 11/07/17 11:09 Labs: Short CBC 11/07/17 Range/Units 11:09 WBC 5.2 (4.5-11.0) T/MM3 Hgb 10.0 L D (12-16) GM/DL Hct 30.9 L D (36-46) % Plt Count 15 L* D (130-400) T/MM3 BMP 11/07/17 11:09 Sodium 138 Potassium 4.2 Chloride 97 L Carbon Dioxide 30 BUN 14.0 Creatinine 0.8 Glucose 101 Calcium 8.6 Liver Function 11/07/17 Range/Units 11:09 Total Bilirubin 1.50 H (0.20-1.30) MG/DL AST 35 (14-36) U/L ALT 25 (1-35) U/L Alkaline Phosphatase 163 H (38-126) U/L Albumin 3.4 L (3.5-5.0) g/dL Assessment and Plan Assessment and Plan: ASSESSMENT/PLAN: 1. Acute immune thrombocytopenic purpura, ITP, not responding to steroids or IVIG. -We'll start the patient on prophylactic. -Monitor blood counts and liver enzymes. 2. Chronic inflammatory demyelinating polyneuropathy (CIDP), status post plasmapheresis IVIG and Imuran in the past. 3. Chronic anemia with hemoglobin down to 6.8, status post blood transfusion, hemoglobin stable at 10. -The patient may benefit from iron infusion. 4. History of saddle pulmonary embolism with acute cor pulmonale, status post EKOS (catheter-assisted thrombolysis) in February 2017. History of DVT. -Eliquis discontinued after scan showed no significant PE and venous Doppler negative. -Due to the resistant thrombocytopenia and absence of PE and DVT, I felt the risk of bleeding due to Eliquis overweighed the benefit. 5. 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 6. History of papillary thyroid cancer, status post thyroidectomy. - Time Spent With Patient Total time spent is greater than 50% in coordination of care (as documented) at patient's floor/unit and/or counseling patient: less than 15 minutes
[2017-11-07] MEDS: DiphenhydrAMINE 25 MG CAPSULE PO PRN (21:19)
[2017-11-08] MEDS: OMEPRAZOLE 20 MG CAPSULE PO SCH (05:32)
[2017-11-08] MEDS: ACETAMINOPHEN 325 MG TABLET PO PRN ×4 (05:32→20:08)
[2017-11-08] MEDS: LEVOTHYROXINE 175 MCG TABLET PO SCH (05:32)
[2017-11-08] MEDS: VENLAFAXINE 75 MG TABLET PO SCH ×2 (08:32→18:23)
[2017-11-08] MEDS: MAGNESIUM OXIDE 400 MG TABLET PO SCH ×2 (08:32→18:23)
[2017-11-08] MEDS: FOLIC ACID 1 MG TABLET PO SCH (08:32)
[2017-11-08] MEDS: SPIRONOLACTONE 50 MG TABLET PO SCH (08:34)
[2017-11-08] MEDS: METOCLOPRAMIDE 5mg TABLET PO SCH ×3 (08:34→20:07)
[2017-11-08] MEDS: FUROSEMIDE 20 MG TABLET PO SCH (08:34)
[2017-11-08] MEDS: ITRACONAZOLE 100 MG CAPSULE PO SCH ×2 (08:35→20:07)
[2017-11-08] MEDS: LACTULOSE 20 GM/30 ML ORAL LIQUID PO SCH (08:35)
--- NOTE | 2017-11-08 15:23 | Progress Note ---
<Frances Gardner - Last Filed: 11/08/17 16:59> Oncology Subjective Alone in room at time of intake. Alert and oriented. Denies pain currently. Denies cough or shortness of air. States is eating and drinking normally. Denies bleeding. No dysuria/hematuria. Normal BM yesterday. General: No fever, no night sweats Eyes: No redness, no pain, no diplopia ENT: No mouth sores, no trouble swallowing Cardiac: No chest pain no palpitations Pulmonary: No cough, no shortness of breath, no wheezing Abdomen: No pain, no nausea vomiting, no diarrhea or constipation : No urgency, frequency, dysuria, or hematuria Musculoskeletal: Generalized weakness. Patient is nonambulatory, states stood up today and was pleased Neurological: No headaches, no focal weakness Skin: No rash, no sores Psychiatric: No anxiety, no depression Exam Vital signs: Temperature 98.6 F 11/08/17 07:42 Pulse Rate 85 11/08/17 07:42 Respiratory Rate 14 11/08/17 07:42 Blood Pressure 124/69 11/08/17 07:42 Pulse Oximetry 96 11/07/17 21:15 - Constitutional no acute distress, obese, cooperative - Routine HEENT Exam Head: Present: normocephalic Eye: Present: EOMI, conjunctivae pink ENT: Present: mucous membranes moist - Routine Neck Exam Present: supple. Absent: lymphadenopathy - Routine Respiratory Exam Present: decreased breath sounds. Absent: wheezes, crackles - Routine Cardiovascular Exam Present: RRR, no murmur - Routine Abdominal Exam Present: soft, non distended, drain (X3, no signs/sx inflammation). Absent: mass (No organomegaly or mass, but difficult to assess secondary to body habitus.) - Routine Extremities Exam Present: edema (trace pedcal edema) - Routine Skin Exam Present: dry, pallor - Routine Neurological Exam Present: alert, oriented X3 - Routine Psychiatric Exam Present: normal affect, cooperative Oncology Results - Labs CBC & Chem 7: 11/08/17 04:58 11/07/17 11:09 Labs: Short CBC 11/08/17 Range/Units 04:58 WBC 4.9 (4.5-11.0) T/MM3 Hgb 10.1 L (12-16) GM/DL Hct 31.0 L (36-46) % Plt Count 23 L* D (130-400) T/MM3 Assessment and Plan Assessment and Plan: ASSESSMENT 1. Acute immune thrombocytopenic purpura, ITP, not responding to steroids or IVIG. 2. Chronic inflammatory demyelinating polyneuropathy (CIDP), status post plasmapheresis IVIG and Imuran in the past. 3. Chronic anemia with hemoglobin down to 6.8, status post blood transfusion, hemoglobin stable at 10. -The patient may benefit from iron infusion. 4. History of saddle pulmonary embolism with acute cor pulmonale, status post EKOS (catheter-assisted thrombolysis) in February 2017. History of DVT. -Eliquis discontinued after scan showed no significant PE and venous Doppler negative. -Due to the resistant thrombocytopenia and absence of PE and DVT, I felt the risk of bleeding due to Eliquis overweighed the benefit. 5. 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 6. History of papillary thyroid cancer, status post thyroidectomy. Plan Continue supportive care. Plan to give Promacta. Dr. Franz has discussed with pharmacy; Promacta has been ordered. Pharmacy to put in drug order when Promacta available. Continue to follow blood counts and liver enzymes - Time Spent With Patient Total time spent is greater than 50% in coordination of care (as documented) at patient's floor/unit and/or counseling patient: less than 15 minutes <Sbeas Rand - Last Filed: 11/08/17 22:14> Exam Vital signs: Temperature 98.5 F 11/08/17 19:55 Pulse Rate 88 11/08/17 19:55 Respiratory Rate 16 11/08/17 19:55 Blood Pressure 130/79 11/08/17 19:55 Pulse Oximetry 93 11/08/17 19:55 Oncology Results - Labs CBC & Chem 7: 11/08/17 04:58 11/07/17 11:09 Labs: Short CBC 11/08/17 Range/Units 04:58 WBC 4.9 (4.5-11.0) T/MM3 Hgb 10.1 L (12-16) GM/DL Hct 31.0 L (36-46) % Plt Count 23 L* D (130-400) T/MM3 Liver Function 11/08/17 Range/Units 14:51 Total Bilirubin 1.40 H (0.20-1.30) MG/DL AST 28 (14-36) U/L ALT 24 (1-35) U/L Alkaline Phosphatase 182 H (38-126) U/L Albumin 3.3 L (3.5-5.0) g/dL Assessment and Plan Assessment and Plan: Patient examined chart reviewed. I participated in the development of the plan of care of this patient. Promacta ordered. Bone marrow shows adequate megas therefore peripheral destructive consumptive process that can include ITP, Liver disease and hypersplenism, drug related and infection related. Promacta will increase production of platelets. Bone marrow culture pending. B 12 and Folate normal. Thyroglobin and antithyroglobin antibody ordered. Laboratory Tests 11/05/17 11/05/17 11/07/17 09:12 09:12 11:09 WBC Hgb MCV Plt Count Metamyelocytes % 2.0 H Myelocytes % 1.0 H Promyelocytes % 1.0 H Total Bilirubin Alkaline Phosphatase Vitamin B12 > 1000 H Folate 15.8 Homocysteine 5.7 11/07/17 11/08/17 11/08/17 11:09 04:58 14:51 WBC 4.9 Hgb 10.1 L MCV 96.0 Plt Count 23 L* D Metamyelocytes % Myelocytes % Promyelocytes % Total Bilirubin 1.50 H 1.40 H Alkaline Phosphatase 163 H 182 H Vitamin B12 Folate Homocysteine - Time Spent With Patient Total time spent is greater than 50% in coordination of care (as documented) at patient's floor/unit and/or counseling patient:
[2017-11-08] MEDS: DiphenhydrAMINE 25 MG CAPSULE PO PRN (20:08)
[2017-11-09] MEDS: DiphenhydrAMINE 25 MG CAPSULE PO PRN ×2 (00:46→20:11)
[2017-11-09] MEDS: OMEPRAZOLE 20 MG CAPSULE PO SCH (05:52)
[2017-11-09] MEDS: LEVOTHYROXINE 175 MCG TABLET PO SCH (05:52)
[2017-11-09] MEDS: ACETAMINOPHEN 325 MG TABLET PO PRN ×2 (07:38→20:10)
[2017-11-09] MEDS: ITRACONAZOLE 100 MG CAPSULE PO SCH ×2 (09:29→20:12)
[2017-11-09] MEDS: LACTULOSE 20 GM/30 ML ORAL LIQUID PO SCH (09:29)
[2017-11-09] MEDS: VENLAFAXINE 75 MG TABLET PO SCH ×2 (09:29→17:39)
[2017-11-09] MEDS: METOCLOPRAMIDE 5mg TABLET PO SCH ×3 (09:30→21:08)
[2017-11-09] MEDS: FOLIC ACID 1 MG TABLET PO SCH (09:30)
[2017-11-09] MEDS: SPIRONOLACTONE 50 MG TABLET PO SCH (09:30)
[2017-11-09] MEDS: MAGNESIUM OXIDE 400 MG TABLET PO SCH ×2 (09:30→17:39)
--- NOTE | 2017-11-09 10:30 | Progress Note ---
- Date 11/09/17 Subjective: Autumn was seen after her shower, before breakfast. She's sweating from her shower. She continues to have pain in her legs, feet, and abdomen (postop). She is having tremors, which she state started her in IRU. She denies SOA or chest pain or palpitations. She is highly motivated per staff. She denies abdominal pain or GI complaints. She needed a suppository for constipation a couple of days ago but denies any pain, nausea, or bloating. She has no concerns about her drains. Objective Vital signs: Temperature 98.1 F 11/09/17 08:00 Pulse Rate 100 11/09/17 08:00 Respiratory Rate 18 11/09/17 08:00 Blood Pressure 125/69 11/09/17 08:00 Pulse Oximetry 90 11/09/17 08:00 Height/Weight/BMI: Height 1.68 m Weight 117.7 kg Body Mass Index 48.3 - Constitutional Present: no acute distress, well nourished, well developed, morbidly obese - Routine HEENT Exam Head: Present: normocephalic Eye: Present: PERRL. Absent: conjunctival icterus, scleral injection ENT: Present: oropharynx clear - Routine Respiratory Exam Present: CTA bilaterally - Routine Cardiovascular Exam Present: RRR, S1, S2 - Routine Abdominal Exam Present: soft, normoactive bowel sounds, non distended, non tender, drain (3 drains in all; serosanguinous drainage in GONZ[place]LEZ drain.) - Routine Extremities Exam Present: pulses intact - Routine Skin Exam Present: intact, warm, ecchymosis (purpuric lesions to exposed areas of arms). 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 Distal spinal muscular atrophy and muscle atrophy of lower extremities with gait instability Saddle embolus of the pulmonary artery with acute cor pulmonale, treated with EKOS catheter in February,. Also with history of DVT. Anticoagulated on Eliquis. Chronic anemia and thrombocytopenia Hypertension. 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 Ascites, unknown cause, with Pleurx drain inserted on 10/18/17. Hepatic steatosis. Possible early cirrhosis Mild protein calorie malnutrition Morbid obesity and hypoventilation syndrome Asthma Papillary cancer of thyroid, Post-surgical hypothyroidism. Right ovarian dermoid cyst Depression Onychocryptosis Echocardiogram February 2017: EF greater than 55%, right ventricular systolic function is moderately reduced, mild tricuspid regurgitation. On 10/29/17: WBC was 9.3, hemoglobin 9.4, hematocrit 28.4, platelets 34, sodium 129, potassium 3.2, BUN 10, creatinine 0.6. Blood pressure was 93/56 to 104/60 with heart rate in the 70s. She was maintaining saturations on room air. She has an appointment scheduled with Dr. Angel Coleman with infectious disease on November 27 at 2:30 PM. PLAN Hgb up to 10, plt 23 yesterday - will repeat labs today. Had a platelet pheresis pack on 10/31 and 11/05. Promacta ordered per heme. Bone marrow aspiration and biopsy showed hypocellular marrow for heart age, 35% cellularity, increased megakaryocytes suggestive of peripheral destruction (can include ITP, Liver disease and hypersplenism, drug related and infection related ). The bone marrow showed no evidence of leukemia or dysplasia, no infiltrative process, no granuloma, no metastatic disease. Anticoagulants have been discontinued per heme because risk outweighs benefit. BP stable. Working well with therapy. Pt tends to void frequently after Lasix dose, which interrupts therapy. Change dosing time to 1300. Continue Itraconazole BID for 6-12 months as recommended by Dr Rasheed GI Prophylaxis: other Resuscitation Status: Full Code - Physician Narrative Narrative: Date: 11/09/17 Time: 1027 Hospital Course Summary Disclaimer: The visit summary below is not to be considered part of the above Progress Note. Hospital Course: 10/31/17 Extremely complicated case. Agree with ID consultation. Discharge instructions recommended to check an itraconazole drug level - this has been ordered for tomorrow am along with CBC, CMP, magnesium level. Continue fluid restriction; carb consistent diet. Check BGM, though in [place] she was not requiring SSI. Check daily weights. Will obtain Rt leg venous doppler. Even though she's on Eliquis, this was temporarily held during her hospitalization because of anemia and thrombocytopenia, and she is certainly at high risk for DVT. Report to Dr. Lee indicated they are to drain Pleurx daily, approx. 1L of fluid. Discussed with Dr. Lee and nursing staff. Extensive chart review. At time of Discharge from [facility], she was started on Eliquis 2.5 mg twice a day, Benadryl 25 mg if needed for itching, fentanyl 12 g patch, Lasix 40 mg daily, itraconazole 200 mg twice a day, and lactulose 20 g daily. She is also to be taking: Ergocalciferol 50,000 units once a week, folic acid 0.8 mg daily, levothyroxine 175 g daily, Mag-Ox 400 mg with supper, medical Paremyd 5 mg 30 minutes before meals, nystatin powder 3 times a day as needed, omeprazole 20 mg daily, Zofran 4 mg ODT as needed, MiraLAX 17 g daily when necessary, spironolactone 50 mg daily, Effexor 75 mg twice a day. She has an appointment scheduled with Dr. Angel Coleman with infectious disease on November 27 at 2:30 PM. 11/03/17 Extremely complicated case. ID consultation. Discharge instructions recommended to check an itraconazole drug level-currently pending. Continue fluid restriction; carb consistent diet. BG has been low normal. Reports tolerating PO w/o difficulty. Bilateral LE doppler was negative for DVT. CTA was a bit limited, but did not show any acute PE. She is on Eliquis, but Dr. Dixonamin to determine possible stopping due to low platelets. Intra-abdominal draining of Pleurx daily, approx. 1L of fluid, recommended on discharge. Multiple abdominal drains noted. Recent complete GB removal. ITP with further decline of platelets- per Dr. Franz. IVIG given yesterday and is to be repeated today. Decadron, Benadryl given daily as well. Continue low dose fentanyl patch for pain and PRN APAP. Concern for atelectasis vs. pneumonia- encourage pulmonary toilet. Continue to monitor closely. Labs and chart reviewed. D/W Dr. Aponte. 11/04/17 ID consultation for histoplasma infection. Itraconazole drug level currently pending. Dr. Rasheed to see Sunday. Neuro consultation for CIDP. Dr. Kate to see Sunday. Dr. Franz has seen patient for ITP. Initiated IVIG, Decadron and Benadryl. Anticoagulation has been discontinued. No DVT in her legs and no acute pulmonary emboli. SCDs for DVT prophylaxis. Platelets up from yesterday. 9000-- >11,000. Continue fluid restriction. Intra-abdominal draining of Pleurx daily, approx. 1L of fluid, recommended on discharge. Continue low dose fentanyl patch for pain and PRN APAP. TSH very slightly elevated. Free T4 pending. No adjustment made to thyroid med. Increase Lasix to 60mg and elevate legs AMAP for pedal edema. Follow electrolytes. 11/05/17 Appreciate consultations- Dr Franz, Dr Rasheed and Dr Kate Remains on Itraconazole BID; likely need for 6-[address] Franz and Dr Rand following regarding probable IPT and thrombocytopenia. PLT today 7. Eliquis stopped given negative findings of thrombus of scans over the weekend Continue on fluid restriction and monitor abdominal drainage often. Lasix was increased 11/04/17. Follow weights and edema 11/09/17 Hgb up to 10, plt 23 yesterday - will repeat labs today. Had a platelet pheresis pack on 10/31 and 11/05. Promacta ordered per heme. Bone marrow aspiration and biopsy showed hypocellular marrow for heart age, 35% cellularity, increased megakaryocytes suggestive of peripheral destruction (can include ITP, Liver disease and hypersplenism, drug related and infection related ). The bone marrow showed no evidence of leukemia or dysplasia, no infiltrative process, no granuloma, no metastatic disease. Anticoagulants have been discontinued per heme because risk outweighs benefit. BP stable. Working well with therapy. Pt tends to void frequently after Lasix dose, which interrupts therapy. Change dosing time to 1300. Continue Itraconazole BID for 6-12 months as recommended by Dr Rasheed
[2017-11-09] MEDS: ELTROMBOPAG PO SCH (11:48)
[2017-11-09] MEDS ORDERED: FUROSEMIDE 20 MG TABLET PO SCH (13:00)
--- NOTE | 2017-11-09 13:09 | Progress Note ---
<Frances Gardner - Last Filed: 11/09/17 16:23> Oncology Subjective Alone in room at time of intake. Alert and oriented. Chronic intermittent pain bilateral extremities. Comfortable currently. Denies any bleeding. Is eating and drinking normally. States normal bowel movement yesterday. No dysuria/hematuria General: No fever, no night sweats Eyes: No redness, no pain, no diplopia ENT: No mouth sores, no trouble swallowing Cardiac: No chest pain no palpitations Pulmonary: No cough, no shortness of breath, no wheezing Abdomen: No pain, no nausea vomiting, no diarrhea or constipation : No urgency, frequency, dysuria, or hematuria Musculoskeletal: Generalized weakness bilateral lower extremities. Neurological: No headaches, no focal weakness Skin: No rash, no sores Psychiatric: No anxiety, no depression Exam Vital signs: Temperature 98.1 F 11/09/17 08:00 Pulse Rate 100 11/09/17 08:00 Respiratory Rate 18 11/09/17 08:00 Blood Pressure 125/69 11/09/17 08:00 Pulse Oximetry 90 11/09/17 08:00 - Constitutional no acute distress, morbidly obese - Routine HEENT Exam Head: Present: normocephalic Eye: Present: PERRL ENT: Present: mucous membranes dry - Routine Neck Exam Present: supple. Absent: lymphadenopathy, tenderness - Routine Respiratory Exam Present: decreased breath sounds. Absent: wheezes - Routine Cardiovascular Exam Present: RRR, no murmur - Routine Abdominal Exam Present: soft, non tender. Absent: mass (Single drain left lower quadrant. No signs/ symptoms inflammation. Dressings to right abdomen where prior drains.) - Routine Extremities Exam Present: non tender - Routine Skin Exam Present: dry. Absent: rash - Routine Neurological Exam Present: alert, oriented X3 - Routine Psychiatric Exam Present: normal affect, cooperative Oncology Results - Labs CBC & Chem 7: 11/09/17 11:02 11/09/17 11:02 Labs: Short CBC 11/09/17 Range/Units 11:02 WBC 4.5 (4.5-11.0) T/MM3 Hgb 10.8 L (12-16) GM/DL Hct 33.3 L (36-46) % Plt Count 56 L D (130-400) T/MM3 BMP 11/09/17 11:02 Sodium 136 Potassium 3.7 Chloride 95 L Carbon Dioxide 29 BUN 13.0 Creatinine 0.7 Glucose 147 H Calcium 8.9 Liver Function 11/08/17 Range/Units 14:51 Total Bilirubin 1.40 H (0.20-1.30) MG/DL AST 28 (14-36) U/L ALT 24 (1-35) U/L Alkaline Phosphatase 182 H (38-126) U/L Albumin 3.3 L (3.5-5.0) g/dL Assessment and Plan Assessment and Plan: ASSESSMENT 1. Acute immune thrombocytopenic purpura, ITP, not responding to steroids or IVIG. 2. Chronic inflammatory demyelinating polyneuropathy (CIDP), status post plasmapheresis IVIG and Imuran in the past. 3. Chronic anemia with hemoglobin down to 6.8, status post blood transfusion, hemoglobin stable at 10. -The patient may benefit from iron infusion. 4. History of saddle pulmonary embolism with acute cor pulmonale, status post EKOS (catheter-assisted thrombolysis) in February 2017. History of DVT. -Eliquis discontinued after scan showed no significant PE and venous Doppler negative. -Due to the resistant thrombocytopenia and absence of PE and DVT, I felt the risk of bleeding due to Eliquis overweighed the benefit. 5. 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 6. History of papillary thyroid cancer, status post thyroidectomy. Plan Bone marrow shows adequate megas therefore peripheral destructive consumptive process that can include ITP, Liver disease and hypersplenism, drug related and infection related. Promacta will increase production of platelets. Promacta 50 mg daily started today, 11/09/17. Continue supportiverehabilitative care. - Time Spent With Patient Total time spent is greater than 50% in coordination of care (as documented) at patient's floor/unit and/or counseling patient: less than 15 minutes <Birgit Franz - Last Filed: 11/09/17 18:00> Exam Vital signs: Temperature 98.1 F 11/09/17 08:00 Pulse Rate 100 11/09/17 08:00 Respiratory Rate 18 11/09/17 08:00 Blood Pressure 125/69 11/09/17 08:00 Pulse Oximetry 90 11/09/17 08:00 Oncology Results - Labs CBC & Chem 7: 04/06/18 11:02 11/09/17 11:02 Labs: Short CBC 11/09/17 Range/Units 11:02 WBC 4.5 (4.5-11.0) T/MM3 Hgb 10.8 L (12-16) GM/DL Hct 33.3 L (36-46) % Plt Count 56 L D (130-400) T/MM3 BMP 11/09/17 11:02 Sodium 136 Potassium 3.7 Chloride 95 L Carbon Dioxide 29 BUN 13.0 Creatinine 0.7 Glucose 147 H Calcium 8.9 Assessment and Plan Assessment and Plan: I have interviewed the patient and developed the plan of care. The patient started on Promacta today. - Time Spent With Patient Total time spent is greater than 50% in coordination of care (as documented) at patient's floor/unit and/or counseling patient:
--- NOTE | 2017-11-09 16:21 | IRU Progress Note ---
- Subjective/Serverity of Illness Date: 11/09/17 Maday was evaluated in her room on inpatient rehabilitation. She states that she does get fatigued with exercise but it is a good candidate of tiredness. She denies actual shortness of breath. She would like to cut back on the Lasix if at all possible. She states that she did not use Lasix at home. Her weight is indeed down from 135 kg down to 117 kg. She does not have any edema. She has been able to wear shoes with the AFO braces. Review of therapy notes indicates that she has made substantial progress with regard to transfers and sliding board transfers. She is improving fairly significantly with both PT and OT. She is working hard. She does have discomfort when she does do therapy but is "pushing through it." Discussed with the hospitalist service whether we can stop the Lasix. I believe she is on this because the theory was that her ascites was due to excess fluid administration plus hypoalbuminemia. Lasix with subsequent frequent voiding has been a barrier to her progress. Bone marrow results are back indicating a hypocellular marrow at 35%. However there are increased megakaryocytes consistent with peripheral destruction. Hematology has started Promacta and she has received two platelet packs with post infusion platelet count of 56k. Denies any chest pain. Her bowels are moving. Appetite is good. Denies any nausea or vomiting. Exam Vital Signs: Temperature 98.1 F 11/09/17 08:00 Pulse Rate 100 11/09/17 08:00 Respiratory Rate 18 11/09/17 08:00 Blood Pressure 125/69 11/09/17 08:00 Pulse Oximetry 90 11/09/17 08:00 Height/Weight/BMI: Height 1.68 m Weight 117.7 kg Body Mass Index 48.3 - Constitutional Present: no acute distress, well nourished, well developed, morbidly obese, cooperative - Routine HEENT Exam Head: Present: normocephalic Eye: Present: EOMI ENT: Present: mucous membranes moist, oropharynx clear - Routine Respiratory Exam Present: CTA bilaterally. Absent: wheezes - Routine Cardiovascular Exam Present: RRR, S1, S2. Absent: murmur - Routine Abdominal Exam Present: soft, normoactive bowel sounds, non distended. Absent: tenderness Comments: The abdomen remained soft. Grenade/Hemovac draining serosanguineous material. - Routine Extremities Exam Present: no edema, normal capillary refill. Absent: cyanosis, clubbing - Routine Skin Exam Present: dry, warm - Routine Neurological Exam Present: alert, oriented X3, CN II-XII intact Continues to have generalized weakness. Patient states that she believes her strength is slowly improving. - Routine Psychiatric Exam Present: normal affect, cooperative Results IRU - Labs Labs: I reviewed her laboratory findings, chart data and other providers notes. Platelet count is up to 56,000 after transfusion. Reviewed bone marrow results. Albumin is improved. Weight is down. IRU A/P (1) CIDP (chronic inflammatory demyelinating polyneuropathy) Current visit: Yes Status: Chronic Continues to have generalized weakness but is making progress with functional activities for PT and OT. Patient is trying hard. She believes her strength is improved. (2) Disseminated histoplasmosis Current visit: Yes Status: Acute Serum histo antigen is positive. She remains on itraconazole. (3) Thrombocytopenia Current visit: Yes Status: Acute Appears to have excess megakaryocytes and bone marrow consistent with peripheral destruction. She has spotted to platelet infusion. No evidence of active bleeding. (4) Granulomatous hepatitis Current visit: Yes Status: Acute (5) Ascites Qualifiers: Ascites type: other type Qualified Code(s): R18.8 - Other ascites Current visit: Yes Status: Acute Her ascites appears to be substantially improved. Lasix has been discontinued. Discussed with hospitalist service. DVT Prophylaxis: SCD's Resuscitation Status: Full Code - Course Hospital Course: Sigifredo Lee MD: 11/02/17 10:59 Cooperative but slow progress with therapy. Continued significant muscle weakness. Tolerating itraconazole adequately. Thrombocytopenia is a concern. 11/05/17 10:28 Continued worsening platelet count despite IVIG. Cooperative but continues to demonstrate substantial weakness. Therapies are code treating for energy conservation. Remains on itraconazole. Eliquis has been discontinued. 11/06/17 10:39 Fluid weight is down. Remains on Lasix and frequent voiding. Platelets better after transfusion. Bone marrow exam yesterday with results pending. 11/07/17 10:18 Edema improved. Started wrapping legs yesterday. Bone marrow results pending. Reassess lab today. 11/09/17 16:29 Edema much improved. Weight down. Lasix discontinued today. Bone marrow results reviewed. Platelet count is up after transfusion. She is cooperative with therapy and making progress. - Interventions to Obtain Goals PT Treatment Plan: Balance/Proprioception, Functional Activities, Manual Therapy , Patient/Family Education, Therapeutic Exercise OT Treatment Plan: ADL (Basic Care), Balance Training, IADL, Pt./Family Education, Ther. Exercise for ADL Goals Progress/Modifications: Patient remains medically complex. She is improving with therapy on a functional basis. Her edema is much improved. I discussed with nursing as well as the hospitalists service the issue of the Lasix. She was not on this at home. Her weight is down. Lasix has been discontinued for the time being. We will monitor her carefully in this regard. Clearly Remains improved after transfusion.
[2017-11-10] MEDS: DiphenhydrAMINE 25 MG CAPSULE PO PRN ×2 (00:46→21:37)
[2017-11-10] MEDS: OMEPRAZOLE 20 MG CAPSULE PO SCH ×2 (05:02→06:18)
[2017-11-10] MEDS: LEVOTHYROXINE 175 MCG TABLET PO SCH ×2 (05:02→06:17)
[2017-11-10] MEDS: ELTROMBOPAG PO SCH (06:16)
[2017-11-10] MEDS: ITRACONAZOLE 100 MG CAPSULE PO SCH ×2 (08:58→20:41)
[2017-11-10] MEDS: METOCLOPRAMIDE 5mg TABLET PO SCH ×3 (08:59→20:41)
[2017-11-10] MEDS: FOLIC ACID 1 MG TABLET PO SCH (08:59)
[2017-11-10] MEDS: VENLAFAXINE 75 MG TABLET PO SCH ×2 (08:59→17:54)
[2017-11-10] MEDS: MAGNESIUM OXIDE 400 MG TABLET PO SCH ×2 (08:59→17:54)
[2017-11-10] MEDS: SPIRONOLACTONE 50 MG TABLET PO SCH (09:00)
[2017-11-10] MEDS: LACTULOSE 20 GM/30 ML ORAL LIQUID PO SCH (09:01)
[2017-11-11] MEDS: ELTROMBOPAG PO SCH (06:25)
[2017-11-11] MEDS: LEVOTHYROXINE 175 MCG TABLET PO SCH (06:25)
[2017-11-11] MEDS: OMEPRAZOLE 20 MG CAPSULE PO SCH (06:25)
[2017-11-11] MEDS: VENLAFAXINE 75 MG TABLET PO SCH ×2 (08:25→18:09)
[2017-11-11] MEDS: MAGNESIUM OXIDE 400 MG TABLET PO SCH ×2 (08:25→18:09)
[2017-11-11] MEDS: SPIRONOLACTONE 50 MG TABLET PO SCH (09:03)
[2017-11-11] MEDS: ITRACONAZOLE 100 MG CAPSULE PO SCH ×2 (09:03→21:25)
[2017-11-11] MEDS: ERGOCALCIFEROL 50,000 UNIT CAPSULE PO SCH (09:04)
[2017-11-11] MEDS: FOLIC ACID 1 MG TABLET PO SCH (09:04)
[2017-11-11] MEDS: LACTULOSE 20 GM/30 ML ORAL LIQUID PO SCH (09:05)
[2017-11-11] MEDS: METOCLOPRAMIDE 5mg TABLET PO SCH ×3 (09:06→21:26)
[2017-11-11] MEDS: ACETAMINOPHEN 325 MG TABLET PO PRN (18:32)
[2017-11-11] MEDS: DiphenhydrAMINE 25 MG CAPSULE PO PRN (18:34)
[2017-11-11] MEDS ORDERED: MORPHINE SULFATE 2mg INJ IM ONE (19:36)
[2017-11-11] MEDS ORDERED: MORPHINE SULFATE 2mg INJ IVP PRN (19:39)
--- NOTE | 2017-11-11 19:50 | Progress Note ---
- Date 11/11/17 Subjective: Notified by nurse that patient is having bad abdominal pain. Patient says she had similar pain last week for about 15 minutes. It's been going on for an hour today. She says it might be like the bad cramps she used to get. She's been off hormone injections for past 9 months. Objective Vital signs: Temperature 98.2 F 11/11/17 15:27 Pulse Rate 108 H 11/11/17 15:27 Respiratory Rate 16 11/11/17 15:27 Blood Pressure 115/78 11/11/17 15:27 Pulse Oximetry 93 11/11/17 15:27 Height/Weight/BMI: Height 5 ft 6 in Weight 115 kg Body Mass Index 48.3 - Constitutional Present: mild distress - Routine HEENT Exam Head: Present: normocephalic, atraumatic Eye: Present: EOMI, PERRL ENT: Present: mucous membranes moist - Routine Respiratory Exam Present: CTA bilaterally - Routine Cardiovascular Exam Present: RRR, S1, S2 - Routine Abdominal Exam Present: soft, tenderness. 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 Distal spinal muscular atrophy and muscle atrophy of lower extremities with gait instability Saddle embolus of the pulmonary artery with acute cor pulmonale, treated with EKOS catheter in February,. Also with history of DVT. Anticoagulated on Eliquis. Chronic anemia and thrombocytopenia Hypertension. 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 Ascites, unknown cause, with Pleurx drain inserted on 10/18/17. Hepatic steatosis. Possible early cirrhosis Mild protein calorie malnutrition Morbid obesity and hypoventilation syndrome Asthma Papillary cancer of thyroid, Post-surgical hypothyroidism. Right ovarian dermoid cyst Depression Onychocryptosis Echocardiogram February 2017: EF greater than 55%, right ventricular systolic function is moderately reduced, mild tricuspid regurgitation. On 10/29/17: WBC was 9.3, hemoglobin 9.4, hematocrit 28.4, platelets 34, sodium 129, potassium 3.2, BUN 10, creatinine 0.6. Blood pressure was 93/56 to 104/60 with heart rate in the 70s. She was maintaining saturations on room air. She has an appointment scheduled with Dr. Angel Coleman with infectious disease on November 27 at 2:30 PM. PLAN Pain in RLQ. Spasms palpated on exam. Morphine now available. Will check KUB - Physician Narrative Narrative: Date: 11/11/17 Time: 1944 Hospital Course Summary Disclaimer: The visit summary below is not to be considered part of the above Progress Note. Hospital Course: 10/31/17 Extremely complicated case. Agree with ID consultation. Discharge instructions recommended to check an itraconazole drug level - this has been ordered for tomorrow am along with CBC, CMP, magnesium level. Continue fluid restriction; carb consistent diet. Check BGM, though in [place] she was not requiring SSI. Check daily weights. Will obtain Rt leg venous doppler. Even though she's on Eliquis, this was temporarily held during her hospitalization because of anemia and thrombocytopenia, and she is certainly at high risk for DVT. Report to Dr. Lee indicated they are to drain Pleurx daily, approx. 1L of fluid. Discussed with Dr. Lee and nursing staff. Extensive chart review. At time of Discharge from [facility], she was started on Eliquis 2.5 mg twice a day, Benadryl 25 mg if needed for itching, fentanyl 12 g patch, Lasix 40 mg daily, itraconazole 200 mg twice a day, and lactulose 20 g daily. She is also to be taking: Ergocalciferol 50,000 units once a week, folic acid 0.8 mg daily, levothyroxine 175 g daily, Mag-Ox 400 mg with supper, medical Paremyd 5 mg 30 minutes before meals, nystatin powder 3 times a day as needed, omeprazole 20 mg daily, Zofran 4 mg ODT as needed, MiraLAX 17 g daily when necessary, spironolactone 50 mg daily, Effexor 75 mg twice a day. She has an appointment scheduled with Dr. Angel Coleman with infectious disease on November 27 at 2:30 PM. 11/03/17 Extremely complicated case. ID consultation. Discharge instructions recommended to check an itraconazole drug level-currently pending. Continue fluid restriction; carb consistent diet. BG has been low normal. Reports tolerating PO w/o difficulty. Bilateral LE doppler was negative for DVT. CTA was a bit limited, but did not show any acute PE. She is on Eliquis, but Dr. Franz to determine possible stopping due to low platelets. Intra-abdominal draining of Pleurx daily, approx. 1L of fluid, recommended on discharge. Multiple abdominal drains noted. Recent complete GB removal. ITP with further decline of platelets- per Dr. Franz. IVIG given yesterday and is to be repeated today. Decadron, Benadryl given daily as well. Continue low dose fentanyl patch for pain and PRN APAP. Concern for atelectasis vs. pneumonia- encourage pulmonary toilet. Continue to monitor closely. Labs and chart reviewed. D/W Dr. Aponte. 11/04/17 ID consultation for histoplasma infection. Itraconazole drug level currently pending. Dr. Rasheed to see Sunday. Neuro consultation for CIDP. Dr. Kate to see Sunday. Dr. Franz has seen patient for ITP. Initiated IVIG, Decadron and Benadryl. Anticoagulation has been discontinued. No DVT in her legs and no acute pulmonary emboli. SCDs for DVT prophylaxis. Platelets up from yesterday. 9000-- >11,000. Continue fluid restriction. Intra-abdominal draining of Pleurx daily, approx. 1L of fluid, recommended on discharge. Continue low dose fentanyl patch for pain and PRN APAP. TSH very slightly elevated. Free T4 pending. No adjustment made to thyroid med. Increase Lasix to 60mg and elevate legs AMAP for pedal edema. Follow electrolytes. 11/05/17 Appreciate consultations- Dr Franz, Dr Rasheed and Dr Kate Remains on Itraconazole BID; likely need for 6-[address] Franz and [address] Rand following regarding probable IPT and thrombocytopenia. PLT today 7. Eliquis stopped given negative findings of thrombus of scans over the weekend Continue on fluid restriction and monitor abdominal drainage often. Lasix was increased 11/04/17. Follow weights and edema 11/09/17 Hgb up to 10, plt 23 yesterday - will repeat labs today. Had a platelet pheresis pack on 10/31 and 11/05. Promacta ordered per heme. Bone marrow aspiration and biopsy showed hypocellular marrow for heart age, 35% cellularity, increased megakaryocytes suggestive of peripheral destruction (can include ITP, Liver disease and hypersplenism, drug related and infection related ). The bone marrow showed no evidence of leukemia or dysplasia, no infiltrative process, no granuloma, no metastatic disease. Anticoagulants have been discontinued per heme because risk outweighs benefit. BP stable. Working well with therapy. Pt tends to void frequently after Lasix dose, which interrupts therapy. Change dosing time to 1300. Continue Itraconazole BID for 6-12 months as recommended by Dr Rasheed
[2017-11-11] MEDS ORDERED: BISACODYL 10 MG SUPPOSITORY RECTALLY ONE (20:42)
[2017-11-11] MEDS ORDERED: POLYETHYL. GLYCOL 3350 BOTTLE 238 GM PO SCH (20:45)
[2017-11-12] MEDS: MORPHINE SULFATE 2mg INJ IM PRN ×2 (01:25→06:55)
[2017-11-12] MEDS: ELTROMBOPAG PO SCH (05:53)
[2017-11-12] MEDS: OMEPRAZOLE 20 MG CAPSULE PO SCH (05:53)
[2017-11-12] MEDS: LEVOTHYROXINE 175 MCG TABLET PO SCH (05:53)
--- NOTE | 2017-11-12 07:48 | XRay Report ---
Indication: severe abdominal pain PROCEDURE: XR KUB: Encounter: Initial Comparison: None Findings: Lung bases are clear. Nonobstructive nonspecific bowel gas pattern. Laparoscopic gastric banding device noted. Cholecystectomy clips. Degenerative change and scoliosis in the lumbar spine. Tubing material projecting over the pelvis. Large amount of stool in the colon Impression: Increased colonic burden suggesting constipation. There is a preliminary report by [facility]. .
--- NOTE | 2017-11-12 08:52 | ID Progress Note ---
Subjective Date: 11/12/17 Subjective: Ms. Burdick reports that she's having some abdominal pain. She reports that she is having a "lot of stool." Denies nausea. Denies fever, chills, sweats. Says she's getting stronger with PT. Exam Vital Signs: Temperature 97.6 F 11/11/17 20:16 Pulse Rate 93 11/11/17 20:16 Respiratory Rate 24 11/11/17 20:16 Blood Pressure 100/74 11/11/17 20:16 Pulse Oximetry 94 11/11/17 20:16 Height/Weight/BMI: Height 1.68 m Weight 115 kg Body Mass Index 48.3 - Constitutional Present: no acute distress, well nourished, well developed, obese - Routine HEENT Exam Head: Present: normocephalic, atraumatic Eye: Present: EOMI, PERRL ENT: Present: mucous membranes moist, dentition normal - Routine Neck Exam Present: supple - Routine Respiratory Exam Present: CTA bilaterally - Routine Cardiovascular Exam Present: RRR - Routine Abdominal Exam Present: soft, non distended, non tender. Absent: rebound, guarding Comments: hypoactive bowel sounds - Routine Extremities Exam Absent: cyanosis, clubbing, edema - Routine Skin Exam Absent: rash - Routine Neurological Exam Present: alert, oriented X3, CN II-XII intact, normal speech - Routine Psychiatric Exam Present: normal affect Results - Labs CBC & Chem 7: 11/11/17 06:56 11/11/17 06:56 Labs: Laboratory Tests 11/05/17 11/05/17 09:12 11:17 Serum Histoplasma Ag 2.71 Urine Histoplasma Ag Negative Microbiology Results: Microbiology 11/05/17 15:45 Blood Blood Fungal Culture - Preliminary Impression: Presumed disseminated Histoplasmosis. Positive Urine Histo antigen 10/04/17. Serum Histo Ag 2.71 ([place]), urine Histo Ag negative ([place]), 11/05/17 Severe polyneuropathy/CIDP, treated with plasmapharesis, steroids and also Imuran. Severe thrombocytopenia/ITP, s/p IVIG x 2. S/p bone marrow biopsy 11/05/17, without evidence of granulomas or infiltrative disease process. Improving. 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 Histoplasma Ascites, unclear etiology, with 1L fluid drained daily H/o PE treated with EKOS catheter in February 2017 Hypothyroidism, s/p thyroid cancer Obesity s/p lap banding PCN allergy H/o gallstone pancreatitis Anemia, normocytic Weakness/debility Recommendation: Continue Itraconazole 200mg po bid. Planning for 6-12 months of treatment. Will repeat Itraconazole level this week. Continue PT/OT for weakness. She has F/U scheduled with Dr. Coleman on 11/27/17.
[2017-11-12] MEDS ORDERED: POLYETHYL GLYCOL 3350 17gm PACKET PO SCH (09:00)
[2017-11-12] MEDS: MAGNESIUM OXIDE 400 MG TABLET PO SCH ×2 (09:32→17:40)
[2017-11-12] MEDS: VENLAFAXINE 75 MG TABLET PO SCH ×2 (09:32→17:40)
[2017-11-12] MEDS: FOLIC ACID 1 MG TABLET PO SCH (09:32)
[2017-11-12] MEDS: METOCLOPRAMIDE 5mg TABLET PO SCH ×3 (09:32→22:20)
[2017-11-12] MEDS: ITRACONAZOLE 100 MG CAPSULE PO SCH ×2 (09:33→22:20)
[2017-11-12] MEDS: LACTULOSE 20 GM/30 ML ORAL LIQUID PO SCH ×2 (09:33→22:17)
[2017-11-12] MEDS: SPIRONOLACTONE 50 MG TABLET PO SCH (09:33)
--- NOTE | 2017-11-12 10:54 | IRU Progress Note ---
- Subjective/Serverity of Illness Date: 11/12/17 Maday was evaluated in her room on inpatient rehabilitation. She had a difficult night being awakened several times with abdominal pain. KUB revealed quite a bit of stool in the colon. She was able to have a moderate bowel movement in the middle of the night. She does feel better in this regard but had a difficult time with regard to rest. She was also given some morphine IM. I told her that we do need her to participate with therapy in order to mobilize the stool. She is agreeable with this. In addition we will stop the morphine IM. She remains on fentanyl patch. The abdomen remained soft with normoactive bowel sounds. The patient is on MiraLAX once daily and lactulose once daily. We'll increase these to twice daily. Brief therapy update: For occupational therapy she is cooperative and motivated and making slow gains. Bathing requires moderate assistance. Upper body dressing is minimum assistance and lower body dressing requires total assistance. For physical therapy, transfers are with total assistance. Exam Vital Signs: Temperature 98.0 F 11/12/17 08:00 Pulse Rate 83 11/12/17 08:00 Respiratory Rate 14 11/12/17 08:00 Blood Pressure 102/76 11/12/17 08:00 Pulse Oximetry 91 11/12/17 08:00 Height/Weight/BMI: Height 1.68 m Weight 115 kg Body Mass Index 48.3 Comments: Weight slightly up 1 kg since furosemide was discontinued. - Constitutional Present: no acute distress, well nourished, well developed, morbidly obese, cooperative - Routine HEENT Exam Head: Present: normocephalic Eye: Present: EOMI ENT: Present: mucous membranes moist, oropharynx clear - Routine Neck Exam Present: supple - Routine Respiratory Exam Present: CTA bilaterally. Absent: wheezes - Routine Cardiovascular Exam Present: RRR, S1, S2. Absent: murmur - Routine Abdominal Exam Present: soft, normoactive bowel sounds, non distended. Absent: tenderness Comments: Wounds appear to be healing adequately. Drain in left upper abdomen is draining more serous fluid at present. - Routine Extremities Exam Present: no edema, pulses intact - Routine Skin Exam Present: dry, warm - Routine Neurological Exam Present: alert, oriented X3, CN II-XII intact, motor deficit - Routine Psychiatric Exam Present: normal affect, cooperative, good insight, good judgment Results IRU - Labs Labs: Labs reviewed. Platelets are up. IRU A/P (1) CIDP (chronic inflammatory demyelinating polyneuropathy) Current visit: Yes Status: Chronic Slow progress with regard to therapies. She is very cooperative and motivated. (2) Disseminated histoplasmosis Current visit: Yes Status: Acute Remains on itraconazole. Appreciate assistance of Dr. Rasheed. (3) Thrombocytopenia Current visit: Yes Status: Acute Platelet count markedly improved. Has not received further transfusions. Remains on Promacta. (4) Granulomatous hepatitis Current visit: Yes Status: Acute (5) Ascites Qualifiers: Ascites type: other type Qualified Code(s): R18.8 - Other ascites Current visit: Yes Status: Acute Ascitic output is decreasing. (6) Constipation by delayed colonic transit Current visit: Yes Status: Acute Patient had abdominal pain last night presumably related to her constipation. It is improved at the present time. DVT Prophylaxis: SCD's Resuscitation Status: Full Code - Course Hospital Course: Sigifredo Lee MD: 11/02/17 10:59 Cooperative but slow progress with therapy. Continued significant muscle weakness. Tolerating itraconazole adequately. Thrombocytopenia is a concern. 11/05/17 10:28 Continued worsening platelet count despite IVIG. Cooperative but continues to demonstrate substantial weakness. Therapies are code treating for energy conservation. Remains on itraconazole. Eliquis has been discontinued. 11/06/17 10:39 Fluid weight is down. Remains on Lasix and frequent voiding. Platelets better after transfusion. Bone marrow exam yesterday with results pending. 11/07/17 10:18 Edema improved. Started wrapping legs yesterday. Bone marrow results pending. Reassess lab today. 11/09/17 16:29 Edema much improved. Weight down. Lasix discontinued today. Bone marrow results reviewed. Platelet count is up after transfusion. She is cooperative with therapy and making progress. 11/12/17 10:56 Abdominal pain last night presumably secondary to constipation. Continues to work with therapy and making progress. Platelet count improved. - Interventions to Obtain Goals PT Treatment Plan: Balance/Proprioception, Functional Activities, Manual Therapy , Patient/Family Education, Therapeutic Exercise OT Treatment Plan: ADL (Basic Care), Balance Training, IADL, Pt./Family Education, Ther. Exercise for ADL Goals Progress/Modifications: Patient remains very complex. She is tolerating itraconazole well. Her platelet count is improved. She is progressing with therapy although slowly. She is motivated and cooperative. Had abdominal pain last night presumably secondary to her constipation. This is improved today. KUB revealed quite a bit of stool in the colon. We'll increase MiraLAX and lactulose in this regard. In addition, I am stopping the morphine because of its adverse effect on colonic peristalsis. Continue therapy.
--- NOTE | 2017-11-12 12:47 | Progress Note ---
<Frances Gardner - Last Filed: 11/12/17 16:03> Oncology Subjective Sitting in wheelchair, alone in room. Alert and oriented. Denies pain currently. States had abdominal pain over the weekend, was noted to have severe constipation. States "I have had a bowel movement every day. Guess that is not enough though. " No abdominal pain today. Denies nosebleeds, blood in urine or blood in stool. General: No fever, no night sweats Eyes: No redness, no pain, no diplopia ENT: No mouth sores, no trouble swallowing Cardiac: No chest pain no palpitations Pulmonary: No cough, no shortness of breath, no wheezing Abdomen: No pain, no nausea vomiting, + constipation : No urgency, frequency, dysuria, or hematuria Musculoskeletal: No arthritis, no myalgias Neurological: No headaches, no focal weakness Skin: No rash, no sores Psychiatric: No anxiety, no depression Exam Vital signs: Temperature 98.0 F 11/12/17 08:00 Pulse Rate 83 11/12/17 08:00 Respiratory Rate 14 11/12/17 08:00 Blood Pressure 102/76 11/12/17 08:00 Pulse Oximetry 91 11/12/17 08:00 - Constitutional no acute distress, cooperative - Routine HEENT Exam Head: Present: normocephalic Eye: Present: EOMI ENT: Present: mucous membranes moist - Routine Neck Exam Present: supple. Absent: lymphadenopathy - Routine Respiratory Exam Present: decreased breath sounds. Absent: wheezes, crackles - Routine Cardiovascular Exam Present: RRR. Absent: no murmur - Routine Abdominal Exam Present: soft, normoactive bowel sounds. Absent: non distended (GONZÁLEZ drain intact LLQ-no signs/symptoms inflammation.) - Routine Extremities Exam Present: edema (trace onel. LE. Wearing braces onel.) - Routine Back/Spine/Pelvis Exam Back/Spine: Absent: paraspinal tenderness - Routine Skin Exam Present: intact, dry - Routine Neurological Exam Present: alert, oriented X3 - Routine Psychiatric Exam Present: normal affect, cooperative Oncology Results - Labs CBC & Chem 7: 11/11/17 06:56 11/11/17 06:56 Assessment and Plan Assessment and Plan: ASSESSMENT 1. Acute immune thrombocytopenic purpura, ITP, not responding to steroids or IVIG. Promacta started 11/09/17. Tolerating well. Platelets on 11/11/17 are 84, 000 2. Chronic inflammatory demyelinating polyneuropathy (CIDP), status post plasmapheresis IVIG and Imuran in the past. 3. Chronic anemia with hemoglobin down to 6.8, status post blood transfusion. Hemoglobin stable 11/11/17 at 10.9 4. History of saddle pulmonary embolism with acute cor pulmonale, status post EKOS (catheter-assisted thrombolysis) in February 2017. History of DVT. -Eliquis discontinued after scan showed no significant PE and venous Doppler negative. -Due to the resistant thrombocytopenia and absence of PE and DVT, felt the risk of bleeding due to Eliquis overweighed the benefit. 5. 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 6. History of papillary thyroid cancer, status post thyroidectomy. Plan Continue Promacta, supportive care, rehabilitation. Repeat labs will be done 05/23. - Time Spent With Patient Total time spent is greater than 50% in coordination of care (as documented) at patient's floor/unit and/or counseling patient: less than 15 minutes <Sebas Rand - Last Filed: 11/12/17 16:26> Exam Vital signs: Temperature 98.0 F 11/12/17 08:00 Pulse Rate 83 11/12/17 08:00 Respiratory Rate 14 11/12/17 08:00 Blood Pressure 102/76 11/12/17 08:00 Pulse Oximetry 91 11/12/17 08:00 Oncology Results - Labs CBC & Chem 7: 11/11/17 06:56 11/11/17 06:56 Assessment and Plan Assessment and Plan: Patient examined, chart reviewed. I participated in the development of the plan of care of this patient with Lety Gardner. Platelets have improved to 84,000 on Promacta. She continues on Promacta 50 mg daily. Platelets it started to improve prior to the Promacta first given on Sunday. With regard to her thyroid cancer she has a antithyroglobulin antibody level that is positive at 26 making measurement of thyroglobulin not reliable. Her thyroglobulin was elevated at 3.9 but with the antithyroglobulin antibody it is not reliable. She may need ultrasound of the neck to follow-up on the thyroid. Consider anticoagulation when platelets are greater than 100 K. - Time Spent With Patient Total time spent is greater than 50% in coordination of care (as documented) at patient's floor/unit and/or counseling patient:
[2017-11-12] MEDS ORDERED: FLEET PHOSPHO - SODA ENEMA 133ml PR PRN (13:02)
--- NOTE | 2017-11-12 13:02 | Progress Note ---
- Date 11/12/17 Subjective: Autumn was working with therapy in her room. She's making small gains every day. She denies any chest pain or SOA. Her abdominal pain is improving, but she is very constipated. Suppositories haven't been very helpful. She's been eating well and denies nausea or vomiting. Her leg swelling has improved and she's thankful that she's no longer on Lasix. Objective Vital signs: Temperature 98.0 F 11/12/17 08:00 Pulse Rate 83 11/12/17 08:00 Respiratory Rate 14 11/12/17 08:00 Blood Pressure 102/76 11/12/17 08:00 Pulse Oximetry 91 11/12/17 08:00 Height/Weight/BMI: Height 1.68 m Weight 115 kg Body Mass Index 48.3 - Constitutional Present: no acute distress, well nourished, well developed - Routine HEENT Exam Head: Present: normocephalic Eye: Present: PERRL. Absent: conjunctival icterus, scleral injection - Routine Respiratory Exam Present: CTA bilaterally - Routine Cardiovascular Exam Present: RRR, S1, S2 - Routine Abdominal Exam Present: soft, normoactive bowel sounds, non distended, non tender, drain (GONZÁLEZ drain with small amt of serosanguinous drainage; another drain to left abdomen also noted. Surgical incisions are healing well.) - Routine Extremities Exam Comments: Leg braces and shoes on b/l but legs are visibly smaller/less edematous - Routine Skin Exam Present: intact, dry, warm - Routine Neurological Exam Present: alert, oriented X3, normal speech - Routine Psychiatric Exam Present: normal affect, normal thought process, cooperative Results - Labs CBC & Chem 7: 11/11/17 06:56 11/11/17 06:56 Microbiology Results: Microbiology 11/05/17 15:45 Blood Blood Fungal Culture - Preliminary Assessment and Plan (1) CIDP (chronic inflammatory demyelinating polyneuropathy) Current visit: Yes Status: Chronic Assessment and Plan: IMPRESSION 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 Distal spinal muscular atrophy and muscle atrophy of lower extremities with gait instability Saddle embolus of the pulmonary artery with acute cor pulmonale, treated with EKOS catheter in February,. Also with history of DVT. Anticoagulated on Eliquis. Chronic anemia and thrombocytopenia Hypertension. 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 Ascites, unknown cause, with Pleurx drain inserted on 10/18/17. Hepatic steatosis. Possible early cirrhosis Mild protein calorie malnutrition Morbid obesity and hypoventilation syndrome Asthma Papillary cancer of thyroid, Post-surgical hypothyroidism. Right ovarian dermoid cyst Depression Onychocryptosis Echocardiogram February 2017: EF greater than 55%, right ventricular systolic function is moderately reduced, mild tricuspid regurgitation. On 10/29/17: WBC was 9.3, hemoglobin 9.4, hematocrit 28.4, platelets 34, sodium 129, potassium 3.2, BUN 10, creatinine 0.6. Blood pressure was 93/56 to 104/60 with heart rate in the 70s. She was maintaining saturations on room air. She has an appointment scheduled with Dr. Angel Coleman with infectious disease on November 27 at 2:30 PM. PLAN KUB shows constipation. Lactulose and MiraLAX increased to BID per attending. Will add Fleet's enema if next suppository is unsuccessful. Hgb up to 10.9 and platelets 84 as of yesterday. Will repeat labs in am. Promacta per heme/onc. Continue Itraconazole 200mg PO BID for 6-12 months. Repeat Itraconazole level in am. Continue therapy per attending. GI Prophylaxis: other - Physician Narrative Narrative: Date: 11/12/17 Time: 1258 Hospital Course Summary Disclaimer: The visit summary below is not to be considered part of the above Progress Note. Hospital Course: 10/31/17 Extremely complicated case. Agree with ID consultation. Discharge instructions recommended to check an itraconazole drug level - this has been ordered for tomorrow am along with CBC, CMP, magnesium level. Continue fluid restriction; carb consistent diet. Check BGM, though in [place] she was not requiring SSI. Check daily weights. Will obtain Rt leg venous doppler. Even though she's on Eliquis, this was temporarily held during her hospitalization because of anemia and thrombocytopenia, and she is certainly at high risk for DVT. Report to Dr. Lee indicated they are to drain Pleurx daily, approx. 1L of fluid. Discussed with Dr. Lee and nursing staff. Extensive chart review. At time of Discharge from [facility], she was started on Eliquis 2.5 mg twice a day, Benadryl 25 mg if needed for itching, fentanyl 12 g patch, Lasix 40 mg daily, itraconazole 200 mg twice a day, and lactulose 20 g daily. She is also to be taking: Ergocalciferol 50,000 units once a week, folic acid 0.8 mg daily, levothyroxine 175 g daily, Mag-Ox 400 mg with supper, medical Paremyd 5 mg 30 minutes before meals, nystatin powder 3 times a day as needed, omeprazole 20 mg daily, Zofran 4 mg ODT as needed, MiraLAX 17 g daily when necessary, spironolactone 50 mg daily, Effexor 75 mg twice a day. She has an appointment scheduled with Dr. Angel Coleman with infectious disease on November 27 at 2:30 PM. 11/03/17 Extremely complicated case. ID consultation. Discharge instructions recommended to check an itraconazole drug level-currently pending. Continue fluid restriction; carb consistent diet. BG has been low normal. Reports tolerating PO w/o difficulty. Bilateral LE doppler was negative for DVT. CTA was a bit limited, but did not show any acute PE. She is on Eliquis, but Dr. Franz to determine possible stopping due to low platelets. Intra-abdominal draining of Pleurx daily, approx. 1L of fluid, recommended on discharge. Multiple abdominal drains noted. Recent complete GB removal. ITP with further decline of platelets- per Dr. Franz. IVIG given yesterday and is to be repeated today. Decadron, Benadryl given daily as well. Continue low dose fentanyl patch for pain and PRN APAP. Concern for atelectasis vs. pneumonia- encourage pulmonary toilet. Continue to monitor closely. Labs and chart reviewed. D/W Dr. Aponte. 11/04/17 ID consultation for histoplasma infection. Itraconazole drug level currently pending. Dr. Rasheed to see Sunday. Neuro consultation for CIDP. Dr. Kate to see Sunday. Dr. Franz has seen patient for ITP. Initiated IVIG, Decadron and Benadryl. Anticoagulation has been discontinued. No DVT in her legs and no acute pulmonary emboli. SCDs for DVT prophylaxis. Platelets up from yesterday. 9000-- >11,000. Continue fluid restriction. Intra-abdominal draining of Pleurx daily, approx. 1L of fluid, recommended on discharge. Continue low dose fentanyl patch for pain and PRN APAP. TSH very slightly elevated. Free T4 pending. No adjustment made to thyroid med. Increase Lasix to 60mg and elevate legs AMAP for pedal edema. Follow electrolytes. 11/05/17 Appreciate consultations- Dr Franz, Dr Rasheed and Dr Kate Remains on Itraconazole BID; likely need for 6-[address] Franz and Dr Rand following regarding probable IPT and thrombocytopenia. PLT today 7. Eliquis stopped given negative findings of thrombus of scans over the weekend Continue on fluid restriction and monitor abdominal drainage often. Lasix was increased 11/04/17. Follow weights and edema 11/09/17 Hgb up to 10, plt 23 yesterday - will repeat labs today. Had a platelet pheresis pack on 10/31 and 11/05. Promacta ordered per heme. Bone marrow aspiration and biopsy showed hypocellular marrow for heart age, 35% cellularity, increased megakaryocytes suggestive of peripheral destruction (can include ITP, Liver disease and hypersplenism, drug related and infection related ). The bone marrow showed no evidence of leukemia or dysplasia, no infiltrative process, no granuloma, no metastatic disease. Anticoagulants have been discontinued per heme because risk outweighs benefit. BP stable. Working well with therapy. Pt tends to void frequently after Lasix dose, which interrupts therapy. Change dosing time to 1300. Continue Itraconazole BID for 6-12 months as recommended by Dr Rasheed 11/11/17 Pain in RLQ. Morphine now available. KUB +increased colonic stool burden. 11/12/17 KUB shows constipation. Lactulose and MiraLAX increased to BID per attending. Will add Fleet's enema if next suppository is unsuccessful. Hgb up to 10.9 and platelets 84 as of yesterday. Will repeat labs in am. Promacta per heme/onc. Continue Itraconazole 200mg PO BID for 6-12 months. Repeat Itraconazole level in am.
--- NOTE | 2017-11-12 13:29 | IRU Team Meeting ---
IRU Team Meeting - Nursing Bladder Assistive Devices Utilized:: Bedpan, Bedside Commode Bladder Management Level of Assist: Total Assistance Bladder Frequency of Accidents: 1 accident this shift Bowel Assistive Devices Utilized:: Bedpan, Bedside Commode Bowel Management Level of Assist: Modified Independent Bowel Frequency of Accidents: 1 accident this shift Vital Signs: Vital Signs - 24 hr 11/11/17 15:27 11/11/17 20:16 11/12/17 08:00 Temperature 98.2 F 97.6 F 98.0 F Pulse Rate 108 H 93 83 Respiratory Rate 16 24 14 Blood Pressure 115/78 100/74 102/76 Pulse Oximetry 93 94 91 Current Medications: Acetaminophen (Tylenol) 650 mg PO Q4H PRN PRN Reason: Pain Last Admin: 11/11/17 18:32 Dose: 650 mg Albuterol/Ipratropium (Duoneb) 3 ml AEROSOL RTQID PRN Bisacodyl (Dulcolax) 10 mg RECTALLY DAILY PRN PRN Reason: Constipation Last Admin: 11/06/17 18:47 Dose: 10 mg Diphenhydramine HCl (Benadryl) 25 mg PO Q4H PRN PRN Reason: Itching Last Admin: 11/11/17 18:34 Dose: 25 mg Eltrombopag (Promacta) 50 mg PO ACB [facility] Last Admin: 11/12/17 05:53 Dose: 50 mg Ergocalciferol (Vitamin D-2) 50,000 unit PO Cano@0900 [facility] Last Admin: 11/11/17 09:04 Dose: 50,000 unit Fentanyl (Duragesic Patch) 12 mcg TD Q3D [facility] Last Admin: 11/09/17 15:38 Dose: 12 mcg Fentanyl Citrate (Duragesic Patch Removal) 1 removal TD Q3D [facility] Last Admin: 11/09/17 15:39 Dose: 1 removal Folic Acid (Folate) 0.8 mg PO DAILY [facility] Last Admin: 11/12/17 09:32 Dose: 0.8 mg Itraconazole (Itraconazole) 200 mg PO BID [facility] Last Admin: 11/12/17 09:33 Dose: 200 mg Lactulose (Lactulose) 20 gm PO BID [facility] Levothyroxine Sodium (Synthroid) 175 mcg PO ACB [facility] Last Admin: 11/12/17 05:53 Dose: 175 mcg Magnesium Oxide (Magox) 400 mg PO BIDWM [facility] Last Admin: 11/12/17 09:32 Dose: 400 mg Metoclopramide HCl (Reglan) 5 mg PO TID [facility] Last Admin: 11/12/17 09:32 Dose: 5 mg Omeprazole (Prilosec) 20 mg PO ACB [facility] Last Admin: 11/12/17 05:53 Dose: 20 mg Ondansetron HCl (Zofran Po) 4 mg PO Q6HR PRN PRN Reason: nausea Last Admin: 11/04/17 09:43 Dose: 4 mg Polyethylene Glycol (Miralax) 17 gm PO BID [facility] Sodium Chloride (Iv Flush) 10 ml IV PRN PRN PRN Reason: Flushing Last Admin: 11/05/17 09:45 Dose: 10 ml Sodium Chloride (Normal Saline) 500 ml IV PRN PRN Sodium Chloride (Normal Saline) 500 ml IV PRN PRN Sodium Phosphate (Fleet Enema) 1 enema AR DAILY PRN Spironolactone (Aldactone) 50 mg PO DAILY [facility] Last Admin: 11/12/17 09:33 Dose: 50 mg Venlafaxine HCl (Effexor) 75 mg PO BIDWM [facility] Last Admin: 11/12/17 09:32 Dose: 75 mg Current Medical Issues: CIDP, ascites, disseminated histoplasmosis, thrombocytopenia-immune mediated Comments: I certify that I personally led the interdisciplinary team meeting and agree with comments, barriers and goals indicated. Team meeting was held in the patient's room with the patient and the following family members present: patient alone Maday's furosemide has been discontinued as she has lost quite a bit of fluid weight. Her output from the Pleurx catheter in the left upper abdomen is decreased and is more serous than bloody. Had abdominal discomfort last night, actually related to severe constipation. Improved at present. Platelets are improved. Patient remains on Promacta. - Physical Therapy Bed, Chair, Wheelchair Transfer Assist: Total Assistance Ambulation Ability: Patient Unsafe/Unable Wheelchair Propulsion Ability: Total Assistance Wheelchair Propulsion Distance: 35 Stair Climbing Ability: Patient Unsafe/Unable Car Transfer Ability: Patient Unsafe/Unable Comments: Maday is making progress toward goals. She has met her sit to stand goal without using the [place] lift. She has met her bed mobility goal with standby assistance. She is standing longer at a time. She is able to now wear her shoes and socks as her edema is improved. Since patient has made progress, recommend reassessing in 1 week. - Occupational Therapy Eating Ability: Independent Grooming Ability: Modified Independent Bathing Ability: Moderate Assistance Upper Body Dressing Ability: Minimal Assistance Lower Body Dressing Ability: Moderate Assistance Tub Transfer Assist: Total Assistance Toileting Assist: Total Assistance Toilet Transfer Assist: Total Assistance Comments: She is very motivated and accepts challenges presented to her despite pain and discomfort. She has demonstrated slow progress toward her occupational therapy goals. Specifically she has increased activity of sitting upright in participation with out of bed ADLs. Recommend continuing working with the patient and reassessing in 1 week. - Goals Physical Therapy Goals: 11/06/17: 1.) Sit to stand transfer (without the [place] lift) with 2 persons assist for safety. - met. 2.) Bed mobility (both supine to sit and sit to supine) with stand by assist. - met. 11/12/17: 1.) Perform sit to stand transfer with moderate assistance. 2.) Be able to perform stand pivot transfer from edge of bed to wheelchair with walker. Occupational Therapy Goals: OT goals 11/06/17, 11/12/17: 1.) Upper body dressing with set-up assist.- continue Pt. currently requires minimal assistance. 2.) Transfer to bed side commode with maximal assistance. - Continue Pt. currently requires total assistance. 3.) Reduce pain in both hands to facilitate participation in activities of daily living. 4.) Lower body dressing with moderate assistance. - Barriers to Discharge Barriers to Attaining Goals: Weakness (lower extremity strength is reduced: Therapeutic exercises are provided.), Endurance (encouraging fewer rest breaks and longer periods of activity.) - Care Plan Anticipated Length of Stay (days): 14 Anticipated Length of Stay: Reassess in one week Anticipated DC Destination: Home, Self Care, Home Health Service I have led this team conference and agree with the plan. Interventions/Goals: Patient has made slow progress. She is very motivated and cooperative and wants to improve. She is working hard. Recommend continuing working with her and reassess in 1 week.
[2017-11-12] MEDS: POLYETHYL GLYCOL 3350 17gm PACKET PO SCH (22:20)
[2017-11-12] MEDS: DiphenhydrAMINE 25 MG CAPSULE PO PRN (22:21)
[2017-11-13] MEDS: OMEPRAZOLE 20 MG CAPSULE PO SCH ×2 (05:12→07:06)
[2017-11-13] MEDS: LEVOTHYROXINE 175 MCG TABLET PO SCH ×2 (05:12→07:06)
[2017-11-13] MEDS: ELTROMBOPAG PO SCH (06:18)
[2017-11-13] MEDS: METOCLOPRAMIDE 5mg TABLET PO SCH ×3 (09:13→21:14)
[2017-11-13] MEDS: ITRACONAZOLE 100 MG CAPSULE PO SCH ×2 (09:14→21:14)
[2017-11-13] MEDS: SPIRONOLACTONE 50 MG TABLET PO SCH (09:14)
[2017-11-13] MEDS: MAGNESIUM OXIDE 400 MG TABLET PO SCH ×2 (09:14→18:08)
[2017-11-13] MEDS: VENLAFAXINE 75 MG TABLET PO SCH ×2 (09:14→18:08)
[2017-11-13] MEDS: FOLIC ACID 1 MG TABLET PO SCH (09:16)
[2017-11-13] MEDS: LACTULOSE 20 GM/30 ML ORAL LIQUID PO SCH ×2 (09:17→21:14)
[2017-11-13] MEDS: POLYETHYL GLYCOL 3350 17gm PACKET PO SCH ×2 (09:17→21:14)
[2017-11-13] MEDS: ACETAMINOPHEN 325 MG TABLET PO PRN ×2 (09:22→18:09)
--- NOTE | 2017-11-13 10:48 | IRU Progress Note ---
- Subjective/Serverity of Illness Date: 11/13/17 Maday was evaluated in her room on acute inpatient rehabilitation with physical therapy present. Continues to have a lot of increased muscle tone particularly of the ankles which was difficult to place the braces and her shoes. Nevertheless, they can be placed. She is undergoing wrapping of the lower extremities to reduce edema and this is going well. She denies any chest pain or shortness of breath. She has had just minimal abdominal pain and has had some bowel movements without having diarrhea. Seems to be tolerating the increased dose of MiraLAX and lactulose without development of loose stools. She reports her appetite is good. She denies any nausea or vomiting. Exam Vital Signs: Temperature 98.7 F 11/13/17 07:34 Pulse Rate 74 11/13/17 07:34 Respiratory Rate 14 11/13/17 07:34 Blood Pressure 114/66 11/13/17 07:34 Pulse Oximetry 93 11/13/17 07:34 Height/Weight/BMI: Height 1.68 m Weight 116 kg Body Mass Index 48.3 - Constitutional Present: mild distress, well nourished, well developed, morbidly obese - Routine HEENT Exam Head: Present: normocephalic Eye: Present: EOMI ENT: Present: mucous membranes moist, oropharynx clear - Routine Neck Exam Present: supple - Routine Respiratory Exam Present: CTA bilaterally. Absent: dyspnea, decreased breath sounds, wheezes, crackles - Routine Cardiovascular Exam Present: RRR, S1, S2. Absent: murmur - Routine Abdominal Exam Present: soft, normoactive bowel sounds, non distended. Absent: tenderness - Routine Extremities Exam Present: no edema - Routine Skin Exam Present: dry, warm - Routine Neurological Exam Present: alert, oriented X3, CN II-XII intact Continued increased tone noted of all 4 extremities. - Routine Psychiatric Exam Present: normal affect, normal thought process, cooperative Results IRU - Labs Labs: Plan account improved at 185,000. IRU A/P (1) CIDP (chronic inflammatory demyelinating polyneuropathy) Current visit: Yes Status: Chronic Continues to make progress with therapy. Patient is cooperative and motivated. (2) Disseminated histoplasmosis Current visit: Yes Status: Acute (3) Thrombocytopenia Current visit: Yes Status: Resolved Platelet count has now resolved to normal. Promacta discontinued as of today. (4) Granulomatous hepatitis Current visit: Yes Status: Acute (5) Ascites Qualifiers: Ascites type: other type Qualified Code(s): R18.8 - Other ascites Current visit: Yes Status: Acute (6) Constipation by delayed colonic transit Current visit: Yes Status: Acute Seems to be responding to increased dose of lactulose and MiraLAX. DVT Prophylaxis: SCD's Resuscitation Status: Full Code - Course Hospital Course: Sigifredo Lee MD: 11/02/17 10:59 Cooperative but slow progress with therapy. Continued significant muscle weakness. Tolerating itraconazole adequately. Thrombocytopenia is a concern. 11/05/17 10:28 Continued worsening platelet count despite IVIG. Cooperative but continues to demonstrate substantial weakness. Therapies are code treating for energy conservation. Remains on itraconazole. Eliquis has been discontinued. 11/06/17 10:39 Fluid weight is down. Remains on Lasix and frequent voiding. Platelets better after transfusion. Bone marrow exam yesterday with results pending. 11/07/17 10:18 Edema improved. Started wrapping legs yesterday. Bone marrow results pending. Reassess lab today. 11/09/17 16:29 Edema much improved. Weight down. Lasix discontinued today. Bone marrow results reviewed. Platelet count is up after transfusion. She is cooperative with therapy and making progress. 11/12/17 10:56 Abdominal pain last night presumably secondary to constipation. Continues to work with therapy and making progress. Platelet count improved. 11/13/17 10:49 Weight gradually increasing. Edema remains resolved with wrapping of the legs. Minimal output from Pleurx catheter. Increased muscle tone in all 4 extremities. Platelet count normal and Promacta discontinued. - Interventions to Obtain Goals PT Treatment Plan: Balance/Proprioception, Functional Activities, Manual Therapy , Patient/Family Education, Therapeutic Exercise OT Treatment Plan: ADL (Basic Care), Balance Training, IADL, Pt./Family Education, Ther. Exercise for ADL Goals Progress/Modifications: Patient remains very complex. We are continuing to work with her with physical therapy and occupational therapy. She has multiple medical issues going on as well. Her platelet count has now improved to normal and the Promacta has been discontinued. We do note increased muscle tone in all 4 extremities. This is resulting in difficulty placing the braces and therefore difficulty with ambulation etc. Her weight is gradually increasing since discontinuance of furosemide. We will continue to monitor and may need to restart furosemide. Bowels are moving with increased dose of lactulose.
--- NOTE | 2017-11-13 13:09 | Progress Note ---
<Frances Gardner - Last Filed: 11/13/17 13:22> Oncology Subjective In dining room at time of intake. Alert/oriented. Denies shortness of air, cough. No pain currently. She is eating and drinking normally. Had large bowel movement yesterday and feeling improved. Normal voiding. No new complaints. General: No fever, no night sweats Eyes: No redness, no pain, no diplopia ENT: No mouth sores, no trouble swallowing Cardiac: No chest pain no palpitations Pulmonary: No cough, no shortness of breath, no wheezing Abdomen: No pain, no nausea vomiting, no diarrhea or constipation : No urgency, frequency, dysuria, or hematuria Musculoskeletal: chronic pain Neurological: No headaches, no focal weakness Skin: No rash, no sores Psychiatric: No anxiety, no depression Exam Vital signs: Temperature 98.7 F 11/13/17 07:34 Pulse Rate 74 11/13/17 07:34 Respiratory Rate 14 11/13/17 07:34 Blood Pressure 114/66 11/13/17 07:34 Pulse Oximetry 93 11/13/17 07:34 - Constitutional no acute distress, obese - Routine HEENT Exam Head: Present: normocephalic Eye: Present: EOMI ENT: Present: mucous membranes moist - Routine Neck Exam Present: supple. Absent: lymphadenopathy - Routine Respiratory Exam Present: CTA bilaterally - Routine Cardiovascular Exam Present: RRR. Absent: no murmur - Routine Abdominal Exam Present: soft, normoactive bowel sounds, non tender - Routine Extremities Exam Present: no edema (wearing braces bilateral lower extremities.) - Routine Skin Exam Present: intact, dry - Routine Neurological Exam Present: alert, oriented X3 - Routine Psychiatric Exam Present: normal affect, cooperative Oncology Results - Labs CBC & Chem 7: 11/13/17 06:33 11/13/17 06:33 Labs: Short CBC 11/13/17 Range/Units 06:33 WBC 4.6 (4.5-11.0) T/MM3 Hgb 11.2 L (12-16) GM/DL Hct 35.2 L (36-46) % Plt Count 185 D (130-400) T/MM3 BMP 11/13/17 06:33 Sodium 138 Potassium 4.1 Chloride 101 Carbon Dioxide 29 BUN 9.0 Creatinine 0.6 L Glucose 90 Calcium 9.6 Liver Function 11/13/17 Range/Units 06:33 Total Bilirubin 1.00 (0.20-1.30) MG/DL AST 22 (14-36) U/L ALT 18 (1-35) U/L Alkaline Phosphatase 177 H (38-126) U/L Albumin 3.5 (3.5-5.0) g/dL Assessment and Plan Assessment and Plan: 1. Acute immune thrombocytopenic purpura, ITP, not responding to steroids or IVIG. Promacta started 11/09/17. Tolerating well. Platelets on 11/11/17 are 84, 000, platelets 11/13/17 185,000. 2. Chronic inflammatory demyelinating polyneuropathy (CIDP), status post plasmapheresis IVIG and Imuran in the past. 3. Chronic anemia with hemoglobin down to 6.8, status post blood transfusion. Hemoglobin stable 11/11/17 at 10.9, hemoglobin 11.2 on 11/13/17. 4. History of saddle pulmonary embolism with acute cor pulmonale, status post EKOS (catheter-assisted thrombolysis) in February 2017. History of DVT. -Eliquis discontinued after scan showed no significant PE and venous Doppler negative. -Due to the resistant thrombocytopenia and absence of PE and DVT, felt the risk of bleeding due to Eliquis overweighed the benefit. 5. 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 6. History of papillary thyroid cancer, status post thyroidectomy. Plan Dr. Franz discussed with Dr. Lee; continue Promacta, but decrease dose to 25 mg by mouth daily; continue to follow CBC every other day. Platelets recovering nicely,will resume Eliquis 2.5 mg BID . Recommend follow papillary thyroid cancer as outpatient. Plan discussed with patient. She has no questions. . - Time Spent With Patient Total time spent is greater than 50% in coordination of care (as documented) at patient's floor/unit and/or counseling patient: 25 - 35 minutes <Birgit Franz - Last Filed: 11/14/17 14:26> Exam Vital signs: Temperature 98.3 F 11/14/17 08:00 Pulse Rate 95 11/14/17 08:00 Respiratory Rate 16 11/14/17 08:00 Blood Pressure 129/83 11/14/17 08:00 Pulse Oximetry 95 11/14/17 08:00 Oncology Results - Labs CBC & Chem 7: 11/13/17 06:33 11/13/17 06:33 Assessment and Plan Assessment and Plan: I have seen and examined patient with Lety Gardner APRN and I developed the plan of care. The patient agreed to follow up with Dr. Genao in [place] for her all hem/onc issues. She will make her own appointment. - Time Spent With Patient Total time spent is greater than 50% in coordination of care (as documented) at patient's floor/unit and/or counseling patient:
--- NOTE | 2017-11-13 17:43 | Progress Note ---
- Date 11/13/17 Subjective: Maday is seen this afternoon following request from IRU nurses. They are concerned about drainage on dressing of current GONZÁLEZ drain. GONZÁLEZ output last evening was reported 10 ML output. It appears output has been declining over the past week. She denies having any abdominal pain or tenderness around tube incision site. Denies nausea or diarrhea. Overall feeling good. Objective Vital signs: Temperature 98.4 F 11/13/17 16:30 Pulse Rate 88 11/13/17 16:30 Respiratory Rate 20 11/13/17 16:30 Blood Pressure 122/80 11/13/17 16:30 Pulse Oximetry 93 11/13/17 16:30 Height/Weight/BMI: Height 1.68 m Weight 116 kg Body Mass Index 48.3 - Constitutional Present: no acute distress, well nourished, well developed - Routine HEENT Exam Eye: Present: EOMI ENT: Present: mucous membranes moist, dentition normal - Routine Respiratory Exam Present: CTA bilaterally. Absent: wheezes - Routine Cardiovascular Exam Present: RRR, S1, S2. Absent: murmur - Routine Abdominal Exam Present: soft, normoactive bowel sounds, non distended, drain (GONZÁLEZ intact). Absent: tenderness Comments: Site dressing with small amount of serosanguineous drainage. No erythema noted around her shunt site - Routine Extremities Exam Present: normal capillary refill - Routine Skin Exam Present: intact, dry, warm - Routine Neurological Exam Present: alert, oriented X3, CN II-XII intact - Routine Lymphatic Exam Lymphatic: Absent: adenopathy - Routine Psychiatric Exam Present: normal affect, cooperative Results - Labs CBC & Chem 7: 11/13/17 06:33 11/13/17 06:33 Microbiology Results: Microbiology 11/05/17 15:45 Blood Blood Fungal Culture - Preliminary Assessment and Plan (1) CIDP (chronic inflammatory demyelinating polyneuropathy) Current visit: Yes Status: Chronic Assessment and Plan: IMPRESSION 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 Distal spinal muscular atrophy and muscle atrophy of lower extremities with gait instability Saddle embolus of the pulmonary artery with acute cor pulmonale, treated with EKOS catheter in February,. Also with history of DVT. Anticoagulated on Eliquis. Chronic anemia and thrombocytopenia Hypertension. 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 Ascites, unknown cause, with Pleurx drain inserted on 10/18/17. Hepatic steatosis. Possible early cirrhosis Mild protein calorie malnutrition Morbid obesity and hypoventilation syndrome Asthma Papillary cancer of thyroid, Post-surgical hypothyroidism. Right ovarian dermoid cyst Depression Onychocryptosis Echocardiogram February 2017: EF greater than 55%, right ventricular systolic function is moderately reduced, mild tricuspid regurgitation. On 10/29/17: WBC was 9.3, hemoglobin 9.4, hematocrit 28.4, platelets 34, sodium 129, potassium 3.2, BUN 10, creatinine 0.6. Blood pressure was 93/56 to 104/60 with heart rate in the 70s. She was maintaining saturations on room air. She has an appointment scheduled with Dr. Angel Coleman with infectious disease on November 27 at 2:30 PM. PLAN Plan is to monitor her drainage around GONZÁLEZ site insertion overnight. Suspect that overall drainage is declining. Site does not appear to be infected , is without erythema Will reevaluate tomorrow morning Continue with lactulose and MiraLAX for bowel motivation Continue Itraconazole 200mg PO BID for 6-12 months. Repeat Itraconazole level drawn today 11/13 and pending CBC and BMP from today reviewed. Platelet count remains normal Need to work on PT and OT for ongoing strengthening - Physician Narrative Narrative: Date: 11/13/17 Time: 1736 Hospital Course Summary Disclaimer: The visit summary below is not to be considered part of the above Progress Note. Hospital Course: 10/31/17 Extremely complicated case. Agree with ID consultation. Discharge instructions recommended to check an itraconazole drug level - this has been ordered for tomorrow am along with CBC, CMP, magnesium level. Continue fluid restriction; carb consistent diet. Check BGM, though in [place] she was not requiring SSI. Check daily weights. Will obtain Rt leg venous doppler. Even though she's on Eliquis, this was temporarily held during her hospitalization because of anemia and thrombocytopenia, and she is certainly at high risk for DVT. Report to Dr. Lee indicated they are to drain Pleurx daily, approx. 1L of fluid. Discussed with Dr. Lee and nursing staff. Extensive chart review. At time of Discharge from [facility], she was started on Eliquis 2.5 mg twice a day, Benadryl 25 mg if needed for itching, fentanyl 12 g patch, Lasix 40 mg daily, itraconazole 200 mg twice a day, and lactulose 20 g daily. She is also to be taking: Ergocalciferol 50,000 units once a week, folic acid 0.8 mg daily, levothyroxine 175 g daily, Mag-Ox 400 mg with supper, medical Paremyd 5 mg 30 minutes before meals, nystatin powder 3 times a day as needed, omeprazole 20 mg daily, Zofran 4 mg ODT as needed, MiraLAX 17 g daily when necessary, spironolactone 50 mg daily, Effexor 75 mg twice a day. She has an appointment scheduled with Dr. Angel Coleman with infectious disease on November 27 at 2:30 PM. 11/03/17 Extremely complicated case. ID consultation. Discharge instructions recommended to check an itraconazole drug level-currently pending. Continue fluid restriction; carb consistent diet. BG has been low normal. Reports tolerating PO w/o difficulty. Bilateral LE doppler was negative for DVT. CTA was a bit limited, but did not show any acute PE. She is on Eliquis, but Dr. Franz to determine possible stopping due to low platelets. Intra-abdominal draining of Pleurx daily, approx. 1L of fluid, recommended on discharge. Multiple abdominal drains noted. Recent complete GB removal. ITP with further decline of platelets- per Dr. Franz. IVIG given yesterday and is to be repeated today. Decadron, Benadryl given daily as well. Continue low dose fentanyl patch for pain and PRN APAP. Concern for atelectasis vs. pneumonia- encourage pulmonary toilet. Continue to monitor closely. Labs and chart reviewed. D/W Dr. Aponte. 11/04/17 ID consultation for histoplasma infection. Itraconazole drug level currently pending. Dr. Rasheed to see Sunday. Neuro consultation for CIDP. Dr. Kate to see Sunday. Dr. Franz has seen patient for ITP. Initiated IVIG, Decadron and Benadryl. Anticoagulation has been discontinued. No DVT in her legs and no acute pulmonary emboli. SCDs for DVT prophylaxis. Platelets up from yesterday. 9000-- >11,000. Continue fluid restriction. Intra-abdominal draining of Pleurx daily, approx. 1L of fluid, recommended on discharge. Continue low dose fentanyl patch for pain and PRN APAP. TSH very slightly elevated. Free T4 pending. No adjustment made to thyroid med. Increase Lasix to 60mg and elevate legs AMAP for pedal edema. Follow electrolytes. 11/05/17 Appreciate consultations- Dr Franz, Dr Rasheed and Dr Kate Remains on Itraconazole BID; likely need for 6-[address] Franz and Dr Rand following regarding probable IPT and thrombocytopenia. PLT today 7. Eliquis stopped given negative findings of thrombus of scans over the weekend Continue on fluid restriction and monitor abdominal drainage often. Lasix was increased 11/04/17. Follow weights and edema 11/09/17 Hgb up to 10, plt 23 yesterday - will repeat labs today. Had a platelet pheresis pack on 10/31 and 11/05. Promacta ordered per heme. Bone marrow aspiration and biopsy showed hypocellular marrow for heart age, 35% cellularity, increased megakaryocytes suggestive of peripheral destruction (can include ITP, Liver disease and hypersplenism, drug related and infection related ). The bone marrow showed no evidence of leukemia or dysplasia, no infiltrative process, no granuloma, no metastatic disease. Anticoagulants have been discontinued per heme because risk outweighs benefit. BP stable. Working well with therapy. Pt tends to void frequently after Lasix dose, which interrupts therapy. Change dosing time to 1300. Continue Itraconazole BID for 6-12 months as recommended by Dr Rasheed 11/11/17 Pain in RLQ. Morphine now available. KUB +increased colonic stool burden. 11/12/17 KUB shows constipation. Lactulose and MiraLAX increased to BID per attending. Will add Fleet's enema if next suppository is unsuccessful. Hgb up to 10.9 and platelets 84 as of yesterday. Will repeat labs in am. Promacta per heme/onc. Continue Itraconazole 200mg PO BID for 6-12 months. Repeat Itraconazole level in am. 11/13 Plan is to monitor her drainage around GONZÁLEZ site insertion overnight. Suspect that overall drainage is declining. Site does not appear to be infected , is without erythema Will reevaluate tomorrow morning Continue with lactulose and MiraLAX for bowel motivation Continue Itraconazole 200mg PO BID for 6-12 months. Repeat Itraconazole level drawn today 11/13 and pending CBC and BMP from today reviewed. Platelet count remains normal Need to work on PT and OT for ongoing strengthening
[2017-11-13] MEDS: DiphenhydrAMINE 25 MG CAPSULE PO PRN (21:14)
[2017-11-13] MEDS: APIXABAN 2.5 MG TABLET PO SCH (21:14)
[2017-11-14] MEDS: LEVOTHYROXINE 175 MCG TABLET PO SCH (06:45)
[2017-11-14] MEDS: ELTROMBOPAG PO SCH (06:45)
[2017-11-14] MEDS: OMEPRAZOLE 20 MG CAPSULE PO SCH (06:45)
[2017-11-14] MEDS: SPIRONOLACTONE 50 MG TABLET PO SCH (08:25)
[2017-11-14] MEDS: METOCLOPRAMIDE 5mg TABLET PO SCH ×3 (08:25→21:44)
[2017-11-14] MEDS: MAGNESIUM OXIDE 400 MG TABLET PO SCH ×2 (08:25→17:45)
[2017-11-14] MEDS: FOLIC ACID 1 MG TABLET PO SCH (08:25)
[2017-11-14] MEDS: VENLAFAXINE 75 MG TABLET PO SCH ×2 (08:26→17:45)
[2017-11-14] MEDS: APIXABAN 2.5 MG TABLET PO SCH ×2 (08:26→21:44)
[2017-11-14] MEDS: LACTULOSE 20 GM/30 ML ORAL LIQUID PO SCH ×2 (08:26→21:46)
[2017-11-14] MEDS: ITRACONAZOLE 100 MG CAPSULE PO SCH ×2 (08:26→21:45)
[2017-11-14] MEDS: POLYETHYL GLYCOL 3350 17gm PACKET PO SCH ×2 (08:26→21:40)
--- NOTE | 2017-11-14 09:23 | ID Progress Note ---
Subjective Date: 11/14/17 Subjective: Ms. Burdick states she's doing well. She says her abdominal pain continues to improved. States her bowels are moving, and that drainage from her drain is decreasing. She walked yesterday for the first time in about a month. Exam Vital Signs: Temperature 99 F 11/13/17 21:34 Pulse Rate 93 11/13/17 21:34 Respiratory Rate 18 11/13/17 21:34 Blood Pressure 106/79 11/13/17 21:34 Pulse Oximetry 95 11/13/17 21:34 Height/Weight/BMI: Height 1.68 m Weight 114.8 kg Body Mass Index 48.3 - Constitutional Present: no acute distress, well nourished, well developed, obese - Routine HEENT Exam Head: Present: normocephalic, atraumatic Eye: Present: EOMI, PERRL ENT: Present: mucous membranes moist, oropharynx clear - Routine Neck Exam Present: supple - Routine Respiratory Exam Present: CTA bilaterally - Routine Cardiovascular Exam Present: RRR - Routine Abdominal Exam Present: soft, normoactive bowel sounds, non distended, non tender, drain (with serous drainage, exit site covered with dressing) - Routine Extremities Exam Absent: cyanosis, clubbing, edema Comments: LEs wrapped - Routine Skin Exam Present: intact. Absent: rash - Routine Neurological Exam Present: alert, oriented X3, CN II-XII intact, moving all extremities, normal speech - Routine Psychiatric Exam Present: normal affect Results - Labs CBC & Chem 7: 11/13/17 06:33 11/13/17 06:33 Microbiology Results: Microbiology 11/05/17 15:45 Blood Blood Fungal Culture - Preliminary Impression: Presumed disseminated Histoplasmosis. Positive Urine Histo antigen 10/04/17, per records. Serum Histo Ag 2.71 ([place]), urine Histo Ag negative ([place]), 11/05/17 Severe polyneuropathy/CIDP, treated with plasmapharesis, steroids and also Imuran. Severe thrombocytopenia/ITP, s/p IVIG x 2. S/p bone marrow biopsy 11/05/17, without evidence of granulomas or infiltrative disease process. Improving. 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 Histoplasma Ascites, unclear etiology. H/o PE treated with EKOS catheter in February 2017 Hypothyroidism, s/p thyroid cancer Obesity s/p lap banding PCN allergy H/o gallstone pancreatitis Anemia, normocytic Weakness/debility Recommendation: Continue Itraconazole 200mg po bid. Planning for 6-12 months of treatment. Itraconazole level was slightly low at 0.9 on 11/01/17, repeat Itraconazole level pending. Continue PT/OT for weakness. She has F/U scheduled with Dr. Coleman on 11/27/17.
[2017-11-14] MEDS: DiphenhydrAMINE 25 MG CAPSULE PO PRN (21:45)
[2017-11-14] MEDS: ACETAMINOPHEN 325 MG TABLET PO PRN (21:55)
[2017-11-15] MEDS: ELTROMBOPAG PO SCH (06:38)
[2017-11-15] MEDS: LEVOTHYROXINE 175 MCG TABLET PO SCH (06:38)
[2017-11-15] MEDS: OMEPRAZOLE 20 MG CAPSULE PO SCH (06:38)
[2017-11-15] MEDS: ACETAMINOPHEN 325 MG TABLET PO PRN ×2 (06:41→12:14)
[2017-11-15] MEDS: APIXABAN 2.5 MG TABLET PO SCH ×2 (09:07→22:16)
[2017-11-15] MEDS: VENLAFAXINE 75 MG TABLET PO SCH ×2 (09:07→17:11)
[2017-11-15] MEDS: MAGNESIUM OXIDE 400 MG TABLET PO SCH ×2 (09:07→17:11)
[2017-11-15] MEDS: ITRACONAZOLE 100 MG CAPSULE PO SCH ×2 (09:08→22:16)
[2017-11-15] MEDS: METOCLOPRAMIDE 5mg TABLET PO SCH ×3 (09:08→22:16)
[2017-11-15] MEDS: SPIRONOLACTONE 50 MG TABLET PO SCH (09:08)
[2017-11-15] MEDS: FOLIC ACID 1 MG TABLET PO SCH (09:08)
[2017-11-15] MEDS: POLYETHYL GLYCOL 3350 17gm PACKET PO SCH ×2 (09:53→22:16)
[2017-11-15] MEDS: LACTULOSE 20 GM/30 ML ORAL LIQUID PO SCH ×2 (09:53→22:16)
--- NOTE | 2017-11-15 10:13 | Progress Note ---
- Date 11/15/17 Subjective: Autumn was seen at breakfast. She is motivated and encouraged with her progress. She's able to stand for transfers and can even take a few steps. Her leg swelling has resolved, which feels much better. She still has pain in her joints , especially her ankles, after working with PT. Her abdominal pain is almost gone. She denies SOA. No nausea/vomiting. Objective Vital signs: Temperature 98.2 F 11/15/17 08:00 Pulse Rate 79 11/15/17 08:00 Respiratory Rate 16 11/15/17 08:00 Blood Pressure 117/77 11/15/17 08:00 Pulse Oximetry 92 11/15/17 08:00 Height/Weight/BMI: Height 1.68 m Weight 116 kg Body Mass Index 48.3 - Constitutional Present: no acute distress, well nourished, well developed - Routine HEENT Exam Head: Present: normocephalic Eye: Present: PERRL. Absent: conjunctival icterus, scleral injection - Routine Respiratory Exam Present: CTA bilaterally - Routine Cardiovascular Exam Present: RRR, S1, S2 - Routine Abdominal Exam Present: soft, normoactive bowel sounds, non distended, non tender - Routine Extremities Exam Present: no edema - Routine Musculoskeletal Exam Musculoskeletal: Present: no erythema - Routine Skin Exam Present: intact, dry, warm - Routine Neurological Exam Present: alert, oriented X3 - Routine Psychiatric Exam Present: normal affect, normal thought process, cooperative Results - Labs CBC & Chem 7: 11/13/17 06:33 11/13/17 06:33 Microbiology Results: Microbiology 11/05/17 15:45 Blood Blood Fungal Culture - Preliminary Assessment and Plan (1) CIDP (chronic inflammatory demyelinating polyneuropathy) Current visit: Yes Status: Chronic Assessment and Plan: IMPRESSION 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 Distal spinal muscular atrophy and muscle atrophy of lower extremities with gait instability Saddle embolus of the pulmonary artery with acute cor pulmonale, treated with EKOS catheter in February,. Also with history of DVT. Anticoagulated on Eliquis. Chronic anemia and thrombocytopenia Hypertension. 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 Ascites, unknown cause, with Pleurx drain inserted on 10/18/17. Hepatic steatosis. Possible early cirrhosis Mild protein calorie malnutrition Morbid obesity and hypoventilation syndrome Asthma Papillary cancer of thyroid, Post-surgical hypothyroidism. Right ovarian dermoid cyst Depression Onychocryptosis Echocardiogram February 2017: EF greater than 55%, right ventricular systolic function is moderately reduced, mild tricuspid regurgitation. On 10/29/17: WBC was 9.3, hemoglobin 9.4, hematocrit 28.4, platelets 34, sodium 129, potassium 3.2, BUN 10, creatinine 0.6. Blood pressure was 93/56 to 104/60 with heart rate in the 70s. She was maintaining saturations on room air. She has an appointment scheduled with Dr. Angel Coleman with infectious disease on November 27 at 2:30 PM. PLAN Promacta dc'd. Both hgb and platelets have improved. Drainage from abdominal incisions continues to decrease. Monitor weight -- slight increase noted since dc Lasix. Vitals stable. Repeat CBC/BMP. Resuscitation Status: Full Code - Physician Narrative Narrative: Date: 11/15/17 Time: 1009 Hospital Course Summary Disclaimer: The visit summary below is not to be considered part of the above Progress Note. Hospital Course: 10/31/17 Extremely complicated case. Agree with ID consultation. Discharge instructions recommended to check an itraconazole drug level - this has been ordered for tomorrow am along with CBC, CMP, magnesium level. Continue fluid restriction; carb consistent diet. Check BGM, though in [place] she was not requiring SSI. Check daily weights. Will obtain Rt leg venous doppler. Even though she's on Eliquis, this was temporarily held during her hospitalization because of anemia and thrombocytopenia, and she is certainly at high risk for DVT. Report to Dr. Lee indicated they are to drain Pleurx daily, approx. 1L of fluid. Discussed with Dr. Lee and nursing staff. Extensive chart review. At time of Discharge from [facility], she was started on Eliquis 2.5 mg twice a day, Benadryl 25 mg if needed for itching, fentanyl 12 g patch, Lasix 40 mg daily, itraconazole 200 mg twice a day, and lactulose 20 g daily. She is also to be taking: Ergocalciferol 50,000 units once a week, folic acid 0.8 mg daily, levothyroxine 175 g daily, Mag-Ox 400 mg with supper, medical Paremyd 5 mg 30 minutes before meals, nystatin powder 3 times a day as needed, omeprazole 20 mg daily, Zofran 4 mg ODT as needed, MiraLAX 17 g daily when necessary, spironolactone 50 mg daily, Effexor 75 mg twice a day. She has an appointment scheduled with Dr. Angel Coleman with infectious disease on November 27 at 2:30 PM. 11/03/17 Extremely complicated case. ID consultation. Discharge instructions recommended to check an itraconazole drug level-currently pending. Continue fluid restriction; carb consistent diet. BG has been low normal. Reports tolerating PO w/o difficulty. Bilateral LE doppler was negative for DVT. CTA was a bit limited, but did not show any acute PE. She is on Eliquis, but Dr. Franz to determine possible stopping due to low platelets. Intra-abdominal draining of Pleurx daily, approx. 1L of fluid, recommended on discharge. Multiple abdominal drains noted. Recent complete GB removal. ITP with further decline of platelets- per Dr. Franz. IVIG given yesterday and is to be repeated today. Decadron, Benadryl given daily as well. Continue low dose fentanyl patch for pain and PRN APAP. Concern for atelectasis vs. pneumonia- encourage pulmonary toilet. Continue to monitor closely. Labs and chart reviewed. D/W Dr. Aponte. 11/04/17 ID consultation for histoplasma infection. Itraconazole drug level currently pending. Dr. Rasheed to see Sunday. Neuro consultation for CIDP. Dr. Kate to see Sunday. Dr. Franz has seen patient for ITP. Initiated IVIG, Decadron and Benadryl. Anticoagulation has been discontinued. No DVT in her legs and no acute pulmonary emboli. SCDs for DVT prophylaxis. Platelets up from yesterday. 9000-- >11,000. Continue fluid restriction. Intra-abdominal draining of Pleurx daily, approx. 1L of fluid, recommended on discharge. Continue low dose fentanyl patch for pain and PRN APAP. TSH very slightly elevated. Free T4 pending. No adjustment made to thyroid med. Increase Lasix to 60mg and elevate legs AMAP for pedal edema. Follow electrolytes. 11/05/17 Appreciate consultations- Dr Franz, Dr Rasheed and Dr Kate Remains on Itraconazole BID; likely need for 6-[address] Franz and Dr Rand following regarding probable IPT and thrombocytopenia. PLT today 7. Eliquis stopped given negative findings of thrombus of scans over the weekend Continue on fluid restriction and monitor abdominal drainage often. Lasix was increased 11/04/17. Follow weights and edema 11/09/17 Hgb up to 10, plt 23 yesterday - will repeat labs today. Had a platelet pheresis pack on 10/31 and 11/05. Promacta ordered per heme. Bone marrow aspiration and biopsy showed hypocellular marrow for heart age, 35% cellularity, increased megakaryocytes suggestive of peripheral destruction (can include ITP, Liver disease and hypersplenism, drug related and infection related ). The bone marrow showed no evidence of leukemia or dysplasia, no infiltrative process, no granuloma, no metastatic disease. Anticoagulants have been discontinued per heme because risk outweighs benefit. BP stable. Working well with therapy. Pt tends to void frequently after Lasix dose, which interrupts therapy. Change dosing time to 1300. Continue Itraconazole BID for 6-12 months as recommended by Dr Rasheed 11/11/17 Pain in RLQ. Morphine now available. KUB +increased colonic stool burden. 11/12/17 KUB shows constipation. Lactulose and MiraLAX increased to BID per attending. Will add Fleet's enema if next suppository is unsuccessful. Hgb up to 10.9 and platelets 84 as of yesterday. Will repeat labs in am. Promacta per heme/onc. Continue Itraconazole 200mg PO BID for 6-12 months. Repeat Itraconazole level in am. 11/13 Plan is to monitor her drainage around GONZÁLEZ site insertion overnight. Suspect that overall drainage is declining. Site does not appear to be infected , is without erythema Will reevaluate tomorrow morning Continue with lactulose and MiraLAX for bowel motivation Continue Itraconazole 200mg PO BID for 6-12 months. Repeat Itraconazole level drawn today 11/13 and pending CBC and BMP from today reviewed. Platelet count remains normal Need to work on PT and OT for ongoing strengthening 11/15 Promacta dc'd. Both hgb and platelets have improved. Drainage from abdominal incisions continues to decrease. Monitor weight -- slight increase noted since dc Lasix.
--- NOTE | 2017-11-15 10:24 | Progress Note ---
<Frances Gardner - Last Filed: 11/15/17 11:17> Oncology Subjective Alert/oriented. Denies pain currently; no new concerns. No bleeding. Eating/ drinking well. BM today. Voiding normally. General: No fever, no night sweats Eyes: No redness, no pain, no diplopia ENT: No mouth sores, no trouble swallowing Cardiac: No chest pain no palpitations Pulmonary: No cough, no shortness of breath, no wheezing Abdomen: No pain, no nausea vomiting, no diarrhea or constipation : No urgency, frequency, dysuria, or hematuria Musculoskeletal: chronic intertmittent hand/leg pain. Neurological: No headaches, no focal weakness Skin: No rash, no sores Psychiatric: No anxiety, no depression Exam Vital signs: Temperature 98.2 F 11/15/17 08:00 Pulse Rate 79 11/15/17 08:00 Respiratory Rate 16 11/15/17 08:00 Blood Pressure 117/77 11/15/17 08:00 Pulse Oximetry 92 11/15/17 08:00 - Constitutional no acute distress, obese - Routine HEENT Exam Head: Present: normocephalic Eye: Present: EOMI ENT: Present: mucous membranes moist - Routine Neck Exam Present: supple. Absent: lymphadenopathy - Routine Respiratory Exam Present: CTA bilaterally - Routine Cardiovascular Exam Present: RRR, no murmur - Routine Abdominal Exam Present: soft, drain (no s/sx of inflammation). Absent: mass (no organomegaly/ mass, but difficult to assess 2nd. to obesity) - Routine Extremities Exam Present: no edema - Routine Back/Spine/Pelvis Exam Back/Spine: Absent: vertebral tenderness - Routine Skin Exam Present: intact, dry, pallor - Routine Neurological Exam Present: alert, oriented X3 - Routine Psychiatric Exam Present: normal affect, cooperative Oncology Results - Labs CBC & Chem 7: 11/15/17 10:14 11/15/17 10:14 Assessment and Plan Assessment and Plan: 1. Acute immune thrombocytopenic purpura, ITP, not responding to steroids or IVIG. Promacta started 11/09/17. Tolerating well. Platelets on 11/11/17 are 84, 000, platelets 11/13/17 are 185,000, and today, 11/15/17 are 236,000. 2. Chronic inflammatory demyelinating polyneuropathy (CIDP), status post plasmapheresis IVIG and Imuran in the past. 3. Chronic anemia with hemoglobin down to 6.8, status post blood transfusion. Hemoglobin stable 11/11/17 at 10.9, hemoglobin 11.2 on 11/13/17, and 12.1 today , 11/15/17. 4. History of saddle pulmonary embolism with acute cor pulmonale, status post EKOS (catheter-assisted thrombolysis) in February 2017. History of DVT. -Eliquis discontinued after scan showed no significant PE and venous Doppler negative. With improved platelets have resumed Eliquis. 5. 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 6. History of papillary thyroid cancer, status post thyroidectomy. Plan Discussed w/ Dr. Franz-will hold Promacta. Continue to follow CBC QOD. Continue supportive care, rehab, Eliquis. - Time Spent With Patient Total time spent is greater than 50% in coordination of care (as documented) at patient's floor/unit and/or counseling patient: less than 15 minutes <Sebas Rand - Last Filed: 11/15/17 13:31> Exam Vital signs: Temperature 98.2 F 11/15/17 08:00 Pulse Rate 79 11/15/17 08:00 Respiratory Rate 16 11/15/17 08:00 Blood Pressure 117/77 11/15/17 08:00 Pulse Oximetry 92 11/15/17 08:00 Oncology Results - Labs CBC & Chem 7: 11/15/17 10:14 11/15/17 10:14 Labs: Short CBC 11/15/17 Range/Units 10:14 WBC 6.5 D (4.5-11.0) T/MM3 Hgb 12.1 (12-16) GM/DL Hct 37.2 (36-46) % Plt Count 236 (130-400) T/MM3 BMP 11/15/17 10:14 Sodium 139 Potassium 4.9 D Chloride 103 Carbon Dioxide 21 L BUN 7.0 Creatinine 0.6 L Glucose 188 H Calcium 9.6 Liver Function 11/15/17 11/15/17 Range/Units 10:14 11:14 Total Bilirubin 1.20 (0.20-1.30) MG/DL AST 38 H D (14-36) U/L ALT TNP 22 Alkaline Phosphatase 170 H (38-126) U/L Albumin 3.9 (3.5-5.0) g/dL Assessment and Plan Assessment and Plan: Patient examined, chart reviewed, I participated development of the plan of care of this patient. Platelets have improved dramatically and I felt like that we need to stop the Promacta. Lety Gardner discussed with Dr. Franz in he also felt the same way. Promacta is been discontinued. Currently on elequis for history of PE. Continues on Sporanox. Microbiology 11/05/17 15:45 Blood Blood Fungal Culture - Preliminary no growth to date. Laboratory Tests 11/03/17 11/09/17 11/10/17 04:57 11:02 05:35 WBC Hgb Plt Count 56 L D 78 L D Neutrophils % (Manual) 57.0 Lymphocytes % (Manual) 34.0 Sodium Potassium Chloride Carbon Dioxide Creatinine Glucose Calcium Total Bilirubin Alkaline Phosphatase Lactate Dehydrogenase 470 Globulin 11/11/17 11/11/17 11/13/17 06:56 06:56 06:33 WBC 4.8 Hgb Plt Count 84 L Neutrophils % (Manual) 57.0 Lymphocytes % (Manual) 22.0 L Sodium 135 Potassium 4.6 D Chloride 102 D Carbon Dioxide 25 29 Creatinine 0.6 L Glucose Calcium 9.4 Total Bilirubin 1.00 Alkaline Phosphatase 177 H Lactate Dehydrogenase Globulin 11/15/17 11/15/17 10:14 10:14 WBC 6.5 D Hgb 12.1 Plt Count 236 Neutrophils % (Manual) Lymphocytes % (Manual) Sodium Potassium Chloride Carbon Dioxide 21 L Creatinine Glucose 188 H Calcium Total Bilirubin 1.20 Alkaline Phosphatase 170 H Lactate Dehydrogenase 752 H Globulin 3.8 H - Time Spent With Patient Total time spent is greater than 50% in coordination of care (as documented) at patient's floor/unit and/or counseling patient:
--- NOTE | 2017-11-15 10:45 | IRU Progress Note ---
- Subjective/Serverity of Illness Date: 11/15/17 Maday reports that overall she feels well. She is able to eat and drink adequately. She was at her strength is improving. She denies any shortness of breath. Her frequency of urination has improved since discontinuance of the furosemide. From a therapy standpoint, she is relating with total assistance 11 feet with a front-wheeled walker. She attempted to do a stand, pivot transfer with nursing but could not get the brace is on. Her platelet count is up to 236,000. I discussed with Lety Kemp APRN who will decide about the Promacta. Exam Vital Signs: Temperature 98.2 F 11/15/17 08:00 Pulse Rate 79 11/15/17 08:00 Respiratory Rate 16 11/15/17 08:00 Blood Pressure 117/77 11/15/17 08:00 Pulse Oximetry 92 11/15/17 08:00 Height/Weight/BMI: Height 1.68 m Weight 116 kg Body Mass Index 48.3 - Constitutional Present: no acute distress, well nourished, well developed, morbidly obese, cooperative - Routine HEENT Exam Head: Present: normocephalic Eye: Present: EOMI ENT: Present: mucous membranes moist, oropharynx clear. Absent: dentition normal - Routine Respiratory Exam Present: CTA bilaterally. Absent: dyspnea, decreased breath sounds, wheezes - Routine Cardiovascular Exam Present: RRR, S1, S2. Absent: murmur - Routine Abdominal Exam Present: soft, normoactive bowel sounds, non distended. Absent: tenderness - Routine Extremities Exam Present: no edema, normal capillary refill - Routine Skin Exam Present: dry, warm - Routine Neurological Exam Present: alert, oriented X3, CN II-XII intact Has reduced strength in upper and lower extremities with increased muscle tone at rest. - Routine Psychiatric Exam Present: normal affect, cooperative, good insight, good judgment Results IRU - Labs Labs: Have reviewed labs. IRU A/P (1) CIDP (chronic inflammatory demyelinating polyneuropathy) Current visit: Yes Status: Chronic She is improving from a functional standpoint. Continue therapies at present. (2) Disseminated histoplasmosis Current visit: Yes Status: Acute She continues on itraconazole and is apparently tolerating this adequately. Repeat liver enzymes are pending as are itraconazole blood levels from yesterday. (3) Thrombocytopenia Current visit: Yes Status: Resolved I called the pharmacy today to indicate that she would be at least through Sunday and that they could order some more Promacta. (4) Granulomatous hepatitis Current visit: Yes Status: Acute (5) Ascites Qualifiers: Ascites type: other type Qualified Code(s): R18.8 - Other ascites Current visit: Yes Status: Acute Her weight has crept up a bit since stopping the furosemide although overall it is stable at present at 116 kg (6) Constipation by delayed colonic transit Current visit: Yes Status: Acute DVT Prophylaxis: SCD's Resuscitation Status: Full Code - Course Hospital Course: Sigifredo Lee MD: 11/02/17 10:59 Cooperative but slow progress with therapy. Continued significant muscle weakness. Tolerating itraconazole adequately. Thrombocytopenia is a concern. 11/05/17 10:28 Continued worsening platelet count despite IVIG. Cooperative but continues to demonstrate substantial weakness. Therapies are code treating for energy conservation. Remains on itraconazole. Eliquis has been discontinued. 11/06/17 10:39 Fluid weight is down. Remains on Lasix and frequent voiding. Platelets better after transfusion. Bone marrow exam yesterday with results pending. 11/07/17 10:18 Edema improved. Started wrapping legs yesterday. Bone marrow results pending. Reassess lab today. 11/09/17 16:29 Edema much improved. Weight down. Lasix discontinued today. Bone marrow results reviewed. Platelet count is up after transfusion. She is cooperative with therapy and making progress. 11/12/17 10:56 Abdominal pain last night presumably secondary to constipation. Continues to work with therapy and making progress. Platelet count improved. 11/13/17 10:49 Weight gradually increasing. Edema remains resolved with wrapping of the legs. Minimal output from Pleurx catheter. Increased muscle tone in all 4 extremities. Platelet count normal and Promacta discontinued. 11/15/17 10:46 Patient is making good progress with therapies. Continues minimal output from Pleurx catheter. Platelet count remains normal. Promacta is continued at a lower dose. Management per hematology. - Interventions to Obtain Goals PT Treatment Plan: Balance/Proprioception, Functional Activities, Gait Training , Patient/Family Education, Therapeutic Exercise OT Treatment Plan: ADL (Basic Care), Balance Training, IADL, Pt./Family Education, Ther. Exercise for ADL Goals Progress/Modifications: Considered removing Pleurx catheter. However she still has some output from that so we will continue for the time being. Her platelet count is 236,000. I discussed with Lety with oncology. She will discuss with Dr. Franz to see whether dose of Promacta should be reduced or not. I did contact the pharmacy to have them order a few more. She is making progress with therapies. She denies any pain at the present time. Her weight is stable.
[2017-11-16] MEDS: DiphenhydrAMINE 25 MG CAPSULE PO PRN ×2 (00:16→22:12)
[2017-11-16] MEDS: ACETAMINOPHEN 325 MG TABLET PO PRN ×3 (00:16→17:57)
[2017-11-16] MEDS: OMEPRAZOLE 20 MG CAPSULE PO SCH (06:43)
[2017-11-16] MEDS: LEVOTHYROXINE 175 MCG TABLET PO SCH (06:43)
[2017-11-16] MEDS: VENLAFAXINE 75 MG TABLET PO SCH ×2 (08:37→16:54)
[2017-11-16] MEDS: SPIRONOLACTONE 50 MG TABLET PO SCH (08:37)
[2017-11-16] MEDS: LACTULOSE 20 GM/30 ML ORAL LIQUID PO SCH ×2 (08:38→20:16)
[2017-11-16] MEDS: APIXABAN 2.5 MG TABLET PO SCH ×2 (08:38→22:12)
[2017-11-16] MEDS: MAGNESIUM OXIDE 400 MG TABLET PO SCH ×2 (08:38→16:55)
[2017-11-16] MEDS: POLYETHYL GLYCOL 3350 17gm PACKET PO SCH ×2 (08:38→20:16)
[2017-11-16] MEDS: METOCLOPRAMIDE 5mg TABLET PO SCH ×3 (08:38→22:12)
[2017-11-16] MEDS: FOLIC ACID 1 MG TABLET PO SCH (08:38)
[2017-11-16] MEDS: ITRACONAZOLE 100 MG CAPSULE PO SCH ×2 (09:30→22:12)
--- NOTE | 2017-11-16 10:28 | IRU Progress Note ---
- Subjective/Serverity of Illness Date: 11/16/17 Maday states that she is feeling stronger. She is able to stand with assistance of 1 person according to Maday although according to PT notes it requires 2 people. Continues to have difficulty wearing the left ankle brace. It is rubbing on the left lateral malleolus despite using padding. However, muscle tone appears to be improved (that is, decreased) in the lower extremities which should facilitate use of the brace. Edema is minimal if at all at present. She has a good appetite. She denies any chest pain or shortness of breath. She denies abdominal pain at present. Her bowels are moving and she has no nausea no vomiting. Plate leg count up further. Appreciate oncology assistance. Promacta is being held at present. Remains on it for econazole and tolerating adequately. Exam Vital Signs: Temperature 98.3 F 11/16/17 08:00 Pulse Rate 82 11/16/17 08:00 Respiratory Rate 16 11/16/17 08:00 Blood Pressure 107/75 11/16/17 08:00 Pulse Oximetry 95 11/16/17 08:00 Height/Weight/BMI: Height 1.68 m Weight 117.8 kg Body Mass Index 48.3 - Constitutional Present: no acute distress, well nourished, well developed, morbidly obese, cooperative - Routine HEENT Exam Head: Present: normocephalic Eye: Present: EOMI ENT: Present: mucous membranes moist, oropharynx clear. Absent: dentition normal - Routine Neck Exam Present: supple - Routine Respiratory Exam Present: CTA bilaterally. Absent: wheezes - Routine Cardiovascular Exam Present: RRR, S1, S2. Absent: murmur - Routine Abdominal Exam Present: soft, normoactive bowel sounds, non distended. Absent: tenderness Comments: Output from Pleurx catheter is minimal. - Routine Extremities Exam Present: no edema - Routine Skin Exam Present: dry, warm - Routine Neurological Exam Present: alert, oriented X3, CN II-XII intact - Routine Psychiatric Exam Present: normal affect, normal thought process, cooperative, good insight, good judgment Results IRU - Labs Labs: Have reviewed patient's labs as well as other providers notes. IRU A/P (1) CIDP (chronic inflammatory demyelinating polyneuropathy) Current visit: Yes Status: Chronic Patient continues to make progress with regard to strengthening and therapy. (2) Disseminated histoplasmosis Current visit: Yes Status: Acute (3) Thrombocytopenia Current visit: Yes Status: Resolved Platelets over 300,000. Promacta is held at this time. (4) Granulomatous hepatitis Current visit: Yes Status: Acute (5) Ascites Qualifiers: Ascites type: other type Qualified Code(s): R18.8 - Other ascites Current visit: Yes Status: Acute Minimal drainage in Hemovac via Pleurx catheter. Could probably remove sooner than later. (6) Constipation by delayed colonic transit Current visit: Yes Status: Acute DVT Prophylaxis: SCD's Resuscitation Status: Full Code - Course Hospital Course: Sigifredo Lee MD: 11/02/17 10:59 Cooperative but slow progress with therapy. Continued significant muscle weakness. Tolerating itraconazole adequately. Thrombocytopenia is a concern. 11/05/17 10:28 Continued worsening platelet count despite IVIG. Cooperative but continues to demonstrate substantial weakness. Therapies are code treating for energy conservation. Remains on itraconazole. Eliquis has been discontinued. 11/06/17 10:39 Fluid weight is down. Remains on Lasix and frequent voiding. Platelets better after transfusion. Bone marrow exam yesterday with results pending. 11/07/17 10:18 Edema improved. Started wrapping legs yesterday. Bone marrow results pending. Reassess lab today. 11/09/17 16:29 Edema much improved. Weight down. Lasix discontinued today. Bone marrow results reviewed. Platelet count is up after transfusion. She is cooperative with therapy and making progress. 11/12/17 10:56 Abdominal pain last night presumably secondary to constipation. Continues to work with therapy and making progress. Platelet count improved. 11/13/17 10:49 Weight gradually increasing. Edema remains resolved with wrapping of the legs. Minimal output from Pleurx catheter. Increased muscle tone in all 4 extremities. Platelet count normal and Promacta discontinued. 11/15/17 10:46 Patient is making good progress with therapies. Continues minimal output from Pleurx catheter. Platelet count remains normal. Promacta is continued at a lower dose. Management per hematology. 11/16/17 10:30 Blood count remains above 3 9000 and to is now held. Minimal output from Pleurx catheter. Patient is making progress with regard to therapies. - Interventions to Obtain Goals PT Treatment Plan: Balance/Proprioception, Functional Activities, Gait Training , Patient/Family Education, Therapeutic Exercise OT Treatment Plan: ADL (Basic Care), Balance Training, IADL, Pt./Family Education, Ther. Exercise for ADL Goals Progress/Modifications: Discussed with patient the issue of the brace on the left ankle. Her muscle tone is improved (decreased a bit) so hopefully that will work a bit better. Continued padding will be needed. She is progressing with therapy. I also reviewed the issue of the Pleurx catheter and drainage/ascites. She is getting minimal out at the present time. I considered removing this. However I will discuss with the hospitalist team at some point. Probably leave it in over the weekend and then decide early next week. She is encouraged about her progress. She is indeed getting stronger and improving from a functional standpoint. Also reviewed her hematologic situation. Her platelet count is over 300,000 and is being held. Have discussed with oncology on several occasions.
--- NOTE | 2017-11-16 16:46 | Progress Note ---
Oncology Subjective Doing well In common area. Legs still very weak. Exam Vital signs: Temperature 98.2 F 11/16/17 16:00 Pulse Rate 98 11/16/17 16:00 Respiratory Rate 16 11/16/17 16:00 Blood Pressure 136/81 11/16/17 16:00 Pulse Oximetry 95 11/16/17 16:00 - Constitutional no acute distress - Routine HEENT Exam Head: Present: normocephalic Eye: Present: EOMI, PERRL ENT: Present: mucous membranes moist - Routine Neck Exam Present: supple. Absent: thyromegaly - Routine Respiratory Exam Present: CTA bilaterally. Absent: accessory muscle use - Routine Cardiovascular Exam Present: RRR, no murmur - Routine Abdominal Exam Present: soft, non distended, non tender Comments: Obese - Routine Extremities Exam Absent: cyanosis, clubbing - Routine Skin Exam Present: dry, warm - Routine Neurological Exam Present: alert, CN II-XII intact - Routine Psychiatric Exam Present: normal affect Oncology Results - Labs CBC & Chem 7: 11/16/17 09:58 11/16/17 09:58 Labs: Short CBC 11/16/17 Range/Units 09:58 WBC 5.2 (4.5-11.0) T/MM3 Hgb 11.9 L (12-16) GM/DL Hct 37.3 (36-46) % Plt Count 343 D (130-400) T/MM3 BMP 11/16/17 09:58 Sodium 142 Potassium 3.9 D Chloride 102 Carbon Dioxide 27 BUN 7.0 Creatinine 0.6 L Glucose 150 H Calcium 9.2 Liver Function 11/15/17 11/16/17 Range/Units 10:14 09:58 Total Bilirubin 1.00 (0.20-1.30) MG/DL AST 26 (14-36) U/L ALT TNP 19 Alkaline Phosphatase 177 H (38-126) U/L Albumin 4.0 (3.5-5.0) g/dL Laboratory Tests 11/10/17 11/11/17 11/13/17 05:35 06:56 06:33 WBC Hgb Plt Count 78 L D 84 L 185 D AST ALT Alkaline Phosphatase Lactate Dehydrogenase Specimen Hemolysis 11/15/17 11/15/17 11/16/17 10:14 10:14 09:58 WBC 5.2 Hgb 11.9 L Plt Count 236 343 D AST ALT Alkaline Phosphatase Lactate Dehydrogenase 752 H Specimen Hemolysis 66 H 11/16/17 09:58 WBC Hgb Plt Count AST 26 ALT 19 Alkaline Phosphatase 177 H Lactate Dehydrogenase 456 Specimen Hemolysis Assessment and Plan Assessment and Plan: Thrombocytopenia with dramatic improvement in platelets. Now 323 after DC of Promacta on 11/15/17. Currently on elequis for history of PE. Continues on Sporanox. Microbiology 11/05/17 15:45 Blood Blood Fungal Culture - Preliminary no growth to date. - Time Spent With Patient Total time spent is greater than 50% in coordination of care (as documented) at patient's floor/unit and/or counseling patient: less than 15 minutes
[2017-11-17] MEDS: LEVOTHYROXINE 175 MCG TABLET PO SCH ×2 (05:03→06:52)
[2017-11-17] MEDS: OMEPRAZOLE 20 MG CAPSULE PO SCH ×2 (05:03→06:52)
[2017-11-17] MEDS: SPIRONOLACTONE 50 MG TABLET PO SCH (09:53)
[2017-11-17] MEDS: FOLIC ACID 1 MG TABLET PO SCH (09:53)
[2017-11-17] MEDS: MAGNESIUM OXIDE 400 MG TABLET PO SCH ×2 (09:53→17:12)
[2017-11-17] MEDS: VENLAFAXINE 75 MG TABLET PO SCH ×2 (09:53→17:12)
[2017-11-17] MEDS: APIXABAN 2.5 MG TABLET PO SCH ×2 (09:54→21:30)
[2017-11-17] MEDS: LACTULOSE 20 GM/30 ML ORAL LIQUID PO SCH ×2 (09:54→22:07)
[2017-11-17] MEDS: POLYETHYL GLYCOL 3350 17gm PACKET PO SCH ×2 (09:54→21:29)
[2017-11-17] MEDS: ITRACONAZOLE 100 MG CAPSULE PO SCH ×2 (09:54→21:29)
[2017-11-17] MEDS: METOCLOPRAMIDE 5mg TABLET PO SCH ×3 (09:54→21:30)
[2017-11-17] MEDS: ACETAMINOPHEN 325 MG TABLET PO PRN ×2 (15:24→21:30)
[2017-11-17] MEDS: DiphenhydrAMINE 25 MG CAPSULE PO PRN (21:30)
[2017-11-18] MEDS: ACETAMINOPHEN 325 MG TABLET PO PRN ×3 (01:24→18:44)
[2017-11-18] MEDS: OMEPRAZOLE 20 MG CAPSULE PO SCH ×2 (05:14→05:40)
[2017-11-18] MEDS: LEVOTHYROXINE 175 MCG TABLET PO SCH ×2 (05:14→05:40)
[2017-11-18] MEDS: SPIRONOLACTONE 50 MG TABLET PO SCH (08:53)
[2017-11-18] MEDS: VENLAFAXINE 75 MG TABLET PO SCH ×2 (08:53→17:25)
[2017-11-18] MEDS: FOLIC ACID 1 MG TABLET PO SCH (08:53)
[2017-11-18] MEDS: ERGOCALCIFEROL 50,000 UNIT CAPSULE PO SCH (08:53)
[2017-11-18] MEDS: MAGNESIUM OXIDE 400 MG TABLET PO SCH ×2 (08:53→17:25)
[2017-11-18] MEDS: ITRACONAZOLE 100 MG CAPSULE PO SCH ×2 (08:54→20:46)
[2017-11-18] MEDS: POLYETHYL GLYCOL 3350 17gm PACKET PO SCH ×2 (08:54→20:46)
[2017-11-18] MEDS: LACTULOSE 20 GM/30 ML ORAL LIQUID PO SCH ×2 (08:54→20:47)
[2017-11-18] MEDS: METOCLOPRAMIDE 5mg TABLET PO SCH ×3 (08:54→20:47)
[2017-11-18] MEDS: APIXABAN 2.5 MG TABLET PO SCH ×2 (08:54→20:46)
[2017-11-18] MEDS: DiphenhydrAMINE 25 MG CAPSULE PO PRN (20:47)
[2017-11-19] MEDS: OMEPRAZOLE 20 MG CAPSULE PO SCH (06:22)
[2017-11-19] MEDS: LEVOTHYROXINE 175 MCG TABLET PO SCH (06:22)
--- NOTE | 2017-11-19 07:59 | General Surgery Consult Note ---
Consult date: 11/19/17 Attending Physician: Sigifredo Lee MD [facility] Patient Stated Medical History Peripheral Neuropathy Cardiac Arrhythmia Hypertension Asthma Bronchitis Pulmonary Embolism 02/21/2017 Constipation Pancreatitis (5-1-17), IBS Hx Urinary Tract Infection H/O saddle PE and DVT oral surgery (x3 for dentures) Depression Medical History Updates: 1. CIDP. 2. Opioid-induced constipation. 3. History of hypoxemic hypercapnic respiratory failure. 4. Peripheral neuropathy of uncertain etiology and affecting both motor and sensory components. 5. History of DVT with saddle embolus February 2017. 6. Papillary thyroid carcinoma. 7. Anemia. 8. Gastroesophageal reflux disease. 9. History of gallstone pancreatitis. 10. Positive urine Histoplasma antigen Surgical History: -Diagnostic laparoscopy, laparoscopic cholecystectomy with intraoperative cholangiogram,. -paracentesis with evacuation of 1.6 L of intra- abdominal fluid,. -Pleurx catheter insertion and liver biopsy which revealed granulomatous inflammation on 10/18/[address] Sean Mar. -Gastric band 2009. -Thyroidectomy for cancer in 2010. -D&C 1999. -Teeth extraction x3 Family History Updates: Positive for DM, HTN. Throat cancer. Father: still living, HTN and prostate cancer. Mother at age 62 of asthma attack. Sister with kidney failure, on dialysis, caused by DM and HTN. Brother is healthy. 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 [employer] Current residence: Apartment/Private Home Medications Home Medications Medication Instructions Recorded Confirmed Type Apixaban [Eliquis] 2.5 mg PO BID 10/31/17 10/31/17 History DiphenhydrAMINE [Benadryl] 1 cap PO Q4H PRN 10/31/17 10/31/17 History Ergocalciferol (Vitamin D2) 1 cap PO WEEKLY 10/31/17 10/31/17 History [Vitamin D2] FentaNYL PATCH [Duragesic Patch] 12 mcg TD Q3D 10/31/17 10/31/17 History Folic Acid 0.8 mg PO DAILY 10/31/17 10/31/17 History Furosemide [Lasix 40 mg Tab] 1 tab PO DAILY 10/31/17 10/31/17 History Itraconazole [Onmel] 200 mg PO BID 10/31/17 10/31/17 History Lactulose 20 gm PO DAILY 10/31/17 10/31/17 History Levothyroxine Tab [Synthroid] 175 mcg PO ACB 10/31/17 10/31/17 History Magnesium Oxide [Magnesium] 400 mg PO BIDWM 10/31/17 10/31/17 History Metoclopramide HCl [Reglan] 5 mg PO TID 10/31/17 10/31/17 History Nystatin Powder [Mycostatin] 15 applicatio TP TID 10/31/17 10/31/17 History Omeprazole [Prilosec] 1 cap PO ACB 10/31/17 10/31/17 History Ondansetron HCl [Zofran] 4 mg PO Q6HR PRN 10/31/17 10/31/17 History PEG 3350 17gm PACKET [Miralax] 17 gm PO DAILY PRN 10/31/17 10/31/17 History Spironolactone [Aldactone] 50 mg PO DAILY 10/31/17 10/31/17 History Venlafaxine [Effexor] 75 mg PO BID 10/31/17 10/31/17 History Allergies Allergy/AdvReac Type Severity Reaction Status Date / Time acetaminophen [From Percocet] Allergy Verified 10/31/17 14:00 codeine Allergy Verified 10/31/17 14:00 hydrochlorothiazide Allergy Verified 10/31/17 14:00 oxycodone [From Percocet] Allergy Verified 10/31/17 14:00 Penicillins Allergy Verified 10/31/17 14:00 triamterene Allergy Verified 10/31/17 14:00 Review of Systems 10-point ROS: negative except for HPI and the following: - General General: Present: other (fatigue) - Eyes/Ears/Nose/Throat Ear Nose Throat: Present: loose/chipped/cracked teeth - Cardiovascular Cardiovascular: Present: chest pain (angina) - Respiratory Respiratory: Present: difficulty breathing - Gastrointestinal Gastrointestinal: Present: constipation, other (decreased appetite) - Musculoskeletal Musculoskeletal: Present: back pain, joint pain - Neurological Neurological: Present: muscle weakness - Psychiatric Psychiatric: Present: anxiety, depression - Endocrine Endocrine: Present: diabetes, thyroid problems - Hematologic/Lymphatic Hematologic/Lymphatic: Present: easy bruising, history of blood clots/DVT/PE, use of blood thinners - Vital Signs Last Vital Signs Temp 98.1 F 11/18/17 19:52 Pulse 97 11/18/17 19:52 Resp 16 11/18/17 19:52 BP 142/88 H 11/18/17 19:52 Pulse Ox 100 11/18/17 19:52 - Laboratory Result Diagrams: 11/19/17 06:13 11/16/17 09:58 General Surgery Results - Results Labs: 11/19/17 06:13 11/16/17 09:58
[2017-11-19] MEDS: SPIRONOLACTONE 50 MG TABLET PO SCH (08:35)
[2017-11-19] MEDS: MAGNESIUM OXIDE 400 MG TABLET PO SCH ×2 (08:35→17:29)
[2017-11-19] MEDS: ACETAMINOPHEN 325 MG TABLET PO PRN ×3 (08:35→22:23)
[2017-11-19] MEDS: VENLAFAXINE 75 MG TABLET PO SCH ×2 (08:35→17:29)
[2017-11-19] MEDS: ITRACONAZOLE 100 MG CAPSULE PO SCH ×2 (08:36→22:13)
[2017-11-19] MEDS: LACTULOSE 20 GM/30 ML ORAL LIQUID PO SCH ×2 (08:37→22:14)
[2017-11-19] MEDS: METOCLOPRAMIDE 5mg TABLET PO SCH ×3 (08:37→22:13)
[2017-11-19] MEDS: FOLIC ACID 1 MG TABLET PO SCH (08:37)
[2017-11-19] MEDS: POLYETHYL GLYCOL 3350 17gm PACKET PO SCH ×3 (08:38→22:15)
--- NOTE | 2017-11-19 10:16 | IRU Progress Note ---
- Subjective/Serverity of Illness Date: 11/19/17 Maday is making significant progress with therapies. Bed/chair/wheelchair transfers have improved from maximum to minimum assistance. She is walking at this point with total assistance (although contact-guard assistance in reality) . On November 13 she walked 8 feet, then 11 feet the next day then 12 feet and ultimately 26 feet. Today she was walking about 22 feet plus a bit more. She was doing well but then her knees started to buckle and she was gently let down to the floor. I did assess the patient after this. She denies any particular pain. Denies any injury at this time. There was no head trauma. Her knee simply "buckled." Patient states that she is eating well. She wondered about gabapentin and when she is no longer on it. She was not using it for pain but for paresthesias. She says that she is getting by okay without it and does not need it but just wondered why she is off of it. I told her I would check that out. Her bowels are moving well. Review of her weight indicates that she is up a bit from her lowest since we stopped the furosemide. However it is stable at 117 kg at present. The Pleurx catheter is not draining much in the way of ascites. Dr. Mar indicated it could be removed when her ascitic drainage was decreased. Surgery is been consulted in this regard. Her platelet count is up to 393,000. Promacta continues to be held. In addition , Eliquis is held in view of potential surgical intervention with regard to the Pleurx catheter. Exam Vital Signs: Temperature 98.6 F 11/19/17 08:00 Pulse Rate 98 11/19/17 08:00 Respiratory Rate 16 11/19/17 08:00 Blood Pressure 130/85 11/19/17 08:00 Pulse Oximetry 98 11/19/17 08:00 Height/Weight/BMI: Height 1.68 m Weight 117.1 kg Body Mass Index 48.3 - Constitutional Present: no acute distress, well nourished, well developed, morbidly obese, cooperative - Routine HEENT Exam Head: Present: normocephalic, atraumatic Eye: Present: EOMI ENT: Present: mucous membranes moist, oropharynx clear. Absent: dentition normal - Routine Neck Exam Present: supple - Routine Respiratory Exam Present: CTA bilaterally. Absent: wheezes - Routine Cardiovascular Exam Present: RRR, S1, S2. Absent: murmur - Routine Abdominal Exam Present: soft, normoactive bowel sounds, non distended. Absent: tenderness Comments: Inadequate suction/vacuum noted with Hemovac. - Routine Extremities Exam Present: no edema - Routine Skin Exam Present: dry, warm - Routine Neurological Exam Present: alert, oriented X3, CN II-XII intact Seems to have reduced strength in the lower extremities but certainly is improved based on improvement with therapy including distance etc. - Routine Psychiatric Exam Present: normal affect, cooperative, good insight, good judgment Results IRU - Labs Labs: Have reviewed other providers notes as well as chart data and lab work. IRU A/P (1) CIDP (chronic inflammatory demyelinating polyneuropathy) Current visit: Yes Status: Chronic Patient demonstrates significant improvement in functional ability. She continues to be very cooperative with therapy and is making progress. Recommend continued OT and PT. (2) Disseminated histoplasmosis Current visit: Yes Status: Acute Itraconazole levels noted. Monitored by Dr. Rasheed. Continue itraconazole. (3) Thrombocytopenia Current visit: Yes Status: Resolved Platelets remain normal at 393,000. Promacta is held. (4) Granulomatous hepatitis Current visit: Yes Status: Acute (5) Ascites Qualifiers: Ascites type: other type Qualified Code(s): R18.8 - Other ascites Current visit: Yes Status: Acute Ascitic drainage via Hemovac is markedly reduced. In addition, suction been lost. Recommend removal of Pleurx catheter and surgery is been consulted in this regard. (6) Constipation by delayed colonic transit Current visit: Yes Status: Resolved DVT Prophylaxis: SCD's Resuscitation Status: Full Code - Course Hospital Course: Sigifredo Lee MD: 11/02/17 10:59 Cooperative but slow progress with therapy. Continued significant muscle weakness. Tolerating itraconazole adequately. Thrombocytopenia is a concern. 11/05/17 10:28 Continued worsening platelet count despite IVIG. Cooperative but continues to demonstrate substantial weakness. Therapies are code treating for energy conservation. Remains on itraconazole. Eliquis has been discontinued. 11/06/17 10:39 Fluid weight is down. Remains on Lasix and frequent voiding. Platelets better after transfusion. Bone marrow exam yesterday with results pending. 11/07/17 10:18 Edema improved. Started wrapping legs yesterday. Bone marrow results pending. Reassess lab today. 11/09/17 16:29 Edema much improved. Weight down. Lasix discontinued today. Bone marrow results reviewed. Platelet count is up after transfusion. She is cooperative with therapy and making progress. 11/12/17 10:56 Abdominal pain last night presumably secondary to constipation. Continues to work with therapy and making progress. Platelet count improved. 11/13/17 10:49 Weight gradually increasing. Edema remains resolved with wrapping of the legs. Minimal output from Pleurx catheter. Increased muscle tone in all 4 extremities. Platelet count normal and Promacta discontinued. 11/15/17 10:46 Patient is making good progress with therapies. Continues minimal output from Pleurx catheter. Platelet count remains normal. Promacta is continued at a lower dose. Management per hematology. 11/16/17 10:30 Blood count remains above 3 9000 and to is now held. Minimal output from Pleurx catheter. Patient is making progress with regard to therapies. 11/19/17 10:19 Patient's ambulatory distance and lower extremity strength appears to be significantly improved. Patient's legs did "buckle" today and she was let down safely. I examined the patient thereafter and she is stable and without evidence of injury. Pleurx catheter may be safely removed at this time. - Interventions to Obtain Goals PT Treatment Plan: Balance/Proprioception, Functional Activities, Gait Training , Patient/Family Education, Therapeutic Exercise OT Treatment Plan: ADL (Basic Care), Balance Training, IADL, Pt./Family Education, Ther. Exercise for ADL Goals Progress/Modifications: Patient can use to be medically complex. Minimal output from the ascites/ Hemovac and I think it's find remove the Pleurx catheter at this time. Surgery is been consulted. In addition, patient's lower extremity strength is improving her functional mobility is improved. She was let down safely today but her ambulatory distance is markedly improved overall. Her platelet count is normal and Promacta has been held. Appetite is good. Her bowels are moving. Recommend continued OT and PT.
--- NOTE | 2017-11-19 12:00 | Progress Note ---
- Date 11/19/17 Subjective: Patient is seen this morning resting in bed. She reports she is doing well. She is encouraged with her success thus far. She did "take a tumble" this morning during therapy. She felt like her feet "got tangled up" and she ended up landing on her knees. She is having some pain in her knees related to the fall, otherwise she is feeling fine. Appetite is good. Bowels are moving. Objective Vital signs: Temperature 98.6 F 11/19/17 08:00 Pulse Rate 98 11/19/17 08:00 Respiratory Rate 16 11/19/17 08:00 Blood Pressure 130/85 11/19/17 08:00 Pulse Oximetry 98 11/19/17 08:00 Height/Weight/BMI: Height 1.68 m Weight 113.8 kg Body Mass Index 48.3 - Constitutional Present: no acute distress, well nourished, well developed - Routine HEENT Exam Head: Present: normocephalic, atraumatic - Routine Respiratory Exam Present: CTA bilaterally. Absent: wheezes - Routine Cardiovascular Exam Present: RRR, no murmur - Routine Abdominal Exam Present: soft, tenderness (mild diffuse, moderate in area of Pleurx catheter. Catheter with minimal drainage.), non distended - Routine Extremities Exam Present: no edema, normal capillary refill - Routine Skin Exam Present: dry, warm - Routine Neurological Exam Present: alert, oriented X3 - Routine Lymphatic Exam Lymphatic: Absent: adenopathy - Routine Psychiatric Exam Present: normal affect, cooperative Results - Labs CBC & Chem 7: 11/19/17 06:13 11/16/17 09:58 Microbiology Results: Microbiology 11/05/17 15:45 Blood Blood Fungal Culture - Preliminary Assessment and Plan (1) CIDP (chronic inflammatory demyelinating polyneuropathy) Current visit: Yes Status: Chronic Assessment and Plan: IMPRESSION 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 Distal spinal muscular atrophy and muscle atrophy of lower extremities with gait instability Saddle embolus of the pulmonary artery with acute cor pulmonale, treated with EKOS catheter in February,. Also with history of DVT. Anticoagulated on Eliquis. Chronic anemia and thrombocytopenia Hypertension. 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 Ascites, unknown cause, with Pleurx drain inserted on 10/18/17. Hepatic steatosis. Possible early cirrhosis Mild protein calorie malnutrition Morbid obesity and hypoventilation syndrome Asthma Papillary cancer of thyroid, Post-surgical hypothyroidism. Right ovarian dermoid cyst Depression Onychocryptosis Echocardiogram February 2017: EF greater than 55%, right ventricular systolic function is moderately reduced, mild tricuspid regurgitation. On 10/29/17: WBC was 9.3, hemoglobin 9.4, hematocrit 28.4, platelets 34, sodium 129, potassium 3.2, BUN 10, creatinine 0.6. Blood pressure was 93/56 to 104/60 with heart rate in the 70s. She was maintaining saturations on room air. She has an appointment scheduled with Dr. Angel Coleman with infectious disease on November 27 at 2:30 PM. PLAN Overall she is doing well. Eliquis was held by surgery in preparation for removal of the Pleurx catheter under local and sedation later today as it is draining minimally and is no longer holding suction. Labs, vital signs, nurse's notes and rehabilitation notes reviewed. - Physician Narrative Physician: Lilibeth Aponte MD Narrative: Date: 11/19/17 Time: 7:40 PM-I reviewed this chart, the patient history, and the GRAIN THRESHER's/PA's documented findings as above. We discussed and formulated the assessment and plan as above with the additions below.-Dr. Aponte Patient was seen this evening in her room. She is doing much better than the last time I saw her a couple of weeks ago. Her strength is markedly improved. Her platelets have normalized. Plans to remove abdominal drain by Dr. Jefferson on Sunday per patient. She has been breathing well. She has been eating and drinking well. She has occasional constipation and did take some extra laxatives today. She is urinating without difficulties. On exam she is alert and in no acute distress. She is moving her arms and legs much better today than when I saw her a couple of weeks ago. Overall, she looks markedly improved. Chest is clear to auscultation. Cardiovascular reveals a regular rate and rhythm. Abdomen reveals one drain in place. She previously had some open wounds which were draining ascitic fluid. These wounds have healed. Extremities are free of edema. Impression and plan Autoimmune ITP-resolved CIDP- improving with IVIG and intermittent plasmapheresis. Strength is markedly better. History of note PE/saddle embolus-Eliquis was held today. Dr. Jefferson has ordered a dose of Lovenox tomorrow morning and then plans for Pleurx catheter removal on Sunday. Hospital Course Summary Disclaimer: The visit summary below is not to be considered part of the above Progress Note. Hospital Course: 10/31/17 Extremely complicated case. Agree with ID consultation. Discharge instructions recommended to check an itraconazole drug level - this has been ordered for tomorrow am along with CBC, CMP, magnesium level. Continue fluid restriction; carb consistent diet. Check BGM, though in [place] she was not requiring SSI. Check daily weights. Will obtain Rt leg venous doppler. Even though she's on Eliquis, this was temporarily held during her hospitalization because of anemia and thrombocytopenia, and she is certainly at high risk for DVT. Report to Dr. Lee indicated they are to drain Pleurx daily, approx. 1L of fluid. Discussed with Dr. Lee and nursing staff. Extensive chart review. At time of Discharge from [facility], she was started on Eliquis 2.5 mg twice a day, Benadryl 25 mg if needed for itching, fentanyl 12 g patch, Lasix 40 mg daily, itraconazole 200 mg twice a day, and lactulose 20 g daily. She is also to be taking: Ergocalciferol 50,000 units once a week, folic acid 0.8 mg daily, levothyroxine 175 g daily, Mag-Ox 400 mg with supper, medical Paremyd 5 mg 30 minutes before meals, nystatin powder 3 times a day as needed, omeprazole 20 mg daily, Zofran 4 mg ODT as needed, MiraLAX 17 g daily when necessary, spironolactone 50 mg daily, Effexor 75 mg twice a day. She has an appointment scheduled with Dr. Angel Coleman with infectious disease on November 27 at 2:30 PM. 11/03/17 Extremely complicated case. ID consultation. Discharge instructions recommended to check an itraconazole drug level-currently pending. Continue fluid restriction; carb consistent diet. BG has been low normal. Reports tolerating PO w/o difficulty. Bilateral LE doppler was negative for DVT. CTA was a bit limited, but did not show any acute PE. She is on Eliquis, but Dr. Franz to determine possible stopping due to low platelets. Intra-abdominal draining of Pleurx daily, approx. 1L of fluid, recommended on discharge. Multiple abdominal drains noted. Recent complete GB removal. ITP with further decline of platelets- per Dr. Franz. IVIG given yesterday and is to be repeated today. Decadron, Benadryl given daily as well. Continue low dose fentanyl patch for pain and PRN APAP. Concern for atelectasis vs. pneumonia- encourage pulmonary toilet. Continue to monitor closely. Labs and chart reviewed. D/W Dr. Aponte. 11/04/17 ID consultation for histoplasma infection. Itraconazole drug level currently pending. Dr. Rasheed to see Sunday. Neuro consultation for CIDP. Dr. Kate to see Sunday. Dr. Franz has seen patient for ITP. Initiated IVIG, Decadron and Benadryl. Anticoagulation has been discontinued. No DVT in her legs and no acute pulmonary emboli. SCDs for DVT prophylaxis. Platelets up from yesterday. 9000-- >11,000. Continue fluid restriction. Intra-abdominal draining of Pleurx daily, approx. 1L of fluid, recommended on discharge. Continue low dose fentanyl patch for pain and PRN APAP. TSH very slightly elevated. Free T4 pending. No adjustment made to thyroid med. Increase Lasix to 60mg and elevate legs AMAP for pedal edema. Follow electrolytes. 11/05/17 Appreciate consultations- Dr Franz, Dr Rasheed and Dr Kate Remains on Itraconazole BID; likely need for 6-[address] Franz and Dr Rand following regarding probable IPT and thrombocytopenia. PLT today 7. Eliquis stopped given negative findings of thrombus of scans over the weekend Continue on fluid restriction and monitor abdominal drainage often. Lasix was increased 11/04/17. Follow weights and edema 11/09/17 Hgb up to 10, plt 23 yesterday - will repeat labs today. Had a platelet pheresis pack on 10/31 and 11/05. Promacta ordered per heme. Bone marrow aspiration and biopsy showed hypocellular marrow for heart age, 35% cellularity, increased megakaryocytes suggestive of peripheral destruction (can include ITP, Liver disease and hypersplenism, drug related and infection related ). The bone marrow showed no evidence of leukemia or dysplasia, no infiltrative process, no granuloma, no metastatic disease. Anticoagulants have been discontinued per heme because risk outweighs benefit. BP stable. Working well with therapy. Pt tends to void frequently after Lasix dose, which interrupts therapy. Change dosing time to 1300. Continue Itraconazole BID for 6-12 months as recommended by Dr Rasheed 11/11/17 Pain in RLQ. Morphine now available. KUB +increased colonic stool burden. 11/12/17 KUB shows constipation. Lactulose and MiraLAX increased to BID per attending. Will add Fleet's enema if next suppository is unsuccessful. Hgb up to 10.9 and platelets 84 as of yesterday. Will repeat labs in am. Promacta per heme/onc. Continue Itraconazole 200mg PO BID for 6-12 months. Repeat Itraconazole level in am. 11/13/17 Plan is to monitor her drainage around GONZÁLEZ site insertion overnight. Suspect that overall drainage is declining. Site does not appear to be infected , is without erythema Will reevaluate tomorrow morning Continue with lactulose and MiraLAX for bowel motivation Continue Itraconazole 200mg PO BID for 6-12 months. Repeat Itraconazole level drawn today 11/13 and pending CBC and BMP from today reviewed. Platelet count remains normal Need to work on PT and OT for ongoing strengthening 11/15/17 Promacta dc'd. Both hgb and platelets have improved. Drainage from abdominal incisions continues to decrease. Monitor weight -- slight increase noted since dc Lasix. 11/19/17 Overall she is doing well. Eliquis was held by surgery in preparation for removal of the Pleurx catheter under local and sedation later today as it is draining minimally and is no longer holding suction. Labs, vital signs, nurse's notes and rehabilitation notes reviewed.
--- NOTE | 2017-11-19 13:19 | IRU Team Meeting ---
IRU Team Meeting - Nursing Bladder Assistive Devices Utilized:: Bedpan Bladder Management Level of Assist: Total Assistance Bladder Frequency of Accidents: 1 accident this shift Bowel Assistive Devices Utilized:: Medication Bowel Management Level of Assist: Modified Independent Bowel Frequency of Accidents: 1 accident this shift Number of Bowel Accidents: 1 Vital Signs: Vital Signs - 24 hr 11/18/17 15:30 11/18/17 19:52 11/19/17 08:00 Temperature 98.8 F 98.1 F 98.6 F Pulse Rate 93 97 98 Respiratory Rate 20 16 16 Blood Pressure 113/81 142/88 H 130/85 Pulse Oximetry 93 100 98 Current Medications: Acetaminophen (Tylenol) 650 mg PO Q4H PRN PRN Reason: Pain Last Admin: 11/19/17 08:35 Dose: 650 mg Albuterol/Ipratropium (Duoneb) 3 ml AEROSOL RTQID PRN Apixaban (Eliquis) 2.5 mg PO BID [facility] Last Admin: 11/18/17 20:46 Dose: 2.5 mg Bisacodyl (Dulcolax) 10 mg RECTALLY DAILY PRN PRN Reason: Constipation Last Admin: 11/06/17 18:47 Dose: 10 mg Diphenhydramine HCl (Benadryl) 25 mg PO Q4H PRN PRN Reason: Itching Last Admin: 11/18/17 20:47 Dose: 25 mg Eltrombopag (Promacta) 25 mg PO ACB [facility] Last Admin: 11/15/17 06:38 Dose: 25 mg Ergocalciferol (Vitamin D-2) 50,000 unit PO Cano@0900 [facility] Last Admin: 11/18/17 08:53 Dose: 50,000 unit Fentanyl (Duragesic Patch) 12 mcg TD Q3D [facility] Last Admin: 11/18/17 15:10 Dose: 12 mcg Fentanyl Citrate (Duragesic Patch Removal) 1 removal TD Q3D [facility] Last Admin: 11/18/17 15:10 Dose: 1 removal Folic Acid (Folate) 1 mg PO DAILY [facility] Itraconazole (Itraconazole) 200 mg PO BID [facility] Last Admin: 11/19/17 08:36 Dose: 200 mg Lactulose (Lactulose) 20 gm PO BID [facility] Last Admin: 11/19/17 08:37 Dose: Not Given Levothyroxine Sodium (Synthroid) 175 mcg PO ACB [facility] Last Admin: 11/19/17 06:22 Dose: 175 mcg Magnesium Oxide (Magox) 400 mg PO BIDWM [facility] Last Admin: 11/19/17 08:35 Dose: 400 mg Metoclopramide HCl (Reglan) 5 mg PO TID [facility] Last Admin: 11/19/17 08:37 Dose: 5 mg Omeprazole (Prilosec) 20 mg PO ACB [facility] Last Admin: 11/19/17 06:22 Dose: 20 mg Ondansetron HCl (Zofran Po) 4 mg PO Q6HR PRN PRN Reason: nausea Last Admin: 11/04/17 09:43 Dose: 4 mg Polyethylene Glycol (Miralax) 17 gm PO BID [facility] Last Admin: 11/19/17 08:38 Dose: Not Given Sodium Chloride (Iv Flush) 10 ml IV PRN PRN PRN Reason: Flushing Last Admin: 11/05/17 09:45 Dose: 10 ml Sodium Chloride (Normal Saline) 500 ml IV PRN PRN Sodium Phosphate (Fleet Enema) 1 enema MA DAILY PRN Spironolactone (Aldactone) 50 mg PO DAILY [facility] Last Admin: 11/19/17 08:35 Dose: 50 mg Venlafaxine HCl (Effexor) 75 mg PO BIDWM [facility] Last Admin: 11/19/17 08:35 Dose: 75 mg Current Medical Issues: CIDP, thrombocytopenia, disseminated histo, ascites Comments: I certify that I personally led the interdisciplinary team meeting and agree with comments, barriers and goals indicated. Team meeting was held in the patient's room with the patient and the following family members present: patient alone Maday continues on the fentanyl patch and Tylenol for pain relief. She is getting stronger she believes. She is able to transfer better and is ambulating better. She is having bowel movements. She denies any chest pain or shortness of breath. Her appetite is good. Remains on itraconazole without known side effects. Weight has been stable. Ascitic output from the Pleurx catheter is diminished and plans are to remove the catheter at this time. Dr. Jefferson has been consulted and likely this will happen today. She is now NPO and the Eliquis has been held. - Physical Therapy Bed, Chair, Wheelchair Transfer Assist: Minimal Assistance, 1 Person Assist Ambulation Ability: Total Assistance, 1 Person Assist Ambulation Distance: 22 Wheelchair Propulsion Ability: Stand By Assist/Supervision, Household Exception , 1 Person Assist Wheelchair Propulsion Distance: 50 Stair Climbing Ability: Patient Unsafe/Unable Car Transfer Ability: Patient Unsafe/Unable Comments: Maday has been ambulating in a much improved fashion. She walked 26 feet on Sunday and 22 feet today at contact guard assist level. She is standby assist for sit to supine. She is highly motivated. She continues to be limited by weakness and reduced function of bilateral lower extremities. However she is cooperative and wants to make improvement and has made improvement. - Occupational Therapy Eating Ability: Independent Grooming Ability: Stand By Assist/Supervision Bathing Ability: Maximal Assistance, 1 Person Assist Upper Body Dressing Ability: Minimal Assistance Lower Body Dressing Ability: Total Assistance Tub Transfer Assist: Total Assistance, 2 or More Person Assist Toileting Assist: Total Assistance Toilet Transfer Assist: Total Assistance, 1 Person Assist Comments: Patient is progressing with occupational therapy. She is total assistance with toileting assist. She does need encouragement to challenge herself to perform tasks out of bed. Encouragement is given to use bedside commode or toilet rather than bedpan. Patient continues to make progress with occupational therapy. - Goals Physical Therapy Goals: 11/06/17: 1.) Sit to stand transfer (without the pravin lift) with 2 persons assist for safety. - met. 2.) Bed mobility (both supine to sit and sit to supine) with stand by assist. - met. 11/12/17: 1.) Perform sit to stand transfer with moderate assistance. 2.) Be able to perform stand pivot transfer from edge of bed to wheelchair with walker. 11/19/17: 1.) Ambulate 40 feet with use of walker stand-by assist. 2.) Perform sit to stand transfer with stand-by assistance. Occupational Therapy Goals: OT goals 11/06/17, 11/12/17, 11/19/17: 1.) Upper body dressing with set-up assist.- continue Pt. currently requires minimal assistance. 2.) Transfer to bed side commode with maximal assistance. - continue. 3.) Reduce pain in both hands to facilitate participation in activities of daily living. - continue. 4.) Lower body dressing with moderate assistance. - continue - Barriers to Discharge Barriers to Attaining Goals: Weakness (lower extremity strength is reduced. Therapeutic exercises are provided.), Endurance (encouragement for taking fewer respiratory and having longer periods of activity.) - Care Plan Anticipated Length of Stay (days): 14 Anticipated Length of Stay: Reassess in one week Anticipated DC Destination: Home, Self Care, Home Health Service I have led this team conference and agree with the plan. Interventions/Goals: Patient has made substantial progress over the last 7 days. Recommend continuing working with patient and reassess in 1 week.
--- NOTE | 2017-11-19 14:18 | Progress Note ---
<Frances Gardner - Last Filed: 11/19/17 15:01> Oncology Subjective Reclining in hospital bed, alone in room. She is alert and oriented. Intermittent pain, denies increased pain. Reports "sore knees" Had near fall today, "was resting on my knees for a while until help came. " Feeling hungry, is n.p.o. prior to having drain removed. Denies diarrhea or constipation. Voiding normally. No new concerns. General: No fever, no night sweats Eyes: No redness, no pain, no diplopia ENT: No mouth sores, no trouble swallowing Cardiac: No chest pain no palpitations Pulmonary: No cough, no shortness of breath, no wheezing Abdomen: No pain, no nausea vomiting, no diarrhea or constipation : No urgency, frequency, dysuria, or hematuria Musculoskeletal: chronic intermittent pain hands, onel. LE. Today, "knees are a little sore." Neurological: No headaches, no focal weakness Skin: No rash, no sores Psychiatric: No anxiety, no depression Exam Vital signs: Temperature 98.6 F 11/19/17 08:00 Pulse Rate 98 11/19/17 08:00 Respiratory Rate 16 11/19/17 08:00 Blood Pressure 130/85 11/19/17 08:00 Pulse Oximetry 98 11/19/17 08:00 - Constitutional no acute distress, obese - Routine HEENT Exam Head: Present: normocephalic Eye: Present: EOMI. Absent: conjunctival icterus Nose: moist mucous membranes - Routine Neck Exam Present: supple. Absent: lymphadenopathy - Routine Respiratory Exam Present: CTA bilaterally - Routine Cardiovascular Exam Present: RRR - Routine Abdominal Exam Present: soft, normoactive bowel sounds, drain (intact/no signs/sx inflammation noted.). Absent: mass (no mass or organomegaly noted, but difficult to assess 2nd to obesity) - Routine Extremities Exam Present: edema (trace onel. LE-no upper extremity edema) - Routine Skin Exam Present: intact, dry, pallor. Absent: petechiae - Routine Neurological Exam Present: alert, oriented X3 - Routine Psychiatric Exam Present: normal affect, cooperative Oncology Results - Labs CBC & Chem 7: 11/19/17 06:13 11/16/17 09:58 Labs: Short CBC 11/19/17 Range/Units 06:13 WBC 5.9 (4.5-11.0) T/MM3 Hgb 11.9 L (12-16) GM/DL Hct 38.1 (36-46) % Plt Count 393 (130-400) T/MM3 Assessment and Plan Assessment and Plan: 1. Acute immune thrombocytopenic purpura, ITP, not responding to steroids or IVIG. Promacta started 11/09/17; discontinued 11/15/17. Platelets have recovered nicely; Platelets on 11/11/17 are 84,000, platelets 11/13/17 are 185 ,000, platelets 11/15/17 are 236,000, and today, 11/19/17, platelets are 383, 000. 2. Chronic inflammatory demyelinating polyneuropathy (CIDP), status post plasmapheresis IVIG and Imuran in the past. 3. Chronic anemia with hemoglobin down to 6.8, status post blood transfusion. Hemoglobin stable, 11.9 today, 11/19/17. 4 . History of saddle pulmonary embolism with acute cor pulmonale, status post EKOS (catheter-assisted thrombolysis) in February 2017. History of DVT. -Eliquis discontinued after scan showed no significant PE and venous Doppler negative. With improved platelets have resumed Eliquis; Eliquis held today 11/19 for planned removal of drain. 5. 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 6. History of papillary thyroid cancer, status post thyroidectomy; to follow with Dr. Genao in [place]. Continue rehab, supportive care. Will follow CBC. - Time Spent With Patient Total time spent is greater than 50% in coordination of care (as documented) at patient's floor/unit and/or counseling patient: less than 15 minutes <Sebas Rand - Last Filed: 11/19/17 18:06> Exam Vital signs: Temperature 99.0 F 11/19/17 16:00 Pulse Rate 99 11/19/17 16:00 Respiratory Rate 14 11/19/17 16:00 Blood Pressure 127/78 11/19/17 16:00 Pulse Oximetry 96 11/19/17 16:00 Oncology Results - Labs CBC & Chem 7: 11/19/17 06:13 11/16/17 09:58 Labs: Short CBC 04/16/18 Range/Units 06:13 WBC 5.9 (4.5-11.0) T/MM3 Hgb 11.9 L (12-16) GM/DL Hct 38.1 (36-46) % Plt Count 393 (130-400) T/MM3 Assessment and Plan Assessment and Plan: Patient seen, chart reviewed Discussed with Aide Burgess. Platelets are up to 383K Planned surgery on Sunday. Will use lovenox bridge Off Promacta. Culture negative. Will continue to follow counts. - Time Spent With Patient Total time spent is greater than 50% in coordination of care (as documented) at patient's floor/unit and/or counseling patient:
--- NOTE | 2017-11-19 18:31 | Consultation ---
DATE OF CONSULTATION 11/19/2017 FINDINGS Mrs. Burdick is a 47-year-old female whom I was asked to see for removal of a peritoneal-placed PleurX catheter. She does have a very complicated history. The patient states that she had been healthy until about four years ago when she began to develop "multiple problems." The patient has developed polyneuropathy secondary to chronic inflammatory demyelinating polyneuropathy ( CIDP). The patient has been undergoing plasmapheresis for treatment of her CIDP. The patient also apparently was recently found to have histoplasmosis within her urine. This patient had undergone a cholecystectomy and liver biopsy on October 18, 2017 in [place], [place]. A liver biopsy was obtained that did reveal granulomatous hepatitis but no fungal elements were noted. Apparently the patient states that she was forming "a fair amount of fluid in her belly" postoperatively. She states that the physicians there were somewhat unclear in regards to the underlying cause of her ascites. She states that a PleurX catheter was placed within her abdominal cavity as a result of her recurrent ascites. The patient has recently been transferred to our facility for rehab. Nurse that was taking care of the patient this evening states that they have had very little out of her PleurX catheter. They state that the patient has only been having about 40 mL out per shift. Over the weekend no output was noted from her PleurX catheter. The patient also has a history for pulmonary embolism and is on Eliquis. PAST MEDICAL HISTORY, PAST SURGICAL HISTORY, MEDICATIONS, ALLERGIES, SOCIAL HISTORY, FAMILY HISTORY, REVIEW OF SYSTEMS Performed by my nurse practitioner, Anthony Stewart APRN. PHYSICAL EXAMINATION GENERAL: Mrs. Burdick is a 47-year-old female who this evening does not appear to be in acute distress. VITAL SIGNS: Temperature 99.0, pulse 99, respirations 14, blood pressure 127/78 , SAO2 96% on room air. HEENT: Normocephalic. Pupils are equally round and react to light and accommodation. CHEST: Clear to auscultation bilaterally. HEART: Regular rate and rhythm. Normal S1 and S2 without gallops, murmurs or clicks. ABDOMEN: Visualization of the abdomen does reveal a PleurX catheter exiting from the left lower quadrant of her anterior abdominal wall. Palpation of the abdomen reveals it to be soft and nontender. No evidence for guarding or rebound. Catheter does appear to be tunneled subcutaneously in a caudal fashion. I was unable to really feel the Dacron portion of the PleurX catheter beneath the surface of the skin. EXTREMITIES: Without clubbing, cyanosis, or edema. NEURO: Cranial nerves II-XII appear to be grossly intact. A focused motor sensory examination was not performed in regards to her extremities. LABORATORY/RADIOGRAPHIC EVALUATION I did review the patient's chart and she had a CBC today and her white count was 5.9. Hemoglobin was 11.9. Platelet count was 393,000. ASSESSMENT 47-year-old very complicated patient who has history for pulmonary embolism, history for placement of peritoneal PleurX catheter which is apparently no longer needed and a potential source for infection. PLAN Removal of peritoneal PleurX catheter. The patient's Eliquis was held today. Will go ahead and give the patient a full dose of [id number] heparin/ Lovenox tomorrow. On Sunday will proceed with removal of her peritoneal- placed PleurX catheter in an operative setting under some conscious sedation and local anesthetic. The above plan was discussed with the patient this evening. The patient understood and agreed. WONG
[2017-11-19] MEDS: DiphenhydrAMINE 25 MG CAPSULE PO PRN (22:13)
[2017-11-20] MEDS: LEVOTHYROXINE 175 MCG TABLET PO SCH ×3 (04:58→23:59)
[2017-11-20] MEDS: OMEPRAZOLE 20 MG CAPSULE PO SCH ×2 (04:59→06:44)
[2017-11-20] MEDS ORDERED: ENOXAPARIN 100 MG/ML INJECTION SQ ONE (08:00)
[2017-11-20] MEDS: VENLAFAXINE 75 MG TABLET PO SCH ×2 (08:57→17:26)
[2017-11-20] MEDS: MAGNESIUM OXIDE 400 MG TABLET PO SCH ×2 (08:57→17:26)
[2017-11-20] MEDS: FOLIC ACID 1 MG TABLET PO SCH (08:57)
[2017-11-20] MEDS: SPIRONOLACTONE 50 MG TABLET PO SCH (08:57)
[2017-11-20] MEDS: POLYETHYL GLYCOL 3350 17gm PACKET PO SCH ×2 (08:58→21:27)
[2017-11-20] MEDS: LACTULOSE 20 GM/30 ML ORAL LIQUID PO SCH ×2 (08:58→21:27)
[2017-11-20] MEDS: ITRACONAZOLE 100 MG CAPSULE PO SCH ×2 (08:58→21:27)
[2017-11-20] MEDS: METOCLOPRAMIDE 5mg TABLET PO SCH ×3 (08:58→21:27)
[2017-11-20] MEDS: ACETAMINOPHEN 325 MG TABLET PO PRN ×3 (09:07→23:58)
--- NOTE | 2017-11-20 09:56 | IRU Progress Note ---
- Subjective/Serverity of Illness Date: 11/20/17 Maday was evaluated in the gymnasium area on acute inpatient rehabilitation with therapist present. She says that things are going well. She believes that her strength is improving. The only abdominal pain she has is from the Lovenox injection. The Hemovac has started to function again although only minimal amount out. She states that when she was admitted to the hospital in [place] she had a lot of abdominal distention related to the ascites. That has fairly well resolved. In addition, her weight is down some 4 kg since previously tract although would wonder if this is totally accurate. Nevertheless she is feeling well. Her appetite is good. She has no nausea no vomiting. Appreciate input of hematology as well as Dr. Jefferson who plans to remove the Pleurx catheter tomorrow morning. Eliquis is held and she is receiving Lovenox today. Exam Vital Signs: Temperature 97.6 F 11/20/17 08:00 Pulse Rate 100 11/20/17 08:00 Respiratory Rate 18 11/20/17 08:00 Blood Pressure 133/101 H 11/20/17 08:00 Pulse Oximetry 93 11/20/17 08:00 Height/Weight/BMI: Height 1.68 m Weight 113.8 kg Body Mass Index 48.3 - Constitutional Present: no acute distress, well nourished, well developed, cooperative - Routine HEENT Exam Eye: Present: EOMI ENT: Present: mucous membranes moist, oropharynx clear. Absent: dentition normal - Routine Respiratory Exam Present: CTA bilaterally. Absent: wheezes - Routine Cardiovascular Exam Present: RRR, S1, S2. Absent: murmur - Routine Abdominal Exam Present: soft, normoactive bowel sounds, non distended. Absent: tenderness - Routine Extremities Exam Present: edema (trace to none bilat) - Routine Skin Exam Present: dry, warm - Routine Neurological Exam Present: alert, oriented X3, CN II-XII intact - Routine Psychiatric Exam Present: normal affect, cooperative, good insight, good judgment Results IRU - Labs Labs: Have reviewed all chart data including laboratory results, fungal blood cultures etc. Fungal cultures remain negative at present. IRU A/P (1) CIDP (chronic inflammatory demyelinating polyneuropathy) Current visit: Yes Status: Chronic Continues to have generalized debility and weakness but overall strength is significantly improving. (2) Disseminated histoplasmosis Current visit: Yes Status: Acute Remains on itraconazole. (3) Thrombocytopenia Current visit: Yes Status: Resolved (4) Granulomatous hepatitis Current visit: Yes Status: Acute (5) Ascites Qualifiers: Ascites type: other type Qualified Code(s): R18.8 - Other ascites Current visit: Yes Status: Acute Minimal drainage at the Hemovac. Plans for Pleurx catheter removal tomorrow morning. (6) Constipation by delayed colonic transit Current visit: Yes Status: Resolved DVT Prophylaxis: SCD's Resuscitation Status: Full Code - Course Hospital Course: Sigifredo Lee MD: 11/02/17 10:59 Cooperative but slow progress with therapy. Continued significant muscle weakness. Tolerating itraconazole adequately. Thrombocytopenia is a concern. 11/05/17 10:28 Continued worsening platelet count despite IVIG. Cooperative but continues to demonstrate substantial weakness. Therapies are code treating for energy conservation. Remains on itraconazole. Eliquis has been discontinued. 11/06/17 10:39 Fluid weight is down. Remains on Lasix and frequent voiding. Platelets better after transfusion. Bone marrow exam yesterday with results pending. 11/07/17 10:18 Edema improved. Started wrapping legs yesterday. Bone marrow results pending. Reassess lab today. 11/09/17 16:29 Edema much improved. Weight down. Lasix discontinued today. Bone marrow results reviewed. Platelet count is up after transfusion. She is cooperative with therapy and making progress. 11/12/17 10:56 Abdominal pain last night presumably secondary to constipation. Continues to work with therapy and making progress. Platelet count improved. 11/13/17 10:49 Weight gradually increasing. Edema remains resolved with wrapping of the legs. Minimal output from Pleurx catheter. Increased muscle tone in all 4 extremities. Platelet count normal and Promacta discontinued. 11/15/17 10:46 Patient is making good progress with therapies. Continues minimal output from Pleurx catheter. Platelet count remains normal. Promacta is continued at a lower dose. Management per hematology. 11/16/17 10:30 Blood count remains above 3 9000 and to is now held. Minimal output from Pleurx catheter. Patient is making progress with regard to therapies. 11/19/17 10:19 Patient's ambulatory distance and lower extremity strength appears to be significantly improved. Patient's legs did "buckle" today and she was let down safely. I examined the patient thereafter and she is stable and without evidence of injury. Pleurx catheter may be safely removed at this time. 11/20/17 09:55 Pleurx catheter to be removed tomorrow morning. Labs stable. Patient continues to cooperate with therapy and is improving. - Interventions to Obtain Goals PT Treatment Plan: Balance/Proprioception, Functional Activities, Gait Training , Patient/Family Education, Therapeutic Exercise OT Treatment Plan: ADL (Basic Care), Balance Training, IADL, Pt./Family Education, Ther. Exercise for ADL
[2017-11-20] MEDS: DiphenhydrAMINE 25 MG CAPSULE PO PRN (21:31)
[2017-11-21] MEDS: OMEPRAZOLE 20 MG CAPSULE PO SCH ×2 (06:01)
[2017-11-21] MEDS: LEVOTHYROXINE 175 MCG TABLET PO SCH (06:01)
--- NOTE | 2017-11-21 07:19 | Anesthesia Preoperative Report ---
Anesthesia Preoperative Record - Date and Time Date: 11/21/17 Preoperative Diagnosis: CIDP, Histoplasmosis infection Proposed Procedure: Pleurex cath removal NPO Since Date: 11/21/17 NPO Since Time: 00:00 Allergies/Adverse Reactions: Allergies Allergy/AdvReac Type Severity Reaction Status Date / Time acetaminophen [From Percocet] Allergy Verified 10/31/17 14:00 codeine Allergy Verified 10/31/17 14:00 hydrochlorothiazide Allergy Verified 10/31/17 14:00 oxycodone [From Percocet] Allergy Verified 10/31/17 14:00 Penicillins Allergy Verified 10/31/17 14:00 triamterene Allergy Verified 10/31/17 14:00 - Vital Signs Vital Signs: Temperature 98.7 F 11/21/17 06:29 Pulse Rate 92 11/21/17 06:29 Respiratory Rate 16 11/21/17 06:29 Blood Pressure 132/75 11/21/17 06:29 Pulse Oximetry 96 11/21/17 06:29 Height and Weight: Height 1.68 m Weight 113.7 kg Body Mass Index 48.3 - Medications Inpatient Medications: Current Medications Acetaminophen (Tylenol) 650 mg PO Q4H PRN PRN Reason: Pain Last Admin: 11/20/17 23:58 Dose: 650 mg Albuterol/Ipratropium (Duoneb) 3 ml AEROSOL RTQID PRN Apixaban (Eliquis) 2.5 mg PO BID COUNTS INCLUDE 234 BEDS AT THE [facility] Last Admin: 11/18/17 20:46 Dose: 2.5 mg Bisacodyl (Dulcolax) 10 mg RECTALLY DAILY PRN PRN Reason: Constipation Last Admin: 11/06/17 18:47 Dose: 10 mg Diphenhydramine HCl (Benadryl) 25 mg PO Q4H PRN PRN Reason: Itching Last Admin: 11/20/17 21:31 Dose: 25 mg Eltrombopag (Promacta) 25 mg PO ACB COUNTS INCLUDE 234 BEDS AT THE [facility] Last Admin: 11/15/17 06:38 Dose: 25 mg Ergocalciferol (Vitamin D-2) 50,000 unit PO Cano@0900 COUNTS INCLUDE 234 BEDS AT THE [facility] Last Admin: 11/18/17 08:53 Dose: 50,000 unit Fentanyl (Duragesic Patch) 12 mcg TD Q3D COUNTS INCLUDE 234 BEDS AT THE [facility] Last Admin: 11/18/17 15:10 Dose: 12 mcg Fentanyl Citrate (Duragesic Patch Removal) 1 removal TD Q3D COUNTS INCLUDE 234 BEDS AT THE [facility] Last Admin: 11/18/17 15:10 Dose: 1 removal Folic Acid (Folate) 1 mg PO DAILY COUNTS INCLUDE 234 BEDS AT THE [facility] Last Admin: 11/20/17 08:57 Dose: 1 mg Itraconazole (Itraconazole) 200 mg PO BID COUNTS INCLUDE 234 BEDS AT THE [facility] Last Admin: 11/20/17 21:27 Dose: 200 mg Lactulose (Lactulose) 20 gm PO BID COUNTS INCLUDE 234 BEDS AT THE [facility] Last Admin: 11/20/17 21:27 Dose: Not Given Levothyroxine Sodium (Synthroid) 175 mcg PO ACB COUNTS INCLUDE 234 BEDS AT THE [facility] Last Admin: 11/21/17 06:01 Dose: Not Given Magnesium Oxide (Magox) 400 mg PO BIDWM COUNTS INCLUDE 234 BEDS AT THE [facility] Last Admin: 11/20/17 17:26 Dose: 400 mg Metoclopramide HCl (Reglan) 5 mg PO TID COUNTS INCLUDE 234 BEDS AT THE [facility] Last Admin: 11/20/17 21:27 Dose: 5 mg Omeprazole (Prilosec) 20 mg PO ACB COUNTS INCLUDE 234 BEDS AT THE [facility] Last Admin: 11/21/17 06:01 Dose: Not Given Ondansetron HCl (Zofran Po) 4 mg PO Q6HR PRN PRN Reason: nausea Last Admin: 11/04/17 09:43 Dose: 4 mg Polyethylene Glycol (Miralax) 17 gm PO BID COUNTS INCLUDE 234 BEDS AT THE [facility] Last Admin: 11/20/17 21:27 Dose: Not Given Sodium Chloride (Iv Flush) 10 ml IV PRN PRN PRN Reason: Flushing Last Admin: 11/05/17 09:45 Dose: 10 ml Sodium Chloride (Normal Saline) 500 ml IV PRN PRN Sodium Phosphate (Fleet Enema) 1 enema NE DAILY PRN Spironolactone (Aldactone) 50 mg PO DAILY COUNTS INCLUDE 234 BEDS AT THE [facility] Last Admin: 11/20/17 08:57 Dose: 50 mg Venlafaxine HCl (Effexor) 75 mg PO BIDWM COUNTS INCLUDE 234 BEDS AT THE [facility] Last Admin: 11/20/17 17:26 Dose: 75 mg Home Medications: Home Medications Medication Instructions Recorded Confirmed Type Apixaban [Eliquis] 2.5 mg PO BID 10/31/17 10/31/17 History DiphenhydrAMINE [Benadryl] 1 cap PO Q4H PRN 10/31/17 10/31/17 History Ergocalciferol (Vitamin D2) 1 cap PO WEEKLY 10/31/17 10/31/17 History [Vitamin D2] FentaNYL PATCH [Duragesic Patch] 12 mcg TD Q3D 10/31/17 10/31/17 History Folic Acid 0.8 mg PO DAILY 10/31/17 10/31/17 History Furosemide [Lasix 40 mg Tab] 1 tab PO DAILY 10/31/17 10/31/17 History Itraconazole [Onmel] 200 mg PO BID 10/31/17 10/31/17 History Lactulose 20 gm PO DAILY 10/31/17 10/31/17 History Levothyroxine Tab [Synthroid] 175 mcg PO ACB 10/31/17 10/31/17 History Magnesium Oxide [Magnesium] 400 mg PO BIDWM 10/31/17 10/31/17 History Metoclopramide HCl [Reglan] 5 mg PO TID 10/31/17 10/31/17 History Nystatin Powder [Mycostatin] 15 applicatio TP TID 10/31/17 10/31/17 History Omeprazole [Prilosec] 1 cap PO ACB 10/31/17 10/31/17 History Ondansetron HCl [Zofran] 4 mg PO Q6HR PRN 10/31/17 10/31/17 History PEG 3350 17gm PACKET [Miralax] 17 gm PO DAILY PRN 10/31/17 10/31/17 History Spironolactone [Aldactone] 50 mg PO DAILY 10/31/17 10/31/17 History Venlafaxine [Effexor] 75 mg PO BID 10/31/17 10/31/17 History Is Patient on Beta Shazia?: No - Medical History Respiratory: Reports: Asthma, Bronchitis, Pulmonary Embolism (02/21/2017) Cardiovascular: Reports: Angina (Hx: blood clots), Arrhythmia, Hypertension Gastrointestional: Reports: Morbid Obesity Comment Only: Other (Hx: Pancreatitis (5--17), IBS) Neuro/Musculoskeletal: Reports: Depression Renal/Endocrine: Reports: Thyroid Disease (hypothyroidism) Other History: Reports: Cancer (Hx: thyroidectomy (05-16 for cancer)) Comment Only: Other (Hx: oral surgery (x3 for dentures)) - Surgical History HEENT Surgeries: Reports: Nose Surgery (Hx: fractured nose), Other (allergies) Endocrine Surgery/Treatments: Reports: Thyroidectomy, Other (RAIA-cold nodule) GI Surgery/Treatments: Reports: Other (Hx: gastric bypass (lap band 2009), gallbladder removal (October 2017)) Anesthesia Reactions: None Hx Family Anesthesia Reaction: No History of Motion Sickness: No - Social History Smoking Status: Former smoker (quit in January 2017) Packs per day: 0.9 (she smoked from ages 17 through age 46 stopping last year.) Hx Chewing Tobacco Use: No Second Hand Exposure: No Substance Use Type: does not use Alcohol Intake: current Alcohol Intake Frequency: holidays/special occasions only - Pertinent Findings Laboratory: CBC and BMP 11/21/17 06:09 11/16/17 09:58 EKG: Sinus Rhythm - Physical Exam Respiratory Exam: Present: lungs clear Cardiovascular Exam: Present: regular rate and rhythm - Airway Assessment Mallampati Score: II TMD: 3 Fingerbreadths Neck Extension: fair Overall Assessment: may be difficult mask vent, may be difficult intubation - ASA ASA Score: 3 - Plan Anesthesia: General TIVA - Discussion Discussion: Discussed risks/options/alternatives of anesthesia and questions answered. Patient consents. Nursing pain assessment noted. Attestation Statement: Prior to the delivery of any anesthetic medication, I examined the patient, developed the plan, obtained the patient's consent and discussed the risk and benefits of the procedure with the patient/guardian. - Additional Information Seen by Anesthesia: Yes
[2017-11-21] MEDS ORDERED: BUPIVACAINE 0.25%/EPI 1:200,000 30ml SDV INFIL ONE (07:37)
[2017-11-21] MEDS ORDERED: LR 1,000 ML IV SCH (07:45)
[2017-11-21] MEDS ORDERED: MIDAZOLAM 5mg/5ml INJECTION ONE (08:28)
[2017-11-21] MEDS ORDERED: FentaNYL 250 MCG/5 ML INJECTION ONE (08:28)
[2017-11-21] MEDS: MAGNESIUM OXIDE 400 MG TABLET PO SCH ×2 (08:30→18:09)
[2017-11-21] MEDS: VENLAFAXINE 75 MG TABLET PO SCH ×2 (08:30→18:09)
[2017-11-21] MEDS: METOCLOPRAMIDE 5mg TABLET PO SCH ×3 (08:30→22:27)
--- NOTE | 2017-11-21 08:40 | General Surgery Procedure Note ---
Date of Procedure: 11/21/17 Surgeon: Li Postoperative Diagnosis: Hisoty of ascites Procedure: Removal of abdominal PleurX catheter Estimated Blood Loss: See Anesthesia Record. Pathology: none sent
[2017-11-21] MEDS ORDERED: BUPIVACAINE 0.25% (2.5mg/ml) PF 30ml INJECTION ONE (08:54)
[2017-11-21] MEDS: FentaNYL 100 MCG/2 ML INJECTION IVP PRN ×2 (09:13→09:18)
[2017-11-21] MEDS: POLYETHYL GLYCOL 3350 17gm PACKET PO SCH ×2 (10:02→22:29)
[2017-11-21] MEDS: LACTULOSE 20 GM/30 ML ORAL LIQUID PO SCH ×2 (10:02→22:29)
[2017-11-21] MEDS: FOLIC ACID 1 MG TABLET PO SCH (12:31)
[2017-11-21] MEDS: SPIRONOLACTONE 50 MG TABLET PO SCH (12:31)
[2017-11-21] MEDS: ITRACONAZOLE 100 MG CAPSULE PO SCH ×2 (12:31→22:27)
--- NOTE | 2017-11-21 13:44 | Progress Note ---
Oncology Subjective The patient had the Pleurx catheter removed without problems. Platelets stayed more than 300,000. Exam Vital signs: Temperature 98.1 F 11/21/17 12:37 Pulse Rate 104 H 11/21/17 12:37 Respiratory Rate 18 11/21/17 12:37 Blood Pressure 113/84 11/21/17 12:37 Pulse Oximetry 95 11/21/17 12:37 - Constitutional no acute distress - Routine Respiratory Exam Absent: rhonchi, wheezes, crackles - Routine Abdominal Exam Present: soft Comments: Pleurx catheter been removed. No signs of infection or bleeding. No bruising. Oncology Results - Labs CBC & Chem 7: 11/21/17 06:09 11/16/17 09:58 Labs: Short CBC 11/21/17 Range/Units 06:09 WBC 7.1 (4.5-11.0) T/MM3 Hgb 12.1 (12-16) GM/DL Hct 38.2 (36-46) % Plt Count 369 (130-400) T/MM3 Assessment and Plan Assessment and Plan: 1. Acute immune thrombocytopenic purpura, ITP, not responding to steroids or IVIG. Responded extremely well to Promacta which is now on hold due to normalization of platelet count of more than 200,000. 2. Chronic inflammatory demyelinating polyneuropathy (CIDP), status post plasmapheresis IVIG and Imuran in the past. 3. Chronic anemia, Limited stable. 4. History of saddle pulmonary embolism with acute cor pulmonale, status post EKOS (catheter-assisted thrombolysis) in February 2017. History of DVT, on Eliquis. 5. 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 6. History of papillary thyroid cancer, status post thyroidectomy. - Time Spent With Patient Total time spent is greater than 50% in coordination of care (as documented) at patient's floor/unit and/or counseling patient: less than 15 minutes
[2017-11-21] MEDS: HYDROCODONE/APAP 5mg/325mg TABLET PO PRN ×3 (14:00→22:29)
--- NOTE | 2017-11-21 14:50 | Operative Note ---
DATE OF PROCEDURE 11/21/2017 SURGEON Kam Jefferson MD PREOPERATIVE DIAGNOSIS Personal history for idiopathic ascites, status post insertion of peritoneal PleurX catheter. Patient no longer in need of peritoneal drainage. POSTOPERATIVE DIAGNOSIS Personal history for idiopathic ascites, status post insertion of peritoneal PleurX catheter. Patient no longer in need of peritoneal drainage. PROCEDURE Removal of peritoneal PleurX catheter. ANESTHESIA MAC/Local. BRIEF HISTORY/INDICATIONS Mrs. Burdick is a 47-year-old female who has a very complicated past medical history. She did undergo a cholecystectomy recently in [place] and had developed a fair amount of ascites postoperatively requiring several paracentesis procedures. A PleurX catheter was placed in the peritoneum to control her ongoing ascites of uncertain etiology. Fortunately, her ascites has resolved. She has had very minimal output from her PleurX peritoneal catheter. It was therefore recommended she undergo removal of her PleurX catheter. DESCRIPTION OF PROCEDURE After informed consent was obtained, the patient was brought to the operative suite and placed on the table in supine fashion. The left lower quadrant of her abdomen where the PleurX catheter had been placed was then prepped and draped in a sterile fashion. Formal time-out was then completed. Catheter was then grasped and retracted outwardly. One could tell that the catheter tunneled subcutaneously in a caudad fashion. 0.25% Marcaine with epinephrine was injected about 3-4 cm below the insertion site of the PleurX catheter overlying the underlying palpable catheter. A 3 cm incision was made overlying the area of analgesia. Dissection was carried down the deep subcuticular tissues to the actual catheter itself. The catheter was then grasped and retracted anteriorly. One could then see the Dacron cuff portion of the catheter. This was freed from the surrounding subcutaneous tissues. A figure- of-eight suture was then placed adjacent to the catheter within the subcutaneous tissues. Catheter was then removed in its entirety and the figure- of-eight suture was then tied securely resulting in closure of the catheter tract. Catheter was then continued to be removed in its entirety and passed off the table. Attention was direct towards closure. Deep subcutaneous tissue was reapproximated in a running fashion with 3-0 Vicryl. Skin itself was then closed in a running subcuticular fashion with 4-0 Monocryl. The patient tolerated the procedure without difficulty and will be sent back to the preop area in stable condition. [facility]ENTER[facility]ata
[2017-11-21] MEDS: DiphenhydrAMINE 25 MG CAPSULE PO PRN (20:47)
[2017-11-21] MEDS: APIXABAN 2.5 MG TABLET PO SCH (22:27)
[2017-11-22] MEDS: DiphenhydrAMINE 25 MG CAPSULE PO PRN (05:20)
[2017-11-22] MEDS: LEVOTHYROXINE 175 MCG TABLET PO SCH ×2 (05:20→05:38)
[2017-11-22] MEDS: OMEPRAZOLE 20 MG CAPSULE PO SCH ×2 (05:20→05:38)
[2017-11-22] MEDS: HYDROCODONE/APAP 5mg/325mg TABLET PO PRN ×4 (05:20→22:25)
[2017-11-22] MEDS: MAGNESIUM OXIDE 400 MG TABLET PO SCH ×2 (08:42→17:39)
[2017-11-22] MEDS: SPIRONOLACTONE 50 MG TABLET PO SCH (08:42)
[2017-11-22] MEDS: FOLIC ACID 1 MG TABLET PO SCH (08:42)
[2017-11-22] MEDS: VENLAFAXINE 75 MG TABLET PO SCH ×2 (08:49→17:39)
[2017-11-22] MEDS: METOCLOPRAMIDE 5mg TABLET PO SCH ×3 (08:50→22:26)
[2017-11-22] MEDS: ITRACONAZOLE 100 MG CAPSULE PO SCH ×2 (08:51→22:26)
[2017-11-22] MEDS: APIXABAN 2.5 MG TABLET PO SCH ×2 (09:22→22:26)
[2017-11-22] MEDS: POLYETHYL GLYCOL 3350 17gm PACKET PO SCH ×2 (09:23→22:26)
[2017-11-22] MEDS: LACTULOSE 20 GM/30 ML ORAL LIQUID PO SCH ×2 (09:23→22:26)
--- NOTE | 2017-11-22 14:09 | IRU Progress Note ---
- Subjective/Serverity of Illness Date: 11/22/17 Maday was evaluated on acute inpatient rehabilitation. She reports generalized pruritus which has been worse over the past 24 hours. She says it's been present previously but is worse at the present time. We did start some hydrocodone which could be a factor. She wondered about whether it could be related to withdrawal from gabapentin. However gabapentin was discontinued while in [place] which is several weeks ago and therefore I believe this less likely to be the reason for the itching. She states that both lotion and Benadryl are beneficial for her itching. She does have some soreness in the abdomen where the Pleurx catheter was removed. However she is tolerating it adequately and the hydrocodone is beneficial in this regard. We are going to stop it in another day however. With regard to her fluid status, her weight remains down and 113 kg. She denies any shortness breath or chest pain. From a therapy standpoint she is doing quite well. She is walking over 100 feet at the present time which is a significant improvement. Her appetite remains good and her bowels are moving. Exam Vital Signs: Temperature 98.0 F 11/22/17 08:00 Pulse Rate 93 11/22/17 08:00 Respiratory Rate 14 11/22/17 08:00 Blood Pressure 122/79 11/22/17 08:00 Pulse Oximetry 93 11/22/17 08:00 Height/Weight/BMI: Height 1.68 m Weight 113.3 kg Body Mass Index 48.3 - Constitutional Present: mild distress (pruritis), well nourished, well developed, morbidly obese - Routine HEENT Exam Eye: Present: EOMI ENT: Present: mucous membranes moist, oropharynx clear - Routine Respiratory Exam Present: CTA bilaterally. Absent: wheezes - Routine Cardiovascular Exam Present: RRR, S1, S2. Absent: murmur - Routine Abdominal Exam Present: soft, normoactive bowel sounds, non distended. Absent: tenderness Comments: The abdomen remained soft. However I did not remove clothing at this time because she was initially in the dining area. - Routine Extremities Exam Present: no edema, normal capillary refill - Routine Skin Exam Present: dry, warm - Routine Neurological Exam Present: alert, oriented X3, CN II-XII intact - Routine Psychiatric Exam Present: normal affect, cooperative, good insight, good judgment Results IRU - Labs Labs: Have reviewed labs and other chart data as well as other providers notes. IRU A/P (1) CIDP (chronic inflammatory demyelinating polyneuropathy) Current visit: Yes Status: Chronic She has made significant progress with regard to her therapy. She is walking over 100 feet. (2) Disseminated histoplasmosis Current visit: Yes Status: Acute Remains on itraconazole. Itching could be related to this but I think is more likely related to dry skin plus or hydrocodone perhaps. (3) Thrombocytopenia Current visit: Yes Status: Resolved (4) Granulomatous hepatitis Current visit: Yes Status: Acute (5) Ascites Qualifiers: Ascites type: other type Qualified Code(s): R18.8 - Other ascites Current visit: Yes Status: Acute (6) Constipation by delayed colonic transit Current visit: Yes Status: Resolved DVT Prophylaxis: SCD's Resuscitation Status: Full Code - Course Hospital Course: Sigifredo Lee MD: 11/02/17 10:59 Cooperative but slow progress with therapy. Continued significant muscle weakness. Tolerating itraconazole adequately. Thrombocytopenia is a concern. 11/05/17 10:28 Continued worsening platelet count despite IVIG. Cooperative but continues to demonstrate substantial weakness. Therapies are code treating for energy conservation. Remains on itraconazole. Eliquis has been discontinued. 11/06/17 10:39 Fluid weight is down. Remains on Lasix and frequent voiding. Platelets better after transfusion. Bone marrow exam yesterday with results pending. 11/07/17 10:18 Edema improved. Started wrapping legs yesterday. Bone marrow results pending. Reassess lab today. 11/09/17 16:29 Edema much improved. Weight down. Lasix discontinued today. Bone marrow results reviewed. Platelet count is up after transfusion. She is cooperative with therapy and making progress. 11/12/17 10:56 Abdominal pain last night presumably secondary to constipation. Continues to work with therapy and making progress. Platelet count improved. 11/13/17 10:49 Weight gradually increasing. Edema remains resolved with wrapping of the legs. Minimal output from Pleurx catheter. Increased muscle tone in all 4 extremities. Platelet count normal and Promacta discontinued. 11/15/17 10:46 Patient is making good progress with therapies. Continues minimal output from Pleurx catheter. Platelet count remains normal. Promacta is continued at a lower dose. Management per hematology. 11/16/17 10:30 Blood count remains above 3 9000 and to is now held. Minimal output from Pleurx catheter. Patient is making progress with regard to therapies. 11/19/17 10:19 Patient's ambulatory distance and lower extremity strength appears to be significantly improved. Patient's legs did "buckle" today and she was let down safely. I examined the patient thereafter and she is stable and without evidence of injury. Pleurx catheter may be safely removed at this time. 11/20/17 09:55 Pleurx catheter to be removed tomorrow morning. Labs stable. Patient continues to cooperate with therapy and is improving. 11/22/17 14:10 Has developed worsening itching although relieved by lotion and Benadryl. Etiology of itching unclear but likely related to dry skin plus or minus hydrocodone. Has made substantial improvement with regard to therapies. Pleurx catheter removal went well. - Interventions to Obtain Goals PT Treatment Plan: Balance/Proprioception, Functional Activities, Gait Training , Patient/Family Education, Therapeutic Exercise OT Treatment Plan: ADL (Basic Care), Balance Training, IADL, Pt./Family Education, Ther. Exercise for ADL Goals Progress/Modifications: Discussed in detail with the patient her concerns regarding her itching. I do not see a rash at present. Etiology the itching could be related to medication such as hydrocodone or even itraconazole. Could also be related to dry skin or liver disease. In any event it seems to be successfully treated by Benadryl and lotion. Unless a rash develops we will not pursue further at this time although we will be aware of her concerns. She wondered if it could be related to withdrawal from gabapentin at this time I do not think that is likely since it is been so long since she was on gabapentin. She is doing extremely well with regard to therapy and I told her that likely we would be looking at reassessment early next week to see when she can go home.
--- NOTE | 2017-11-22 16:00 | Progress Note ---
- Date 11/22/17 Subjective: Maday reports that overall she is feeling better. She does complain of some continued abdominal pain today since the catheter was removed yesterday (11/21/17 ). She also complains of increased itching which she feels is worse today. She questions if the itching may be related to stopping her gabapentin a few weeks ago "cold turkey". She discussed this concern with Dr. Lee who believes that the itching is more likely related to the hydrocodone which she is needing for her abdominal pain. Plans to discontinue the hydrocodone in the near future. Some relief with Benadryl at night. Her appetite is stable and bowels are moving. Good urinary output. Objective Vital signs: Temperature 98.0 F 11/22/17 08:00 Pulse Rate 93 11/22/17 08:00 Respiratory Rate 14 11/22/17 08:00 Blood Pressure 122/79 11/22/17 08:00 Pulse Oximetry 93 11/22/17 08:00 Height/Weight/BMI: Height 5 ft 6 in Weight 249 lb 12.54 oz Body Mass Index 48.3 Comments: Resting in bed, watching TV. - Constitutional Present: no acute distress, well nourished, well developed, morbidly obese, cooperative - Routine HEENT Exam Head: Present: normocephalic, atraumatic Eye: Present: PERRL. Absent: conjunctival icterus ENT: Present: mucous membranes moist, oropharynx clear - Routine Respiratory Exam Present: CTA bilaterally. Absent: rales, rhonchi, stridor, wheezes - Routine Cardiovascular Exam Present: RRR, S1, S2 - Routine Abdominal Exam Present: soft, normoactive bowel sounds, non distended - Routine Extremities Exam Present: non tender, pulses intact - Routine Back/Spine/Pelvis Exam Back/Spine: Absent: vertebral tenderness - Routine Musculoskeletal Exam Musculoskeletal: Present: moving extremities well - Routine Skin Exam Present: dry, warm Comments: Afebrile. - Routine Neurological Exam Present: alert, moving all extremities, hearing grossly intact, normal speech - Routine Lymphatic Exam Lymphatic: Absent: lymphedema - Routine Psychiatric Exam Present: cooperative Results - Labs CBC & Chem 7: 11/21/17 06:09 11/16/17 09:58 Microbiology Results: Microbiology 11/05/17 15:45 Blood Blood Fungal Culture - Preliminary Assessment and Plan (1) CIDP (chronic inflammatory demyelinating polyneuropathy) Current visit: Yes Status: Chronic Assessment and Plan: IMPRESSION S/P PleurX catheter removal - 11/21/17; Dr. Jefferson. 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 Distal spinal muscular atrophy and muscle atrophy of lower extremities with gait instability Saddle embolus of the pulmonary artery with acute cor pulmonale, treated with EKOS catheter in February,. Also with history of DVT. Anticoagulated on Eliquis. Chronic anemia and thrombocytopenia Hypertension. 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 Ascites, unknown cause, with Pleurx drain inserted on 10/18/17. Hepatic steatosis. Possible early cirrhosis Mild protein calorie malnutrition Morbid obesity and hypoventilation syndrome Asthma Papillary cancer of thyroid, Post-surgical hypothyroidism. Right ovarian dermoid cyst Depression Onychocryptosis Echocardiogram February 2017: EF greater than 55%, right ventricular systolic function is moderately reduced, mild tricuspid regurgitation. On 10/29/17: WBC was 9.3, hemoglobin 9.4, hematocrit 28.4, platelets 34, sodium 129, potassium 3.2, BUN 10, creatinine 0.6. Blood pressure was 93/56 to 104/60 with heart rate in the 70s. She was maintaining saturations on room air. She has an appointment scheduled with Dr. Angel Coleman with infectious disease on November 27 at 2:30 PM. PLAN - : Overall she is doing well. Pleurx catheter removed successfully by Dr. Jefferson on 11/21/17. Continue to monitor wounds closely for signs of infection. Eliquis was restarted following the procedure. CBC stable with platelets >200K. Continue to monitor closely. Anemia resolved - Hgb 12.1. Monitor closely. Continue to encourage participation in therapies for strengthening and improvement in functional mobility. Increased puritis, most likely secondary to hydrocodone. Continue Benadryl as needed. Atarax 25mg Q6H PRN itching for additional relief. Anticipate discontinuation of hydrocodone in near future. Will recheck labs in AM to monitor blood counts, electrolytes and renal function. DVT Prophylaxis: Eliquis Resuscitation Status: Full Code - Time spent with patient Time with patient PN: 30 minutes - Physician Narrative Physician: Lilibeth Aponte MD Narrative: Date: 11/22/17 Time: 1556 Hospital Course Summary Disclaimer: The visit summary below is not to be considered part of the above Progress Note. Hospital Course: 10/31/17 Extremely complicated case. Agree with ID consultation. Discharge instructions recommended to check an itraconazole drug level - this has been ordered for tomorrow am along with CBC, CMP, magnesium level. Continue fluid restriction; carb consistent diet. Check BGM, though in [place] she was not requiring SSI. Check daily weights. Will obtain Rt leg venous doppler. Even though she's on Eliquis, this was temporarily held during her hospitalization because of anemia and thrombocytopenia, and she is certainly at high risk for DVT. Report to Dr. Lee indicated they are to drain Pleurx daily, approx. 1L of fluid. Discussed with Dr. Lee and nursing staff. Extensive chart review. At time of Discharge from [facility], she was started on Eliquis 2.5 mg twice a day, Benadryl 25 mg if needed for itching, fentanyl 12 g patch, Lasix 40 mg daily, itraconazole 200 mg twice a day, and lactulose 20 g daily. She is also to be taking: Ergocalciferol 50,000 units once a week, folic acid 0.8 mg daily, levothyroxine 175 g daily, Mag-Ox 400 mg with supper, medical Paremyd 5 mg 30 minutes before meals, nystatin powder 3 times a day as needed, omeprazole 20 mg daily, Zofran 4 mg ODT as needed, MiraLAX 17 g daily when necessary, spironolactone 50 mg daily, Effexor 75 mg twice a day. She has an appointment scheduled with Dr. Angel Coleman with infectious disease on November 27 at 2:30 PM. 11/03/17 Extremely complicated case. ID consultation. Discharge instructions recommended to check an itraconazole drug level-currently pending. Continue fluid restriction; carb consistent diet. BG has been low normal. Reports tolerating PO w/o difficulty. Bilateral LE doppler was negative for DVT. CTA was a bit limited, but did not show any acute PE. She is on Eliquis, but Dr. Franz to determine possible stopping due to low platelets. Intra-abdominal draining of Pleurx daily, approx. 1L of fluid, recommended on discharge. Multiple abdominal drains noted. Recent complete GB removal. ITP with further decline of platelets- per Dr. Franz. IVIG given yesterday and is to be repeated today. Decadron, Benadryl given daily as well. Continue low dose fentanyl patch for pain and PRN APAP. Concern for atelectasis vs. pneumonia- encourage pulmonary toilet. Continue to monitor closely. Labs and chart reviewed. D/W Dr. Aponte. 11/04/17 ID consultation for histoplasma infection. Itraconazole drug level currently pending. Dr. Rasheed to see Sunday. Neuro consultation for CIDP. Dr. Kate to see Sunday. Dr. Franz has seen patient for ITP. Initiated IVIG, Decadron and Benadryl. Anticoagulation has been discontinued. No DVT in her legs and no acute pulmonary emboli. SCDs for DVT prophylaxis. Platelets up from yesterday. 9000-- >11,000. Continue fluid restriction. Intra-abdominal draining of Pleurx daily, approx. 1L of fluid, recommended on discharge. Continue low dose fentanyl patch for pain and PRN APAP. TSH very slightly elevated. Free T4 pending. No adjustment made to thyroid med. Increase Lasix to 60mg and elevate legs AMAP for pedal edema. Follow electrolytes. 11/05/17 Appreciate consultations- Dr Franz, Dr Rasheed and Dr Kate Remains on Itraconazole BID; likely need for 6-[address] Franz and [address] Rand following regarding probable IPT and thrombocytopenia. PLT today 7. Eliquis stopped given negative findings of thrombus of scans over the weekend Continue on fluid restriction and monitor abdominal drainage often. Lasix was increased 11/04/17. Follow weights and edema 11/09/17 Hgb up to 10, plt 23 yesterday - will repeat labs today. Had a platelet pheresis pack on 10/31 and 11/05. Promacta ordered per heme. Bone marrow aspiration and biopsy showed hypocellular marrow for heart age, 35% cellularity, increased megakaryocytes suggestive of peripheral destruction (can include ITP, Liver disease and hypersplenism, drug related and infection related ). The bone marrow showed no evidence of leukemia or dysplasia, no infiltrative process, no granuloma, no metastatic disease. Anticoagulants have been discontinued per heme because risk outweighs benefit. BP stable. Working well with therapy. Pt tends to void frequently after Lasix dose, which interrupts therapy. Change dosing time to 1300. Continue Itraconazole BID for 6-12 months as recommended by Dr Rasheed 11/11/17 Pain in RLQ. Morphine now available. KUB +increased colonic stool burden. 11/12/17 KUB shows constipation. Lactulose and MiraLAX increased to BID per attending. Will add Fleet's enema if next suppository is unsuccessful. Hgb up to 10.9 and platelets 84 as of yesterday. Will repeat labs in am. Promacta per heme/onc. Continue Itraconazole 200mg PO BID for 6-12 months. Repeat Itraconazole level in am. 11/13/17 Plan is to monitor her drainage around GONZÁLEZ site insertion overnight. Suspect that overall drainage is declining. Site does not appear to be infected , is without erythema Will reevaluate tomorrow morning Continue with lactulose and MiraLAX for bowel motivation Continue Itraconazole 200mg PO BID for 6-12 months. Repeat Itraconazole level drawn today 11/13 and pending CBC and BMP from today reviewed. Platelet count remains normal Need to work on PT and OT for ongoing strengthening 11/15/17 Promacta dc'd. Both hgb and platelets have improved. Drainage from abdominal incisions continues to decrease. Monitor weight -- slight increase noted since dc Lasix. 11/19/17 Overall she is doing well. Eliquis was held by surgery in preparation for removal of the Pleurx catheter under local and sedation later today as it is draining minimally and is no longer holding suction. Labs, vital signs, nurse's notes and rehabilitation notes reviewed. PLAN - : Overall she is doing well. Pleurx catheter removed successfully by Dr. Jefferson on 11/21/17. Continue to monitor wounds closely for signs of infection. Eliquis was restarted following the procedure. CBC stable with platelets >200K. Continue to monitor closely. Anemia resolved - Hgb 12.1. Monitor closely. Continue to encourage participation in therapies for strengthening and improvement in functional mobility. Increased puritis, most likely secondary to hydrocodone. Continue Benadryl as needed. Atarax 25mg Q6H PRN itching for additional relief. Anticipate discontinuation of hydrocodone in near future. Will recheck labs in AM to monitor blood counts, electrolytes and renal function.
[2017-11-23] MEDS: OMEPRAZOLE 20 MG CAPSULE PO SCH (06:10)
[2017-11-23] MEDS: LEVOTHYROXINE 175 MCG TABLET PO SCH (06:10)
[2017-11-23] MEDS: FOLIC ACID 1 MG TABLET PO SCH (08:26)
[2017-11-23] MEDS: METOCLOPRAMIDE 5mg TABLET PO SCH ×3 (08:26→21:53)
[2017-11-23] MEDS: MAGNESIUM OXIDE 400 MG TABLET PO SCH ×2 (08:26→17:48)
[2017-11-23] MEDS: VENLAFAXINE 75 MG TABLET PO SCH ×2 (08:26→17:49)
[2017-11-23] MEDS: ITRACONAZOLE 100 MG CAPSULE PO SCH ×2 (08:26→21:52)
[2017-11-23] MEDS: HYDROCODONE/APAP 5mg/325mg TABLET PO PRN ×3 (08:26→21:53)
[2017-11-23] MEDS: APIXABAN 2.5 MG TABLET PO SCH ×2 (08:26→21:52)
[2017-11-23] MEDS: SPIRONOLACTONE 50 MG TABLET PO SCH (08:27)
[2017-11-23] MEDS: POLYETHYL GLYCOL 3350 17gm PACKET PO SCH ×2 (08:30→21:53)
[2017-11-23] MEDS: LACTULOSE 20 GM/30 ML ORAL LIQUID PO SCH ×2 (08:30→21:53)
--- NOTE | 2017-11-23 09:08 | ID Progress Note ---
Subjective Date: 11/23/17 Subjective: She was seen after eating breakfast. She reports that she is feeling well. Her abdominal drain was removed. She denies any fevers or chills any nausea vomiting or diarrhea. She states her bowels are moving. She does report that she has had some generalized itching which seems to be worse at night. She took some Benadryl last night and she states that that worked very well. He has been walking over 100 feet and is hopeful for discharge soon. Exam Vital Signs: Temperature 98.4 F 11/22/17 21:28 Pulse Rate 98 11/22/17 21:28 Respiratory Rate 18 11/22/17 21:28 Blood Pressure 123/76 11/22/17 21:28 Pulse Oximetry 98 11/22/17 21:28 Height/Weight/BMI: Height 1.68 m Weight 114.2 kg Body Mass Index 48.3 - Constitutional Present: no acute distress, well nourished, well developed, obese - Routine HEENT Exam Head: Present: normocephalic, atraumatic Eye: Present: EOMI, PERRL ENT: Present: mucous membranes moist, oropharynx clear, dentition normal - Routine Neck Exam Present: supple - Routine Respiratory Exam Present: CTA bilaterally - Routine Cardiovascular Exam Present: RRR - Routine Abdominal Exam Present: soft, normoactive bowel sounds, non tender, distended (mild) - Routine Extremities Exam Absent: cyanosis, clubbing, edema - Routine Skin Exam Present: intact. Absent: rash - Routine Neurological Exam Present: alert, oriented X3, CN II-XII intact, normal speech - Routine Psychiatric Exam Present: normal affect Results - Labs CBC & Chem 7: 11/23/17 06:44 11/23/17 06:44 Labs: Laboratory Tests 11/13/17 06:33 Itraconazole 0.9 Hydroxyitraconazole 1.2 Microbiology Results: Microbiology 11/05/17 15:45 Blood Blood Fungal Culture - Preliminary Impression: Presumed disseminated Histoplasmosis. Positive Urine Histo antigen 10/04/17, per records. Serum Histo Ag 2.71 ([email or web address]), urine Histo Ag negative ([place]), 11/05/17. Itraconazole serum level 2.1 on 11/13/17 (it was 0.9 on 11/01/17). Severe polyneuropathy/CIDP, treated with plasmapharesis, steroids and also Imuran. Severe thrombocytopenia/ITP, s/p IVIG x 2. S/p bone marrow biopsy 11/05/17, without evidence of granulomas or infiltrative disease process. Improving. Abdominal pain, improving Cholelithiasis s/p lap jung, Pleurx catheter placement and liver biopsy . S/p Pleurx catheter removal 11/21/17. 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 Histoplasma Ascites, unclear etiology. H/o PE treated with EKOS catheter in February 2017 Hypothyroidism, s/p thyroid cancer Obesity s/p lap banding PCN allergy H/o gallstone pancreatitis Anemia, normocytic Weakness/debility Pruritus Recommendation: Continue Itraconazole 200mg po bid. Monitor pruritus. It might be due to the itraconazole, but would continue for now with benadryl PRN. Planning for 6-12 months of treatment. She has F/U scheduled with Dr. Coleman on 11/27/17. Hopefully she can be discharged soon.
--- NOTE | 2017-11-23 10:12 | IRU Progress Note ---
- Subjective/Serverity of Illness Date: 11/23/17 Maday reports that she is feeling stronger daily. She is doing well with therapy. She reports that her itching again comes on every evening between 8 and 10 PM. She was started on hydroxyzine yesterday evening which was extremely beneficial for her. She was able to sleep well without further itching. She reports that lotion also helps her itching. No rash has been identified. She denies any chest pain or shortness of breath, cough or sputum. Her appetite remains good and her bowels are moving. With regard to her fluid balance, her weight remains down in general although up a kilogram since last measured. Does not have peripheral edema. There is minor pain where the PleurX catheter was removed. Exam Vital Signs: Temperature 98.4 F 11/23/17 08:00 Pulse Rate 109 H 11/23/17 08:00 Respiratory Rate 20 11/23/17 08:00 Blood Pressure 151/98 H 11/23/17 08:00 Pulse Oximetry 91 11/23/17 08:00 Height/Weight/BMI: Height 1.68 m Weight 114.2 kg Body Mass Index 48.3 - Constitutional Present: no acute distress, well nourished, well developed, morbidly obese - Routine HEENT Exam Head: Present: normocephalic Eye: Present: EOMI ENT: Present: mucous membranes moist, oropharynx clear. Absent: dentition normal - Routine Neck Exam Present: supple - Routine Respiratory Exam Present: CTA bilaterally. Absent: wheezes - Routine Cardiovascular Exam Present: RRR, S1, S2. Absent: murmur - Routine Abdominal Exam Present: soft, normoactive bowel sounds, tenderness (minor tenderness at site of Pleurx catheter removal. No distention and no rebound.), non distended - Routine Extremities Exam Present: no edema, pulses intact, normal capillary refill - Routine Skin Exam Present: dry, warm - Routine Neurological Exam Present: alert, oriented X3, CN II-XII intact, motor deficit (continues to have reduced muscle strength but overall improving in functional ability.) - Routine Psychiatric Exam Present: normal affect, normal thought process, cooperative, good insight, good judgment Results IRU - Labs Labs: Platelets remain excellent off Promacta. IRU A/P (1) CIDP (chronic inflammatory demyelinating polyneuropathy) Current visit: Yes Status: Chronic She continues to make functional improvement. Anticipate dismissal early next week if she continues to make progress. (2) Disseminated histoplasmosis Current visit: Yes Status: Acute Appreciate assistance of Dr. Rasheed. Remains on Itraconazole. Tolerating well. (3) Thrombocytopenia Current visit: Yes Status: Resolved (4) Granulomatous hepatitis Current visit: Yes Status: Acute (5) Ascites Qualifiers: Ascites type: other type Qualified Code(s): R18.8 - Other ascites Current visit: Yes Status: Resolved No evidence of ongoing ascitic accumulation. Her weight remains down. (6) Constipation by delayed colonic transit Current visit: Yes Status: Resolved (7) Pruritus Current visit: Yes Status: Acute Pruritus likely is related to dry skin. No clear correlation with any particular medication. She finds benefit with lotion and Atarax. DVT Prophylaxis: Eliquis Resuscitation Status: Full Code - Course Hospital Course: Sigifredo Lee MD: 11/02/17 10:59 Cooperative but slow progress with therapy. Continued significant muscle weakness. Tolerating itraconazole adequately. Thrombocytopenia is a concern. 11/05/17 10:28 Continued worsening platelet count despite IVIG. Cooperative but continues to demonstrate substantial weakness. Therapies are code treating for energy conservation. Remains on itraconazole. Eliquis has been discontinued. 11/06/17 10:39 Fluid weight is down. Remains on Lasix and frequent voiding. Platelets better after transfusion. Bone marrow exam yesterday with results pending. 11/07/17 10:18 Edema improved. Started wrapping legs yesterday. Bone marrow results pending. Reassess lab today. 11/09/17 16:29 Edema much improved. Weight down. Lasix discontinued today. Bone marrow results reviewed. Platelet count is up after transfusion. She is cooperative with therapy and making progress. 11/12/17 10:56 Abdominal pain last night presumably secondary to constipation. Continues to work with therapy and making progress. Platelet count improved. 11/13/17 10:49 Weight gradually increasing. Edema remains resolved with wrapping of the legs. Minimal output from Pleurx catheter. Increased muscle tone in all 4 extremities. Platelet count normal and Promacta discontinued. 11/15/17 10:46 Patient is making good progress with therapies. Continues minimal output from Pleurx catheter. Platelet count remains normal. Promacta is continued at a lower dose. Management per hematology. 11/16/17 10:30 Blood count remains above 3 9000 and to is now held. Minimal output from Pleurx catheter. Patient is making progress with regard to therapies. 11/19/17 10:19 Patient's ambulatory distance and lower extremity strength appears to be significantly improved. Patient's legs did "buckle" today and she was let down safely. I examined the patient thereafter and she is stable and without evidence of injury. Pleurx catheter may be safely removed at this time. 11/20/17 09:55 Pleurx catheter to be removed tomorrow morning. Labs stable. Patient continues to cooperate with therapy and is improving. 11/22/17 14:10 Has developed worsening itching although relieved by lotion and Benadryl. Etiology of itching unclear but likely related to dry skin plus or minus hydrocodone. Has made substantial improvement with regard to therapies. Pleurx catheter removal went well. 11/23/17 10:15 Itching relieved with lotion and Atarax. No rash seen. Abdomen soft and minimally tender at Pleurx catheter removal site. Weight remains down. Continues to improve functionally. - Interventions to Obtain Goals PT Treatment Plan: Balance/Proprioception, Functional Activities, Gait Training , Patient/Family Education, Therapeutic Exercise OT Treatment Plan: ADL (Basic Care), Balance Training, IADL, Pt./Family Education, Ther. Exercise for ADL Goals Progress/Modifications: Etiology of her itching is unclear. It predated use of hydrocodone but certainly was made worse when she started to take the hydrocodone. Nevertheless , there is no temporal correlation with taking the hydrocodone since it was several hours between taking it and onset of itching yesterday. She finds benefit with lotion and Atarax so likely this is related to dry skin. Otherwise medically she is stable. Her platelets remain good off of Promacta. No evidence of fluid reaccumulation off of Lasix. Tolerated Pleurx catheter removal without difficulty and without further distention of abdomen. Discussed with patient today the fact that she is making good progress and we would anticipate dismissal early next week.
--- NOTE | 2017-11-23 12:40 | Progress Note ---
<Frances Gardner - Last Filed: 11/23/17 14:10> Oncology Subjective .Sitting in wheelchair in dining room. Alert and oriented. Denies fever, chills, night sweats. Denies bleeding. She is eating and drinking well. Denies N/V, no diarrhea or constipation. Her only complaint intermittent itching of her skin. No rash General: No fever, no night sweats Eyes: No redness, no pain, no diplopia ENT: No mouth sores, no trouble swallowing Cardiac: No chest pain no palpitations Pulmonary: No cough, no shortness of breath, no wheezing Abdomen: No pain, no nausea vomiting, no diarrhea or constipation : No urgency, frequency, dysuria, or hematuria Musculoskeletal: chronic weakness; improving Neurological: No headaches, no focal weakness Skin: Itching intermittently. No rash, no sores Psychiatric: No anxiety, no depression Exam Vital signs: Temperature 98.4 F 11/23/17 08:00 Pulse Rate 109 H 11/23/17 08:00 Respiratory Rate 20 11/23/17 08:00 Blood Pressure 151/98 H 11/23/17 08:00 Pulse Oximetry 91 11/23/17 08:00 - Constitutional no acute distress, obese, cooperative - Routine HEENT Exam Head: Present: normocephalic Eye: Present: EOMI, conjunctivae pink ENT: Present: mucous membranes moist - Routine Neck Exam Present: supple. Absent: lymphadenopathy - Routine Respiratory Exam Present: CTA bilaterally - Routine Cardiovascular Exam Present: RRR, no murmur - Routine Abdominal Exam Present: soft, normoactive bowel sounds - Routine Extremities Exam Present: no edema - Routine Skin Exam Present: intact, dry. Absent: rash - Routine Psychiatric Exam Present: normal affect, cooperative Oncology Results - Labs CBC & Chem 7: 11/23/17 06:44 11/23/17 06:44 Labs: Short CBC 11/23/17 Range/Units 06:44 WBC 6.8 (4.5-11.0) T/MM3 Hgb 11.4 L (12-16) GM/DL Hct 36.3 (36-46) % Plt Count 341 (130-400) T/MM3 [facility] 11/23/17 06:44 Sodium 140 Potassium 3.9 Chloride 100 Carbon Dioxide 30 BUN 8.0 Creatinine 0.6 L Glucose 87 Calcium 9.6 Assessment and Plan Assessment and Plan: Assessment 1. Acute immune thrombocytopenic purpura, ITP, not responding to steroids or IVIG. Responded extremely well to Promacta which is now on hold due to normalization of platelet count of more than 200,000. Platelets continue to remain stable; 11/23/17 platelets are 341,000. 2. Chronic inflammatory demyelinating polyneuropathy (CIDP), status post plasmapheresis IVIG and Imuran in the past. 3. Chronic anemia, Limited stable. Hemoglobin 11/23/17 is 11.4. 4. History of saddle pulmonary embolism with acute cor pulmonale, status post EKOS (catheter-assisted thrombolysis) in February 2017. History of DVT, on Eliquis. 5. 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 6. History of papillary thyroid cancer, status post thyroidectomy. Plan Continue supportive care, rehabilitative care. Patient states "Going home next Sunday." Reminded to f/u with Dr. Genao; acknowledges/agrees to do. - Time Spent With Patient Total time spent is greater than 50% in coordination of care (as documented) at patient's floor/unit and/or counseling patient: less than 15 minutes <Sebas Rand - Last Filed: 11/23/17 18:55> Exam Vital signs: Temperature 98.2 F 11/23/17 16:00 Pulse Rate 89 11/23/17 16:00 Respiratory Rate 18 11/23/17 16:00 Blood Pressure 115/76 11/23/17 16:00 Pulse Oximetry 98 11/23/17 16:00 Oncology Results - Labs CBC & Chem 7: 11/23/17 06:44 11/23/17 06:44 Labs: Short CBC 11/23/17 Range/Units 06:44 WBC 6.8 (4.5-11.0) T/MM3 Hgb 11.4 L (12-16) GM/DL Hct 36.3 (36-46) % Plt Count 341 (130-400) T/MM3 [facility] 11/23/17 06:44 Sodium 140 Potassium 3.9 Chloride 100 Carbon Dioxide 30 BUN 8.0 Creatinine 0.6 L Glucose 87 Calcium 9.6 Assessment and Plan Assessment and Plan: Patient examined, chart reviewed, agree with documentation of Lety Gardner. Platelets currently improved. Patient is feeling much better. He'll continue physical therapy and supportive care. I participated in the development plan of care in this patient. Laboratory Tests 11/23/17 06:44 Plt Count 341 - Time Spent With Patient Total time spent is greater than 50% in coordination of care (as documented) at patient's floor/unit and/or counseling patient:
[2017-11-24] MEDS: LEVOTHYROXINE 175 MCG TABLET PO SCH ×2 (04:52→08:26)
[2017-11-24] MEDS: HYDROCODONE/APAP 5mg/325mg TABLET PO PRN (04:53)
[2017-11-24] MEDS: OMEPRAZOLE 20 MG CAPSULE PO SCH ×2 (04:53→08:26)
[2017-11-24] MEDS: LACTULOSE 20 GM/30 ML ORAL LIQUID PO SCH ×2 (08:35→20:03)
[2017-11-24] MEDS: FOLIC ACID 1 MG TABLET PO SCH (08:35)
[2017-11-24] MEDS: METOCLOPRAMIDE 5mg TABLET PO SCH ×3 (08:35→20:03)
[2017-11-24] MEDS: MAGNESIUM OXIDE 400 MG TABLET PO SCH ×2 (08:35→17:56)
[2017-11-24] MEDS: SPIRONOLACTONE 50 MG TABLET PO SCH (08:35)
[2017-11-24] MEDS: APIXABAN 2.5 MG TABLET PO SCH ×2 (08:35→20:02)
[2017-11-24] MEDS: VENLAFAXINE 75 MG TABLET PO SCH ×2 (08:35→17:55)
[2017-11-24] MEDS: ITRACONAZOLE 100 MG CAPSULE PO SCH ×2 (08:35→20:02)
[2017-11-24] MEDS: POLYETHYL GLYCOL 3350 17gm PACKET PO SCH ×2 (08:36→20:03)
[2017-11-24] MEDS: ACETAMINOPHEN 325 MG TABLET PO PRN ×2 (14:46→20:04)
[2017-11-25] MEDS: OMEPRAZOLE 20 MG CAPSULE PO SCH ×2 (04:31→07:28)
[2017-11-25] MEDS: LEVOTHYROXINE 175 MCG TABLET PO SCH ×2 (04:31→07:27)
[2017-11-25] MEDS: APIXABAN 2.5 MG TABLET PO SCH ×2 (08:52→22:33)
[2017-11-25] MEDS: METOCLOPRAMIDE 5mg TABLET PO SCH ×3 (08:52→22:33)
[2017-11-25] MEDS: ITRACONAZOLE 100 MG CAPSULE PO SCH ×2 (08:52→22:33)
[2017-11-25] MEDS: ERGOCALCIFEROL 50,000 UNIT CAPSULE PO SCH (08:52)
[2017-11-25] MEDS: VENLAFAXINE 75 MG TABLET PO SCH ×2 (08:53→17:38)
[2017-11-25] MEDS: POLYETHYL GLYCOL 3350 17gm PACKET PO SCH ×2 (08:53→22:34)
[2017-11-25] MEDS: MAGNESIUM OXIDE 400 MG TABLET PO SCH ×2 (08:53→17:38)
[2017-11-25] MEDS: LACTULOSE 20 GM/30 ML ORAL LIQUID PO SCH ×2 (08:53→22:34)
[2017-11-25] MEDS: FOLIC ACID 1 MG TABLET PO SCH (08:53)
[2017-11-25] MEDS: SPIRONOLACTONE 50 MG TABLET PO SCH (08:53)
[2017-11-25] MEDS: ACETAMINOPHEN 325 MG TABLET PO PRN (19:19)
[2017-11-26] MEDS: OMEPRAZOLE 20 MG CAPSULE PO SCH ×2 (04:51→05:55)
[2017-11-26] MEDS: ACETAMINOPHEN 325 MG TABLET PO PRN ×2 (04:51→22:51)
[2017-11-26] MEDS: LEVOTHYROXINE 175 MCG TABLET PO SCH ×2 (04:51→05:55)
--- NOTE | 2017-11-26 09:04 | Progress Note ---
Oncology Subjective Alert and oriented. Denies pain currently. Denies cough or shortness of air. Has not had any bleeding. Reports normal urination, normal BM. Anxious for dismissal tomorrow. General: No fever, no night sweats Eyes: No redness, no pain, no diplopia ENT: No mouth sores, no trouble swallowing Cardiac: No chest pain no palpitations Pulmonary: No cough, no shortness of breath, no wheezing Abdomen: No pain, no nausea vomiting, no diarrhea or constipation : No urgency, frequency, dysuria, or hematuria Musculoskeletal: No arthritis, no myalgias Neurological: No headaches, no focal weakness Skin: No rash, no sores Psychiatric: No anxiety, no depression Exam Vital signs: Temperature 97.8 F 11/26/17 00:00 Pulse Rate 116 H 11/26/17 00:00 Respiratory Rate 20 11/26/17 00:00 Blood Pressure 130/84 11/26/17 00:00 Pulse Oximetry 97 11/26/17 00:00 - Constitutional no acute distress, obese, cooperative - Routine HEENT Exam Head: Present: normocephalic Eye: Present: EOMI ENT: Present: mucous membranes moist - Routine Neck Exam Present: supple. Absent: lymphadenopathy, tenderness - Routine Respiratory Exam Present: CTA bilaterally - Routine Cardiovascular Exam Present: RRR, no murmur - Routine Abdominal Exam Present: soft, normoactive bowel sounds. Absent: mass (no mass or organomegaly , but difficult to assess secondary to body habitus. Incision left lower abdomen where drain was healing nicely. No signs or symptoms of inflammation.) - Routine Extremities Exam Present: no edema, non tender - Routine Back/Spine/Pelvis Exam Back/Spine: Absent: vertebral tenderness - Routine Skin Exam Present: intact, dry - Routine Neurological Exam Present: alert, moving all extremities, normal speech - Routine Psychiatric Exam Present: normal affect, cooperative Oncology Results - Labs CBC & Chem 7: 11/26/17 13:02 11/26/17 13:02 Assessment and Plan Assessment and Plan: Assessment 1. Acute immune thrombocytopenic purpura, ITP, not responding to steroids or IVIG. Responded extremely well to Promacta which is now on hold due to normalization of platelet count of more than 200,000. Platelets continue to remain stable; 11/23/17 platelets are 341,000, platelets today, 11/26/17 are 329 ,000. 2. Chronic inflammatory demyelinating polyneuropathy (CIDP), status post plasmapheresis IVIG and Imuran in the past. 3. Chronic anemia, Limited stable. Hemoglobin 11/23/17 is 11.4 and hemoglobin today, 11/26/17 is 13.6 4. History of saddle pulmonary embolism with acute cor pulmonale, status post EKOS (catheter-assisted thrombolysis) in February 2017. History of DVT, on Eliquis. 5. 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 6. History of papillary thyroid cancer, status post thyroidectomy. Plan Continue supportive care, rehabilitative care. Planning discharge tomorrow. Follow-up with Dr. Genao and PCP. - Time Spent With Patient Total time spent is greater than 50% in coordination of care (as documented) at patient's floor/unit and/or counseling patient: less than 15 minutes
[2017-11-26] MEDS: ITRACONAZOLE 100 MG CAPSULE PO SCH ×2 (09:06→22:50)
[2017-11-26] MEDS: VENLAFAXINE 75 MG TABLET PO SCH ×2 (09:08→17:08)
[2017-11-26] MEDS: MAGNESIUM OXIDE 400 MG TABLET PO SCH ×2 (09:08→17:08)
[2017-11-26] MEDS: APIXABAN 2.5 MG TABLET PO SCH ×2 (09:08→22:51)
[2017-11-26] MEDS: FOLIC ACID 1 MG TABLET PO SCH (09:09)
[2017-11-26] MEDS: SPIRONOLACTONE 50 MG TABLET PO SCH (09:10)
[2017-11-26] MEDS: METOCLOPRAMIDE 5mg TABLET PO SCH ×3 (09:10→22:51)
[2017-11-26] MEDS: LACTULOSE 20 GM/30 ML ORAL LIQUID PO SCH ×2 (09:15→22:50)
[2017-11-26] MEDS: POLYETHYL GLYCOL 3350 17gm PACKET PO SCH ×2 (09:15→22:50)
[2017-11-26] MEDS ORDERED: FALL RISK - PHARMACY CONSULT MC ONE (09:43)
--- NOTE | 2017-11-26 10:20 | ID Progress Note ---
Subjective Date: 11/26/17 Subjective: Ms. Burdick reports that she still having some itching at night. She reports that Atarax is helping with that. It looks like she is on Atarax as well as Benadryl when necessary. Her abdominal pain is improved. She denies any nausea vomiting or diarrhea. She is feeling well and hopes to discharge in the morning. Exam Vital Signs: Temperature 99.1 F 11/26/17 08:00 Pulse Rate 118 H 11/26/17 08:00 Respiratory Rate 20 11/26/17 08:00 Blood Pressure 145/99 H 11/26/17 08:00 Pulse Oximetry 92 11/26/17 08:00 Height/Weight/BMI: Height 1.68 m Weight 112 kg Body Mass Index 48.3 - Constitutional Present: no acute distress, well nourished, well developed - Routine HEENT Exam Head: Present: normocephalic, atraumatic Eye: Present: EOMI, PERRL ENT: Present: mucous membranes moist, oropharynx clear - Routine Neck Exam Present: supple - Routine Respiratory Exam Present: CTA bilaterally - Routine Cardiovascular Exam Present: RRR - Routine Abdominal Exam Present: soft (obese), normoactive bowel sounds, non distended, non tender - Routine Exam Comments: no bustamante or bladder distention - Routine Extremities Exam Absent: cyanosis, clubbing, edema - Routine Skin Exam Present: intact. Absent: rash - Routine Neurological Exam Present: alert, oriented X3, CN II-XII intact, normal speech. Absent: motor deficit - Routine Psychiatric Exam Present: normal affect Results - Labs CBC & Chem 7: 11/23/17 06:44 11/23/17 06:44 Microbiology Results: Microbiology 11/05/17 15:45 Blood Blood Fungal Culture - Preliminary Impression: Presumed disseminated Histoplasmosis. Positive Urine Histo antigen 10/04/17, per records. Serum Histo Ag 2.71 ([employer]), urine Histo Ag negative ([place]), 11/05/17. Itraconazole serum level 2.1 on 11/13/17 (it was 0.9 on 11/01/17). Severe polyneuropathy/CIDP, treated with plasmapharesis, steroids and also Imuran. Severe thrombocytopenia/ITP, s/p IVIG x 2. S/p bone marrow biopsy 11/05/17, without evidence of granulomas or infiltrative disease process. Improving. Abdominal pain, improving Cholelithiasis s/p lap jung, Pleurx catheter placement and liver biopsy . S/p Pleurx catheter removal 11/21/17. 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 Histoplasma Ascites, unclear etiology. H/o PE treated with EKOS catheter in February 2017 Hypothyroidism, s/p thyroid cancer Obesity s/p lap banding PCN allergy H/o gallstone pancreatitis Anemia, normocytic Weakness/debility Pruritus, ? secondary to itraconazole Recommendation: Continue Itraconazole 200mg po bid. Monitor pruritus. It might be due to the itraconazole, but would continue for now with benadryl PRN. Will defer any change in dose to Dr. Coleman. Planning for 6-12 months of treatment. She has F/ U scheduled with Dr. Coleman on 11/27/17. Planning discharge in the morning per patient.
--- NOTE | 2017-11-26 10:44 | IRU Progress Note ---
- Subjective/Serverity of Illness Date: 11/26/17 Maday was assessed in her room and inpatient rehabilitation. She is upbeat and is looking forward to going home soon. She believes that she has gained a lot of strength. She reports that her bowels are moving adequately. There is minimal discomfort in the abdomen at the site of the Pleurx catheter removal. Abdomen remained soft otherwise with normoactive bowel sounds. She reports a good appetite. She reports that she has no chest pain and no shortness of breath. Her vital signs are stable. Her weight remains stable and down. Her platelet count remains within normal range. Continues to have some itching toward the evening and nighttime hours. This is improved and adequately treated with antihistamines and lotion. Exam Vital Signs: Temperature 99.1 F 11/26/17 08:00 Pulse Rate 118 H 11/26/17 08:00 Respiratory Rate 20 11/26/17 08:00 Blood Pressure 145/99 H 11/26/17 08:00 Pulse Oximetry 92 11/26/17 08:00 Height/Weight/BMI: Height 1.68 m Weight 113.9 kg Body Mass Index 48.3 - Constitutional Present: no acute distress, well nourished, well developed, morbidly obese - Routine HEENT Exam Head: Present: normocephalic Eye: Present: EOMI ENT: Present: mucous membranes moist, oropharynx clear - Routine Neck Exam Present: supple - Routine Respiratory Exam Present: CTA bilaterally. Absent: wheezes - Routine Cardiovascular Exam Present: RRR, S1, S2. Absent: murmur - Routine Abdominal Exam Present: soft, normoactive bowel sounds, tenderness (minimal in the left mid abdomen where the Pleurx catheter was removed. No evidence of inflammation nor infection.), non distended, surgical scars. Absent: mass - Routine Extremities Exam Present: no edema, normal capillary refill - Routine Skin Exam Present: dry, warm - Routine Neurological Exam Present: alert, oriented X3, CN II-XII intact, motor deficit (as before.) - Routine Psychiatric Exam Present: normal affect, normal thought process, cooperative, good insight, good judgment Results IRU - Labs Labs: Have reviewed other providers notes as well as lab results and chart data. IRU A/P (1) CIDP (chronic inflammatory demyelinating polyneuropathy) Current visit: Yes Status: Chronic Patient has significantly improved regarding her functional ability. She is standby assist for ambulation and transfers. She is standby assist with front- wheeled walker and able to walk over 60 feet. (2) Disseminated histoplasmosis Current visit: Yes Status: Acute Continues on itraconazole. (3) Thrombocytopenia Current visit: Yes Status: Resolved (4) Granulomatous hepatitis Current visit: Yes Status: Acute (5) Ascites Qualifiers: Ascites type: other type Qualified Code(s): R18.8 - Other ascites Current visit: Yes Status: Resolved (6) Constipation by delayed colonic transit Current visit: Yes Status: Resolved (7) Pruritus Current visit: Yes Status: Acute DVT Prophylaxis: Eliquis Resuscitation Status: Full Code - Course Hospital Course: Sigifredo Lee MD: 11/02/17 10:59 Cooperative but slow progress with therapy. Continued significant muscle weakness. Tolerating itraconazole adequately. Thrombocytopenia is a concern. 11/05/17 10:28 Continued worsening platelet count despite IVIG. Cooperative but continues to demonstrate substantial weakness. Therapies are code treating for energy conservation. Remains on itraconazole. Eliquis has been discontinued. 11/06/17 10:39 Fluid weight is down. Remains on Lasix and frequent voiding. Platelets better after transfusion. Bone marrow exam yesterday with results pending. 11/07/17 10:18 Edema improved. Started wrapping legs yesterday. Bone marrow results pending. Reassess lab today. 11/09/17 16:29 Edema much improved. Weight down. Lasix discontinued today. Bone marrow results reviewed. Platelet count is up after transfusion. She is cooperative with therapy and making progress. 11/12/17 10:56 Abdominal pain last night presumably secondary to constipation. Continues to work with therapy and making progress. Platelet count improved. 11/13/17 10:49 Weight gradually increasing. Edema remains resolved with wrapping of the legs. Minimal output from Pleurx catheter. Increased muscle tone in all 4 extremities. Platelet count normal and Promacta discontinued. 11/15/17 10:46 Patient is making good progress with therapies. Continues minimal output from Pleurx catheter. Platelet count remains normal. Promacta is continued at a lower dose. Management per hematology. 11/16/17 10:30 Blood count remains above 3 9000 and to is now held. Minimal output from Pleurx catheter. Patient is making progress with regard to therapies. 11/19/17 10:19 Patient's ambulatory distance and lower extremity strength appears to be significantly improved. Patient's legs did "buckle" today and she was let down safely. I examined the patient thereafter and she is stable and without evidence of injury. Pleurx catheter may be safely removed at this time. 11/20/17 09:55 Pleurx catheter to be removed tomorrow morning. Labs stable. Patient continues to cooperate with therapy and is improving. 11/22/17 14:10 Has developed worsening itching although relieved by lotion and Benadryl. Etiology of itching unclear but likely related to dry skin plus or minus hydrocodone. Has made substantial improvement with regard to therapies. Pleurx catheter removal went well. 11/23/17 10:15 Itching relieved with lotion and Atarax. No rash seen. Abdomen soft and minimally tender at Pleurx catheter removal site. Weight remains down. Continues to improve functionally. 11/26/17 10:43 Continues to have a bit of itching and night. Weight remains stable and reduced. No rash. Has improved significantly with functional mobility. - Interventions to Obtain Goals PT Treatment Plan: Balance/Proprioception, Functional Activities, Gait Training , Patient/Family Education, Therapeutic Exercise OT Treatment Plan: ADL (Basic Care), Balance Training, IADL, Pt./Family Education, Ther. Exercise for ADL Goals Progress/Modifications: Anticipate safe transition to her home environment in the next 24 hours.
--- NOTE | 2017-11-26 12:45 | Progress Note ---
- Date 11/26/17 Subjective: Autumn was resting in bed, watching television. She states that her pain continues to improve. She feels ready to go home, and is planning on discharge tomorrow. She denies any shortness of breath or chest discomfort. Her leg swelling has resolved. Objective Vital signs: Temperature 99.1 F 11/26/17 08:00 Pulse Rate 118 H 11/26/17 08:00 Respiratory Rate 20 11/26/17 08:00 Blood Pressure 145/99 H 11/26/17 08:00 Pulse Oximetry 92 11/26/17 08:00 Height/Weight/BMI: Height 1.68 m Weight 113.9 kg Body Mass Index 48.3 - Constitutional Present: no acute distress, well nourished, well developed, obese - Routine HEENT Exam Head: Present: normocephalic Eye: Present: PERRL. Absent: conjunctival icterus, scleral injection - Routine Respiratory Exam Present: CTA bilaterally - Routine Cardiovascular Exam Present: RRR, S1, S2 - Routine Abdominal Exam Present: soft, normoactive bowel sounds, non distended, non tender Comments: No drainage noted to gauze dressing on abdomen - Routine Extremities Exam Present: no edema, pulses intact - Routine Musculoskeletal Exam Musculoskeletal: Present: no clubbing or cyanosis - Routine Skin Exam Present: intact, dry, warm - Routine Neurological Exam Present: alert, oriented X3, moving all extremities, normal speech - Routine Psychiatric Exam Present: normal affect, normal thought process, cooperative Results - Labs CBC & Chem 7: 11/26/17 13:02 11/26/17 13:02 Microbiology Results: Microbiology 11/05/17 15:45 Blood Blood Fungal Culture - Preliminary Assessment and Plan (1) CIDP (chronic inflammatory demyelinating polyneuropathy) Current visit: Yes Status: Chronic Assessment and Plan: IMPRESSION S/P PleurX catheter removal - 11/21/17; Dr. Jefferson. 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 Distal spinal muscular atrophy and muscle atrophy of lower extremities with gait instability Saddle embolus of the pulmonary artery with acute cor pulmonale, treated with EKOS catheter in February,. Also with history of DVT. Anticoagulated on Eliquis. Chronic anemia and thrombocytopenia Hypertension. 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 Ascites, unknown cause, with Pleurx drain inserted on 10/18/17. Hepatic steatosis. Possible early cirrhosis Mild protein calorie malnutrition Morbid obesity and hypoventilation syndrome Asthma Papillary cancer of thyroid, Post-surgical hypothyroidism. Right ovarian dermoid cyst Depression Onychocryptosis Echocardiogram February 2017: EF greater than 55%, right ventricular systolic function is moderately reduced, mild tricuspid regurgitation. On 10/29/17: WBC was 9.3, hemoglobin 9.4, hematocrit 28.4, platelets 34, sodium 129, potassium 3.2, BUN 10, creatinine 0.6. Blood pressure was 93/56 to 104/60 with heart rate in the 70s. She was maintaining saturations on room air. She has an appointment scheduled with Dr. Angel Coleman with infectious disease on November 27 at 2:30 PM. PLAN - 11/26/17: Continue Itraconazole 200mg po bid. F/U with Dr. Coleman for any dose changes and to determine duration of therapy. Benadryl PRN pruritus. She plans to F/U will all of her specialists in the [place] area. Recheck labs today. Discharge planned for 11/27/17. Resuscitation Status: Full Code - Physician Narrative Narrative: Date: 11/26/17 Time: 1234 Hospital Course Summary Disclaimer: The visit summary below is not to be considered part of the above Progress Note. Hospital Course: 10/31/17 Extremely complicated case. Agree with ID consultation. Discharge instructions recommended to check an itraconazole drug level - this has been ordered for tomorrow am along with CBC, CMP, magnesium level. Continue fluid restriction; carb consistent diet. Check BGM, though in [place] she was not requiring SSI. Check daily weights. Will obtain Rt leg venous doppler. Even though she's on Eliquis, this was temporarily held during her hospitalization because of anemia and thrombocytopenia, and she is certainly at high risk for DVT. Report to Dr. Lee indicated they are to drain Pleurx daily, approx. 1L of fluid. Discussed with Dr. Lee and nursing staff. Extensive chart review. At time of Discharge from [facility], she was started on Eliquis 2.5 mg twice a day, Benadryl 25 mg if needed for itching, fentanyl 12 g patch, Lasix 40 mg daily, itraconazole 200 mg twice a day, and lactulose 20 g daily. She is also to be taking: Ergocalciferol 50,000 units once a week, folic acid 0.8 mg daily, levothyroxine 175 g daily, Mag-Ox 400 mg with supper, medical Paremyd 5 mg 30 minutes before meals, nystatin powder 3 times a day as needed, omeprazole 20 mg daily, Zofran 4 mg ODT as needed, MiraLAX 17 g daily when necessary, spironolactone 50 mg daily, Effexor 75 mg twice a day. She has an appointment scheduled with Dr. Angel Coleman with infectious disease on November 27 at 2:30 PM. 11/03/17 Extremely complicated case. ID consultation. Discharge instructions recommended to check an itraconazole drug level-currently pending. Continue fluid restriction; carb consistent diet. BG has been low normal. Reports tolerating PO w/o difficulty. Bilateral LE doppler was negative for DVT. CTA was a bit limited, but did not show any acute PE. She is on Eliquis, but Dr. Franz to determine possible stopping due to low platelets. Intra-abdominal draining of Pleurx daily, approx. 1L of fluid, recommended on discharge. Multiple abdominal drains noted. Recent complete GB removal. ITP with further decline of platelets- per Dr. Franz. IVIG given yesterday and is to be repeated today. Decadron, Benadryl given daily as well. Continue low dose fentanyl patch for pain and PRN APAP. Concern for atelectasis vs. pneumonia- encourage pulmonary toilet. Continue to monitor closely. Labs and chart reviewed. D/W Dr. Aponte. 11/04/17 ID consultation for histoplasma infection. Itraconazole drug level currently pending. Dr. Rasheed to see Sunday. Neuro consultation for CIDP. Dr. Kate to see Sunday. Dr. Franz has seen patient for ITP. Initiated IVIG, Decadron and Benadryl. Anticoagulation has been discontinued. No DVT in her legs and no acute pulmonary emboli. SCDs for DVT prophylaxis. Platelets up from yesterday. 9000-- >11,000. Continue fluid restriction. Intra-abdominal draining of Pleurx daily, approx. 1L of fluid, recommended on discharge. Continue low dose fentanyl patch for pain and PRN APAP. TSH very slightly elevated. Free T4 pending. No adjustment made to thyroid med. Increase Lasix to 60mg and elevate legs AMAP for pedal edema. Follow electrolytes. 11/05/17 Appreciate consultations- Dr Frazn, Dr Rasheed and Dr Kate Remains on Itraconazole BID; likely need for 6-[address] Franz and [address] Rand following regarding probable IPT and thrombocytopenia. PLT today 7. Eliquis stopped given negative findings of thrombus of scans over the weekend Continue on fluid restriction and monitor abdominal drainage often. Lasix was increased 11/04/17. Follow weights and edema 11/09/17 Hgb up to 10, plt 23 yesterday - will repeat labs today. Had a platelet pheresis pack on 10/31 and 11/05. Promacta ordered per heme. Bone marrow aspiration and biopsy showed hypocellular marrow for heart age, 35% cellularity, increased megakaryocytes suggestive of peripheral destruction (can include ITP, Liver disease and hypersplenism, drug related and infection related ). The bone marrow showed no evidence of leukemia or dysplasia, no infiltrative process, no granuloma, no metastatic disease. Anticoagulants have been discontinued per heme because risk outweighs benefit. BP stable. Working well with therapy. Pt tends to void frequently after Lasix dose, which interrupts therapy. Change dosing time to 1300. Continue Itraconazole BID for 6-12 months as recommended by Dr Rasheed 11/11/17 Pain in RLQ. Morphine now available. KUB +increased colonic stool burden. 11/12/17 KUB shows constipation. Lactulose and MiraLAX increased to BID per attending. Will add Fleet's enema if next suppository is unsuccessful. Hgb up to 10.9 and platelets 84 as of yesterday. Will repeat labs in am. Promacta per heme/onc. Continue Itraconazole 200mg PO BID for 6-12 months. Repeat Itraconazole level in am. 11/13/17 Plan is to monitor her drainage around GONZÁLEZ site insertion overnight. Suspect that overall drainage is declining. Site does not appear to be infected , is without erythema Will reevaluate tomorrow morning Continue with lactulose and MiraLAX for bowel motivation Continue Itraconazole 200mg PO BID for 6-12 months. Repeat Itraconazole level drawn today 11/13 and pending CBC and BMP from today reviewed. Platelet count remains normal Need to work on PT and OT for ongoing strengthening 11/15/17 Promacta dc'd. Both hgb and platelets have improved. Drainage from abdominal incisions continues to decrease. Monitor weight -- slight increase noted since dc Lasix. 11/19/17 Overall she is doing well. Eliquis was held by surgery in preparation for removal of the Pleurx catheter under local and sedation later today as it is draining minimally and is no longer holding suction. Labs, vital signs, nurse's notes and rehabilitation notes reviewed. PLAN - 11/22/17: Overall she is doing well. Pleurx catheter removed successfully by Dr. Jefferson on 11/21/17. Continue to monitor wounds closely for signs of infection. Eliquis was restarted following the procedure. CBC stable with platelets >200K. Continue to monitor closely. Anemia resolved - Hgb 12.1. Monitor closely. Continue to encourage participation in therapies for strengthening and improvement in functional mobility. Increased pruritus, most likely secondary to hydrocodone. Continue Benadryl as needed. Atarax 25mg Q6H PRN itching for additional relief. Anticipate discontinuation of hydrocodone in near future. 11/26/17 Continue Itraconazole 200mg po bid. F/U with Dr. Coleman for any dose changes and to determine duration of therapy. Benadryl PRN pruritus. She plans to F/U will all of her specialists in the [facility].
--- NOTE | 2017-11-26 13:48 | IRU Team Meeting ---
IRU Team Meeting - Nursing Bladder Assistive Devices Utilized:: Bedpan Bladder Management Level of Assist: Total Assistance Bladder Frequency of Accidents: 1 accident this shift Bowel Assistive Devices Utilized:: Medication Bowel Management Level of Assist: Modified Independent Bowel Frequency of Accidents: 1 accident this shift Number of Bowel Accidents: 1 Vital Signs: Vital Signs - 24 hr 11/25/17 16:00 11/26/17 00:00 11/26/17 08:00 Temperature 99.3 F 97.8 F 99.1 F Pulse Rate 94 116 H 118 H Respiratory Rate 16 20 20 Blood Pressure 137/76 130/84 145/99 H Pulse Oximetry 98 97 92 Current Medications: Acetaminophen (Tylenol) 650 mg PO Q4H PRN PRN Reason: Pain Last Admin: 11/26/17 04:51 Dose: 650 mg Albuterol/Ipratropium (Duoneb) 3 ml AEROSOL RTQID PRN Apixaban (Eliquis) 2.5 mg PO BID [facility] Last Admin: 11/26/17 09:08 Dose: 2.5 mg Bisacodyl (Dulcolax) 10 mg RECTALLY DAILY PRN PRN Reason: Constipation Last Admin: 11/06/17 18:47 Dose: 10 mg Diphenhydramine HCl (Benadryl) 25 mg PO Q4H PRN PRN Reason: Itching Last Admin: 11/22/17 05:20 Dose: 25 mg Eltrombopag (Promacta) 25 mg PO ACB [facility] Last Admin: 11/15/17 06:38 Dose: 25 mg Ergocalciferol (Vitamin D-2) 50,000 unit PO Cano@0900 [facility] Last Admin: 11/25/17 08:52 Dose: 50,000 unit Fentanyl (Duragesic Patch) 12 mcg TD Q3D [facility] Last Admin: 11/24/17 15:08 Dose: 12 mcg Fentanyl Citrate (Duragesic Patch Removal) 1 removal TD Q3D [facility] Last Admin: 11/24/17 15:09 Dose: 1 removal Folic Acid (Folate) 1 mg PO DAILY [facility] Last Admin: 11/26/17 09:09 Dose: 1 mg Hydroxyzine HCl (Atarax) 25 mg PO Q6H PRN Last Admin: 11/25/17 19:19 Dose: 25 mg Itraconazole (Itraconazole) 200 mg PO BID [facility] Last Admin: 11/26/17 09:06 Dose: 200 mg Lactulose (Lactulose) 20 gm PO BID [facility] Last Admin: 11/26/17 09:15 Dose: Not Given Levothyroxine Sodium (Synthroid) 175 mcg PO ACB [facility] Last Admin: 11/26/17 05:55 Dose: Not Given Magnesium Oxide (Magox) 400 mg PO BIDWM [facility] Last Admin: 11/26/17 09:08 Dose: 400 mg Metoclopramide HCl (Reglan) 5 mg PO TID [facility] Last Admin: 11/26/17 09:10 Dose: 5 mg Omeprazole (Prilosec) 20 mg PO ACB [facility] Last Admin: 11/26/17 05:55 Dose: Not Given Ondansetron HCl (Zofran Po) 4 mg PO Q6HR PRN PRN Reason: nausea Last Admin: 11/04/17 09:43 Dose: 4 mg Polyethylene Glycol (Miralax) 17 gm PO BID [facility] Last Admin: 11/26/17 09:15 Dose: Not Given Sodium Chloride (Iv Flush) 10 ml IV PRN PRN PRN Reason: Flushing Last Admin: 11/05/17 09:45 Dose: 10 ml Sodium Chloride (Normal Saline) 500 ml IV PRN PRN Sodium Phosphate (Fleet Enema) 1 enema IA DAILY PRN Spironolactone (Aldactone) 50 mg PO DAILY [facility] Last Admin: 11/26/17 09:10 Dose: 50 mg Venlafaxine HCl (Effexor) 75 mg PO BIDWM [facility] Last Admin: 11/26/17 09:08 Dose: 75 mg Current Medical Issues: CIDP, disseminated histo, recent thrombocytopenia Comments: I certify that I personally led the interdisciplinary team meeting and agree with comments, barriers and goals indicated. Team meeting was held in the patient's room with the patient and the following family members present: patient alone Maday is significantly improved with regard to her motor ability. Has minimal discomfort with the Pleurx catheter was removed. She is no longer on a fluid restriction. She is eating and drinking adequately and is having good bowel movements. Pain appears to be adequately controlled at present. Tolerated Pleurx catheter removal without difficulty. - Physical Therapy Bed, Chair, Wheelchair Transfer Assist: Stand By Assist/Supervision Ambulation Ability: Total Assistance, 1 Person Assist Ambulation Distance: 41 Wheelchair Propulsion Ability: Stand By Assist/Supervision Wheelchair Propulsion Distance: 160 Stair Climbing Ability: Patient Unsafe/Unable Car Transfer Ability: Minimal Assistance Comments: She ambulated over 60 feet late last week. Requires minimum assistance for car transfers. Has made significant progress and is felt to be stable for a safe transition to her home environment. - Occupational Therapy Eating Ability: Independent Grooming Ability: Modified Independent Bathing Ability: Minimal Assistance Upper Body Dressing Ability: Minimal Assistance Lower Body Dressing Ability: Total Assistance Tub Transfer Assist: Minimal Assistance Toileting Assist: Total Assistance Toilet Transfer Assist: Stand By Assist/Supervision Comments: She has met her ADL goals and has all recommended equipment in place at her home at this time. Toileting assist is difficult to simulate as she uses a badet for hygiene and does not need to manage clothing other than a long T- shirt. - Goals Physical Therapy Goals: 11/19/17: 1.) Ambulate 40 feet with use of walker stand- by assist. - met. 2.) Perform sit to stand transfer with stand-by assistance. - met. 11/26/17: 1.) Transfers with walker at modified independence. 2.) Ambulation 50 feet at stand-by assistance. Occupational Therapy Goals: OT goals 11/26/17: 1.) Upper body dressing with set- up assist.- continue Pt. currently requires minimal assistance to clasp bra. 2. ) Transfer to bed side commode with maximal assistance. -goal met (performs transfer to toilet with supervision). 3.) Reduce pain in both hands to facilitate participation in activities of daily living. -goal met. 4.) Lower body dressing with moderate assistance. - continue - Barriers to Discharge Barriers to Attaining Goals: Weakness (therapeutic exercises are provided for improvement of lower extremity strength.), Endurance (patient is encouraged to take fewer rest breaks and pursue longer periods of activity.) - Care Plan Anticipated Length of Stay (days): 1 Anticipated DC Destination: Home, Self Care, Home Health Service I have led this team conference and agree with the plan. Interventions/Goals: Patient is making significant progress and it is anticipated the patient will have a safe transition to her home environment early tomorrow morning.
[2017-11-27] MEDS: LEVOTHYROXINE 175 MCG TABLET PO SCH (05:40)
[2017-11-27] MEDS: OMEPRAZOLE 20 MG CAPSULE PO SCH (05:40)
[2017-11-27 07:11] VITALS: BP 131/86; PULSE 94; RESP 16; TEMP 98.1; O2SAT 95
[2017-11-27] MEDS: MAGNESIUM OXIDE 400 MG TABLET PO SCH (07:52)
[2017-11-27] MEDS: VENLAFAXINE 75 MG TABLET PO SCH (07:52)
[2017-11-27] MEDS: FOLIC ACID 1 MG TABLET PO SCH (08:23)
[2017-11-27] MEDS: SPIRONOLACTONE 50 MG TABLET PO SCH (08:23)
[2017-11-27] MEDS: APIXABAN 2.5 MG TABLET PO SCH (08:25)
[2017-11-27] MEDS: LACTULOSE 20 GM/30 ML ORAL LIQUID PO SCH (08:25)
[2017-11-27] MEDS: ITRACONAZOLE 100 MG CAPSULE PO SCH (08:25)
[2017-11-27] MEDS: METOCLOPRAMIDE 5mg TABLET PO SCH (08:25)
[2017-11-27] MEDS: POLYETHYL GLYCOL 3350 17gm PACKET PO SCH (08:26)
[2017-11-27] MEDS: ACETAMINOPHEN 325 MG TABLET PO PRN (09:58)
--- NOTE | 2017-11-27 10:13 | IRU Progress Note ---
- Subjective/Serverity of Illness Date: 11/27/17 Maday was interviewed and examined in her room on acute inpatient rehabilitation. She is looking forward to going home. She states that she feels comfortable doing this at this time. She confirmed that she has appointments artery made for Dr. Fish and Dr. Coleman. We will also send reports to Dr. Genao and Dr. Edwards and she will call for those appointments. She denies any chest pain or shortness of breath. Her bowels are moving. Her appetite is good. Her strength is improved. Exam Vital Signs: Temperature 98.1 F 11/27/17 07:10 Pulse Rate 94 11/27/17 07:10 Respiratory Rate 16 11/27/17 07:10 Blood Pressure 131/86 11/27/17 07:10 Pulse Oximetry 95 11/27/17 07:10 Height/Weight/BMI: Height 1.68 m Weight 113.9 kg Body Mass Index 48.3 - Constitutional Present: no acute distress, well nourished, well developed, morbidly obese, cooperative - Routine HEENT Exam Head: Present: normocephalic Eye: Present: EOMI ENT: Present: mucous membranes moist, oropharynx clear - Routine Neck Exam Present: supple - Routine Respiratory Exam Present: CTA bilaterally. Absent: wheezes - Routine Cardiovascular Exam Present: RRR, S1, S2. Absent: murmur - Routine Abdominal Exam Present: soft, normoactive bowel sounds, non distended. Absent: tenderness - Routine Extremities Exam Present: no edema - Routine Skin Exam Present: dry, warm - Routine Neurological Exam Present: alert, oriented X3, CN II-XII intact - Routine Psychiatric Exam Present: normal affect IRU A/P (1) CIDP (chronic inflammatory demyelinating polyneuropathy) Current visit: Yes Status: Chronic She has made significant benefit with regard to her muscle weakness related to the CIDP. She is stable for dismissal to her home. (2) Disseminated histoplasmosis Current visit: Yes Status: Acute She remains on itraconazole 200 mg twice daily. She will follow-up with Dr. Coleman today. (3) Thrombocytopenia Current visit: Yes Status: Resolved (4) Granulomatous hepatitis Current visit: Yes Status: Acute (5) Ascites Qualifiers: Ascites type: other type Qualified Code(s): R18.8 - Other ascites Current visit: Yes Status: Resolved (6) Constipation by delayed colonic transit Current visit: Yes Status: Resolved (7) Pruritus Current visit: Yes Status: Acute DVT Prophylaxis: Eliquis Resuscitation Status: Full Code - Course Hospital Course: Sigifredo Lee MD: 11/02/17 10:59 Cooperative but slow progress with therapy. Continued significant muscle weakness. Tolerating itraconazole adequately. Thrombocytopenia is a concern. 11/05/17 10:28 Continued worsening platelet count despite IVIG. Cooperative but continues to demonstrate substantial weakness. Therapies are code treating for energy conservation. Remains on itraconazole. Eliquis has been discontinued. 11/06/17 10:39 Fluid weight is down. Remains on Lasix and frequent voiding. Platelets better after transfusion. Bone marrow exam yesterday with results pending. 11/07/17 10:18 Edema improved. Started wrapping legs yesterday. Bone marrow results pending. Reassess lab today. 11/09/17 16:29 Edema much improved. Weight down. Lasix discontinued today. Bone marrow results reviewed. Platelet count is up after transfusion. She is cooperative with therapy and making progress. 11/12/17 10:56 Abdominal pain last night presumably secondary to constipation. Continues to work with therapy and making progress. Platelet count improved. 11/13/17 10:49 Weight gradually increasing. Edema remains resolved with wrapping of the legs. Minimal output from Pleurx catheter. Increased muscle tone in all 4 extremities. Platelet count normal and Promacta discontinued. 11/15/17 10:46 Patient is making good progress with therapies. Continues minimal output from Pleurx catheter. Platelet count remains normal. Promacta is continued at a lower dose. Management per hematology. 11/16/17 10:30 Blood count remains above 3 9000 and to is now held. Minimal output from Pleurx catheter. Patient is making progress with regard to therapies. 11/19/17 10:19 Patient's ambulatory distance and lower extremity strength appears to be significantly improved. Patient's legs did "buckle" today and she was let down safely. I examined the patient thereafter and she is stable and without evidence of injury. Pleurx catheter may be safely removed at this time. 11/20/17 09:55 Pleurx catheter to be removed tomorrow morning. Labs stable. Patient continues to cooperate with therapy and is improving. 11/22/17 14:10 Has developed worsening itching although relieved by lotion and Benadryl. Etiology of itching unclear but likely related to dry skin plus or minus hydrocodone. Has made substantial improvement with regard to therapies. Pleurx catheter removal went well. 11/23/17 10:15 Itching relieved with lotion and Atarax. No rash seen. Abdomen soft and minimally tender at Pleurx catheter removal site. Weight remains down. Continues to improve functionally. 11/26/17 10:43 Continues to have a bit of itching and night. Weight remains stable and reduced. No rash. Has improved significantly with functional mobility. 11/27/17 10:12 Patient is stable and ready to return to her home. - Interventions to Obtain Goals PT Treatment Plan: Balance/Proprioception, Functional Activities, Gait Training , Patient/Family Education, Therapeutic Exercise OT Treatment Plan: ADL (Basic Care), Balance Training, IADL, Pt./Family Education, Ther. Exercise for ADL
--- NOTE | 2017-11-27 11:30 | Discharge Summary ---
Discharge Information Date of admission: 10/31/17 12:17 Anticipated date of discharge: 11/27/17 Attending Physician: Sigifredo Lee MD Consults: 10/31/17 14:30 Physician Consult [CONS] Routine Consulting Provider: Kristen Rasheed Reason For Exam: disseminated histo Ordering Provider has Notified [employer] Operator: No Physician Consult [CONS] Routine Consulting Provider: Genet Torres Reason For Exam: medical management Ordering Provider has Notified [employer] Operator: No 11/01/17 09:26 [facility] Consult [CONS] Routine 11/02/17 12:05 Physician Consult [CONS] Routine Consulting Provider: Birgit Franz Reason For Exam: thrombocytopenia Ordering Provider has Notified [employer] Operator: Yes 11/04/17 11:29 Physician Consult [CONS] Routine Consulting Provider: Ashly Kate Reason For Exam: chronic inflammatory demyelinating polyneuropathy Ordering Provider has Notified [employer] Operator: No Comment: please call sunday11/19/17 08:00 Physician Consult [CONS] Routine Consulting Provider: Kam Jefferson Reason For Exam: pleurx catheter removal Ordering Provider has Notified [employer] Operator: No - Discharge Diagnosis (1) 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 Chronic inflammatory demyelinating polyneuropathy 2. Disseminated histoplasmosis 3. 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 Ascites secondary to fluid excess-resolved 6. Constipation secondary to delayed transit - Laboratory Labs: 11/26/17 13:02 11/26/17 13:02 - Microbiology Microbiology 11/05/17 15:45 Blood Blood Fungal Culture - Preliminary History of Present Illness HPI: Maday is a very pleasant 47-year-old female with a diagnosis of CIDP. She was initially admitted to [facility] on 10/07/2017 with severe weakness. She underwent plasmapheresis by Dr. Contreras and was also followed by Dr. Edwards. She was seen by Dr. Angel Coleman who diagnosed disseminated histoplasmosis based on a urine antigen that have been obtained as an outpatient. The patient did undergo a cholecystectomy and liver biopsy by Dr. Mar on 10/18/2017. Liver biopsy demonstrated granulomatous hepatitis but was negative for fungal elements. A Pleurx catheter was placed in the left abdominal area because of the ascites. Dr. Coleman had recommended a 6-12 month course of itraconazole 200 mg twice daily. As a result of these events, the patient developed multiple functional deficits and acute inpatient rehabilitation was recommended. She was admitted to acute inpatient rehabilitation at [facility] on 11/01/2017 for a multidisciplinary approach to her recovery. Medical diagnoses include muscle weakness secondary to CIDP, severe thrombocytopenia of uncertain cause, history of saddle embolus on Eliquis therapy at risk for bleeding and disseminated histoplasmosis. Hospital Course This is a general summary of the patient's hospital course. For more details refer to the complete medical record. Maday was admitted to acute inpatient rehabilitation for a multidisciplinary approach to her recovery. She was seen by numerous consultants as follows: 1.Birgit Franz MD (and Dr. Sebas Rand) (hematology): For thrombocytopenia. Bone marrow examination was recommended and performed on 11/05/2017. This demonstrated an approximate cellularity of 35% with some areas showing a cellularity of 25% with erythroid predominance and overall mildly increased megakaryocytes. There was no evidence of increase in blasts nor blast clusters. There was no evidence of metastatic carcinoma nor significant fibrosis. Iron stain demonstrated absent iron stores. Flow cytometry was unremarkable. Her thrombocytopenia was felt to be immune related. She had been given 2 doses of IVIG on acute inpatient rehabilitation without benefit. Patient was placed on Promacta which seemed to stimulate platelet production and by the time of dismissal her platelet count was normal at 329,000, off Promacta for some time. 2. Kristen Rasheed MD (Infectious Disease): For disseminated histoplasmosis. She did monitor levels of itraconazole and recommended continuing the current dose of 200 mg twice daily. Itraconazole level on 11/01/2017 was 0.4 with hydroxy itraconazole level 0.5. Repeat levels on 11/13/2017 showed itraconazole level 0.9 and hydroxy itraconazole 1.2. The patient did develop some pruritus toward evening. It was unclear if this is related to itraconazole or not. No rash was identified. Dr. Rasheed recommended continuing the itraconazole at this time. 3. Ashly Kate MD (Neurology): For her CIDP. He did not recommend further intervention at this time and recommended continued rehabilitation. 4. Kam Jefferson MD (General Surgery): For consideration of removal of her Pleurx catheter in the abdomen. Patient's output from the catheter had dwindled to minimal and her weight was down with the use of diuretics. The Pleurx catheter was removed without difficulty on 11/21/2017 and she tolerated this well. Venous Doppler study of the right lower extremity was negative for clot on 11/01. Bilateral venous Doppler study was done on 11/03/2017 and this was negative for clot. This was during a time of her thrombocytopenia and Dr. Franz was seeing whether we could hold Eliquis. CT scan of the chest was performed demonstrating some filling defects but this was felt to be chronic. No large acute PE was identified. For that reason Eliquis was held for a time until her platelet count came back up. It was then restarted. She was also followed closely by Dr. Lee as well as the hospitalist service. The following levels of functional competence are to be considered preliminary information. The reader is encouraged to refer to actual therapy notes and reports for specific details. She was followed by occupational therapy and made significant improvements. At the conclusion of therapy, she was able to dress with minimum assistance. Bathing was performed with minimum assistance. She was also followed by physical therapy. She was able to transfer with standby assistance at the conclusion of therapy. She was able to ambulate with a front-wheeled walker with standby assistance over 60 feet. She is dismissed in improved condition on 11/27/2017 and will follow-up with Dr. Angel Coleman for her disseminated histoplasmosis, Dr. Levy Genao for her history of thyroid cancer and recent thrombocytopenia and Dr. Christine Edwards for her CIDP. She will see Dr. Brian Valero for primary care. It is noted that fentanyl patch was started in [place]. This was continued here and I did give her a prescription for 12 g patches, #5 upon dismissal. Location of pain is in the hands and legs and hips. It is not clear if this requires to be continued in the future or not. This is deferred to her primary care physician Dr. Valero or neurologist Dr. Edwards. Hospital course: 10/31/17 Extremely complicated case. Agree with ID consultation. Discharge instructions recommended to check an itraconazole drug level - this has been ordered for tomorrow am along with CBC, CMP, magnesium level. Continue fluid restriction; carb consistent diet. Check BGM, though in [place] she was not requiring SSI. Check daily weights. Will obtain Rt leg venous doppler. Even though she's on Eliquis, this was temporarily held during her hospitalization because of anemia and thrombocytopenia, and she is certainly at high risk for DVT. Report to Dr. Lee indicated they are to drain Pleurx daily, approx. 1L of fluid. Discussed with Dr. Lee and nursing staff. Extensive chart review. At time of Discharge from [facility], she was started on Eliquis 2.5 mg twice a day, Benadryl 25 mg if needed for itching, fentanyl 12 g patch, Lasix 40 mg daily, itraconazole 200 mg twice a day, and lactulose 20 g daily. She is also to be taking: Ergocalciferol 50,000 units once a week, folic acid 0.8 mg daily, levothyroxine 175 g daily, Mag-Ox 400 mg with supper, medical Paremyd 5 mg 30 minutes before meals, nystatin powder 3 times a day as needed, omeprazole 20 mg daily, Zofran 4 mg ODT as needed, MiraLAX 17 g daily when necessary, spironolactone 50 mg daily, Effexor 75 mg twice a day. She has an appointment scheduled with Dr. Angel Coleman with infectious disease on November 27 at 2:30 PM. 11/03/17 Extremely complicated case. ID consultation. Discharge instructions recommended to check an itraconazole drug level-currently pending. Continue fluid restriction; carb consistent diet. BG has been low normal. Reports tolerating PO w/o difficulty. Bilateral LE doppler was negative for DVT. CTA was a bit limited, but did not show any acute PE. She is on Eliquis, but Dr. Franz to determine possible stopping due to low platelets. Intra-abdominal draining of Pleurx daily, approx. 1L of fluid, recommended on discharge. Multiple abdominal drains noted. Recent complete GB removal. ITP with further decline of platelets- per Dr. Franz. IVIG given yesterday and is to be repeated today. Decadron, Benadryl given daily as well. Continue low dose fentanyl patch for pain and PRN APAP. Concern for atelectasis vs. pneumonia- encourage pulmonary toilet. Continue to monitor closely. Labs and chart reviewed. D/W Dr. Aponte. 11/04/17 ID consultation for histoplasma infection. Itraconazole drug level currently pending. Dr. Rasheed to see Sunday. Neuro consultation for CIDP. Dr. Kate to see Sunday. Dr. Franz has seen patient for ITP. Initiated IVIG, Decadron and Benadryl. Anticoagulation has been discontinued. No DVT in her legs and no acute pulmonary emboli. SCDs for DVT prophylaxis. Platelets up from yesterday. 9000-- >11,000. Continue fluid restriction. Intra-abdominal draining of Pleurx daily, approx. 1L of fluid, recommended on discharge. Continue low dose fentanyl patch for pain and PRN APAP. TSH very slightly elevated. Free T4 pending. No adjustment made to thyroid med. Increase Lasix to 60mg and elevate legs AMAP for pedal edema. Follow electrolytes. 11/05/17 Appreciate consultations- Dr Franz, Dr Rasheed and Dr Kate Remains on Itraconazole BID; likely need for 6-[address] Franz and Dr Rand following regarding probable IPT and thrombocytopenia. PLT today 7. Eliquis stopped given negative findings of thrombus of scans over the weekend Continue on fluid restriction and monitor abdominal drainage often. Lasix was increased 11/04/17. Follow weights and edema 11/09/17 Hgb up to 10, plt 23 yesterday - will repeat labs today. Had a platelet pheresis pack on 10/31 and 11/05. Promacta ordered per heme. Bone marrow aspiration and biopsy showed hypocellular marrow for heart age, 35% cellularity, increased megakaryocytes suggestive of peripheral destruction (can include ITP, Liver disease and hypersplenism, drug related and infection related ). The bone marrow showed no evidence of leukemia or dysplasia, no infiltrative process, no granuloma, no metastatic disease. Anticoagulants have been discontinued per heme because risk outweighs benefit. BP stable. Working well with therapy. Pt tends to void frequently after Lasix dose, which interrupts therapy. Change dosing time to 1300. Continue Itraconazole BID for 6-12 months as recommended by Dr Rasheed 11/11/17 Pain in RLQ. Morphine now available. KUB +increased colonic stool burden. 11/12/17 KUB shows constipation. Lactulose and MiraLAX increased to BID per attending. Will add Fleet's enema if next suppository is unsuccessful. Hgb up to 10.9 and platelets 84 as of yesterday. Will repeat labs in am. Promacta per heme/onc. Continue Itraconazole 200mg PO BID for 6-12 months. Repeat Itraconazole level in am. 11/13/17 Plan is to monitor her drainage around GONZÁLEZ site insertion overnight. Suspect that overall drainage is declining. Site does not appear to be infected , is without erythema Will reevaluate tomorrow morning Continue with lactulose and MiraLAX for bowel motivation Continue Itraconazole 200mg PO BID for 6-12 months. Repeat Itraconazole level drawn today 11/13 and pending CBC and BMP from today reviewed. Platelet count remains normal Need to work on PT and OT for ongoing strengthening 11/15/17 Promacta dc'd. Both hgb and platelets have improved. Drainage from abdominal incisions continues to decrease. Monitor weight -- slight increase noted since dc Lasix. 11/19/17 Overall she is doing well. Eliquis was held by surgery in preparation for removal of the Pleurx catheter under local and sedation later today as it is draining minimally and is no longer holding suction. Labs, vital signs, nurse's notes and rehabilitation notes reviewed. PLAN - 11/22/17: Overall she is doing well. Pleurx catheter removed successfully by Dr. Jefferson on 11/21/17. Continue to monitor wounds closely for signs of infection. Eliquis was restarted following the procedure. CBC stable with platelets >200K. Continue to monitor closely. Anemia resolved - Hgb 12.1. Monitor closely. Continue to encourage participation in therapies for strengthening and improvement in functional mobility. Increased pruritus, most likely secondary to hydrocodone. Continue Benadryl as needed. Atarax 25mg Q6H PRN itching for additional relief. Anticipate discontinuation of hydrocodone in near future. 11/26/17 Continue Itraconazole 200mg po bid. F/U with Dr. Coleman for any dose changes and to determine duration of therapy. Benadryl PRN pruritus. She plans to F/U will all of her specialists in the [place] area. Time spent with patient: greater than 35 minutes Resuscitation Status: Full Code Discharge Plan - Med Rec/Dispo Referrals/Follow Up: BRIAN VALERO [Physician] - (Dr. Yeimi Valero f/u 1-2 weeks after discharge) Additional Instructions: Dr. Agnel Coleman with infectious disease on November 27 at 2:30 PM. This appt. had been scheduled from a previous Hosp. stay. Prescriptions: New Lactulose Oral Liq [Lactulose] 20 gm PO BID solution Ergocalciferol (Vit. D2) [Vitamin D-2] 50,000 unit PO Cano@0900 cap Continue DiphenhydrAMINE [Benadryl] 1 cap PO Q4H PRN PRN Reason: Itching Folic Acid 0.8 mg PO DAILY Ondansetron HCl [Zofran] 4 mg PO Q6HR PRN PRN Reason: nausea PEG 3350 17gm PACKET [Miralax] 17 gm PO DAILY PRN PRN Reason: Constipation Spironolactone [Aldactone] 50 mg PO DAILY Venlafaxine [Effexor] 75 mg PO BID Apixaban [Eliquis] 2.5 mg PO BID #60 tab Levothyroxine Tab [Synthroid] 175 mcg PO ACB Metoclopramide HCl [Reglan] 5 mg PO TID Omeprazole [Prilosec] 1 cap PO ACB Itraconazole [Onmel] 200 mg PO BID #60 tab FentaNYL PATCH [Duragesic Patch] 12 mcg TD Q3D #5 patch Changed Magnesium Oxide [Magnesium] 400 mg PO WS #30 Discontinued Furosemide [Lasix 40 mg Tab] 1 tab PO DAILY Nystatin Powder [Mycostatin] 15 applicatio TP TID Lactulose 20 gm PO DAILY Ergocalciferol (Vitamin D2) [Vitamin D2] 1 cap PO WEEKLY - Disposition 01 Discharged Home, Self-Care - Dismissal Complete Discharge Instructions are:: Complete
--- NOTE | 2017-11-27 11:36 | Letter to Referring Physician ---
Dear Dr. Fish, This is a brief note to bring you up-to-date on the status of Maday Burdick and her stay on the acute inpatient rehabilitation unit at [facility]. As you are likely aware, this patient was admitted to the [facility] on 10/07/17 for weakness/CIDP. During that admission she underwent cholecystectomy by Dr. Mar as well as liver biopsy demonstrating granulomatous hepatitis. Dr. Coleman also saw the patient and diagnosed disseminated histoplasmosis. As a result of these issues, she developed multiple functional deficits. The patient was stabilized while on the acute level and admitted to inpatient rehabilitation unit at [facility] on October 31, 2017. While on inpatient rehabilitation, this patient was seen by occupational therapy and physical therapy and improved overall in her functional ability. She was seen by multiple consultants while on acute rehabilitation. She did have profound thrombocytopenia felt to be immune related. A bone marrow biopsy was performed with results as noted in the discharge summary. Please see a copy of the history and physical examination as well as discharge summary faxed separately for further details. The patient is being dismissed today on 11/27/2017. She will follow up with you as well as multiple other consultants in [place]. She is able to ambulate at the present time which is a significant improvement. She is able to perform most ADLs without significant assistance. Please note that I did give her a prescription for fentanyl patch 12 g #5 only. This was started while in [place]. Her pain is primarily in the hands, arms and hips. Whether this needs to be continued long-term is not clear and I will leave that to your judgment. She was not given other pain medications at this time. Thank you for allowing us to be involved in this nice patient's care. Please contact me directly should you have any questions regarding their stay on the inpatient rehabilitation unit. Sincerely, Sigifredo Lee M.D.
== END 2017-11-27 10:40 | disposition home health service (06) | DRG 982 ==
PROVIDERS: ADMIT Internal Medicine; ATTEND Internal Medicine